=== PATIENT | female | born 1990 | race Caucasian/White ===

== ENCOUNTER 2020-07-21 08:12 | Outpatient (REF) | payer MEDICAID, SELFPAY ==
[2020-07-22 12:54] LABS: CT PCR NOT DETECTED (Not Detect.); NG PCR NOT DETECTED (Not Detect.)
[2020-07-22 13:02] LABS: BV Int Neg Control Negative (Negative); BV Int Pos Control Positive (Positive)
[2020-07-26 19:21] LABS: HPV mRNA E6/E7 rflx Not Detected (Not Detected)
== END 2020-07-21 08:13 | disposition home or self-care (01) ==
LOC: HO.LAB 08:12
PROVIDERS: Visit Provider Advanced Practice Midwife
DX: R10.2 Pelvic and perineal pain (principal); N89.8 Other specified noninflammatory disorders of vagina; N93.9 Abnormal uterine and vaginal bleeding, unspecified
CPT/HCPCS: 87480; 87491; 87510; 87591; 87624; 87625; 87660; 88141; 88142; 99212

== ENCOUNTER 2020-07-25 10:15 | Outpatient (REF) | payer MEDICAID, SELFPAY ==
--- NOTE | 2020-07-25 10:27 | US_ITS ---
EXAMINATION: PELVIC ULTRASOUND CLINICAL INFORMATION: Pelvic and perineal pain COMPARISON: Previous pelvic ultrasounds most recent March 2020 TECHNIQUE: Transabdominal and transvaginal pelvic ultrasound was performed. Transvaginal exam was performed for better visualization of the uterus and ovaries. FINDINGS: The uterus is anteverted and measures 7.2 x 3 x 4.7 cm in dimension. No focal uterine lesion is seen. Endometrial thickness is normal estimated at 0.7 cm. There are small nabothian cysts in the cervix. The ovaries are normal-appearing. The right ovary measures 3.6 x 1.9 x 2.5 cm and the left ovary measures 2.8 x 2 x 2.2 cm. There is no fluid in the pelvis. US/US transvaginal IMPRESSION: Unremarkable exam.
--- NOTE | 2020-07-25 10:27 | US_ITS ---
EXAMINATION: PELVIC ULTRASOUND CLINICAL INFORMATION: Pelvic and perineal pain COMPARISON: Previous pelvic ultrasounds most recent March 2020 TECHNIQUE: Transabdominal and transvaginal pelvic ultrasound was performed. Transvaginal exam was performed for better visualization of the uterus and ovaries. FINDINGS: The uterus is anteverted and measures 7.2 x 3 x 4.7 cm in dimension. No focal uterine lesion is seen. Endometrial thickness is normal estimated at 0.7 cm. There are small nabothian cysts in the cervix. The ovaries are normal-appearing. The right ovary measures 3.6 x 1.9 x 2.5 cm and the left ovary measures 2.8 x 2 x 2.2 cm. There is no fluid in the pelvis. US/US pelvic complete IMPRESSION: Unremarkable exam.
== END 2020-07-25 10:16 | disposition home or self-care (01) ==
LOC: HO.HMGCX 10:15
PROVIDERS: PCP Internal Medicine; Visit Provider Advanced Practice Midwife
DX: R10.2 Pelvic and perineal pain (principal)
CPT/HCPCS: 76830; 76856

== ENCOUNTER → 2020-08-08 10:13 | Outpatient (BNVA) | payer MEDICAID, SELFPAY | PROVIDERS: Visit Provider Advanced Practice Midwife | DX: Z76.89 Persons encountering health services in other specified circumstances (principal) ==

== ENCOUNTER 2020-09-07 10:28 | Outpatient (REF) | payer MEDICAID, SELFPAY | END 2020-09-07 10:29 | disposition home or self-care (01) | LOC: HO.LNP 10:28 | PROVIDERS: PCP Pediatrics; Visit Provider Obstetrics & Gynecology | DX: R87.612 Low grade squamous intraepithelial lesion on cytologic smear of cervix (LGSIL) (principal) | CPT/HCPCS: 57454; 81025; 88305; 99212 ==

== ENCOUNTER → 2020-09-14 15:21 | Outpatient (BNVA) | payer MEDICAID, SELFPAY | PROVIDERS: PCP Pediatrics; Visit Provider Obstetrics & Gynecology | DX: Z76.89 Persons encountering health services in other specified circumstances (principal) ==

== ENCOUNTER → 2020-09-16 14:19 | Outpatient (BNVA) | payer MEDICAID, SELFPAY | PROVIDERS: Visit Provider Obstetrics & Gynecology | DX: Z76.89 Persons encountering health services in other specified circumstances (principal) ==

== ENCOUNTER → 2020-11-10 10:47 | Outpatient (BNVA) | payer MEDICAID, SELFPAY | PROVIDERS: Visit Provider Advanced Practice Midwife ==

== ENCOUNTER → 2021-02-20 09:31 | Outpatient (BNVA) | payer MEDICAID, SELFPAY | PROVIDERS: PCP Internal Medicine; Visit Provider Advanced Practice Midwife | DX: Z30.41 Encounter for surveillance of contraceptive pills (principal) | CPT/HCPCS: 99212 ==

== ENCOUNTER 2021-03-31 13:11 | Outpatient (REF) | payer MEDICAID, SELFPAY ==
[2021-03-31 14:18] LABS: Cholesterol 162 mg/dL; HDL Cholesterol 67 mg/dL; LDL Cholesterol Calculated 78 mg/dl; Triglycerides 88 mg/dL
[2021-03-31 14:27] LABS: Estimated Average Glucose 108 mg/dL; Hemoglobin A1c % 5.4 %
== END 2021-03-31 13:12 | disposition home or self-care (01) ==
LOC: HO.LAB 13:11
PROVIDERS: PCP Internal Medicine; Visit Provider Psychiatry & Neurology Psychiatry
DX: Z79.899 Other long term (current) drug therapy (principal)
CPT/HCPCS: 36415; 80061; 83036

== ENCOUNTER 2022-03-01 10:30 | Outpatient (REF) | payer MEDICAID, SELFPAY ==
[2022-03-01 12:09] LABS: HCG Quantitative 9629 mIU/mL
== END 2022-03-01 10:31 | disposition home or self-care (01) ==
LOC: HO.LAB 10:30
PROVIDERS: PCP Internal Medicine; Visit Provider Advanced Practice Midwife
DX: Z34.90 Encounter for supervision of normal pregnancy, unspecified, unspecified trimester (principal)
CPT/HCPCS: 36415; 84702

== ENCOUNTER 2022-03-02 08:31 | Outpatient (REF) | payer MEDICAID, SELFPAY ==
--- NOTE | ~2022-03-02 | US_ITS ---
EXAMINATION: US OBSTETRICAL ULTRASOUND CLINICAL INFORMATION: Threatened COMPARISON: None. LMP: 01/18/2022. Gestational age by maternal dates is 6 weeks 1 day. Estimated date of delivery by maternal dates is 10/25/2022. TECHNIQUE: Transabdominal and transvaginal first trimester OB ultrasound FINDINGS: The uterus is normal in size and shape. There is an intrauterine gestational sac. Mean sac diameter measures 1.3 cm which would suggest gestational age of 6 weeks 0 days which agrees with date from LMP. No pole is seen. This may be due to early intrauterine . The ovaries are normal. There is no fluid in the pelvis. US/US OB pelvic and transvaginal IMPRESSION: Intrauterine gestational sac and yolk sac. No pole seen. This may be due to early gestational age. Imaging follow-up recommended.
== END 2022-03-02 08:32 | disposition home or self-care (01) ==
LOC: HO.US 08:31
PROVIDERS: Visit Provider Advanced Practice Midwife
DX: O20.0 Threatened abortion (principal)
CPT/HCPCS: 76801; 76817; 99212

== ENCOUNTER 2022-03-08 10:33 | Outpatient (REF) | payer MEDICAID, SELFPAY ==
[2022-03-08 11:47] LABS: HCG Quantitative 45886 mIU/mL
[2022-03-08 21:15] LABS: CT PCR NOT DETECTED (Not Detect.); NG PCR NOT DETECTED (Not Detect.)
== END 2022-03-08 10:34 | disposition home or self-care (01) ==
LOC: HO.LAB 10:33
PROVIDERS: PCP Internal Medicine; Visit Provider Obstetrics & Gynecology
DX: O26.851 Spotting complicating pregnancy, first trimester (principal); Z20.2 Contact with and (suspected) exposure to infections with a predominantly sexual mode of transmission
CPT/HCPCS: 36415; 84702; 86850; 86900; 87491; 87591; 99212

== ENCOUNTER 2022-03-16 10:03 | Outpatient (REF) | payer MEDICAID, SELFPAY ==
--- NOTE | ~2022-03-16 | US_ITS ---
EXAMINATION: OBSTETRICAL ULTRASOUND, FIRST TRIMESTER HISTORY: 31-year-old at the 8.1 weeks of gestation Vaginal spotting LMP: 01/18/2022 COMPARISON: 03/02/2022 TECHNIQUE: Real time transabdominal imaging with color and M-mode Doppler. FINDINGS: A single, live IUP CRL of 1.3 mm c/w 7.4wks is noted. Heart Rate: 150 beats per minute. Both maternal ovaries are seen and appear normal. GESTATIONAL AGE: 1. GA from LMP: 8.1 wks 2. GA from AUA: 7.4 wks ESTIMATED DATE OF DELIVERY: 1. GURJIT from LMP: 10/25/2022 2. GURJIT from AUA: 10/29/2022 US/US OB <= 14 weeks fetus IMPRESSION: 1. A single live IUP 2. Size equals dates 3. Normal ovaries Thank you very much for this referral. This note was generated with a voice recognition program. Please excuse any errors which may have been overlooked during my review of this note. Sometimes these errors may affect the content or meaning of a given sentence.
== END 2022-03-16 10:04 | disposition home or self-care (01) ==
LOC: HO.US 10:03
PROVIDERS: Visit Provider Advanced Practice Midwife
DX: Z34.91 Encounter for supervision of normal pregnancy, unspecified, first trimester (principal); Z3A.08 8 weeks gestation of pregnancy
CPT/HCPCS: 76801; 99212

== ENCOUNTER → 2022-04-02 09:42 | Outpatient (BNVA) | payer MEDICAID, SELFPAY | PROVIDERS: PCP Internal Medicine; Visit Provider Obstetrics & Gynecology | DX: Z32.01 Encounter for pregnancy test, result positive (principal) ==

== ENCOUNTER 2022-04-24 10:38 | Outpatient (REF) | payer MEDICAID, SELFPAY ==
[2022-04-24 13:54] LABS: Hemoglobin 11.1 g/dl (12.0-16.0); Mean Corpuscular HGB Conc 31.7 g/dl (31.0-35.0); Mean Corpuscular Hemoglobin 25.1 pg (27.0-33.0); Mean Platelet Volume 8.9 fL (9.4-12.3); Platelet Count 415 X10*3/uL (160-400); Red Blood Count 4.43 X10*6/uL (4.20-5.50); Red Cell Distribution Width 16.1 % (11.0-16.0); White Blood Count 10.2 X10*3/uL (4.8-10.8)
[2022-04-24 14:20] LABS: Glucose 1 Hour PP 50gm Dose 108 mg/dL (60-140)
[2022-04-24 16:30] LABS: Amphetamine Screen Urine POSITIVE (Not Detect); Barbiturates, Urine Not Detected (Not Detect); Benzodiazepines Screen Urine Not Detected (Not Detect); Cannabinoid Screen Urine Not Detected (Not Detect); Cocaine Screen Urine Not Detected (Not Detect); Fentanyl, urine Not Detected (Not Detect); Opiate Screen Urine Not Detected (Not Detect); Phencyclidine Screen Urine Not Detected (Not Detect)
[2022-04-25 04:52] LABS: HBsAGNum1 0.18 S/CO (0.00-0.99); HIV AB/AG Nonreactive (Nonreactive); HIV Num 1 0.07 S/CO (0.00-0.99); Hepatitis B Surface Antigen Negative (Negative); ~HepC Num1 0.05 S/CO (0.00-0.79); ~Hepatitis C Antibody Nonreactive (Nonreactive)
[2022-04-25 06:00] LABS: Syphilis Screen Nonreactive (Nonreactive)
[2022-04-25 13:08] LABS: BV Int Neg Control Negative (Negative); BV Int Pos Control Positive (Positive)
[2022-04-26 00:37] LABS: Rubella IgG Antibody 1.46 Index
[2022-04-26 01:07] LABS: Varicella IgG Antibody <135.00 index
[2022-05-04 07:27] LABS: HPV mRNA E6/E7 rflx Not Detected (Not Detected)
== END 2022-04-24 10:39 | disposition home or self-care (01) ==
LOC: HO.LAB 10:38
PROVIDERS: Obstetrics & Gynecology; PCP Internal Medicine; Visit Provider Advanced Practice Midwife
DX: Z36.3 Encounter for antenatal screening for malformations (principal); O99.341 Other mental disorders complicating pregnancy, first trimester; F41.8 Other specified anxiety disorders; F44.9 Dissociative and conversion disorder, unspecified; F60.3 Borderline personality disorder; O99.891 Other specified diseases and conditions complicating pregnancy; N87.0 Mild cervical dysplasia; Z3A.13 13 weeks gestation of pregnancy; Z79.899 Other long term (current) drug therapy
CPT/HCPCS: 80307; 85027; 86762; 86780; 86787; 86803; 86850; 86900; 87086; 87340; 87389; 87480; 87510; 87624; 87660; 88142; 99212

== ENCOUNTER → 2022-04-26 11:40 | Outpatient (BNVA) | payer MEDICAID, SELFPAY | PROVIDERS: Visit Provider Obstetrics & Gynecology | DX: Z34.01 Encounter for supervision of normal first pregnancy, first trimester (principal); Z3A.14 14 weeks gestation of pregnancy | CPT/HCPCS: 99212; Q3014 ==

== ENCOUNTER 2022-04-30 16:49 | Outpatient (REF) | payer MEDICAID, SELFPAY | END 2022-04-30 16:50 | disposition home or self-care (01) | LOC: HO.LAB 16:49 | PROVIDERS: Visit Provider Advanced Practice Midwife | DX: Z13.89 Encounter for screening for other disorder (principal) ==

== ENCOUNTER → 2022-12-07 10:08 | Outpatient (REF) | payer MEDICAID, SELFPAY ==
--- NOTE | 2022-12-07 10:12 | CA_ITS ---
Transthoracic Echocardiogram Patient (Last, First, Middle): Megan Mancini, Gender: Female Date of : 1990 Age: 32 Procedure Date: 12/07/2022 Procedure Type: Transthoracic Echocardiogram Location: OP Height: 165.1 cm Weight: 110.99 kg BSA: 2.16 m2 Heart Rate: 87 bpm BP: 112 / 64 mmHg English Language Learner Tutor: SB Referring MD: Joe Maya MD Symptoms: R60.0 LOWER EXT EDEMA Study Quality: Fair ECG Rhythm: Sinus Conclusions: - The left ventricular systolic function is mildly decreased. The calculated ejection fraction is 51% by biplane method. - No obvious valvular pathology seen on this study. Findings Left Ventricle Normal left ventricular cavity size. There is normal left ventricular wall thickness. The left ventricular systolic function is mildly decreased. The calculated ejection fraction is 51% by biplane method. There is no evidence of regional wall motion abnormalities. Diastolic function is normal for age. Right Ventricle Normal right ventricular cavity size and systolic function. Atria Both atria are normal in size. Aortic Valve The aortic valve was not well visualized. The aortic valve structure and function is likely normal. There is no aortic valve stenosis. There is no aortic valve regurgitation. Mitral Valve The mitral valve appears normal. There is no mitral valve regurgitation. There is no mitral valve stenosis. Pulmonic Valve The pulmonic valve is likely normal. Tricuspid Valve There is no tricuspid valve regurgitation. There is no evidence of pulmonary hypertension. Great Vessels The asc aorta and aortic arch are normal in size. Venous The inferior vena cava is normal in size and collapses greater than 50% with inspiration. Pericardium/Pleural There is no evidence of pericardial effusion. Prior Study Comparison No prior study available for comparison. Recommendations, Care & Conclusions No obvious valvular pathology seen on this study. Measurements 2D Linear Measurements IVSd: 0.77 0.6-0.9/0.6-1.0 cm LVIDd: 4.64 3.9-5.3/4.2-5.9 cm LVIDd Index: 2.15 2.4-3.2/2.2-3.1 cm/m2 LVIDs: 3.43 2.0-3.6 cm LVPWd: 0.70 0.7-1.1 cm LA Diam: 3.30 2.7-3.8/3.0-4.0 cm LAIDs Index: 1.53 1.5-2.3 cm/m2 LV Mass: 132.28 67-162/88-224 g LV Mass Index: 61.24 43-95/49-115 g/m2 LVOT Diam: 2.00 3.0+(-)1.3 cm 2D Systolic Function EF 4C: 53.50 >55% EF 2C: 51.20 >55% EF BiP: 50.50 >55% Mitral Valve MV Pk E: 0.56 MV PK A: 0.48 MV Decel Time: 147.00 E/A: 1.20 E'Lateral: 11.60 E'Medial: 9.57 E/E' Med: 5.90 E/E' Lat: 4.80 PHT: 43.00 MVA PHT: 5.12 Decel [place]: 3.82 Aortic Valve AoV Pk Milad: 1.07 AoV Pk Grad: 5.00 KIMBERLEY: 3.08 LVOT LVOT Pk Milad: 0.97 LVOT Mn Milad: 0.71 LVOT VTI: 0.18 LVOT Pk Grad: 4.00 LVOT Mn Grad: 2.00 LVOT Diam: 2.00 LVOT Area: 3.14 Diastolic Function MV Pk E: 0.56 MV Pk A: 0.48 E/A: 1.20 E'Medial: 9.57 E/E' Med: 5.90 E' Laterial: 11.60 E/E' Lat: 4.80 Right Ventricle TAPSE (mm): 19.80 TVS' Milad: 11.80 Tricuspid Valve RA Press: 3.00 Great Vessels Aorta Sinus of Valsalva: 2.80 2.0-3.5 cm Ao Asc: 3.10 2.1-3.4 cm Ao Arch: 2.40 Pulmonary Valve PV Pk Milad: 0.95 Peak PV Grad: 4.00 Updated in Other Vendor System with Status of Final Guerrero Burton MD electronically signed on 12/07/2022 2:41:03 PM with status of Final
== END ==
LOC: HO.CARD 10:08
PROVIDERS: PCP Internal Medicine; Visit Provider Internal Medicine
DX: R60.0 Localized edema (principal)
CPT/HCPCS: 93306

== ENCOUNTER 2022-12-14 10:41 | Outpatient (REF) | payer MEDICAID, SELFPAY ==
--- NOTE | ~2022-12-14 | US_ITS ---
EXAMINATION: US ABDOMEN COMPLETE CLINICAL INFORMATION: Elevated alkaline phosphatase levels. COMPARISON: Ultrasound abdomen complete 06/26/2018. TECHNIQUE: Real-time imaging of the abdominal viscera. FINDINGS: PANCREAS: Normal. ABDOMINAL AORTA: The proximal, mid, and distal segments are normal in caliber. INFERIOR VENA CAVA: Visualized portions are normal. LIVER: Normal. The liver is normal in size. The liver contour is normal. Parenchymal echogenicity is normal. No focal hepatic lesion. There is no intrahepatic biliary duct dilatation seen. GALLBLADDER: Gallbladder wall thickness is 0.20 cm. The gallbladder is physiologically distended. Multiple mobile gallstones are present. No evidence of gallbladder wall thickening or pericholecystic fluid. COMMON BILE DUCT: Normal in caliber measuring 0.4 cm in diameter. RIGHT KIDNEY: There is hypertrophied column of Samuel. No hydronephrosis. No renal calculi or focal parenchymal lesions. The kidney measures 12.2 cm in maximum dimension. LEFT KIDNEY: There are echogenic stones. The lower pole stones measure 0.3 x 0.3 x 0.2 cm and 0.2 x 0.2 x 0.2 cm. Upper pole echogenic stone measures 0.3 x 0.2 x 0.3 cm. No hydronephrosis or focal parenchymal lesions. The kidney measures 10.7 cm in maximum dimension. SPLEEN: Normal. The spleen measures 11.0 cm in maximum dimension. FREE FLUID: None. US/US abdomen complete IMPRESSION: 1. Cholelithiasis without wall thickening. 2. Nonobstructive echogenic calculi left kidney. 3. Hypertrophied column of Samuel.
== END 2022-12-14 10:42 | disposition home or self-care (01) ==
LOC: HO.HMGCX 10:41
PROVIDERS: PCP Internal Medicine; Visit Provider Internal Medicine
DX: R74.8 Abnormal levels of other serum enzymes (principal)
CPT/HCPCS: 76700

== ENCOUNTER → 2022-12-26 10:53 | Outpatient (BNVA) | payer MEDICAID, SELFPAY | PROVIDERS: PCP Internal Medicine; Visit Provider Internal Medicine Cardiovascular Disease | DX: R60.0 Localized edema (principal); R07.89 Other chest pain | CPT/HCPCS: 93005; 99202 ==

== ENCOUNTER 2022-12-27 12:27 | Outpatient (REF) | payer MEDICAID, SELFPAY ==
[2022-12-27 13:27] LABS: B Type Natriuretic Peptide < 10 pg/mL (<100)
== END 2022-12-27 12:28 | disposition home or self-care (01) ==
LOC: HO.LAB 12:27
PROVIDERS: PCP Internal Medicine; Visit Provider Internal Medicine Cardiovascular Disease
DX: R60.0 Localized edema (principal)
CPT/HCPCS: 36415; 83880

== ENCOUNTER → 2023-01-02 09:03 | Outpatient (BNVA) | payer MEDICAID, SELFPAY | PROVIDERS: PCP Internal Medicine; Referring Provider Internal Medicine; Visit Provider Surgery | DX: K80.50 Calculus of bile duct without cholangitis or cholecystitis without obstruction (principal) | CPT/HCPCS: 99202 ==

== ENCOUNTER 2023-01-09 09:46 | Day surgery (SDC) | payer MEDICAID, SELFPAY ==
--- NOTE | 2023-01-08 08:13 | MHC.SHP ---
Pre-Procedural Eval Section A Date of Service: 01/08/23 The patient is an INPATIENT: No Changes since office visit: No Cold of Flu in the past 2 weeks, No New Medical Problems, No Changes in Medication and No Patient answered all questions The History & Physical has been completed within 30 days and I have reviewed it.: Yes Section B Chief Complaint: Calculus of bile duct without cholangitis or tj Allergies: Allergies Allergy/AdvReac Type Severity Reaction Status Date / Time amoxicillin [AMOXICILLIN] Allergy Intermediate HIVES Verified 01/02/23 09:12 Penicillins [PENICILLINS] Allergy Intermediate HIVES Verified 01/02/23 09:12 caffeine [Pamprin Max] Allergy Unknown Unknown Verified 01/02/23 09:12 fluoxetine [Prozac] Allergy Unknown Unknown Verified 01/02/23 09:12 lamotrigine [Lamictal] Allergy Unknown Unknown Verified 01/02/23 09:12 penicillin V Allergy Unknown Unknown Verified 01/02/23 09:12 sertraline [Zoloft] Allergy Unknown Unknown Verified 01/02/23 09:12 Plan I have reviewed the history and physical and performed a pertinent physical examination on my patient. No changes have occurred unless specified. Time Spent With Patient Time: Total time managing care of this patient today ____ minutes.
--- NOTE | 2023-01-08 13:02 | HO.ANESPROP2 ---
HPI - Anesthesia Eval Consult details Narrative: 32yo F for Cholecystectomy Laparoscopic,poss open Cardiac eval 12/2022 for bilat LE edema 2 months post-. Cardiac etiology ruled out and only prn f/u. PMFSH Active Problems Active Problems: All Active Problems (Updated 05/07/22 @ 14:45 by Jesusita Jeff CNM) Recurrent biliary colic (Acute) (Acute) Encounter for screening for malformation using ultrasound (Acute) Dissociative disorder (Acute) Borderline personality disorder (Acute) Anxiety with depression (Acute) Supervision of normal in second trimester (Acute) Spotting in first trimester (Acute) Early stage of (Acute) Encounter for annual routine gynecological examination (Acute) Dysplasia of cervix, low grade (WILBER 1) (Acute) Abnormal uterine bleeding (AUB) (Acute) Pain of ovary (Acute) Pelvic pain in female (Acute) Past Medical History Medical History (Updated 01/15/23 @ 08:42 by Laurent Kasper MD) Anemia Anxiety with depression Borderline personality disorder Dissociative disorder Dysplasia of cervix, low grade (WILBER 1) Edema History of heart disorder Hx of gastroesophageal reflux (GERD) Kidney stones Morbid obesity Nodule of left lung Normal endoscopic ultrasound of upper gastrointestinal tract Family History Family History Family/Other Breast cancer Mother No problems noted. Father Diabetes Maternal Grandmother HTN (hypertension) Surgical History Surgical History (Updated 01/11/23 @ 09:37 by Eugenio Beltran RN) History of dental surgery Hx laparoscopic cholecystectomy Social History Social History Alcohol intake: current Alcohol intake frequency: 0-2 drinks per day Alcohol type: beer and hard liquor Patient Tobacco Use Status: Former Tobacco user Tobacco use type: Cigarette Smoked in Last 30 Days: No Patient Interested in Nicotine Replacement: No Patient Given Instructions on How to Stop Smoking: No Second Hand Smoke Exposure: No Use of substances other than those prescribed or required for medical reasons: No Currently Displaying Signs/Symptoms of Drug Intoxication Withdrawal: No Any prior treatment program specific to substance use: No Special kd needs: No Agree to transfusion: Yes Advance Directives: No Advance Directives Information Provided: No Nutrition Risks: No Nutritional Risk Patient : No service: No Current occupational status: unemployed Sexual orientation: Straight/Heterosexual Gender identity: Female Meds Allergies Allergy/AdvReac Type Severity Reaction Status Date / Time fluoxetine [Prozac] Allergy Severe Unknown Verified 01/12/23 13:36 lamotrigine [Lamictal] Allergy Severe Unknown Verified 01/12/23 13:36 penicillin V Allergy Severe Shortness Verified 01/12/23 13:36 of Breath sertraline [Zoloft] Allergy Severe Agitated Verified 01/12/23 13:36 amoxicillin [AMOXICILLIN] Allergy Intermediate Shortness Verified 01/12/23 13:36 of Breath Penicillins [PENICILLINS] Allergy Intermediate Shortness Verified 01/12/23 13:36 of Breath Home Medications Medication Instructions Recorded Confirmed Last Taken Type bupropion HCl 150 mg 24 hr tablet, 150 mg PO DAILY 12/26/22 01/13/23 01/12/23 History extended release dextroamphetamine-amphetamine ER 40 mg PO DAILY 01/02/23 01/13/23 01/11/23 History 20 mg 24hr capsule,extend release (Adderall XR) acetaminophen 325 mg tablet 325 mg PO Q4H PRN Pain 01/13/23 01/13/23 01/12/23 History (Tylenol) dextroamphetamine-amphetamine 20 1 tab PO DAILY@1600 01/13/23 01/13/23 01/10/23 History mg tablet docusate sodium 100 mg capsule 100 mg PO BID PRN constipation 01/13/23 01/13/23 01/12/23 History miconazole nitrate 2 % topical 1 appl topical DAILY PRN 01/13/23 01/13/23 Unknown History cream oxycodone 5 mg capsule 5 mg PO Q4H PRN pain 01/13/23 01/13/23 01/12/23 History polyethylene glycol 3350 17 17 g PO DAILY 01/13/23 01/13/23 Unknown History gram/dose oral powder vitamin with calcium 1 tab PO DAILY 01/13/23 01/13/23 Unknown History no.72-iron 27 mg-folic acid 1 mg tablet (WesTab Plus) Exam Exam Date and Time: January 08, 2023 1302 Pertinent Lab Results Pertinent Lab Results: 12/23/22 CBC and BMP WNL (from outside facility) Laboratory Tests 12/27/22 12:44 B-Natriuretic Peptide < 10 Narrative Narrative: EKG 12/2022 normal sinus rhythm with normal EKG ECHO 11/2022 Conclusions: - The left ventricular systolic function is mildly decreased.? ? The calculated ejection fraction is 51% by biplane method. ? ? ? - No obvious valvular pathology seen on this study.? Assessment and Plan Assessment Anesthesia Assessment: Chart Reviewed
[2023-01-09] VITALS (25 sets, daily range): BP systolic 117–133; BP diastolic 71–98; PULSE 60–101; RESP 14–22; TEMP 36.3–36.6; O2SAT 94–99; BMI 40.3
[2023-01-09 10:30] LABS: UPreg QC Valid YES; Urine Pregnancy NEGATIVE (NEGATIVE)
--- NOTE | 2023-01-09 10:47 | P.CONAN_ITS ---
[facility] Active Problems Active Problems: All Active Problems (Updated 01/09/23 @ 10:35 by Jannette Romano RN) Pelvic pain in female (Acute) Pain of ovary (Acute) Abnormal uterine bleeding (AUB) (Acute) Encounter for annual routine gynecological examination (Acute) Early stage of (Acute) Spotting in first trimester (Acute) Supervision of normal in second trimester (Acute) Encounter for screening for malformation using ultrasound (Acute) (Acute) Recurrent biliary colic (Acute) Dissociative disorder (Acute) Borderline personality disorder (Acute) Anxiety with depression (Acute) Dysplasia of cervix, low grade (WILBER 1) (Acute) Past Medical History Medical History Anemia Anxiety with depression Borderline personality disorder Dissociative disorder Dysplasia of cervix, low grade (WILBER 1) Edema History of heart disorder Hx of gastroesophageal reflux (GERD) Kidney stones Morbid obesity Nodule of left lung Normal endoscopic ultrasound of upper gastrointestinal tract Family History Family History Family/Other Breast cancer Mother No problems noted. Father Diabetes Maternal Grandmother HTN (hypertension) Surgical History Surgical History History of dental surgery History of Problems with Anesthesia: No Social History Social History Alcohol intake: former Patient Tobacco Use Status: Former Tobacco user Use of substances other than those prescribed or required for medical reasons: No Special kd needs: No Agree to transfusion: Yes Are you DNR?: No Advance Directives: No Advance Directives Information Provided: Yes Recently lost weight without trying: No Nutrition Risks: No Nutritional Risk Sexual orientation: Straight/Heterosexual Gender identity: Female Meds Allergies Allergy/AdvReac Type Severity Reaction Status Date / Time fluoxetine [Prozac] Allergy Severe Unknown Verified 01/09/23 10:24 lamotrigine [Lamictal] Allergy Severe Unknown Verified 01/09/23 10:24 penicillin V Allergy Severe Shortness Verified 01/09/23 10:24 of Breath sertraline [Zoloft] Allergy Severe Agitated Verified 01/09/23 10:24 amoxicillin [AMOXICILLIN] Allergy Intermediate Shortness Verified 01/09/23 10:24 of Breath Penicillins [PENICILLINS] Allergy Intermediate Shortness Verified 01/09/23 10:24 of Breath Active Medications: Current Medications Lactated Ringer's (Lr) 1,000 mls @ 100 mls/hr IVCONT .Q10H LADY Home Medications Medication Instructions Recorded Confirmed Last Taken Type dextroamphetamine-amphetamine 20 40 mg PO DAILY 04/24/22 12/26/22 Unknown History mg tablet (Adderall) bupropion HCl 150 mg 24 hr tablet, 150 mg PO QAM 12/26/22 12/26/22 Unknown History extended release dextroamphetamine-amphetamine ER 20 mg PO QAM 01/02/23 Unknown History 20 mg 24hr capsule,extend release (Adderall XR) nitrofurantoin 1 cap PO BID 01/09/23 01/09/23 01/08/23 History monohydrate/macrocrystals 100 mg capsule Exam Exam Date and Time: January 09, 2023 1047 Height,Weight and Vital Signs: Height 5 ft 5 in Weight 109.769 kg Pertinent Lab Results Pertinent Lab Results: Laboratory Tests 01/09/23 10:17 Urine Test NEGATIVE Airway Mallampati Class: II (edentulous) TM Dist: >3cm Neck ROM: Full Loose/Missing/Broken Teeth: Yes, Upper and Lower Heart: RRR Lungs: CTA Assessment and Plan Assessment Anesthesia Assessment: Anesthesia Plan Discussed and Chart Reviewed Final Anesthetic Review History of Problems with Anesthesia: No NPO: Yes ASA Class: III Final Preanesthetic Review: Meds/Allgs Chart Reviewed, Consent Obtained/Reviewed and Anes Risks/Benef Reviewed Patient Risk: Intermediate Procedure Risk: Intermediate Anesthetic Plan Anesthetic Plan: GA Disposition: Standard PACU
[2023-01-09] MEDS: Lactated Ringers 1,000 ML 100 ML IVCONT (11:05)
--- NOTE | 2023-01-09 12:13 | P.OP_ITS ---
Operative Note Operative Note Date of Service: 01/09/23 Narrative: Preoperative diagnosis: [] Recurrent biliary colic, incarcerated umbilical hernia Postop diagnosis: [] Same Procedure [] laparoscopic cholecystectomy, primary repair of incarcerated umbilical hernia Surgeon: [] Ranjith Pipe Fitter Soft Copper: [] sheila Holloway Type of Anesthesia: [] General Indication for surgery: [] Symptomatic gallstones Findings: [] Moderately corpulent abdomen. Omental adhesions to the gallbladder. Markedly intrahepatic gallbladder. Patient had a known umbilical hernia , incarcerated with omental contents which was used as the umbilical camera port site. This closed primarily at completion of the procedure. Patient brought to the operating room, placed on the operating table supine position, and after an adequate level of general anesthesia was induced, the patient's abdomen which was corpulent was prepped and draped in usual sterile fashion. Using an infraumbilical curvilinear incision, this carried down through skin, subcu tissue, where hernia sac was identified and dissected from the posterior aspect of the umbilicus. Sac was opened were incarcerated omental contents were amputated along with hernia sac using Bovie. Caicedo technique was used with 0 Vicryl stay sutures to enter the abdominal cavity with the camera port, and insufflated the abdominal l cavity to 15 mm of CO2. Upper midline and right subcostal ports were placed under direct laparoscopic view, the patient placed in reverse Trendelenburg position, tilted to the left. Gallbladder was grasped using laparoscopic graspers, and retracted superiorly and laterally. Omental adhesions were swept off the gallbladder was hilum was approach. Common bile duct was identified and preserved throughout the procedure. Cystic duct the cystic artery to defy, circumferentially skeletonized, each traced directly to the gallbladder, and critical view obtained. Each was clipped proximally x2, distally x1, and transected. Gallbladder which was very intrahepatic was then cauterized from the gallbladder fossa using Bovie. Specimen was placed in an Endo-Catch bag, a retrieved through the umbilical port. Abdominal cavity was copiously irrigated and secured hemostasis. All ports were removed under direct laparoscopic view. Wounds were closed in the following manner; umbilical wound which is also the site of the incarcerated umbilical hernia was closed primarily using interrupted 0 Vicryl sutures. Skin wounds were closed using subcuticular 4-0 Vicryl sutures followed by Steri-Strips and sterile dressings. Wounds were infiltrated with 0.5% Marcaine at completion. Sponge, needle, and instrument counts were reported to be correct. Patient tolerated the procedure well and emerged from anesthesia stable condition. EBL minimum
[2023-01-09] MEDS: oxyCODONE HCl Immed Release 5 MG TABLET PO ×2 (12:29→14:08)
[2023-01-09] MEDS: fentaNYL citrate/PF 100 MCG/2 ML VIAL 25 MCG IVPUSH ×4 (12:29→15:22)
[2023-01-09] MEDS: fentaNYL citrate/PF 100 MCG/2 ML VIAL 50 MCG IVPUSH ×3 (13:20→14:16)
== END 2023-01-09 16:58 | disposition home or self-care (01) ==
PROVIDERS: Nurse Practitioner; PCP Internal Medicine; Visit Provider Surgery
PROC: 0FT44ZZ Resection of Gallbladder, Percutaneous Endoscopic Approach (ICD-10-PCS; CPT 47562; principal; 2023-01-09 11:20)
DX: K80.50 Calculus of bile duct without cholangitis or cholecystitis without obstruction (principal); K42.0 Umbilical hernia with obstruction, without gangrene
CPT/HCPCS: 47562; 81025; 88304; J0131; J2250; J3010

== ENCOUNTER 2023-01-12 13:27 | Observation (INO) | payer MEDICAID, SELFPAY ==
[2023-01-12] VITALS (8 sets, daily range): BP systolic 108–125; BP diastolic 64–80; PULSE 94–141; RESP 15–20; TEMP 36.6–37.2; O2SAT 95–98; BMI 40.3
--- NOTE | ~2023-01-12 | CT_ITS ---
EXAMINATION: CT ABDOMEN AND PELVIS WITH CONTRAST CLINICAL INFORMATION: Obstipation. History of laparoscopic cholecystectomy COMPARISON: Ultrasound of abdomen 12/14/2022 TECHNIQUE: Multidetector volumetric images were obtained from the superior aspect of the liver through the pubic symphysis following administration 85 mL of Omnipaque 350 intravenous contrast. Sagittal and coronal reformatted images were obtained on the technologist's workstation. Oral contrast: No This CT examination was performed using dose optimization techniques as appropriate, variously including the following: *Automated exposure control *Adjustment of mA and/or kV according to patient size (this includes techniques or standardized protocols for targeted exams where dose is matched to indication/reason for exam; i.e. extremities or head) *Use of iterative reconstruction technique DLP: 859 mGy-cm FINDINGS: LUNG BASES: Consolidation with air bronchograms at both lung bases. LIVER, GALLBLADDER, AND BILIARY TREE: No focal liver lesion. No intrahepatic bile duct dilatation. Liver is enlarged. Right lobe of liver measures 21 cm superior inferior. Status post hysterectomy. Fluid at the gallbladder bed consistent with history of recent cholecystectomy. No rim-enhancing collection to suggest presence of abscess. A bile leak cannot be excluded on the basis of this exam. If this a clinical concern then a nuclear medicine exam could be considered. PANCREAS: Unremarkable. SPLEEN: Unremarkable. ADRENAL GLANDS: Unremarkable. KIDNEYS AND URETERS: 2 mm nonobstructive stone lower pole of left kidney. No calculus in the right kidney. There is no hydronephrosis. No ureteral stone. BLADDER: Unremarkable. GASTROINTESTINAL TRACT: The small and large bowel are unremarkable. The appendix is nonvisualized. ABDOMINAL WALL: Edema at the umbilicus from the laparoscopic surgery. No abscess or hernia or drainable fluid collection. LYMPH NODES: Normal. VASCULAR: Unremarkable. PELVIC VISCERA: Unremarkable. OSSEOUS STRUCTURES: Unremarkable. CT/CT abdomen pelvis w IV con IMPRESSION: Status post cholecystectomy. Fluid at the gallbladder bed consistent with history of recent cholecystectomy. No rim-enhancing collection to suggest presence of abscess. A bile leak cannot be excluded on the basis of this exam. If this a clinical concern then a nuclear medicine exam could be considered. Fleischner guidelines were followed.
--- NOTE | ~2023-01-12 | XR_ITS ---
EXAMINATION: XR ABDOMEN KUB CLINICAL INDICATION: Abdominal pain, status post abdominal surgery COMPARISON: None available. TECHNIQUE: AP view of the abdomen. FINDINGS: The bowel gas pattern is nonspecific with prominent loops of small bowel and colon in the upper abdomen. Surgical clips are seen in the right upper quadrant of the abdomen. Findings most consistent with postoperative ileus. No unusual soft tissue calcifications are noted. The bones are unremarkable. XR/XR KUB IMPRESSION: Prominent bowel loops in the upper abdomen with postsurgical changes most consistent with postoperative ileus
--- NOTE | ~2023-01-12 | NM_ITS ---
EXAMINATION: BILIARY TRACT IMAGING STUDY-PLANAR AND SPECT IMAGING CLINICAL INDICATION: A 32-year-old female, status post laparoscopic cholecystectomy done on 01/09/2023. Presented with abdominal pain. CT scan of the abdomen and pelvis done on 01/12/2023 showed focal fluid collection within the gallbladder bed. A follow-up HIDA scan is requested to exclude possibility of bile leak. COMPARISON: CT scan of the abdomen and pelvis done on 01/12/2023 and abdominal ultrasound done on 12/14/2022. TECHNIQUE: Scintillation camera images were obtained over the abdomen for an observation of 60 minutes following the intravenous administration of 5.0 millicuries technetium 99m mebrofenin. In addition planar images in anterior, right, left anterior oblique and right lateral positions were also obtained at 60 minutes. Subsequently, SPECT/CT images of the upper abdomen was also performed approximately 4 hours post injection. FINDINGS: There is good concentration of activity in the liver by 5 minutes post injection. Biliary activity is well visualized by 10 minutes, and there is good visualization of small bowel activity by 15 minutes. The gallbladder is surgically absent. Specifically on the delayed planar images obtained at 60 minutes post injection there is a small focal radiotracer accumulation identified in the region of the gallbladder bed when correlating with prior CT scan of the abdomen and pelvis dated 01/12/2023, consistent with small contained biliary leak. No evidence of any free flow of radiotracer around the liver or within the upper abdomen to suspect free leak. The SPECT images do not add any additional information. NM/NM hepatobiliary wo pharm IMPRESSION: 1. Abnormal study. The delayed planar images obtained at 60 minutes post injection shows a small focal collection of radiotracer in the region of the gallbladder bed, when correlating with prior CT scan of the abdomen and pelvis dated 01/12/2023, consistent with small contained biliary leak within the gallbladder fossa. 2. No evidence of any free biliary leak. 3. No evidence of any biliary obstruction. The CBD is widely patent. 4. The liver function appears to be within normal limits. This critical result was discussed with Dr. Kasper at 5:14 PM on 01/14/2023 and it was ascertained that the content and urgency of the report was understood at the time of direct communication.
--- NOTE | 2023-01-12 13:30 | ED.GENADULT ---
HPI - General Adult General Chief complaint: Abdominal Pain <CABRERA Menendez - Last Filed: 01/12/23 13:38> Stated complaint: body pain, constipated, umbilical hernia sx 5/3 <CABRERA Menendez - Last Filed: 01/12/23 13:38> Time Seen by Provider: 01/12/23 13:47 <CABRERA Menendez - Last Filed: 01/12/23 13:38> Source: patient <CABRERA Garcia Last Filed: 01/12/23 16:36> Mode of arrival: ambulatory <CABRERA Garcia Last Filed: 01/12/23 16:36> Limitations: no limitations <CABRERA Garcia Last Filed: 01/12/23 16:36> History of Present Illness HPI narrative: 32-year-old female who POD #3 from laparoscopic cholecystectomy, primary repair of incarcerated umbilical hernia by Dr. Kasper who presents to the ER for evaluation of obstipation and severe abdominal pain that acutely worsened last night. She states after the surgery she was having moderate pain, but able to sleep after taking oxycodone. She was talking milk of mag daily and colace. She states she has not passed any flatus or had a BM since the surgery. She states prior to the surgery she had a very small hard stool the size of a crayon. She reports nausea and regurgitating of food when she tries to eat. She was able to drink 2 bottles of water today. She also reports she had a fever last night 101. She reports increased urinary frequency and very clear urine. She states it feels similar to when she had a kidney infection. She called Dr. Kasper's office who advised her to come to the ER for further evaluation. <CABRERA Garcia - Last Filed: 01/12/23 16:36> MD complaint: constipation, no passing flatus, severe abd pain <CABRERA Garcia Last Filed: 01/12/23 16:36> Onset (ago): day(s) <CABRERA Garcia Last Filed: 01/12/23 16:36> Location: abdomen <CABRERA Garcia Last Filed: 01/12/23 16:36> Radiation: non-radiation <CABRERA Garcia - Last Filed: 01/12/23 16:36> Severity: severe <CABRERA Garcia Last Filed: 01/12/23 16:36> Severity scale (1-10): 10 <CABRERA Garcia Last Filed: 01/12/23 16:36> Quality: stabbing and aching <CABRERA Garcia Last Filed: 01/12/23 16:36> Pain Consistency: constant <CABRERA Garcia Last Filed: 01/12/23 16:36> Relieving factors: immobilization and medication <CABRERA Garcia Last Filed: 01/12/23 16:36> Exacerbating factors: movement <CABRERA Garcia Last Filed: 01/12/23 16:36> Associated symptoms: fever/chills, loss of appetite, malaise, nausea/vomiting and weakness <CABRERA Garcia Last Filed: 01/12/23 16:36> Treatments prior to arrival: other (oxycodone) <CABRERA Garcia Last Filed: 01/12/23 16:36> Related Data Home medications: Home Medications Medication Instructions Recorded Confirmed dextroamphetamine-amphetamine 20 40 mg PO DAILY 04/24/22 12/26/22 mg tablet (Adderall) bupropion HCl 150 mg 24 hr tablet, 150 mg PO QAM 12/26/22 12/26/22 extended release dextroamphetamine-amphetamine ER 20 mg PO QAM 01/02/23 20 mg 24hr capsule,extend release (Adderall XR) nitrofurantoin 1 cap PO BID 01/09/23 01/09/23 monohydrate/macrocrystals 100 mg capsule Previous Rx's Medication Instructions Recorded vitamin with calcium 1 tab PO DAILY 90 days #90 tabs 03/01/22 no.72-iron 27 mg-folic acid 1 mg tablet ( Vitamins Plus Low Iron) oxycodone 5 mg capsule 5 mg PO Q4H PRN pain #30 caps 01/09/23 <CABRERA Menendez Last Filed: 01/12/23 13:38> Allergies/adverse reactions: Allergies Allergy/AdvReac Type Severity Reaction Status Date / Time fluoxetine [Prozac] Allergy Severe Unknown Verified 01/12/23 13:36 lamotrigine [Lamictal] Allergy Severe Unknown Verified 01/12/23 13:36 penicillin V Allergy Severe Shortness Verified 01/12/23 13:36 of Breath sertraline [Zoloft] Allergy Severe Agitated Verified 01/12/23 13:36 amoxicillin [AMOXICILLIN] Allergy Intermediate Shortness Verified 01/12/23 13:36 of Breath Penicillins [PENICILLINS] Allergy Intermediate Shortness Verified 01/12/23 13:36 of Breath <CABRERA Menendez - Last Filed: 01/12/23 13:38> Review of Systems Review of Systems: Yes Unobtainable due to mental status <CABRERA Garcia - Last Filed: 01/12/23 16:36> [facility] Past Medical History Medical History: Medical History (Updated 01/12/23 @ 15:39 by CABRERA Garcia) Anemia Anxiety with depression Borderline personality disorder Dissociative disorder Dysplasia of cervix, low grade (WILBER 1) Edema History of heart disorder Hx of gastroesophageal reflux (GERD) Kidney stones Morbid obesity Nodule of left lung Normal endoscopic ultrasound of upper gastrointestinal tract <CABRERA Menendez - Last Filed: 01/12/23 13:38> Surgical History: Surgical History (Updated 01/11/23 @ 09:37 by Eugenio Beltran RN) History of dental surgery Hx laparoscopic cholecystectomy <CABRERA Menendez - Last Filed: 01/12/23 13:38> Family History Family History: Family History Family/Other Breast cancer Mother No problems noted. Father Diabetes Maternal Grandmother HTN (hypertension) <CABRERA Menendez - Last Filed: 01/12/23 13:38> Social History Social History: Social History Alcohol intake: current Alcohol intake frequency: 0-2 drinks per day Alcohol type: beer and hard liquor Patient Tobacco Use Status: Former Tobacco user Smoked in Last 30 Days: No Use of substances other than those prescribed or required for medical reasons: No Any prior treatment program specific to substance use: No Special kd needs: No Agree to transfusion: Yes Advance Directives: No Advance Directives Information Provided: No Patient : No Sexual orientation: Straight/Heterosexual Gender identity: Female <CABRERA Menendez - Last Filed: 01/12/23 13:38> Physical Exam ED Vital Signs: Vital Signs - 24 hr 01/12/23 13:31 01/12/23 13:46 01/12/23 14:14 Temperature 97.8 F 98.2 F 98.9 F Pulse Rate 141 H 133 H Respiratory Rate 18 20 18 Blood Pressure 117/79 108/74 Pulse Oximetry 97 97 95 Oxygen Delivery Method Room Air Room Air Room Air 01/12/23 14:00 01/12/23 15:04 01/12/23 15:58 Temperature 98.9 F 98.6 F Pulse Rate 95 103 H 94 Respiratory Rate 20 18 16 Blood Pressure 125/80 115/64 118/68 Pulse Oximetry 97 98 97 Oxygen Delivery Method Room Air Room Air Room Air BMI result Body Mass Index 40.3 <CABRERA Menendez - Last Filed: 01/12/23 13:38> Vital Signs - 24 hr 01/12/23 13:31 01/12/23 13:46 01/12/23 14:14 Temperature 97.8 F 98.2 F 98.9 F Pulse Rate 141 H 133 H Respiratory Rate 18 20 18 Blood Pressure 117/79 108/74 Pulse Oximetry 97 97 95 Oxygen Delivery Method Room Air Room Air Room Air 01/12/23 14:00 01/12/23 15:04 01/12/23 15:58 Temperature 98.9 F 98.6 F Pulse Rate 95 103 H 94 Respiratory Rate 20 18 16 Blood Pressure 125/80 115/64 118/68 Pulse Oximetry 97 98 97 Oxygen Delivery Method Room Air Room Air Room Air BMI result Body Mass Index 40.3 <CABRERA Garcia - Last Filed: 01/12/23 16:36> Appearance: Alert. Oriented X3. Appears uncomfortable, pacing around the room Head: normocephalic, atraumatic. Eyes: Pupils equal, round and reactive to light. ENT: Pharynx normal. No tonsillar swelling or exudate. Neck: Normal inspection. Neck supple. CVS: Tachycardic, low 100s. Regular rhythm. Pulses normal. Respiratory: No respiratory distress. Breath sounds normal. Abdomen: laprascopic scars in RUQ and periumbilical area, no surrounding erythema or drainage. Softly distended with diffuse tenderness to palpation with guarding. Hypoactive bowel sounds with bowel sounds only heard in the left lower quadrant, otherwise absent. Skin: Skin warm and dry. Normal skin color. Normal skin turgor. No rashes. Extremities: No lower extremity edema. No joint swelling. Neuro/psych: Oriented X 3. No motor deficit. No sensory deficit. CN II-XII intact. Normal speech and cognition. <CABRERA Garcia Last Filed: 01/12/23 16:36> Course Course Course Narrative: RME: 32yo F w/PMHx laproscopic cholecystectomy & incarcerated umbilical hernia repair on 01/[address] Kasper c/o abdominal pain, N/V, consipation and not passing flatus since surgery. Denies fever Patient tachycardic, Surgical wounds noted to abdomen with overlying Steri-Strips. Abdomen soft diffusely tender, patient appears uncomfortable. EKG, Labs, lactic/blood cultures, CT AP with IV and p.o. contrast, IVF ordered Full HPI, ROS and PE to be performed by primary ED provider. <CABRERA Menendez Last Filed: 01/12/23 13:38> Reevaluation(s) Reevaluation #1: Patient reporting 7/10 abdominal pain after the 1 mg of IV Dilaudid. She is starting to drink the oral contrast and is nauseous. Ordered for another mg of IV Dilaudid and IV Zofran. Will continue monitor. Will update general surgery with results of CT scan. <CABRERA Garcia Last Filed: 01/12/23 16:36> Time: 16:00 <CABRERA Garcia Last Filed: 01/12/23 16:36> Reevaluation #2: Sign-out to Juanis HIGH who will follow-up results of CT scan, follow-up with surgery and determine disposition. <CABRERA Garcia Last Filed: 01/12/23 16:36> Time: 16:36 <CABRERA Garcia Last Filed: 01/12/23 16:36> Consultations Consultation #1: Dr. Juarez. She reviewed KUB, recommending CT scan with p.o. contrast if able to tolerate. <CABRERA Garcia - Last Filed: 01/12/23 16:36> Medications Administered Discontinued Medications Generic Name Dose Route Start Last Admin Trade Name Freq PRN Reason Stop Dose Admin Hydromorphone HCl 1 mg 01/12/23 14:03 01/12/23 14:34 Hydromorphone Hcl 1 Mg/Ml Syringe IVPUSH 01/12/23 14:04 1 mg ONCE ONE Administration Protocol Hydromorphone HCl 1 mg 01/12/23 16:00 01/12/23 16:12 Hydromorphone Hcl 1 Mg/Ml Syringe IVPUSH 01/12/23 16:01 1 mg ONCE ONE Administration Protocol Sodium Chloride 1,000 mls @ 999 mls/hr 01/12/23 13:45 01/12/23 15:57 Ns IV 01/12/23 14:45 Infused .Q1H1M LADY Infusion Lactated Ringer's 1,000 mls @ 999 mls/hr 01/12/23 14:15 01/12/23 15:55 Lr IV 01/12/23 15:15 999 mls/hr .Q1H1M LADY Administration Ondansetron HCl 4 mg 01/12/23 16:00 01/12/23 16:12 Ondansetron Hcl 4 Mg/2 Ml Vial IVPUSH 01/12/23 16:01 4 mg ONCE ONE Administration <CABRERA Menendez - Last Filed: 01/12/23 13:38> Medications Administered Discontinued Medications Generic Name Dose Route Start Last Admin Trade Name Nydia PRN Reason Stop Dose Admin Hydromorphone HCl 1 mg 01/12/23 14:03 01/12/23 14:34 Hydromorphone Hcl 1 Mg/Ml Syringe IVPUSH 01/12/23 14:04 1 mg ONCE ONE Administration Protocol Hydromorphone HCl 1 mg 01/12/23 16:00 01/12/23 16:12 Hydromorphone Hcl 1 Mg/Ml Syringe IVPUSH 01/12/23 16:01 1 mg ONCE ONE Administration Protocol Sodium Chloride 1,000 mls @ 999 mls/hr 01/12/23 13:45 01/12/23 15:57 Ns IV 01/12/23 14:45 Infused .Q1H1M LADY Infusion Lactated Ringer's 1,000 mls @ 999 mls/hr 01/12/23 14:15 01/12/23 15:55 Lr IV 01/12/23 15:15 999 mls/hr .Q1H1M LADY Administration Ondansetron HCl 4 mg 01/12/23 16:00 01/12/23 16:12 Ondansetron Hcl 4 Mg/2 Ml Vial IVPUSH 01/12/23 16:01 4 mg ONCE ONE Administration <CABRERA Garcia - Last Filed: 01/12/23 16:36> Medical Decision Making Medical Decision Making MDM Narrative: 32-year-old female who is postop day 3 from a laparoscopic cholecystectomy and umbilical hernia repair presents to the ER for evaluation of severe abdominal pain, constipation and obstipation. She is not passing flatus and has worsening abdominal pain since last night. She has significantly decreased bowel sounds on examination in her abdomen is diffusely tender. KUB is showing question postop ileus. CT scan with IV and p.o. contrast has been ordered, case discussed with Dr. Juarez. <CABRERA Garcia - Last Filed: 01/12/23 16:36> Differential Diagnosis Differential Diagnoses: The differential diagnosis associated with the presentation includes <CABRERA Garcia Last Filed: 01/12/23 16:36> Ileus, SBO, large bowel pseudo-obstruction, fecal impaction, opiate related constipation, perforated viscus <CABRERA Garcia Last Filed: 01/12/23 16:36> Admission/Observation Consideration of admission/observation: Escalation of care including admission/observation considered <CABRERA Garcia Last Filed: 01/12/23 16:36> multiple doses of IV dilaudid for pain control <CABRERA Garcia Last Filed: 01/12/23 16:36> Consult Healthcare Provider Management of the patient was discussed with: Cmm Technician <CABRERA Garcia Last Filed: 01/12/23 16:36> Dr. Juarez <CABRERA Garcia Last Filed: 01/12/23 16:36> Lab Data [facility] Lab Attestation statement: I reviewed the patient's lab results. <CABRERA Garcia Last Filed: 01/12/23 16:36> Leukocytosis, normal lactic acid <CABRERA Garcia - Last Filed: 01/12/23 16:36> Result Diagrams: 01/12/23 14:29 01/12/23 14:29 <CABRERA Menendez - Last Filed: 01/12/23 13:38> Labs: Lab Results 01/12/23 01/12/23 01/12/23 Range/Units 14:29 14:29 14:29 WBC 19.2 H (4.8-10.8) X10*3/uL RBC 4.31 (4.20-5.50) X10*6/uL Hgb 12.1 (12.0-16.0) g/dl Hct 37.2 (37.0-47.0) % MCV 86.3 (80.0-98.0) fL MCH 28.1 (27.0-33.0) pg MCHC 32.5 (31.0-35.0) g/dl RDW 14.0 (11.0-16.0) % Plt Count 388 (160-400) X10*3/uL MPV 8.7 L (9.4-12.3) fL Immature Gran % (Auto) 0.6 H (0.0-0.4) % Neut % (Auto) 84.1 H (45-73) % Lymph % (Auto) 9.9 L (20-40) % Craig % (Auto) 4.6 (2-11) % Eos % (Auto) 0.5 (0-4) % Baso % (Auto) 0.3 (0-2) % Lymph # (Auto) 1.9 (1.2-4.9) X10*3/uL Craig # (Auto) 0.9 (0.1-1.2) X10*3/uL Eos # (Auto) 0.1 (0.0-0.4) X10*3/uL Baso # (Auto) 0.1 (0.0-0.2) X10*3/uL Abs Immat Gran (auto) 0.11 H (0.00-0.03) X10*3/uL Absolute Neuts (auto) 16.2 H (2.0-8.3) x10*3/uL Absolute Nucleated RBC 0.000 (0.0-0.012) X10*3/uL Nucleated RBC % (auto) 0.0 (0.0-0.2) /100WBC Sodium 139 (135-145) mmol/L Potassium 4.2 (3.3-5.1) mmol/L Chloride 102 (96-108) mmol/L Carbon Dioxide 24 (22-29) mmol/L Anion Gap 17 (12-20) BUN 7 L (9-16) mg/dL Creatinine 0.77 (0.5-1.4) mg/dL Estim Creat Clear Calc 130.5 Estimated GFR > 60 Random Glucose 87 (60-115) mg/dL Lactic Acid 0.7 (0.5-2.0) mmol/L Calcium 9.8 (8.4-10.2) mg/dL Magnesium 2.3 (1.6-2.6) mg/dL Total Bilirubin 0.7 (0.0-1.0) mg/dL Direct Bilirubin 0.3 (0.0-0.5) mg/dL AST 33 H (5-31) U/L ALT 58 H (0-31) U/L Alkaline Phosphatase 142 H (39-117) U/L Total Protein 7.3 (6.5-8.0) g/dL Albumin 4.2 (3.5-5.0) g/dL Lipase 28 (8-78) U/L Beta HCG, Quant < 2 mIU/mL Urine Color Urine Appearance Urine pH (5.0-9.0) Ur Specific [place] (1.005-1.025) Urine Protein (Neg-Trace) mg/dL Urine Glucose (UA) (Negative) mg/dL Urine Ketones (Negative) mg/dL Urine Blood (Negative) Urine Nitrite (Negative) Ur Leukocyte Esterase (Negative) 01/12/23 Range/Units 14:29 WBC (4.8-10.8) X10*3/uL RBC (4.20-5.50) X10*6/uL Hgb (12.0-16.0) g/dl Hct (37.0-47.0) % MCV (80.0-98.0) fL MCH (27.0-33.0) pg MCHC (31.0-35.0) g/dl RDW (11.0-16.0) % Plt Count (160-400) X10*3/uL MPV (9.4-12.3) fL Immature Gran % (Auto) (0.0-0.4) % Neut % (Auto) (45-73) % Lymph % (Auto) (20-40) % Craig % (Auto) (2-11) % Eos % (Auto) (0-4) % Baso % (Auto) (0-2) % Lymph # (Auto) (1.2-4.9) X10*3/uL Craig # (Auto) (0.1-1.2) X10*3/uL Eos # (Auto) (0.0-0.4) X10*3/uL Baso # (Auto) (0.0-0.2) X10*3/uL Abs Immat Gran (auto) (0.00-0.03) X10*3/uL Absolute Neuts (auto) (2.0-8.3) x10*3/uL Absolute Nucleated RBC (0.0-0.012) X10*3/uL Nucleated RBC % (auto) (0.0-0.2) /100WBC Sodium (135-145) mmol/L Potassium (3.3-5.1) mmol/L Chloride (96-108) mmol/L Carbon Dioxide (22-29) mmol/L Anion Gap (12-20) BUN (9-16) mg/dL Creatinine (0.5-1.4) mg/dL Estim Creat Clear Calc Estimated GFR Random Glucose (60-115) mg/dL Lactic Acid (0.5-2.0) mmol/L Calcium (8.4-10.2) mg/dL Magnesium (1.6-2.6) mg/dL Total Bilirubin (0.0-1.0) mg/dL Direct Bilirubin (0.0-0.5) mg/dL AST (5-31) U/L ALT (0-31) U/L Alkaline Phosphatase (39-117) U/L Total Protein (6.5-8.0) g/dL Albumin (3.5-5.0) g/dL Lipase (8-78) U/L Beta HCG, Quant mIU/mL Urine Color Yellow Urine Appearance Clear Urine pH 7.5 (5.0-9.0) Ur Specific [place] <= 1.005 (1.005-1.025) Urine Protein Negative (Neg-Trace) mg/dL Urine Glucose (UA) Negative (Negative) mg/dL Urine Ketones Negative (Negative) mg/dL Urine Blood Negative (Negative) Urine Nitrite Negative (Negative) Ur Leukocyte Esterase Negative (Negative) <CABRERA Menendez - Last Filed: 01/12/23 13:38> Lab Results 01/12/23 01/12/23 01/12/23 Range/Units 14:29 14:29 14:29 WBC 19.2 H (4.8-10.8) X10*3/uL RBC 4.31 (4.20-5.50) X10*6/uL Hgb 12.1 (12.0-16.0) g/dl Hct 37.2 (37.0-47.0) % MCV 86.3 (80.0-98.0) fL MCH 28.1 (27.0-33.0) pg MCHC 32.5 (31.0-35.0) g/dl RDW 14.0 (11.0-16.0) % Plt Count 388 (160-400) X10*3/uL MPV 8.7 L (9.4-12.3) fL Immature Gran % (Auto) 0.6 H (0.0-0.4) % Neut % (Auto) 84.1 H (45-73) % Lymph % (Auto) 9.9 L (20-40) % Craig % (Auto) 4.6 (2-11) % Eos % (Auto) 0.5 (0-4) % Baso % (Auto) 0.3 (0-2) % Lymph # (Auto) 1.9 (1.2-4.9) X10*3/uL Craig # (Auto) 0.9 (0.1-1.2) X10*3/uL Eos # (Auto) 0.1 (0.0-0.4) X10*3/uL Baso # (Auto) 0.1 (0.0-0.2) X10*3/uL Abs Immat Gran (auto) 0.11 H (0.00-0.03) X10*3/uL Absolute Neuts (auto) 16.2 H (2.0-8.3) x10*3/uL Absolute Nucleated RBC 0.000 (0.0-0.012) X10*3/uL Nucleated RBC % (auto) 0.0 (0.0-0.2) /100WBC Sodium 139 (135-145) mmol/L Potassium 4.2 (3.3-5.1) mmol/L Chloride 102 (96-108) mmol/L Carbon Dioxide 24 (22-29) mmol/L Anion Gap 17 (12-20) BUN 7 L (9-16) mg/dL Creatinine 0.77 (0.5-1.4) mg/dL Estim Creat Clear Calc 130.5 Estimated GFR > 60 Random Glucose 87 (60-115) mg/dL Lactic Acid 0.7 (0.5-2.0) mmol/L Calcium 9.8 (8.4-10.2) mg/dL Magnesium 2.3 (1.6-2.6) mg/dL Total Bilirubin 0.7 (0.0-1.0) mg/dL Direct Bilirubin 0.3 (0.0-0.5) mg/dL AST 33 H (5-31) U/L ALT 58 H (0-31) U/L Alkaline Phosphatase 142 H (39-117) U/L Total Protein 7.3 (6.5-8.0) g/dL Albumin 4.2 (3.5-5.0) g/dL Lipase 28 (8-78) U/L Beta HCG, Quant < 2 mIU/mL Urine Color Urine Appearance Urine pH (5.0-9.0) Ur Specific [place] (1.005-1.025) Urine Protein (Neg-Trace) mg/dL Urine Glucose (UA) (Negative) mg/dL Urine Ketones (Negative) mg/dL Urine Blood (Negative) Urine Nitrite (Negative) Ur Leukocyte Esterase (Negative) 01/12/23 Range/Units 14:29 WBC (4.8-10.8) X10*3/uL RBC (4.20-5.50) X10*6/uL Hgb (12.0-16.0) g/dl Hct (37.0-47.0) % MCV (80.0-98.0) fL MCH (27.0-33.0) pg MCHC (31.0-35.0) g/dl RDW (11.0-16.0) % Plt Count (160-400) X10*3/uL MPV (9.4-12.3) fL Immature Gran % (Auto) (0.0-0.4) % Neut % (Auto) (45-73) % Lymph % (Auto) (20-40) % Craig % (Auto) (2-11) % Eos % (Auto) (0-4) % Baso % (Auto) (0-2) % Lymph # (Auto) (1.2-4.9) X10*3/uL Craig # (Auto) (0.1-1.2) X10*3/uL Eos # (Auto) (0.0-0.4) X10*3/uL Baso # (Auto) (0.0-0.2) X10*3/uL Abs Immat Gran (auto) (0.00-0.03) X10*3/uL Absolute Neuts (auto) (2.0-8.3) x10*3/uL Absolute Nucleated RBC (0.0-0.012) X10*3/uL Nucleated RBC % (auto) (0.0-0.2) /100WBC Sodium (135-145) mmol/L Potassium (3.3-5.1) mmol/L Chloride (96-108) mmol/L Carbon Dioxide (22-29) mmol/L Anion Gap (12-20) BUN (9-16) mg/dL Creatinine (0.5-1.4) mg/dL Estim Creat Clear Calc Estimated GFR Random Glucose (60-115) mg/dL Lactic Acid (0.5-2.0) mmol/L Calcium (8.4-10.2) mg/dL Magnesium (1.6-2.6) mg/dL Total Bilirubin (0.0-1.0) mg/dL Direct Bilirubin (0.0-0.5) mg/dL AST (5-31) U/L ALT (0-31) U/L Alkaline Phosphatase (39-117) U/L Total Protein (6.5-8.0) g/dL Albumin (3.5-5.0) g/dL Lipase (8-78) U/L Beta HCG, Quant mIU/mL Urine Color Yellow Urine Appearance Clear Urine pH 7.5 (5.0-9.0) Ur Specific [place] <= 1.005 (1.005-1.025) Urine Protein Negative (Neg-Trace) mg/dL Urine Glucose (UA) Negative (Negative) mg/dL Urine Ketones Negative (Negative) mg/dL Urine Blood Negative (Negative) Urine Nitrite Negative (Negative) Ur Leukocyte Esterase Negative (Negative) <CABRERA Garcia Last Filed: 01/12/23 16:36> Independent Interpretation I performed an independent interpretation of an: EKG, Plain X-Ray and CT Scan <CABRERA Garcia Last Filed: 01/12/23 16:36> Interpretation: KUB with dilated loops of bowel, agree with radiologist's read. EKG - sinus tachycardia, heart rate 113 beats per minute, normal MD interval, normal QTC, no ST segment elevations or depressions. <CABRERA Garcia Last Filed: 01/12/23 16:36> Radiology Impression Discussion of test interpretation with radiology: I have reviewed the radiologist's reading. <CABRERA Garcia Last Filed: 01/12/23 16:36> Radiologist Impression: XR/XR KUB IMPRESSION: Prominent bowel loops in the upper abdomen with postsurgical changes most consistent with postoperative ileus <CABRERA Garcia Last Filed: 01/12/23 16:36> Independent Historian Clinical information obtained from an independent historian. History obtained from or confirmed by: Parent <CABRERA Garcia Last Filed: 01/12/23 16:36> External Record Review External record reviewed: Inpatient record, Office record, Outpatient record, Prior outpatient labs and Prior outpatient radiology <CABRERA Garcia Last Filed: 01/12/23 16:36> Prescription Management I considered prescription management with: Pain Medication and Antibiotic <CABRERA Garcia Last Filed: 01/12/23 16:36> Critical Care Time Critical Care Time Critical Care Time: Yes <CABRERA Garcia Last Filed: 01/12/23 16:36> Total Critical Care Time: 38 <CABRERA Garcia - Last Filed: 01/12/23 16:36> Attestation: I have personally provided critical care time exclusive of time spent on separately billable procedures. Time includes review of lab data, radiology results, discussion with consultants, and monitoring for potential decompensation. Intervention performed as documented. <CABRERA Garcia - Last Filed: 01/12/23 16:36> Discharge Plan Discharge Clinical Impression: Abdominal pain, Constipation <CABRERA Menendez - Last Filed: 01/12/23 13:38> Patient Disposition: Still a Patient <CABRERA Menendez - Last Filed: 01/12/23 13:38> Prescriptions: No Action Vitamin Plus Low Iron 27 mg iron- 1 mg tablet 1 tab PO DAILY 90 Days Qty: 90 1RF nitrofurantoin monohyd/m-cryst 100 mg capsule 1 cap PO BID oxycodone 5 mg capsule 5 mg PO Q4H PRN (Reason: pain) Qty: 30 0RF Rx Instructions: Partial Fill upon patient request. dextroamphetamine-amphetamine [Adderall] 20 mg tablet 40 mg PO DAILY bupropion HCl 150 mg tablet extended release 24 hr 150 mg PO QAM dextroamphetamine-amphetamine [Adderall XR] 20 mg capsule,extended release 24hr 20 mg PO QAM <CABRERA Menendez - Last Filed: 01/12/23 13:38>
--- NOTE | 2023-01-12 13:38 | ECG_ITS ---
Test Reason : tachycradia Blood Pressure : / mmHG Vent. Rate : 113 BPM Atrial Rate : 113 BPM P-R Int : 142 ms QRS Dur : 084 ms QT Int : 326 ms P-R-T Axes : 035 039 014 degrees QTc Int : 447 ms Sinus tachycardia Cannot rule out Anterior infarct , age undetermined Abnormal ECG No previous ECGs available Referred By: Ana Hopkins Electronically Signed By:VARSHA ARGUETA MD
[2023-01-12] MEDS: 0.9 % Sodium Chloride 1,000 ML 999 ML IV (14:34)
[2023-01-12] MEDS: HYDROmorphone HCl 1 MG/ML SYRINGE IVPUSH ×4 (14:34→21:57)
[2023-01-12 14:37] LABS: MANUAL DIFF FLAG NO
[2023-01-12 14:39] LABS: Basophils Absolute Auto 0.1 X10*3/uL (0.0-0.2); Basophils Percent Auto 0.3 % (0-2); Eosinophils Absolute Auto 0.1 X10*3/uL (0.0-0.4); Eosinophils Percent Auto 0.5 % (0-4); Hematocrit 37.2 % (37.0-47.0); Hemoglobin 12.1 g/dl (12.0-16.0); Imm Gran Abs Auto 0.11 X10*3/uL (0.00-0.03); Imm Gran Pct Auto 0.6 % (0.0-0.4); Lymphocytes Absolute Auto 1.9 X10*3/uL (1.2-4.9); Lymphocytes Percent Auto 9.9 % (20-40); Mean Corpuscular HGB Conc 32.5 g/dl (31.0-35.0); Mean Corpuscular Hemoglobin 28.1 pg (27.0-33.0); Mean Corpuscular Volume 86.3 fL (80.0-98.0); Mean Platelet Volume 8.7 fL (9.4-12.3); Monocytes Absolute Auto 0.9 X10*3/uL (0.1-1.2); Monocytes Percent Auto 4.6 % (2-11); Neutrophils Absolute Auto 16.2 x10*3/uL (2.0-8.3); Neutrophils Percent Auto 84.1 % (45-73); Platelet Count 388 X10*3/uL (160-400); Red Blood Count 4.31 X10*6/uL (4.20-5.50); White Blood Count 19.2 X10*3/uL (4.8-10.8)
[2023-01-12 14:40] LABS: Appearance Urine Clear; Color Urine Yellow; Glucose Urine UA Negative (Negative); Leukocyte Esterase Urine Negative (Negative); Nitrite Urine Negative (Negative); PH 7.5 (5.0-9.0); Specific Gravity - Urine <= 1.005 (1.005-1.025); Urine Blood Negative (Negative); Urine Ketones Negative (Negative); Urine Protein Negative (Neg-Trace)
[2023-01-12 14:52] LABS: Lactic Acid 0.7 mmol/L (0.5-2.0)
[2023-01-12 15:04] LABS: Alanine Aminotransferase 58 U/L (0-31); Albumin Level 4.2 g/dL (3.5-5.0); Alkaline Phosphatase 142 U/L (39-117); Anion Gap 17 (12-20); Aspartate Amino Transferase 33 U/L (5-31); Bilirubin Direct 0.3 mg/dL (0.0-0.5); Bilirubin Total 0.7 mg/dL (0.0-1.0); Blood Urea Nitrogen 7 mg/dL (9-16); Calcium 9.8 mg/dL (8.4-10.2); Carbon Dioxide 24 mmol/L (22-29); Chloride 102 mmol/L (96-108); Creatinine Clr Calc Pharmacy 130.5; Estimated Glomerular Filt Rate > 60; Glucose Random 87 mg/dL (60-115); Lipase 28 U/L (8-78); Magnesium 2.3 mg/dL (1.6-2.6); Potassium 4.2 mmol/L (3.3-5.1); Sodium 139 mmol/L (135-145); Total Protein 7.3 g/dL (6.5-8.0)
[2023-01-12 15:13] LABS: HCG Quantitative < 2 mIU/mL
[2023-01-12] MEDS: Lactated Ringers 1,000 ML 999 ML IV (15:55)
[2023-01-12] MEDS: ondansetron HCL 4 MG/2 ML VIAL IVPUSH (16:12)
[2023-01-12] MEDS: iohexoL 350 MG/ML 100 ML INFUS..BTL IV (17:47)
[2023-01-12] MEDS: Diatrizoate Meglumine, Sodium 30 ML SOLUTION PO (17:47)
[2023-01-12] MEDS: 0.9 % Sodium Chloride 1,000 ML 100 ML IVCONT (19:13)
[2023-01-12] MEDS: cefTRIAXone sodium 1 GM in 0.9 % Sodium Chloride 50 ML IV (19:13)
--- NOTE | 2023-01-12 19:54 | PC.NURSE ---
pt reports 06/18 pain continuing with no change, CABRERA Arroyo aware. Awaiting Dr. Juarez at this time
--- NOTE | 2023-01-12 19:58 | PC.NURSE ---
pt refusing fleet enema at this time, would like to speak to doctor first
--- NOTE | 2023-01-12 21:01 | P.HPGS_ITS ---
History of Present Illness History of Present Illness Date of Service: 01/13/23 Chief complaint: Abdo pain Narrative: Megan Mancini is a 32 year old female who had a lap tj with Dr Kasper 4 days ago for abdo pain during diagnosed with gb stones prob biliary colic. she has been having issues also with constipation and not passing gas and stool before requiring go lytely drink. now postop days she has been having increased pain no flatus no bm no vomiting. pain meds not helping. crying by phone so told to come to ER. wbc showed elevated wbc to 19 and mild lft elevation. ct scan done not showing anything remarkable - po and iv contratst.some fluid in gb fossa but not c onvincing for leak. Review of Systems Constitutional: Constitutional: Reports as per HPI Cardiovascular: Cardiovascular: Reports no additional cardiovascular complaints Respiratory: Respiratory: Reports no additional respiratory complaints Gastrointestinal: Gastrointestinal: Reports abdominal pain, Reports constipation, Reports GI cramping, Reports early satiety and Reports nausea Genitourinary: Genitourinary: Reports difficulty voiding Musculoskeletal: Musculoskeletal: Reports no additional musculoskeletal complaints [facility] Past Medical History Medical History (Updated 01/12/23 @ 15:39 by CBARERA Garcia) Anemia Anxiety with depression Borderline personality disorder Dissociative disorder Dysplasia of cervix, low grade (WILBER 1) Edema History of heart disorder Hx of gastroesophageal reflux (GERD) Kidney stones Morbid obesity Nodule of left lung Normal endoscopic ultrasound of upper gastrointestinal tract Family History Family History Family/Other Breast cancer Mother No problems noted. Father Diabetes Maternal Grandmother HTN (hypertension) Surgical History Surgical History (Updated 01/11/23 @ 09:37 by Eugenio Beltran RN) History of dental surgery Hx laparoscopic cholecystectomy Social History Social History Alcohol intake: current Alcohol intake frequency: 0-2 drinks per day Alcohol type: beer and hard liquor Patient Tobacco Use Status: Former Tobacco user Tobacco use type: Cigarette Smoked in Last 30 Days: No Patient Interested in Nicotine Replacement: No Patient Given Instructions on How to Stop Smoking: No Second Hand Smoke Exposure: No Use of substances other than those prescribed or required for medical reasons: No Any prior treatment program specific to substance use: No Special kd needs: No Agree to transfusion: Yes Advance Directives: No Advance Directives Information Provided: No Nutrition Risks: No Nutritional Risk Patient : No service: No Current occupational status: unemployed Sexual orientation: Straight/Heterosexual Gender identity: Female Meds Allergies Allergy/AdvReac Type Severity Reaction Status Date / Time fluoxetine [Prozac] Allergy Severe Unknown Verified 01/12/23 13:36 lamotrigine [Lamictal] Allergy Severe Unknown Verified 01/12/23 13:36 penicillin V Allergy Severe Shortness Verified 01/12/23 13:36 of Breath sertraline [Zoloft] Allergy Severe Agitated Verified 01/12/23 13:36 amoxicillin [AMOXICILLIN] Allergy Intermediate Shortness Verified 01/12/23 13:36 of Breath Penicillins [PENICILLINS] Allergy Intermediate Shortness Verified 01/12/23 13:36 of Breath Active Medications: Current Medications Amphetamine/Dextroamphetamine (Dextroamphetamine/Amphetamine Xr 10 Mg Cap.Er.24h) 40 mg PO DAILY [facility] Bupropion HCl (Bupropion Hcl Xl 150 Mg Tab.Er.24h) 150 mg PO DAILY [facility] Docusate Sodium (Docusate Sodium 100 Mg Capsule) 100 mg PO BID [facility] Hydromorphone HCl (Hydromorphone Hcl 1 Mg/Ml Syringe) 0.5 mg IVPUSH Q4H PRN; Protocol PRN Reason: Pain, Severe (Pain Scale 7-10) Hydromorphone HCl (Hydromorphone Hcl 1 Mg/Ml Syringe) 1 mg IVPUSH Q4H PRN; Protocol PRN Reason: Pain, Severe (Pain Scale 7-10) Sodium Chloride (Ns) 1,000 mls @ 100 mls/hr IVCONT .Q10H [facility] Last Admin: 01/12/23 19:13 Dose: 100 mls/hr Ceftriaxone Sodium 1 gm/ (Sodium Chloride) 50 mls @ 100 mls/hr IV Q12H [facility] Ketorolac Tromethamine (Ketorolac Tromethamine 15 Mg/Ml Vial) 15 mg IVPUSH Q6H PRN PRN Reason: Pain, Moderate(Pain Scale 4-6) Pharmacy Consult (Consult Rx Perform Med Rec) 1 each MISCELLANE ONCE PRN PRN Reason: Consult order Sodium Chloride (0.9 % Sodium Chloride Flush 3 Ml Syringe) 3 ml IVFLUSH QSHIFT [facility] Home Medications Medication Instructions Recorded Confirmed Last Taken Type bupropion HCl 150 mg 24 hr tablet, 150 mg PO DAILY 12/26/22 01/13/23 01/12/23 History extended release dextroamphetamine-amphetamine ER 40 mg PO DAILY 01/02/23 01/13/23 01/11/23 History 20 mg 24hr capsule,extend release (Adderall XR) acetaminophen 325 mg tablet 325 mg PO Q4H PRN Pain 01/13/23 01/13/23 01/12/23 History (Tylenol) dextroamphetamine-amphetamine 20 1 tab PO DAILY@1600 01/13/23 01/13/23 01/10/23 History mg tablet docusate sodium 100 mg capsule 100 mg PO BID PRN constipation 01/13/23 01/13/23 01/12/23 History miconazole nitrate 2 % topical 1 appl topical DAILY PRN 01/13/23 01/13/23 Unknown History cream oxycodone 5 mg capsule 5 mg PO Q4H PRN pain 01/13/23 01/13/23 01/12/23 History polyethylene glycol 3350 17 17 g PO DAILY 01/13/23 01/13/23 Unknown History gram/dose oral powder vitamin with calcium 1 tab PO DAILY 01/13/23 01/13/23 Unknown History no.72-iron 27 mg-folic acid 1 mg tablet (WesTab Plus) Physical Exam Vital Signs: Vital Signs: Last Vital Signs Temp 98.2 F 01/12/23 19:03 Pulse 106 H 01/12/23 19:03 Resp 15 01/12/23 19:03 BP 115/68 01/12/23 19:03 Pulse Ox 95 01/12/23 19:03 O2 Del Method Room Air 01/12/23 19:03 BMI result Body Mass Index 40.3 Const: General: cooperative, acute distress moderate and anxious Nu tritional Appearance: obese HEENT: Other: nonicteric Resp: Effort & Inspection: normal respiratory effort Auscultation: clear to auscultation bilaterally Cardio: Rate: regular rate Rhythm: regular rhythm GI: Other: incisions fine abdo soft hypo bowel sounds tender diffusely no peritoneal signs no hernia noted Inspection: Yes normal to inspection Skin: Other: no jaundice Psych: Appearance: disheveled Mental Status: mental status grossly normal Speech and movement: Normal speech and movement present Affect: Anxious affect present Attitude: cooperative Results Results Labs: Short CBC 01/12/23 Range/Units 14:29 WBC 19.2 H (4.8-10.8) X10*3/uL Hgb 12.1 (12.0-16.0) g/dl Hct 37.2 (37.0-47.0) % Plt Count 388 (160-400) X10*3/uL BMP 01/12/23 14:29 Sodium 139 Potassium 4.2 Chloride 102 Carbon Dioxide 24 BUN 7 L Creatinine 0.77 Calcium 9.8 Liver Function 01/12/23 Range/Units 14:29 Total Bilirubin 0.7 (0.0-1.0) mg/dL Direct Bilirubin 0.3 (0.0-0.5) mg/dL AST 33 H (5-31) U/L ALT 58 H (0-31) U/L Alkaline Phosphatase 142 H (39-117) U/L Albumin 4.2 (3.5-5.0) g/dL Urine 01/12/23 Range/Units 14:29 Urine Color Yellow Urine Appearance Clear Urine pH 7.5 (5.0-9.0) Ur Specific [place] <= 1.005 (1.005-1.025) Urine Protein Negative (Neg-Trace) mg/dL Urine Glucose (UA) Negative (Negative) mg/dL Abdomen CT scan report/results: report reviewed and image reviewed CT scan - pelvis: report reviewed and image reviewed Assessment and Plan (1) Abdominal pain: Status: Acute (2) Constipation: Status: Acute Plan pt 3 days /sp lap tj and umbilical hernia repair with abdo pain, nausea no gas or stool uncomfortable and miserable- wbc elevated but no clear cut source. lfts normal elevated for postop and ct scan not convincing for leak. plan -admit,npo, ivf and repeat labs treat with ceftriaxone and fu blood cx, urine ok do enema - pt with ct po contrast should help move right sided stool material. left colon looks good not too constipated pt understands and agrees with plan Time Spent With Patient Time: Total time managing care of this patient today ____ minutes. Quality Stroke Does the patient have a stroke diagnosis?: No VTE Prior VTE?: No VTE Risk Level:: Surgical - low VTE Device Contraindication: N/A - Device Ordered VTE Drug Contraindication: Treatment Not Indicated Procedures Date of Service Date of Service: 01/12/23
[2023-01-12] MEDS: Ketorolac Tromethamine 15 MG/ML VIAL IVPUSH (21:38)
[2023-01-12] MEDS: Docusate Sodium 100 MG CAPSULE PO (21:57)
--- NOTE | 2023-01-12 22:08 | PC.NURSE ---
pt reporting that pain has been unrelieved by multiple doses of dilaudid. This RN administered Toradol and Dilaudid to see if it would help the pain. Pt is currently resting on stretcher, respirations even and unlabored, skin pwd, alert and oriented x4
--- NOTE | 2023-01-12 22:42 | PC.NURSE ---
called report to overflow, pt going over there with transport at this time
[2023-01-13] MEDS: HYDROmorphone HCl 1 MG/ML SYRINGE IVPUSH ×2 (01:47→13:38)
[2023-01-13] MEDS: oxyCODONE HCl Immed Release 5 MG TABLET 10 MG PO ×3 (03:29→16:40)
[2023-01-13 05:31] LABS: MANUAL DIFF FLAG NO
[2023-01-13 05:35] LABS: Basophils Absolute Auto 0.1 X10*3/uL (0.0-0.2); Basophils Percent Auto 0.4 % (0-2); Eosinophils Absolute Auto 0.2 X10*3/uL (0.0-0.4); Eosinophils Percent Auto 1.7 % (0-4); Hematocrit 32.2 % (37.0-47.0); Hemoglobin 10.1 g/dl (12.0-16.0); Imm Gran Abs Auto 0.05 X10*3/uL (0.00-0.03); Imm Gran Pct Auto 0.4 % (0.0-0.4); Lymphocytes Percent Auto 15.9 % (20-40); Mean Corpuscular HGB Conc 31.4 g/dl (31.0-35.0); Mean Corpuscular Hemoglobin 27.9 pg (27.0-33.0); Mean Platelet Volume 8.9 fL (9.4-12.3); Monocytes Absolute Auto 0.8 X10*3/uL (0.1-1.2); Monocytes Percent Auto 6.8 % (2-11); Neutrophils Absolute Auto 9.3 x10*3/uL (2.0-8.3); Neutrophils Percent Auto 74.8 % (45-73); Platelet Count 306 X10*3/uL (160-400); Red Blood Count 3.62 X10*6/uL (4.20-5.50); White Blood Count 12.4 X10*3/uL (4.8-10.8)
[2023-01-13 05:55] LABS: Alanine Aminotransferase 41 U/L (0-31); Albumin Level 3.4 g/dL (3.5-5.0); Alkaline Phosphatase 121 U/L (39-117); Anion Gap 14 (12-20); Aspartate Amino Transferase 24 U/L (5-31); Bilirubin Total 0.5 mg/dL (0.0-1.0); Blood Urea Nitrogen 8 mg/dL (9-16); Calcium 8.9 mg/dL (8.4-10.2); Carbon Dioxide 25 mmol/L (22-29); Chloride 104 mmol/L (96-108); Creatinine Clr Calc Pharmacy 149.9; Estimated Glomerular Filt Rate > 60; Glucose Random 71 mg/dL (60-115); Sodium 139 mmol/L (135-145); Total Protein 5.9 g/dL (6.5-8.0)
[2023-01-13] MEDS: 0.9 % Sodium Chloride 1,000 ML 100 ML IVCONT ×2 (06:10→13:16)
[2023-01-13] MEDS: cefTRIAXone sodium 1 GM in 0.9 % Sodium Chloride 50 ML IV ×2 (06:21→19:25)
--- NOTE | 2023-01-13 08:58 | PHA.MEDREC ---
Pharmacy Consult ? Medication Reconciliation Pharmacy has completed the medication reconciliation. Spoke to patient to confirm meds. Patient attests to taking Adderall XR 40mg daily and Adderall IR 20mg in the afternoon.
[2023-01-13 09:07] VITALS: BP 120/70; PULSE 96; RESP 16; TEMP 36.8; O2SAT 97
[2023-01-13] MEDS: Docusate Sodium 100 MG CAPSULE PO ×2 (09:07→21:21)
[2023-01-13] MEDS: buPROPion HCl XL 150 MG TAB.ER.24H PO (09:07)
[2023-01-13] MEDS: 0.9 % Sodium Chloride Flush 3 ML SYRINGE IVFLUSH ×2 (09:08)
[2023-01-13] MEDS: Dextroamphetamine/Amphetamine XR 10 MG CAP.ER.24H 40 MG PO (10:09)
[2023-01-13] MEDS: HYDROmorphone HCl 1 MG/ML SYRINGE 0.5 MG IVPUSH (10:16)
[2023-01-13 12:00] VITALS: BP 133/72; PULSE 116; RESP 18; TEMP 37.1; O2SAT 92
--- NOTE | 2023-01-13 12:07 | MHC.CM.PN ---
EMR REVIEWED, PT ADMITTED W/ABD PAIN, CM MET W/PT WHO IS A&OX4, PT REPORTS SHE LIVES BETWEEN HER MOM AND BF'S HOUSE AND IS 4MOS POST , BABY IS WITH THE FATHER WHILE PT IS IN HOSPITAL, PT REPORTS SHE IS INDEP W/ALL CARE, DENIES USE OF DME AND REPORTS SHE WEARS EMBOLISM STOCKING AND HAS HAD SWELLING SINCE SHE WAS FOR SWELLING, PT DENIES HOME SERVICES. PT VERIFIES PCP ON FILE IS CORRECT, PFIZER X2 AND WOULD LIKE TO COMPLETE A HCP PRIOR TO D/C. ANTIC D/C HOME NO SERVICES, PT WILL ARRANGE TRANSPORT
--- NOTE | 2023-01-13 13:47 | MHC.CM.PN ---
PT COMPLETED HCP, PT PROVIDED W/EDUCATIONAL HANDOUT AND HAS NAMED HER MOTHER AMBERLY LEAHY [phone] HER HCA, NO ALTERNATE CHOSEN AT THIS TIME. HCP UPLOADED TO [facility] AND PLACED IN CHART W/PT PERMISSION.
[2023-01-13 16:00] VITALS: BP 135/72; PULSE 112; RESP 18; TEMP 37; O2SAT 99
--- NOTE | 2023-01-13 16:12 | PM.PNGS ---
Subjective Subjective Date of Service: 01/13/23 Interval history: feeling better but still with no bm - didnt do enema last night because tired. hasnt done yet today l Physical Exam Vital Signs: Vital Signs: Last Vital Signs Temp 98.7 F 01/13/23 12:00 Pulse 116 H 01/13/23 12:00 Resp 18 01/13/23 12:00 BP 133/72 01/13/23 12:00 Pulse Ox 92 01/13/23 12:00 O2 Del Method Room Air 01/13/23 12:00 BMI result Body Mass Index 40.3 Const: Other: more comfortable walking around and looks better GI: Other: abdo with better bowel sounds less tender incisions good Objective Data Active Medications Amphetamine/Dextroamphetamine (Dextroamphetamine/Amphetamine Xr 10 Mg Cap.Er.24h) 40 mg PO DAILY [facility] Last Admin: 01/13/23 10:09 Dose: 40 mg Documented By: HEIDI-CECILPE Bupropion HCl (Bupropion Hcl Xl 150 Mg Tab.Er.24h) 150 mg PO DAILY [facility] Last Admin: 01/13/23 09:07 Dose: 150 mg Documented By: KEY Docusate Sodium (Docusate Sodium 100 Mg Capsule) 100 mg PO BID [facility] Last Admin: 01/13/23 09:07 Dose: 100 mg Documented By: KEY Hydromorphone HCl (Hydromorphone Hcl 1 Mg/Ml Syringe) 0.5 mg IVPUSH Q4H PRN; Protocol PRN Reason: Pain, Severe (Pain Scale 7-10) Last Admin: 01/13/23 10:16 Dose: 0.5 mg Documented By: HEIDI-CALIXTO Hydromorphone HCl (Hydromorphone Hcl 1 Mg/Ml Syringe) 1 mg IVPUSH Q4H PRN; Protocol PRN Reason: Pain, Severe (Pain Scale 7-10) Last Admin: 01/13/23 13:38 Dose: 1 mg Documented By: RUIZ Sodium Chloride (Ns) 1,000 mls @ 100 mls/hr IVCONT .Q10H [facility] Last Admin: 01/13/23 13:16 Dose: 100 mls/hr Documented By: RUIZ Ceftriaxone Sodium 1 gm/ (Sodium Chloride) 50 mls @ 100 mls/hr IV Q12H [facility] Last Infusion: 01/13/23 09:08 Dose: 0 mls/hr Documented By: KEY Ketorolac Tromethamine (Ketorolac Tromethamine 15 Mg/Ml Vial) 15 mg IVPUSH Q6H PRN PRN Reason: Pain, Moderate(Pain Scale 4-6) Last Admin: 01/12/23 21:38 Dose: 15 mg Documented By: MARIETTA Oxycodone HCl (Oxycodone Hcl Immed Release 5 Mg Tablet) 10 mg PO Q6H PRN PRN Reason: Pain, Moderate(Pain Scale 4-6) Last Admin: 01/13/23 10:16 Dose: 10 mg Documented By: KEY Pharmacy Consult (Consult Rx Perform Med Rec) 1 each MISCELLANE ONCE PRN PRN Reason: Consult order Sodium Chloride (0.9 % Sodium Chloride Flush 3 Ml Syringe) 3 ml IVFLUSH QSHIFT [facility] Last Admin: 01/13/23 09:08 Dose: 3 ml Documented By: KEY Labs 01/13/23 05:11 01/13/23 05:11 Labs: Laboratory Results - last 24 hr 01/13/23 01/13/23 05:11 05:11 MCV 89.0 MCH 27.9 MCHC 31.4 RDW 14.0 Plt Count 306 MPV 8.9 L Immature Gran % (Auto) 0.4 Neut % (Auto) 74.8 H Lymph % (Auto) 15.9 L [place] % (Auto) 6.8 Eos % (Auto) 1.7 Baso % (Auto) 0.4 Lymph # (Auto) 2.0 [place] # (Auto) 0.8 Eos # (Auto) 0.2 Baso # (Auto) 0.1 Abs Immat Gran (auto) 0.05 H Absolute Neuts (auto) 9.3 H Absolute Nucleated RBC 0.000 Nucleated RBC % (auto) 0.0 Anion Gap 14 Estim Creat Clear Calc 149.9 Estimated GFR > 60 Random Glucose 71 Calcium 8.9 D Total Bilirubin 0.5 AST 24 ALT 41 H Alkaline Phosphatase 121 H Total Protein 5.9 L Albumin 3.4 L Procedures Date of Service Date of Service: 01/13/23 Progress Note: A&P Assessment and plan (1) Abdominal pain: Status: Acute Plan uncertain abdo pain post op but doing better with finally having some flatus and stool and labs better do clear liquids and ivf cont with ceftriaxone until final blood cx, check labs ambulate po pain meds Time Spent With Patient Time: Total time managing care of this patient today ____ minutes. Quality Stroke Does the patient have a stroke diagnosis?: No VTE Prior VTE?: No VTE Risk Level:: Surgical - low VTE Device Contraindication: N/A - Device Ordered VTE Drug Contraindication: Treatment Not Indicated
--- NOTE | 2023-01-13 16:21 | PC.NURSE ---
meds from home addressed with Dr. Seo
[2023-01-13] MEDS: Acetaminophen 1,000 MG/100 ML PIGGYBACK 400 MG IV ×2 (17:09→22:41)
[2023-01-13] MEDS: Multivitamin TABLET 1 TAB PO (17:17)
--- NOTE | 2023-01-13 17:51 | PC.NURSE ---
Patient refused Colette Seo notified
[2023-01-13] MEDS: Amphetamine Mixed Salts 20 MG TABLET PO (18:15)
[2023-01-13] MEDS: Sodium Phosphate,Mono-Dibasic 133 ML ENEMA PR (18:30)
--- NOTE | 2023-01-13 19:31 | PC.NURSE ---
Fleet enema administered,patient reported passing flatus and medium amt of diarrhea,patient would like to eat,Dr. Seo notified
[2023-01-13 19:34] VITALS: BP 125/76; PULSE 111; RESP 20; TEMP 36.3; O2SAT 96
--- NOTE | 2023-01-13 21:42 | PC.NURSE ---
Patient is asking for Ativan to help her relax and sleep,Dr. Seo notified
[2023-01-13] MEDS: LORazepam 2 MG/ML VIAL 1 MG IVPUSH (22:44)
[2023-01-14] VITALS: BP 121/72; PULSE 97; RESP 18; TEMP 36.1; O2SAT 98
[2023-01-14] MEDS: oxyCODONE HCl Immed Release 5 MG TABLET 10 MG PO ×4 (00:12→22:26)
[2023-01-14] MEDS: 0.9 % Sodium Chloride 1,000 ML 100 ML IVCONT (00:14)
[2023-01-14 03:49] VITALS: BP 113/70; PULSE 85; RESP 18; TEMP 36.1; O2SAT 98
[2023-01-14] MEDS: HYDROmorphone HCl 1 MG/ML SYRINGE 0.5 MG IVPUSH (04:14)
[2023-01-14] MEDS: Acetaminophen 1,000 MG/100 ML PIGGYBACK 400 MG IV (05:24)
[2023-01-14] MEDS: cefTRIAXone sodium 1 GM in 0.9 % Sodium Chloride 50 ML IV ×2 (06:41→20:03)
[2023-01-14 06:48] LABS: MANUAL DIFF FLAG NO
[2023-01-14 06:56] LABS: Basophils Absolute Auto 0.1 X10*3/uL (0.0-0.2); Basophils Percent Auto 0.6 % (0-2); Eosinophils Absolute Auto 0.4 X10*3/uL (0.0-0.4); Eosinophils Percent Auto 3.8 % (0-4); Hematocrit 31.8 % (37.0-47.0); Hemoglobin 10.2 g/dl (12.0-16.0); Imm Gran Abs Auto 0.04 X10*3/uL (0.00-0.03); Imm Gran Pct Auto 0.4 % (0.0-0.4); Lymphocytes Absolute Auto 1.6 X10*3/uL (1.2-4.9); Lymphocytes Percent Auto 16.8 % (20-40); Mean Corpuscular HGB Conc 32.1 g/dl (31.0-35.0); Mean Corpuscular Hemoglobin 27.9 pg (27.0-33.0); Mean Corpuscular Volume 86.9 fL (80.0-98.0); Mean Platelet Volume 8.9 fL (9.4-12.3); Monocytes Absolute Auto 0.7 X10*3/uL (0.1-1.2); Monocytes Percent Auto 7.4 % (2-11); Neutrophils Absolute Auto 6.7 x10*3/uL (2.0-8.3); Platelet Count 343 X10*3/uL (160-400); Red Blood Count 3.66 X10*6/uL (4.20-5.50); Red Cell Distribution Width 13.8 % (11.0-16.0); White Blood Count 9.5 X10*3/uL (4.8-10.8)
[2023-01-14 07:12] VITALS: BP 116/62; PULSE 95; RESP 20; TEMP 36.4; O2SAT 95
[2023-01-14 07:28] LABS: Alanine Aminotransferase 33 U/L (0-31); Albumin Level 3.4 g/dL (3.5-5.0); Alkaline Phosphatase 124 U/L (39-117); Anion Gap 15 (12-20); Aspartate Amino Transferase 20 U/L (5-31); Bilirubin Total 0.4 mg/dL (0.0-1.0); Blood Urea Nitrogen 6 mg/dL (9-16); Calcium 8.8 mg/dL (8.4-10.2); Carbon Dioxide 22 mmol/L (22-29); Chloride 106 mmol/L (96-108); Creatinine Clr Calc Pharmacy 152.2; Estimated Glomerular Filt Rate > 60; Glucose Random 99 mg/dL (60-115); Potassium 3.8 mmol/L (3.3-5.1); Sodium 139 mmol/L (135-145); Total Protein 5.9 g/dL (6.5-8.0)
--- NOTE | 2023-01-14 08:43 | PM.PNGS ---
Subjective Subjective Date of Service: 01/14/23 Interval history: Has multiple concerns this morning. Does not feel improved at all. Continues to have pain but mostly in RUQ- reports it is stabbing and sharp and radiates to back. Was given enema over weekend and had a small stool and passed a large amount of flatus. Reports none since. Refused prep as she has not had much PO intake and thinks she is dehydrated and should not take this because she is also and does not want to get more dehydrated. Has not been ambulating. Reports pain is not improved with just tylenol and is frustrated that she was told not to take narcotics. Physical Exam Vital Signs: Vital Signs: Last Vital Signs Temp 97.6 F 01/14/23 07:12 Pulse 95 01/14/23 07:12 Resp 20 01/14/23 07:12 BP 116/62 01/14/23 07:12 Pulse Ox 95 01/14/23 07:12 O2 Del Method Room Air 01/14/23 07:12 BMI result Body Mass Index 40.3 Const: General: comfortable, no acute distress, alert and anxious Orientation/consciousness: patient oriented x3 Resp: Effort & Inspection: normal respiratory effort GI: Inspection: No distended and Yes incision (clean) Palpation (GI): Soft to palpation, Tenderness to palpation present (GI) (mild incisional, moderate RUQ tenderness), no guarding and not rigid Percussion: Yes normal to percussion Skin: General skin exam: no rashes or lesions noted Neuro: General: patient oriented x3 and moves all extremities Objective Data Active Medications Amphetamine/Dextroamphetamine (Dextroamphetamine/Amphetamine Xr 10 Mg Cap.Er.24h) 40 mg PO DAILY [facility] Last Admin: 01/13/23 10:09 Dose: 40 mg Documented By: KEY Amphetamine/Dextroamphetamine (Amphetamine Mixed Salts 20 Mg Tablet) 20 mg PO DAILY@1600 [facility] Last Admin: 01/13/23 18:15 Dose: 20 mg Documented By: ANDRESSA Bupropion HCl (Bupropion Hcl Xl 150 Mg Tab.Er.24h) 150 mg PO DAILY [facility] Last Admin: 01/13/23 09:07 Dose: 150 mg Documented By: KEY Docusate Sodium (Docusate Sodium 100 Mg Capsule) 100 mg PO BID [facility] Last Admin: 01/13/23 21:21 Dose: 100 mg Documented By: ANDRESSA Hydromorphone HCl (Hydromorphone Hcl 1 Mg/Ml Syringe) 0.5 mg IVPUSH Q4H PRN; Protocol PRN Reason: Pain, Severe (Pain Scale 7-10) Last Admin: 01/14/23 04:14 Dose: 0.5 mg Documented By: ROSIO Hydromorphone HCl (Hydromorphone Hcl 1 Mg/Ml Syringe) 1 mg IVPUSH Q4H PRN; Protocol PRN Reason: Pain, Severe (Pain Scale 7-10) Last Admin: 01/13/23 13:38 Dose: 1 mg Documented By: RUIZ Ceftriaxone Sodium 1 gm/ (Sodium Chloride) 50 mls @ 100 mls/hr IV Q12H [facility] Last Infusion: 01/14/23 07:15 Dose: 0 mls/hr Documented By: ROSIO Acetaminophen (Ofirmev) 1,000 mg in 100 mls @ 400 mls/hr IV Q6H [facility] Stop: 01/14/23 11:14 Last Infusion: 01/14/23 05:43 Dose: 0 mls/hr Documented By: ROSIO Lactated Ringer's (Lr) 1,000 mls @ 100 mls/hr IVCONT .Q10H [facility] Multivitamins/Vitamin C (Multivitamin Tablet) 1 tab PO DAILY [facility] Last Admin: 01/13/23 17:17 Dose: 1 tab Documented By: ANDRESSA Oxycodone HCl (Oxycodone Hcl Immed Release 5 Mg Tablet) 10 mg PO Q6H PRN PRN Reason: Pain, Moderate(Pain Scale 4-6) Last Admin: 01/14/23 00:12 Dose: 10 mg Documented By: ROSIO Pharmacy Consult (Consult Rx Perform Med Rec) 1 each MISCELLANE ONCE PRN PRN Reason: Consult order Polyethylene Glycol (Polyethylene Glycol 3350 17 Gm Powd.Pack) 17 gm PO DAILY [facility] Sodium Biphosphate/Sodium Phosphate (Sodium Phosphate,[place]-Dibasic 133 Ml Enema) 133 ml [place] ONCE [facility] Last Admin: 01/13/23 18:30 Dose: 133 ml Documented By: ANDRESSA Sodium Chloride (0.9 % Sodium Chloride Flush 3 Ml Syringe) 3 ml IVFLUSH QSHIFT [facility] Last Admin: 01/14/23 07:43 Dose: Not Given Documented By: TAJ Non-Admin Reason: IV Running Labs 01/14/23 06:02 01/14/23 06:02 Labs: Laboratory Results - last 24 hr 01/14/23 01/14/23 06:02 06:02 MCV 86.9 MCH 27.9 MCHC 32.1 RDW 13.8 Plt Count 343 MPV 8.9 L Immature Gran % (Auto) 0.4 Neut % (Auto) 71.0 Lymph % (Auto) 16.8 L [place] % (Auto) 7.4 Eos % (Auto) 3.8 Baso % (Auto) 0.6 Lymph # (Auto) 1.6 [place] # (Auto) 0.7 Eos # (Auto) 0.4 Baso # (Auto) 0.1 Abs Immat Gran (auto) 0.04 H Absolute Neuts (auto) 6.7 Absolute Nucleated RBC 0.000 Nucleated RBC % (auto) 0.0 Anion Gap 15 Estim Creat Clear Calc 152.2 Estimated GFR > 60 Random Glucose 99 Calcium 8.8 Total Bilirubin 0.4 AST 20 ALT 33 H Alkaline Phosphatase 124 H Total Protein 5.9 L Albumin 3.4 L Microbiology Microbiology Results: Microbiology 01/12/23 14:40 Blood Culture - Preliminary Blood - Venous No growth after 24 hours. 01/12/23 14:29 Blood Culture - Preliminary Blood - Venous No growth after 24 hours. Procedures Date of Service Date of Service: 01/14/23 Progress Note: A&P Assessment and plan (1) Constipation: Status: Acute (2) Abdominal pain: Status: Acute Plan 32 year old female who is a few days s/p lap CCY admitted for abdominal pain, constipation. She reports no improvement in symptoms and c/o severe RUQ pain. Given RUQ pain and tenderness, with leukocytosis and slightly elevated LFTs and reports of fevers upon admission, will obtain HIDA to r/o leak. If this is negative, will advance diet. Pain control as needed. Extensive discussion regarding narcotics and how they can contribute to constipation. She seemed to express understanding but reports her pain is so severe she needs them. Cont IVF, started empirically on IV abx and will continue. Strongly encouraged ambulation of halls to promote GI function. Cont colace, miralax. Time Spent With Patient Time: Total time managing care of this patient today ____ minutes. Quality Stroke Does the patient have a stroke diagnosis?: No VTE Prior VTE?: No VTE Risk Level:: Surgical - low VTE Device Contraindication: N/A - Device Ordered VTE Drug Contraindication: Treatment Not Indicated
[2023-01-14] MEDS: Lactated Ringers 1,000 ML 100 ML IVCONT (09:00)
[2023-01-14] MEDS: Dextroamphetamine/Amphetamine XR 10 MG CAP.ER.24H 40 MG PO (09:10)
[2023-01-14] MEDS: buPROPion HCl XL 150 MG TAB.ER.24H PO (09:13)
[2023-01-14] MEDS: Docusate Sodium 100 MG CAPSULE PO ×2 (09:14→20:06)
[2023-01-14] MEDS: Multivitamin TABLET 1 TAB PO (09:14)
--- NOTE | 2023-01-14 13:29 | MHC.CM.PN ---
PATIENT HAD HIDA SCAN. CM FOLLOWING FOR DC NEEDS PLAN IS CURRENTLY HOME - SELF CARE
[2023-01-14] MEDS: polyethylene glycoL 3350 17 GM POWD.PACK PO (14:08)
[2023-01-14 16:00] VITALS: BP 129/94; PULSE 109; RESP 20; TEMP 36; O2SAT 96
[2023-01-14] MEDS: Amphetamine Mixed Salts 20 MG TABLET PO (17:49)
[2023-01-14] MEDS: Acetaminophen 325 MG TABLET 975 MG PO (17:49)
[2023-01-14] MEDS: Ibuprofen 600 MG TABLET PO (17:49)
[2023-01-14] MEDS: 0.9 % Sodium Chloride Flush 3 ML SYRINGE IVFLUSH ×2 (17:50→20:06)
[2023-01-14 19:26] VITALS: BP 132/72; PULSE 107; RESP 18; TEMP 36.2; O2SAT 94
[2023-01-14] MEDS: HYDROmorphone HCl 1 MG/ML SYRINGE IVPUSH (23:45)
[2023-01-14 23:59] VITALS: BP 118/70; PULSE 104; RESP 18; TEMP 36.1; O2SAT 97
[2023-01-15] VITALS (7 sets, daily range): BP systolic 106–123; BP diastolic 56–75; PULSE 90–103; RESP 16–20; TEMP 36–36.6; O2SAT 93–100
[2023-01-15] MEDS: ondansetron HCL 4 MG/2 ML VIAL IVPUSH ×2 (01:17→12:10)
[2023-01-15] MEDS: LORazepam 2 MG/ML VIAL 1 MG IVPUSH (01:18)
--- NOTE | 2023-01-15 01:57 | PC.NURSE ---
Patient reported feeling nauseous and vomited X 1 after eating ice cream, she also reported increased anxiety. Dr. Kasper was notified and gave a Telephone read back order for 4 mg of Ondansetron and one time dose of 1 mg of Lorazepam. Medications administered as ordered. All questions were answered, pt has no concerns at this time. Will continue to monitor
[2023-01-15] MEDS: oxyCODONE HCl Immed Release 5 MG TABLET 10 MG PO ×4 (04:14→20:21)
[2023-01-15] MEDS: Lactated Ringers 1,000 ML 100 ML IVCONT (04:34)
[2023-01-15] MEDS: cefTRIAXone sodium 1 GM in 0.9 % Sodium Chloride 50 ML IV ×2 (06:15→18:23)
--- NOTE | 2023-01-15 08:39 | P.PNGS_ITS ---
Subjective Subjective Date of Service: 01/15/23 Interval history: Some minimal improvement of right costal/right upper quadrant abdominal pain. Had some BM with magnesium citrate. Still has to manually help with bowel movement because of rectocele Physical Exam Vital Signs: Vital Signs: Last Vital Signs Temp 97.9 F 01/15/23 07:34 Pulse 90 01/15/23 07:34 Resp 20 01/15/23 07:34 BP 123/62 01/15/23 07:34 Pulse Ox 96 01/15/23 07:34 O2 Del Method Room Air 01/15/23 07:34 BMI result Body Mass Index 40.3 GI: Other: Abdomen soft. Minimal right upper quadrant tenderness. Remaining abdomen soft and benign. Wounds clean dry and intact. Objective Data Active Medications Acetaminophen (Acetaminophen 325 Mg Tablet) 975 mg PO Q6H [facility] Last Admin: 01/15/23 04:18 Dose: Not Given Documented By: ALYSA Non-Admin Reason: Patient Refused Amphetamine/Dextroamphetamine (Dextroamphetamine/Amphetamine Xr 10 Mg Cap.Er.24h) 40 mg PO DAILY [facility] Last Admin: 01/14/23 09:10 Dose: 40 mg Documented By: TAJ Amphetamine/Dextroamphetamine (Amphetamine Mixed Salts 20 Mg Tablet) 20 mg PO DAILY@1600 [facility] Last Admin: 01/14/23 17:49 Dose: 20 mg Documented By: TAJ Bupropion HCl (Bupropion Hcl Xl 150 Mg Tab.Er.24h) 150 mg PO DAILY [facility] Last Admin: 01/14/23 09:13 Dose: 150 mg Documented By: TAJ Docusate Sodium (Docusate Sodium 100 Mg Capsule) 100 mg PO BID [facility] Last Admin: 01/14/23 20:06 Dose: 100 mg Documented By: ALYSA Hydromorphone HCl (Hydromorphone Hcl 1 Mg/Ml Syringe) 0.5 mg IVPUSH Q4H PRN; Protocol PRN Reason: Pain, Severe (Pain Scale 7-10) Last Admin: 01/14/23 04:14 Dose: 0.5 mg Documented By: ROSIO Hydromorphone HCl (Hydromorphone Hcl 1 Mg/Ml Syringe) 1 mg IVPUSH Q4H PRN; Protocol PRN Reason: Pain, Severe (Pain Scale 7-10) Last Admin: 01/14/23 23:45 Dose: 1 mg Documented By: ALYSA Ceftriaxone Sodium 1 gm/ (Sodium Chloride) 50 mls @ 100 mls/hr IV Q12H [facility] Last Infusion: 01/15/23 08:07 Dose: 0 mls/hr Documented By: TAJ Lactated Ringer's (Lr) 1,000 mls @ 100 mls/hr IVCONT .Q10H [facility] Last Admin: 01/15/23 04:34 Dose: 100 mls/hr Documented By: ALYSA Ibuprofen (Ibuprofen 600 Mg Tablet) 600 mg PO Q8H [facility] Last Admin: 01/14/23 23:32 Dose: Not Given Documented By: ALYSA Non-Admin Reason: Patient Refused Multivitamins/Vitamin C (Multivitamin Tablet) 1 tab PO DAILY [facility] Last Admin: 01/14/23 09:14 Dose: 1 tab Documented By: TAJ Ondansetron HCl (Ondansetron Hcl 4 Mg/2 Ml Vial) 4 mg IVPUSH Q8H PRN PRN Reason: Nausea and Vomiting Last Admin: 01/15/23 01:17 Dose: 4 mg Documented By: ALYSA Oxycodone HCl (Oxycodone Hcl Immed Release 5 Mg Tablet) 10 mg PO Q4H PRN PRN Reason: Pain, Severe (Pain Scale 7-10) Last Admin: 01/15/23 04:14 Dose: 10 mg Documented By: ALYSA Pharmacy Consult (Consult Rx Perform Med Rec) 1 each MISCELLANE ONCE PRN PRN Reason: Consult order Polyethylene Glycol (Polyethylene Glycol 3350 17 Gm Powd.Pack) 17 gm PO DAILY [facility] Last Admin: 01/14/23 14:08 Dose: 17 gm Documented By: TAJ Sodium Biphosphate/Sodium Phosphate (Sodium Phosphate,[place]-Dibasic 133 Ml Enema) 133 ml [place] ONCE [facility] Last Admin: 01/13/23 18:30 Dose: 133 ml Documented By: ANDRESSA Sodium Chloride (0.9 % Sodium Chloride Flush 3 Ml Syringe) 3 ml IVFLUSH QSHIFT [facility] Last Admin: 01/15/23 07:12 Dose: Not Given Documented By: TAJ Non-Admin Reason: IV Running Labs 01/14/23 06:02 01/14/23 06:02 Microbiology Microbiology Results: Microbiology 01/12/23 14:40 Blood Culture - Preliminary Blood - Venous No growth after 48 hours. 01/12/23 14:29 Blood Culture - Preliminary Blood - Venous No growth after 48 hours. Procedures Date of Service Date of Service: 01/15/23 Progress Note: A&P Assessment and plan (1) Abdominal pain: Status: Acute (2) Constipation: Status: Acute (3) Rectocele: Status: Acute Plan Abdominal pain and chronic constipation and rectocele issues. Encourage incentive spirometry, out of bed/ambulate, purgatives, pain control Time Spent With Patient Time: Total time managing care of this patient today ____ minutes. Quality Stroke Does the patient have a stroke diagnosis?: No VTE Prior VTE?: No VTE Risk Level:: Surgical - low VTE Device Contraindication: N/A - Device Ordered VTE Drug Contraindication: Treatment Not Indicated
[2023-01-15] MEDS: Dextroamphetamine/Amphetamine XR 10 MG CAP.ER.24H 40 MG PO (09:28)
[2023-01-15] MEDS: polyethylene glycoL 3350 17 GM POWD.PACK PO (09:29)
[2023-01-15] MEDS: Acetaminophen 325 MG TABLET 975 MG PO ×2 (09:31→14:30)
[2023-01-15] MEDS: Ibuprofen 600 MG TABLET PO ×2 (09:31→22:41)
[2023-01-15] MEDS: buPROPion HCl XL 150 MG TAB.ER.24H PO (09:32)
[2023-01-15] MEDS: Docusate Sodium 100 MG CAPSULE PO ×2 (09:32→20:20)
[2023-01-15] MEDS: Multivitamin TABLET 1 TAB PO (09:32)
--- NOTE | 2023-01-15 12:43 | MHC.CM.PN ---
NO PLAN FOR DC TODAY. PATIENT VOMITED HER DESERT
[2023-01-15] MEDS: Amphetamine Mixed Salts 20 MG TABLET PO (16:00)
[2023-01-15] MEDS: diphenhydrAMINE HCL 25 MG CAPSULE PO (18:15)
[2023-01-15] MEDS: 0.9 % Sodium Chloride Flush 3 ML SYRINGE IVFLUSH (20:21)
[2023-01-16] MEDS: oxyCODONE HCl Immed Release 5 MG TABLET 10 MG PO ×3 (01:02→11:12)
[2023-01-16 02:54] VITALS: RESP 18
[2023-01-16 02:57] VITALS: BP 110/58; PULSE 102; RESP 16; TEMP 36.4; O2SAT 96
[2023-01-16] MEDS: cefTRIAXone sodium 1 GM in 0.9 % Sodium Chloride 50 ML IV (06:01)
[2023-01-16] MEDS: Dextroamphetamine/Amphetamine XR 10 MG CAP.ER.24H 40 MG PO (07:40)
[2023-01-16] MEDS: Multivitamin TABLET 1 TAB PO (07:40)
[2023-01-16] MEDS: buPROPion HCl XL 150 MG TAB.ER.24H PO (07:41)
[2023-01-16] MEDS: Docusate Sodium 100 MG CAPSULE PO (07:41)
[2023-01-16] MEDS: Acetaminophen 325 MG TABLET 975 MG PO (07:41)
[2023-01-16] MEDS: 0.9 % Sodium Chloride Flush 3 ML SYRINGE IVFLUSH (07:41)
[2023-01-16 07:58] VITALS: BP 129/75; PULSE 98; RESP 18; TEMP 36.6; O2SAT 97
--- NOTE | 2023-01-16 08:16 | P.PNGS_ITS ---
Subjective Subjective Date of Service: 01/16/23 Interval history: Patient has modest improvement over right flank/ right costal symptoms. She tolerated her diet. She had small bowel movement and still needs to manually reduce the rectocele according to the patient to have a bowel movement. Physical Exam Vital Signs: Vital Signs: Last Vital Signs Temp 98 F 01/16/23 07:58 Pulse 98 01/16/23 07:58 Resp 18 01/16/23 07:58 BP 129/75 01/16/23 07:58 Pulse Ox 97 01/16/23 07:58 O2 Del Method Room Air 01/16/23 07:58 BMI result Body Mass Index 40.3 GI: Other: Anicteric. Abdomen soft, wounds clean dry and intact, nontender benign abdomen. Objective Data Active Medications Acetaminophen (Acetaminophen 325 Mg Tablet) 975 mg PO Q6H [facility] Last Admin: 01/16/23 07:41 Dose: 975 mg Documented By: NAS Amphetamine/Dextroamphetamine (Dextroamphetamine/Amphetamine Xr 10 Mg Cap.Er.24h) 40 mg PO DAILY [facility] Last Admin: 01/16/23 07:40 Dose: 40 mg Documented By: NAS Amphetamine/Dextroamphetamine (Amphetamine Mixed Salts 20 Mg Tablet) 20 mg PO DAILY@1600 [facility] Last Admin: 01/15/23 16:00 Dose: 20 mg Documented By: TAJ Bupropion HCl (Bupropion Hcl Xl 150 Mg Tab.Er.24h) 150 mg PO DAILY [facility] Last Admin: 01/16/23 07:41 Dose: 150 mg Documented By: NAS Diphenhydramine HCl (Diphenhydramine Hcl 25 Mg Capsule) 25 mg PO Q6H PRN PRN Reason: Itching Last Admin: 01/15/23 18:15 Dose: 25 mg Documented By: TAJ Docusate Sodium (Docusate Sodium 100 Mg Capsule) 100 mg PO BID [facility] Last Admin: 01/16/23 07:41 Dose: 100 mg Documented By: NAS Hydromorphone HCl (Hydromorphone Hcl 1 Mg/Ml Syringe) 0.5 mg IVPUSH Q4H PRN; Protocol PRN Reason: Pain, Severe (Pain Scale 7-10) Last Admin: 01/14/23 04:14 Dose: 0.5 mg Documented By: ROSIO Hydromorphone HCl (Hydromorphone Hcl 1 Mg/Ml Syringe) 1 mg IVPUSH Q4H PRN; Protocol PRN Reason: Pain, Severe (Pain Scale 7-10) Last Admin: 01/14/23 23:45 Dose: 1 mg Documented By: ALYSA Ceftriaxone Sodium 1 gm/ (Sodium Chloride) 50 mls @ 100 mls/hr IV Q12H [facility] Last Infusion: 01/16/23 06:39 Dose: 0 mls/hr Documented By: ALYSA Ibuprofen (Ibuprofen 600 Mg Tablet) 600 mg PO Q8H [facility] Last Admin: 01/16/23 07:36 Dose: Not Given Documented By: NAS Non-Admin Reason: Patient Refused Multivitamins/Vitamin C (Multivitamin Tablet) 1 tab PO DAILY [facility] Last Admin: 01/16/23 07:40 Dose: 1 tab Documented By: NAS Ondansetron HCl (Ondansetron Hcl 4 Mg/2 Ml Vial) 4 mg IVPUSH Q8H PRN PRN Reason: Nausea and Vomiting Last Admin: 01/15/23 12:10 Dose: 4 mg Documented By: TAJ Oxycodone HCl (Oxycodone Hcl Immed Release 5 Mg Tablet) 10 mg PO Q4H PRN PRN Reason: Pain, Severe (Pain Scale 7-10) Last Admin: 01/16/23 06:02 Dose: 10 mg Documented By: ALYSA Pharmacy Consult (Consult Rx Perform Med Rec) 1 each MISCELLANE ONCE PRN PRN Reason: Consult order Polyethylene Glycol (Polyethylene Glycol 3350 17 Gm Powd.Pack) 17 gm PO DAILY [facility] Last Admin: 01/16/23 07:41 Dose: Not Given Documented By: NAS Non-Admin Reason: Patient Refused Sodium Biphosphate/Sodium Phosphate (Sodium Phosphate,[place]-Dibasic 133 Ml Enema) 133 ml [place] ONCE [facility] Last Admin: 01/13/23 18:30 Dose: 133 ml Documented By: ANDRESSA Sodium Chloride (0.9 % Sodium Chloride Flush 3 Ml Syringe) 3 ml IVFLUSH QSHIFT [facility] Last Admin: 01/16/23 07:41 Dose: 3 ml Documented By: NAS Labs 01/14/23 06:02 01/14/23 06:02 Procedures Date of Service Date of Service: 01/16/23 Progress Note: A&P Assessment and plan (1) Rectocele: Status: Acute (2) Abdominal pain: Status: Acute (3) Constipation: Status: Acute Plan I discussed the patient that she really should consider being discharged home be cause the care she was receiving now can be accomplished as an outpatient. She became very anxious and upset and is not sure she is ready for discharge. I tried to reassure her but patient is quite emotionally labile and challenging. In reviewing the patient's chart, she does have a significant psychiatric history which would explain her behavior. Plan is to encourage diet, ambulate with assistance, incentive spirometry, and tentative plan for discharge later today if feasible. Time Spent With Patient Time: Total time managing care of this patient today ____ minutes. Quality Stroke Does the patient have a stroke diagnosis?: No VTE Prior VTE?: No VTE Risk Level:: Surgical - low VTE Device Contraindication: N/A - Device Ordered VTE Drug Contraindication: Treatment Not Indicated
--- NOTE | 2023-01-16 10:23 | PM.DS ---
DS: Providers Provider Date of Service: 01/16/23 Date of admission: 01/12/23 18:49 Date of discharge: 01/16/23 Primary care physician: Joe Maya MD Admitting clinician: Laurent Kasper Attending physician on admission: Laurent Kasper Attending physician on discharge: Laurent Kasper Discharging clinician: Laurent Kasper DS: Diagnosis Discharge Diagnosis (1) Rectocele: Status: Acute (2) Abdominal pain: Status: Acute (3) Constipation: Status: Acute DS: Summary Status at Discharge Cognitive/behavioral status at discharge: Patient is status post laparoscopic cholecystectomy and incarcerated umbilical hernia repair. She present here because of chronic constipation issues, nonspecific right-sided flank pain, and poor p.o. intake and pain control. Patient was initially evaluated in emergency department underwent extensive workup during hospitalization including CT scan the abdomen pelvis, and HIDA scan. These were essentially within normal limits. Patient has a very significant emotional/psychiatric history. She was quite difficult with the staff as well as with her treating physicians. In the meantime, her vital signs have remained stable. She is advanced to a solid diet. She is passing some flatus and stool which are still somewhat hampered secondary to her rectocele. Exam in particular abdominal exam is benign with a soft abdomen, and wounds clean dry and intact. Patient is ambulating with minimal assistance. Patient is recently and her mother is currently caring for the . Functional status at discharge: independent ambulation Time Spent with Patient Time attestation: Total time managing care of this patient today ____ minutes. Discharge coordination time: Greater than 30 minutes Quality: Safe Use of Opioids Does Pt have an Active Cancer Diagnosis on the Problem List?: No Quality: Stroke Does the patient have a stroke diagnosis?: No Physical Exam Vital Signs: Vital Signs: Last Vital Signs Temp 98 F 01/16/23 07:58 Pulse 98 01/16/23 07:58 Resp 18 01/16/23 07:58 BP 129/75 01/16/23 07:58 Pulse Ox 97 01/16/23 07:58 O2 Del Method Room Air 01/16/23 07:58 BMI result Body Mass Index 40.3 DS: Data Data Completed and Pending Completed studies during hospitalization [Text1]: CT scan, HIDA scan Labs on day of discharge: Preliminary micro results at discharge 01/12/23 14:40 Blood Culture - Preliminary Blood - Venous No growth after 48 hours. 01/12/23 14:29 Blood Culture - Preliminary Blood - Venous No growth after 48 hours. Discharge Plan Discharge Patient Disposition: Home, Self-Care Discharge Diagnosis: Abdominal pain, constipation, rectocele Referrals: Joe Maya MD [Primary Care Provider] - 1 Week Discharge Medications: Continued acetaminophen [Tylenol] 325 mg Tablet 325 mg PO Q4H PRN (Reason: Pain) miconazole nitrate 2 % cream 1 appl topical DAILY PRN (Reason: ) Rx Instructions: apply to nipples dextroamphetamine-amphetamine 20 mg tablet 1 tab PO DAILY@1600 oxycodone 5 mg capsule 5 mg PO Q4H PRN (Reason: pain) docusate sodium 100 mg capsule 100 mg PO BID PRN (Reason: constipation) polyethylene glycol 3350 17 gram/dose powder 17 g PO DAILY WesTab Plus 27 mg iron- 1 mg tablet 1 tab PO DAILY bupropion HCl 150 mg tablet extended release 24 hr 150 mg PO DAILY dextroamphetamine-amphetamine [Adderall XR] 20 mg capsule,extended release 24hr 40 mg PO DAILY Discharge Orders: Discharge Order (Routine); Ordered 01/16/23 Ordered By: Laurent Kasper Diet: Advance to usual diet Activity on Discharge: No heavy lifting Stand Alone Forms: Patient Portal Discharge page Care Plan Goals: Follow-up in surgical clinic in 1-2 weeks. 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
[2023-01-16] MEDS: polyethylene glycoL 3350 17 GM POWD.PACK PO (11:12)
--- NOTE | 2023-01-16 11:14 | MHC.CM.PN ---
PATIENT IS DC HOME - SELF CARE FAMILY AWARE
[2023-01-16 11:33] VITALS: BP 134/74; PULSE 98; RESP 18; TEMP 36.7; O2SAT 96
[2023-01-16 11:40] VITALS: BP 134/74; PULSE 98; RESP 18; TEMP 36.7; O2SAT 96
== END 2023-01-16 14:49 | disposition home or self-care (01) ==
LOC: HO.ED 15:39 → HO.EDOVER 19:14 → HO.S3 01-13 11:20
PROVIDERS: Physician Assistant; Admitting Provider Surgery; Emergency Provider Emergency Medicine; PCP Internal Medicine; Visit Provider Surgery
DX: N81.6 Rectocele (principal); K59.00 Constipation, unspecified; R10.9 Unspecified abdominal pain; R00.0 Tachycardia, unspecified; E66.9 Obesity, unspecified; Z68.41 Body mass index [BMI] 40.0-44.9, adult; Z90.49 Acquired absence of other specified parts of digestive tract; Z79.899 Other long term (current) drug therapy
CPT/HCPCS: 36415; 74018; 74177; 78205; 78226; 78803; 80048; 80053; 80076; 81003; 83605; 83690; 83735; 84702; 85025; 87040; 93005; 96361; 96365; 96366; 96374; 96375; 96376; 99221; 99285; A9537; J0131; J0696; J1170; J1885; J2060; J2405; Q9967

== ENCOUNTER → 2023-01-29 13:26 | Outpatient (BNVA) | payer MEDICAID, SELFPAY | PROVIDERS: PCP Internal Medicine; Visit Provider Surgery | DX: K80.50 Calculus of bile duct without cholangitis or cholecystitis without obstruction (principal) | CPT/HCPCS: 99212 ==

== ENCOUNTER 2023-03-19 17:27 | Inpatient (IN) | payer OTHER, SELFPAY ==
--- OUTSIDE RECORDS SUMMARY | 2023-03-19 17:31 | XMS_ITS | Continuity of Care Document ---
Author Name Unknown Organization [facility] Address [address] [place] [id number] Care Team Providers Care Safety Person Name Role Phone Zulma LEIVA, Joe Primary Care Physician [place] [facility] [place] 06/06/22 - 07/06/[facility] [address] [place] [id number] Allergies, Adverse Reactions, Alerts Substance Reaction Severity Status amoxicillin Active penicillin Active Pamprin ES Multi-Symptom Relief Formula Active PROzac RASH Unknown Active Penelope Active LaMICtal Active Immunizations Given and Recorded Vaccine Date Status Refusal Reason tetanus/diphtheria/pertussis, acel(Tdap) 01/28/17 Given Medications Adderall 20 mg oral tablet 1 tablet = 20 mg, By Mouth, Daily, 0 Refills, Maintenance, 09/18/19 14:10:00 EST, Tablet Start Date: 09/18/19 Status: Ordered Adderall XR 20 mg oral capsule, extended release 2 capsule = 40 mg, By Mouth, Daily in AM, 0 Refills, Maintenance, 09/18/19 14:10:00 EST, ER Capsule Start Date: 09/18/19 Status: Ordered aspirin 81 mg oral tablet, chewable 2 tablet = 162 mg, Chew, Daily at bedtime, # 60 tablet, 6 Refills, Maintenance, 05/07/22 9:41:00 EDT, Chew Tablet, [id number], Partial fill upon patient request if the prescription is for a schedule II opioid drug., 165, cm, 05/07/22... Start Date: 05/07/22 Status: Ordered Prenatabs Rx oral tablet 1 tablet, By Mouth, Daily, # 30 tablet, 11 Refills, Maintenance, 06/05/22 8:47:00 EDT, Tablet, [email or web address] #[id number], Partial fill upon patient request if the prescription is for a schedule II opioid drug., 1 tablet By Mouth Daily, 165, cm, 05/11... Start Date: 06/05/22 Status: Ordered Multivitamins By Mouth, Daily, 0 Refills, Maintenance, 04/23/22 15:47:00 EDT, Partial fill upon patient request if the prescription is for a schedule II opioid drug. Start Date: 04/23/22 Status: Ordered Problem List Condition Confirmation Course Effective Dates Status Health St atus Informant ETOH abuse 1 Confirmed Active ADD (attention deficit disorder) 2 Confirmed Active Bipolar disorder Confirmed Active Borderline personality disorder in adult Confirmed Active Stress at home Confirmed Active History of COVID-19 Confirmed Active Mood disorder Confirmed Active Obesity during Confirmed Active Confirmed Active Severe obesity Confirmed Active 1sts past hx, has been to rehab, no issues at this time, knows not to drink in , advised toreach out to providers or call if feels she needs addtional supportive services in this 2Sees Dr. Granda. Social History Social History Type Response Smoking Status Former smoker, quit more than 30 days ago entered on: 04/23/22 Sex Patient Care team information Personnel Name: Joe Maya MD Address: Address: [address] [place] [id number]
--- OUTSIDE RECORDS SUMMARY | 2023-03-19 17:31 | XMS_ITS | Continuity of Care Document ---
Author Name Unknown Organization [facility] ter Address [address] [place] [address]- Care Team Providers Care Receiving And Processing Supervisor Name Role Phone Zulma LEIVA, Joe Primary Care Physician Encounter [facility] [place] Date(s): 10/07/22 - 10/07/[address] [address] Discharge Disposition: A-D/C Home Attending Physician: Mango LEIVA, Izaiah Pleitez Admitting Physician: Mango LEIVA, Izaiah Pleitez Referring Physician: Mango LEIVA, Izaiah Pleitez Allergies, Adverse Reactions, Alerts Substance Reaction Severity Status amoxicillin Active penicillin Active Pamprin ES Multi-Symptom Relief Formula Active Penelope Active LaMICtal Active PROzac RASH Unknown Active Immunizations Given and Recorded Vaccine Date Status Refusal Reason tetanus/diphtheria/pertussis, acel(Tdap) 07/20/22 Given tetanus/diphtheria/pertussis, acel(Tdap) 01/28/17 Given Medications Adderall 20 mg oral tablet 1 tablet = 20 mg, By Mouth, Daily, 0 Refills, Maintenance, 09/18/19 14:10:00 EST, Tablet Start Date: 09/18/19 Status: Ordered aspirin 81 mg oral tablet, chewable 2 tablet = 162 mg, Chew, Daily at bedtime, # 60 tablet, 6 Refills, Maintenance, 05/07/22 9:41:00 EDT, Chew Tablet, [id number], Partial fill upon patient request if the prescription is for a schedule II opioid drug., 165, cm, 05/07/22... Start Date: 05/07/22 Status: Ordered Prenatabs Rx oral tablet 1 tablet, By Mouth, Daily, # 30 tablet, 11 Refills, Maintenance, 06/05/22 8:47:00 EDT, Tablet, [facility] #[id number], Partial fill upon patient request if the prescription is for a schedule II opioid drug., 1 tablet By Mouth Daily, 165, cm, 05/11... Start Date: 06/05/22 Status: Ordered Problem List Condition Confirmation Course Effective Dates Status Health St atus Informant Anxiety Confirmed Active ADD (attention deficit disorder) 1 Confirmed Active Bipolar disorder Confirmed Active Borderline personality disorder in adult Confirmed Active Depression Confirmed Active Stress at home Confirmed Active History of alcohol abuse Confirmed Active Obesity during Confirmed Active Confirmed Active Severe obesity Confirmed Active 1Sees Dr. Granda. Vital Signs Most recent to oldest [Reference Range]: 1 Weight 118.7 kg (10/07/22 12:18 PM) Oxygen Saturation [94-100 %] 97 % (10/07/22 12:31 PM) Blood Pressure [90-138/55-84 mm Hg] 106/ 73mm Hg (10/07/22 12:31 PM) Respiratory Rate [16-30 br/min] 18 br/mi n (10/07/22 12:31 PM) Temperature [96.8-100.4 DegF] 98.2 DegF (10/07/22 12:18 PM) Blood pressure sites Arm, right (10/07/22 12:31 PM) Dry Weight 118.7 kg (10/07/22 12:18 PM) Social History Social History Type Response Smoking Status Former smoker, quit more than 30 days ago entered on: 04/23/22 Sex Note * Marcelle Horn RN: PERFORM Event Display: Discharge/Transfer Note Hospital Authored Date: [id number] Nursing Discharge Note Entered On: 10/07/2022 13:29 EST Performed On: 10/07/2022 13:28 EST by Marcelle Horn RN Nursing Discharge Note 2 Discharge Time : 10/07/2022 13:28 EST Discharge Level of Care at Discharge : Home/Jail/Foster Care Patient Left Unit Via : Ambulatory Patient Accompanied Off Unit with : Parent DC Instructions Provided & Signed by Pt : Yes Patient Understands D/C Instructions : Yes Patient Instructions Discharge Signed : Yes Did Pt have Specialty Bed or Wound Vac : No Marcelle oHrn RN - 10/07/2022 13:28 EST * Marcelle Horn RN: PERFORM Event Display: Patient Education/Instruction Authored Date: [id number] Inpatient Adult Discharge Instructions [address] [address] Name: DHEERAJ LEAHY : 1990 Visit: 10/07/2022 12:11:00 Current Date: 10/07/2022 13:13 Account: [id number] Inpatient Adult Discharge Instructions We would like to thank you for allowing us to assist you with your healthcare needs. The following includes patient education materials and information regarding your injury/illness. Our entire staffstrives to provide an excellent experience for our patients and their families. PLEASE ENSURE YOU FOLLOW-UP PER THE INSTRUCTIONS BELOW! ?? YOUR OPINION IS IMPORTANT TO US! Please complete the survey you may receive by mail or email. Your feedback will be used to make improvements to the healthcare experiences of our patients and their families. Surveys are administered by [email or web address] ?? If further treatment with your primary care physician or another doctor is recommended, it is important for you to keep the appointment. Call your primary care physician or return to the Emergency Department immediately if your condition worsens, fails to improve, or new symptoms develop. If you need to find a doctor, you can call [facility] [employer] for a referral at [phone] or toll free at [phone]) or log in to [email or web address].. ?? You can view and manage your care through the patient portal or by using a health care ramesh of your choosing. [employer] is a website that allows you to securely view your medical information including your hospital discharge summary, office visit summaries, medications and follow-up visits. You can also request appointments, renew medications, and request access to your medical information using a health care ramesh of your choosing, or just ask a question. You can enroll at [email or web address] or register during your next office visit. You have been discharged from [facility], Patient Care Unit: [id number]. If you have any questions regarding these instructions after you leave, please call us and we will be happy to assist you. [facility] Your Care Team Attending Physician Mango LEIVA, Izaiah Pleitez Tests Performed Below is a partial list of the tests performed during your hospitalization. You may have had other tests and procedures not included in this list. Please discuss all test results with your provider. Primary Care Provider Zulma LEIVA , Joe Advance Directive Health Care Proxy on File No No qualifying data available. Discharge Vitals Temperature: 98.2 DegF Weight: 118.7 kg Respiratory Rate: 18 br/min ?? Systolic Blood Pressure: 106 mm Hg ?? Diastolic Blood Pressure: 73 mm Hg ?? Oxygen Saturation: 97 % ?? Studies Pending All tests and labs ordered during this hospital stay have been completed unless listed below. Please discuss all pending results with your provider listed above in these instructions. ?? No incomplete studies found What to do next Instructions From Your Doctor Discharge Orders Scheduled Follow-Up Appointments Saturday 8:40 AM EST ?? With: Therese Sepulveda DO Where: [facility] [address] [place] [address]- Saturday 8:40 AM EST ?? With: Therese Sepulveda DO Where: [facility] [address] [place] [phone]- Saturday 8:40 AM EST ?? With: Therese Sepulveda DO Where: [facility] [address] [place] [address]- You Need to Schedule the Following Appointments Follow Up with??[facility] [phone] When?? Why: Call office or return to wetu for vaginal bleeding, loss of fluid, contractions, decreased movement Where: Discharge Medications DHEERAJ LEAHY :1990 Visit Date:10/07/2022 Medications: Please continue your medications until treatment is completed or stopped by your provider. Medications not listed below should be discontinued. Discuss any questions related to medications with your provider. What How Much When Why Instructions Next Dose Unchanged Amphetamine- Dextroamphetamine (Adderall 20 mg oral tablet) 1 tab(s) Oral Daily Unchanged Aspirin (aspirin 81 mg oral tablet, chewable) 2 tab(s) Chew Daily at Bedtime Unchanged Multivitamin, (Prenatabs Rx oral tablet) 1 tab(s) Oral Daily Test Results Below is a partial list of the most recent Laboratory test results done prior to this discharge. You may have had other tests and procedures not included in this list. Please discuss all test resultswith your provider. Allergies (NKA means No Known Allergies) PROzac??(RASH) LaMICtal Pamprin ES Multi-Symptom Relief Formula Penelope amoxicillin penicillin Problems Active Problems??(11) ADD (attention deficit disorder)?? Anxiety?? Bipolar disorder?? Borderline personality disorder in adult?? Depression?? History of alcohol abuse?? Obesity during ? Severe obesity?? Stress at home?? Education Materials Below is the list of Educational Leaflet Providered with your Discharge Instructions. Recognizing Labor?? Kick Counts?? Adapting to : Third Trimester?? Valuables and Belongings I fully understand and agree that [facility] accepts no responsibility for all my personal property including clothing, toilet articles, radios, jewelry, dentures, hearing aids, rings, money, or any other property that is in my possession or is brought to me after admission. I understand certain valuables may be placed in a hospital safe for a short period of time. I understand that the hospital is not liable for loss or damage due to accident, fire, or other natural occurrence while said property is in the safe. I accept full responsibility for any personal property that I keep with me, and will not hold the hospital responsible in case of loss or disappearance. I acknowledge that i have been encouraged to send valuables and belongings home. ? Other Discharge Information ? Pulmonary Rehab Status?? Pulmonary Rehab Discharge Status?? Respiratory Rate: 18 br/min ? Common Emergency Awareness Tips IS IT A STROKE? Act FAST and Check for these signs: FACE Does the face look uneven? ARM Does one arm drift down? SPEECH Does their speech sound strange? TIME Call at any sign of stroke ?? Heart Attack Signs Chest discomfort: Most heart attacks involve discomfort in the center of the chest and lasts more than a few minutes, or goes away and comes back. It can feel like uncomfortable pressure, squeezing, fullness or pain. Discomfort in upper body: Symptoms can include pain or discomfort in one or both arms, back, neck, jaw or stomach. Shortness of breath: With or without discomfort. Other signs: Breaking out in a cold sweat, nausea, or lightheaded. Remember, MINUTES DO MATTER. If you experience any of these heart attack warning signs, call to get immediate medical attention! ?? Smoking can increase your chances of developing chronic health problems and can cause harmful effects to other family members in your house. If you smoke, you are strongly encouraged to quit. Please call [facility] [employer] [facility] at [phone] or [phone] ([phone]) or log in to [email or web address] for referrals to smoking cessation programs. ?? The National Suicide Prevention Hotline is available 01/04 if you or someone you know needs to find a reason to keep living. By calling 8-823-572-Catalyze (1157) you'll be connected to a skilled, trained counselor at a crisis center in your area. INPATIENT DISCHARGE INSTRUCTIONS SIGNATURE PAGE DHEERAJ LEAHY Location:[facility] Registration Date and Time:10/07/2022 12:11 [facility] Primary Care Physician: Zulma LEIVA , [facility], I TOSIN DHEERAJ, have received the above patient education materials/instructions and have verbalized understanding. If ambulance or transport services are being used I further acknowledge being given a choice of service. ?? If you need to contact me, please call me at this number: . Patient/Banbury Machine Operator Name: Patient/Banbury Machine Operator Signature: Relationship to Patient: Witness Name/Signature: Date: * Marcelle Horn RN: PERFORM, SIGN, VERIFY Event Display: Patient Education Handout Authored Date: * Marcelle Horn RN: PERFORM Event Display: Patient Education Leaflets Authored Date: Recognizing Labor ?? [address] Recognizing Labor The beginning of labor is the beginning of . You???ll start to feel strong contractions. That???s when the muscles of your uterus tighten up to help push your baby out during . Yes, labor has likely started?? Signs of labor include: ??? Your contractions are getting stronger and more painful instead of weaker. You???ll likely feel them throughout your whole uterus. ??? Your contractions are regular. This means that you feel them about every 5 to 10 minutes. And they are getting closer together. ??? You have pink- colored or blood-streaked fluid from your vagina. ??? You feel that the baby has dropped lower in your pelvis? Your water breaks. It may be a gush or a slow trickle of clear fluid from your vagina. ?? No, it???s likely not real labor?? Signs of false labor include: ??? Your contractions aren???t regular or strong. ??? You feel the contractions only in your lower uterus. ??? Your contractions go away when you walk or change position. ??? Your contractions go away after drinking fluids. ?? When to call your healthcare provider Call your healthcare provider or clinic right away if you notice any of these signs: ??? Fluid fromyour vagina, with or without contractions. ??? Bleeding heavy enough that you need a sanitary pad. ??? You don???t feel your baby moving as much as before. ?? Note Contractions are timed by both of these measures: ??? The length of each contraction from its startto its finish. ??? How far apart the contractions are ???the time between the start of one contraction and the start of the next contraction. ?? Last Reviewed Date: 2022 ?? 0063-7803 [employer]. All rights reserved. This information is not intended as a substitute for professional medical care. Always follow your healthcare professional's instructions. ?? * Marcelle Horn RN: PERFORM Event Display: Patient Education Leaflets Authored Date: [id number] Kick Counts ?? 25401 Kick Counts It???s normal to worry about your baby???s health. Generally, you will feel your baby start to movein your 2nd trimester at around 16 to 24 weeks. Getting to know the pattern of your baby's movements is one way to know what's normal for you and baby. This is called a kick count. Talk with your healthcare provider about kick counts and your specific situation. Always follow your provider's instructions. How to count kicks Here is just one way to do kick counts. Always follow your healthcare provider's instructions. Starting at 28 weeks, count your baby's movements daily. Time how long it takes you to feel 10 kicks, flutters, swishes, or rolls. Ideally, you want to feel at least 10 movements in 2 hours. You will likely feel 10 movements in less time than that. Here are tips for counting kicks: ??? Choose a time when the baby is active, such as after a meal.? Sit comfortably or lie on your side.? The first time the baby moves,??write down??the time.? Count each movement until the baby has moved?? 10??times. This can take from 20 minutes to 2??hours.? If you haven't felt 10 kicks by the end of the second hour, wait a few hours. Then try again. ??? Try to do it at the same time each day. ?? When to call your healthcare provider Follow your provider's instructions about when to call about your baby's movements. Don't hesitate to call if you have concerns. Call your healthcare provider?? right away??if: ??? You do a couple sets of kick counts during the day and your baby moves fewer than 10??times in??2??hours. ??? Your baby moves much less often than on the??days before. ??? You haven't felt your baby move all day. ?? Last Reviewed Date: 2022 ?? [employer]. All rights reserved. This information is not intended as a substitute for professional medical care. Always follow your healthcare professional's instructions. ?? * Marcelle Horn RN: PERFORM Event Display: Patient Education Leaflets Authored Date: [id number] Adapting to : Third Trimester ?? 230[address] Adapting to : Third Trimester Although common during , some discomforts may seem worse in the final weeks. Simple lifestyle changes can help. Take care of yourself. And ask your partner to help out with small tasks. Limiting leg problems Ways to combat leg issues: ??? Wear support hose all day. ??? Don't wear snug shoes or clothes thatbind, such as tight pants and socks with elastic tops. ??? Sit with your feet and legs raised often. ?? Caring for your breasts Tips to follow include: ??? Wash with plain water. Don't use harsh soaps or rubbing alcohol. They may cause dryness. ??? Wear a nursing bra for extra support. It can also hide any leaks from your nipples. ?? Controlling hemorrhoids Ways to prevent hemorrhoids include: ??? Eat foods that are high in fiber. Also exercise and drink enough fluids. This will reduce constipation and hemorrhoids. ??? Sleep and nap on your side. This limits pressure on the veins??of your rectum. ??? Try not to stand or sit for long periods. ?? Controlling back pain As your body changes during , your back must work in new ways. Back pain has many causes. Physical changes in your body can strain your back and its supporting muscles. Also hormones increase during . This can affect how??your muscles and joints work together. All of these changescan lead to pain. Pain may be felt in the upper or lower back. Pain is also common in the pelvis. Some womenhave sciatica. This is pain caused by pressure on the sciatic nerve running down the back of the leg. Ice or heat may help. Your provider may advise massage therapy or a chiropractor. Sleep on your left side with a pillow between your knees. Use a brace or support device. Ask your provider for speci fic tips and exercises to help control your back pain. ?? Tips to help you rest Good rest and sleep will help you feel better. Here are some ideas: ??? Ask your partner to massageyour shoulders, neck, or back. ??? Limit the errands you do each day. ??? Lie down in the afternoonor after work for a few minutes. ??? Take a warm bath before you go to sleep. ??? Drink warm milk or teas without caffeine. ??? Don't drink coffee, black tea, and cola. ?? Stopping heartburn ??? Don't eat spicy, greasy, fried,??or acidic foods. ??? Eat small amounts more often. Eat slowly. ??? Wait 2 hours after eating before lying down. ??? Sleep with your upper body raised 6 inches. ?? Managing mood swings Ways to manage mood swings include: ??? Know that mood changes are normal. ??? Exercise often, but get plenty of rest. ??? Address any concerns and limit stress. Talking to your partner, other women,or your healthcare provider may help. ?? Dealing with urinary frequency Tips to deal with having to urinate often include: ??? Drink plenty of water all day. But if you drink a lot in the evening, you may have to get up more in the night. ??? Limit coffee, black tea, andcola. ?? How daily issues affect your health Many things in your daily life impact your health. This can include transportation, money problems,housing, access to food, and home child care provider. If you can???t get to medical appointments, you may not receive the care you need. When money is tight, it may be difficult to pay for medicines. And living far from a grocery store can make it hard to buy healthy food. If you have concerns in any of these or other areas, talk with your healthcare team. They may know of local resources to assist you. Or they may have a staff person who can help. ?? Last Reviewed Date: 2021 ?? 9741-5313 [employer]. All rights reserved. This information is not intended as a substitute for professional medical care. Always follow your healthcare professional's instructions. ?? Patient Care team information Care Team Personnel Name: Joe Maya MD Position: [facility] Outreach Member Role: PCP Address: Address: [address] [place] [address] Name: Marcelle Horn RN Position: [facility] OB RN Member Role: Patient Care Provider Care Team Related Persons Name: KEYANA HOLLAND Address: home [address] [place] [address] Name: ELTON LEAHY Address: home [address] [address]
--- OUTSIDE RECORDS SUMMARY | 2023-03-19 17:31 | XMS_ITS | Continuity of Care Document ---
Author Name Unknown Organization [facility] Address [address] [place] [address]- Care Team Providers Care Rn Case Mgr Name Role Phone Zulma LEIVA, Joe Primary Care Physician Encounter [facility] Date(s): 04/05/22 - 05/05/[address] [address] Allergies, Adverse Reactions, Alerts Substance Reaction [...] ER Capsule Start Date: 09/18/19 Status: Ordered Multivitamins By Mouth, Daily, 0 Refills, Maintenance, 04/23/22 15:47:00 EDT, Partial fill upon patient request if the prescription is for a schedule II opioid drug. Start Date: 04/23/22 Status: Ordered Problem List Condition Effective Dates Status Health Status Inform ant ETOH abuse(Confirmed) 1 Active ADD (attention deficit disorder)(Confirmed) 2 Active Bipolar disorder(Confirmed) Active Borderline personality disor verenice in adult(Confirmed) Active Mood disorder(Confirmed) Active Severe obesity(Confirmed) Active 1sts past hx, has been to rehab, no issues at this time, knows not to drink in , advised toreach out to providers or call if feels she needs addtional supportive services in this 2Sees Dr. Granda. Social History Social History Type Response Smoking Status Former smoker, quit more than 30 days ago entered on: 04/23/22 Sex Care Team Personnel Name: Zulma LEIVA , Joe Address: [address] [place] [address]
--- OUTSIDE RECORDS SUMMARY | 2023-03-19 17:31 | XMS_ITS | Continuity of Care Document ---
Author Name Unknown Organization [facility] ter Address [address] [place] [address]- Care Team Providers Care Coater Name Role Phone Zulma LEIVA, Joe Primary Care Physician [phone] Encounter [facility] Date(s): 11/18/22 - 11/18/[address] [address] Discharge Disposition: A-D/C Home Attending Physician: Shannan Cheney DO Admitting Physician: Shannan Cheney DO Referring Physician: Shannan Cheney DO Allergies, Adverse Reactions, Alerts Substance Reaction Severity Status amoxicillin Active penicillin Active Pamprin ES Multi-Symptom Relief Formula Active Penelope Active LaMICtal Active PROzac RASH Unknown Active Immunizations Given and Recorded Vaccine Date Status Refusal Reason tetanus/diphtheria/pertussis, acel(Tdap) 07/20/22 Given tetanus/diphtheria/pertussis, acel(Tdap) 01/28/17 Given SARS-CoV-2 (COVID-19) mRNA BNT-162b2 vac 04/08/21 Recorded SARS-CoV-2 (COVID-19) mRNA BNT-162b2 vac 03/13/21 Recorded Meningococcal Conjugate Vaccine 03/31/08 Recorded tetanus-diphtheria toxoids (Td) 08/10/04 Recorded hepatitis B pediatric vaccine 11/18/01 Recorded hepatitis B pediatric vaccine 10/19/98 Recorded hepatitis B pediatric vaccine 09/15/98 Recorded Measles/Mumps/Rubella Virus Vaccine 06/05/98 Recor ded Measles/Mumps/Rubella Virus Vaccine 02/13/93 Recor ded diphtheria/tetanus/pertussis, acel(DTaP) 11/16/96 Recorded Varicella Virus Vaccine 02/13/96 Recorded Not Given Vaccine Date Status Refusal Reason influenza virus vaccine, inactivated 10/25/22 Not Given Patient Refuses Medications Adderall 20 mg oral tablet 1 tablet = 20 mg, By Mouth, Daily, 0 Refills, Maintenance, 09/18/19 14:10:00 EST, Tablet Start Date: 09/18/19 Status: Ordered aspirin 81 mg oral tablet, chewable 2 tablet = 162 mg, Chew, Daily at bedtime, # 60 tablet, 6 Refills, Maintenance, 05/07/22 9:41:00 EDT, Chew Tablet, [facility] #[id number], Partial fill upon patient request if the prescription is for a schedule II opioid drug., albino Butler, 05/07/22... Start Date: 05/07/22 Status: Ordered metroNIDAZOLE 500 mg oral tablet 1 tablet = 500 mg, By Mouth, Every 12 hours, # 14 tablet, 0 Refills, Maintenance, 11/05/22 13:08:00EST, Tablet, [facility] #[id number], Partial fill upon patient request if the prescription is for a schedule II opioid drug., albino Butler, 10/29/22 10... Start Date: 11/05/22 Status: Ordered metroNIDAZOLE 500 mg oral tablet 1 tablet = 500 mg, By Mouth, Every 12 hours, # 14 tablet, 0 Refills, Maintenance, 10/22/22 20:34:00EST, Tablet, [facility] #[id number], Partial fill upon patient request if the prescription is for a schedule II opioid drug., albino Butler, 10/19/22 8:... Start Date: 10/22/22 Stop Date: 10/29/22 Status: Ordered Prenatabs Rx oral tablet 1 tablet, By Mouth, Daily, # 30 tablet, 11 Refills, Maintenance, 06/05/22 8:47:00 EDT, Tablet, [facility] #[id number], Partial fill upon patient request if the prescription is for a schedule II opioid drug., 1 tablet By Mouth Daily, albino Bulter, 05/11... Start Date: 06/05/22 Status: Ordered Slynd 4 mg oral tablet 1 tablet = 4 mg, By Mouth, Daily, # 84 tablet, 3 Refills, Maintenance, 10/26/22 6:46:00 EST, Tablet, [facility] #[id number], Partial fill upon patient request if the prescription is for a schedule II opioid drug., albino Butler, 10/25/22 13:06:00 EST,... Start Date: 10/26/22 Status: Ordered Wellbutrin By Mouth, 0 Refills, Maintenance, 11/18/22 15:07:00 EDT, Partial fill upon patient request if the prescription is for a schedule II opioid drug. Start Date: 11/18/22 Status: Ordered Problem List Condition Confirmation Course [...] Most recent to oldest [Reference Range]: 1 Height 165 cm (11/18/22 3:03 PM) Weight 112.1 kg (11/18/22 2:14 PM) Oxygen Saturation [94-100 %] 100 % (11/18/22 2:14 PM) Pulse Rate [55-90 bpm] 81 bpm (11/18/22 2:14 PM) Blood Pressure [90-138/55-84 mm Hg] 120/ 70mm Hg (11/18/22 2:14 PM) Respiratory Rate [16-30 br/min] 18 br/mi n (11/18/22 2:14 PM) Temperature [96.8-100.4 DegF] 98.6 DegF (11/18/22 2:14 PM) Mode of Delivery (Oxygen) Room air (11/18/22 2:14 PM) Blood pressure sites Arm, right 1 (11/18/22 2:14 PM) Temperature Route Oral (11/18/22 2:14 PM) Dry Weight 112.1 kg (11/18/22 2:14 PM) Weight Obtained Via Standing scale (11/18/22 2:14 PM) Dry Weight Obtained Via Standing scale (11/18/22 2:14 PM) 1Result Comment: right upper arm measured 41cm Social History Social History Type Response Smoking Status Former smoker, quit more than 30 days ago entered on: 04/23/22 Sex Note * Jewel Smith RN: PERFORM Event Display: Patient Education/Instruction Authored Date: [id number] Inpatient Adult Discharge Instructions [address] [address] Name: DHEERAJ LEAHY : 1990 Visit: 11/18/2022 14:03:00 Current Date: 11/18/2022 16:19 Account: [id number] Inpatient Adult Discharge Instructions We would like [...] and their families. Surveys are administered by [employer]. ?? If further treatment with your primary care physician or another doctor is recommended, it is important for you to keep the appointment. Call your primary care physician or return to the Emergency Department immediately if your condition worsens, fails to improve, or new symptoms develop. If you need to find a doctor, you can call [facility] [employer] for a referral at [phone] or toll free at [phone] ([phone]) or log in to [email or web address].. ?? You can view and manage your care through the patient portal or by using a health care ramesh of your choosing. [employer] is a website that allows you to securely view your medical information including your hospital discharge summary, office visit summaries, medications and follow-up visits. You can also request appointments, renew medications, and request access to your medical information using a health care ramesh of your choosing, or just ask a question. You can enroll at [email or web address] or register during your next office visit. You have been discharged from [facility], Patient Care Unit: [id number]. If you have any questions regarding these instructions after you leave, please call us and we will be happy to assist you. [facility] Your Care Team Attending Physician Shannan Cheney DO Reason for Admission PP MASTITIS Tests Performed Below is a partial list of the tests performed during your hospitalization. You may have had other tests and procedures not included in this list. Please discuss all test results with your provider. Primary Care Provider Zulma LEIVA , Joe Advance Directive Health Care Proxy on File No Discharge Vitals Temperature: 98.6 DegF Height: 165 cm Pulse Rate: 81 bpm Weight: 112.1 kg Respiratory Rate: 18 br/min ?? Systolic Blood Pressure: 120 mm Hg ?? Diastolic Blood Pressure: 70 mm Hg ?? Oxygen Saturation: 100 % ?? Studies Pending All tests and labs ordered during this hospital stay have been completed unless listed below. Please discuss all pending results with your provider listed above in these instructions. ?? No incomplete studies found What to do next Instructions From Your Doctor Discharge Orders Scheduled Follow-Up Appointments Saturday 1:20 PM EDT ?? With: Harriet Henderson CNM Where: [facility] Control Technician [address] [place] [address]- Discharge Medications DHEERAJ LEAHY :1990 Visit Date:11/18/2022 Medications: Please continue your medications until treatment [...] 2 tab(s) Chew Daily at Bedtime Unchanged BuPROpion (Wellbutrin) Oral Unchanged Drospirenone (Slynd 4 mg oral tablet) 1 tab(s) Oral Daily Unchanged Metronidazole (metroNIDAZOLE 500 mg oral tablet) 1 tab(s) Oral Every 12 hours Unchanged Metronidazole (metroNIDAZOLE 500 mg oral tablet) 1 tab(s) Oral Every 12 hours Duration: 7 Days Unchanged Multivitamin, (Prenatabs Rx oral tablet) 1 [...] Relief Formula Penelope amoxicillin penicillin Problems Active Problems??(10) ADD (attention deficit disorder)?? Anxiety?? Bipolar disorder?? Borderline personality disorder in adult?? Depression?? History of alcohol abuse?? Obesity during ? Severe obesity?? Stress at home?? Education Materials Below is the list of Educational Leaflet Providered with your Discharge Instructions. Mastitis?? OB PP- Ineffective Latch?? Vify-rq-Btvh: : Latch On?? The Benefits of Breastmilk?? Breast Care After ?? Expressing Your Milk?? Problems?? FAQs?? OB PP- Engorgement?? Valuables and Belongings I fully understand and agree that [facility] accepts no responsibility for all my personal [...] are strongly encouraged to quit. Please call [facility] [employer] at [phone] or [phone] ([phone]) or log in to [email or web address] for referrals to smoking cessation programs. ?? The National Suicide Prevention Hotline is available 01/04 if you or someone you know needs to find a reason to keep living. By calling 1-935-340CSID (2762) you'll be connected to a skilled, trained counselor at a crisis center in your area. INPATIENT DISCHARGE INSTRUCTIONS SIGNATURE DHEERAJ YORK Location:[facility] Registration Date and Time:11/18/2022 14:03 EDT Primary Care Physician: Zulma LEIVA , [facility], I TOSIN DHEERAJ, have received the above patient education materials/instructions and have verbalized understanding. If ambulance or transport services are being used I further acknowledge being given a choice of service. ?? If you need to contact me, please call me at this number: . Patient/Weight Inspector Name: Patient/Weight Inspector Signature: Relationship to Patient: Witness Name/Signature: Date: * Jewel Smith RN: PERFORM Event Display: Patient Education Leaflets Authored Date: [id number] Mastitis ?? [id number] Mastitis Mastitis may cause flu-like symptoms such as fever, aches, and fatigue. The affected breast may feel painful, warm, tender, firm, or swollen. The skin over the breast may be red (often in a wedge-shaped pattern). You may feel a burning a sensation when . In most cases, mastitis can be treated with antibiotics. This should clearMastitis occurs when breast tissue becomes swollen and inflamed. This is almost always due to infection. Mastitis most often affects women during the first 6 weeks after childbirth. For this reason, it???s also known as mastitis. Infection may happen after a duct becomes clogged, causing milk to backup in the breast. Mastitis may also occur if bacteria enter the breast through small cracks in the nipple. (Less often, mastitis occurs in women who aren???t . If you have mastitis that is not due to , your healthcare provider will give you more information as needed. Treatment may include some of the same home care measures listed below.) ??the infection. If treatment is delayed, a pocket of pus (abscess) can form in the breast tissue. A procedure may then be needed to drain the pus. In severe cases of infection, other treatments may be needed. Home care ??? It???s very important to keep the milk flowing from the infected breast. Continue breastfeedingfrom both breasts as usual. This will not hurt the baby. If this is too painful, use a breast pump to remove milk from the infected side. This can be fed to your baby or discarded. Note: If you don'tcontinue to breastfeed or pump your breast, bacteria can grow in the milk that is left in your breast. This can make your infection worse. ??? Tell your healthcare provider if you have problems with . He or she may suggest changes to your technique, if needed. You may also be referred to a nurse or wound care center consultant for support with . General care ??? Take any medicines you???re prescribed as directed. If you???re taking antibiotics, be sure to complete all of the medicine even if you start to feel better. Glrq-qrl-cfvsdtm pain medicines may also be recommended. Don???t use breast creams or other products or medicines without talking to your healthcare provider first. Note: If you???re concerned about taking medicines while , talk to your healthcare provider. ??? Rest as often as needed. Also be sure to drink plenty of fluids. ??? To help relieve pain and swelling, heat or ice may be used. Apply as often as directed by your provider. o Heat: Place a warm compress on the breast. Use a towel soaked in hot water, a heating pad, or a hot water bottle. o Cold: Place a cold compress on the breast. Use an ice pack or bag of ice wrapped in a thin towel. Never place a cold source directly on the skin. ?? Follow-up care Follow up with your healthcare provider as advised. ?? When to seek medical advice Call your healthcare provider right away if any of these occur: ??? Fever of 100.4??F (38??C) or higher, or as directed by your provider ??? Shaking chills ??? Worsening symptoms or symptoms that don't improve within 48 to 72 hours of starting treatment ??? New symptoms develop ?? Last Reviewed Date: 2018 ?? 5809-0838 The [employer]. All rights reserved. This information is not intended as a substitute for professional medical care. Always follow your healthcare professional's instructions. ?? * King SIMON Channahon: PERFORM Event Display: Patient Education Leaflets Authored Date: [id number] OB PP- Ineffective Latch ?? 219 DISCHARGE INSTRUCTIONS ??? feedings/safety and care information has been reviewed with you. ??? You have received ???Becoming a Family-You and Your Baby Home?? Booklet. ??? Breastfeed your baby 8 to 12 times in 24 hours. Make sure you have a deep and comfortable latch and can identify swallowing. ??? Follow worksheet, recording feedings, wet diapers and bowel movements until your milk comes in and your baby is nursing well. ??? By day 5 your baby should have at least 6-8 wet diapers and at least 3-4 yellow bowel movements in 24 hours. Call your transportation services representative if baby is having inadequatepees or poops. ??? When your milk comes in you may experience feelings of discomfort, breasts can feel heavy and full. Nursing frequently can help to relieve this discomfort, along with hand expressing in the shower if necessary. ??? For severe discomfort or difficulty feeding your baby call the [facility] at [phone] to speak with or to make an appointment to see a application consultant. ??? Cometo the support group on Wednesdays from 11am ??? 12pm at the [facility] for continuing support and questions, free for all families and no appointment necessary. ??? Some other resources for support are:? Web sites like Joanna Jones (www.Tifen.com) or Sommer Conway for FAQs or peer support (www.llli.org) ??? [employer] Hotline 7-921-4-SOMMER MEYERS ??? If you are a [facility] participant: peer counselor program or warmline at for [facility]; for [facility] ?? Call your Baby???s care provider with any questions. ? Steps to take if your baby is not latching on the breast: Until your baby is nursing well 8-12 times per day: Keep baby skin to skin with you as much as possible.?? Gently offer the breast frequently especially when s/he spontaneously searches for the breast.?? Express milk into her/his mouth to help lead the way.? If no latch is achieved after 10-15 minutes of trying or anytime you or s/he gets frustrated, move on to pumping.?? If s/he starts nursing, encourage her/him nurse as long as possible. ?? If there is no latch or a poor latch, pump with a hospital grade double electric pump. Use heat, massage, hand expression and hands-on technique. Do this every 2 hours during the day and every 3 hours during sleep hours. Once your milk is in you can reduce pumping to 8 times per day with more flexibility but never more than 4 hours between milk removals. Then cup feed your baby pumped breast milk every 2-3 hours until s/he is nursing well at the breast regularly.?? If breast milk is not available, or if there is not enough, use formula as well.?? Feed her/him until s/he is satisfied. ? [facility] at ?? If you need to change the appointment or if you have questions call:?? [phone] If you are unable to feed your baby call your transportation services representative. ? * King SIMON, Jewel: PERFORM Event Display: Patient Education Leaflets Authored Date: [id number] Hghc-im-Hvhf: : Latch On ?? Lwbr-uf-Wjwj: : Latch On - Video This video shows the steps for helping your baby to latch on for . To view the video go to this web address: [email or web address] Or, scan this QR code with your smart phone Last Reviewed Date: 2021 ?? 0260-4489 [employer]. All rights reserved. This information is not intended as a substitute for professional medical care. Always follow your healthcare professional's instructions. ?? Patient Care team information Care Team Personnel Name: Joe Maya MD Position: [facility] Outreach Member Role: PCP Address: Address: [address] [place] [address]- Care Team Related Persons Name: MIMI DOE Address: home [address] [place] [address] Name: SANDHYA DOE Address: [employer] Address: home [address] [place] [address] Name: KEYANA HOLLAND Address: home [address] [place] [address] Name: ELTON LEAHY Address: home [address] [facility] [address] [place] [id number]
--- OUTSIDE RECORDS SUMMARY | 2023-03-19 17:31 | XMS_ITS | Continuity of Care Document ---
Author Name Unknown Organization [facility] Address [address] [place] [address]- Care Team Providers Care Balance Assembler Name Role Phone Joe Maya MD Primary Care Physician Encounter [facility] Date(s): 10/31/22 - 11/30/[address] [address] Allergies, Adverse Reactions, Alerts Substance Reaction Severity [...] Refills, Maintenance, 05/07/22 9:41:00 EDT, Chew Tablet, [facility] #[id number], Partial fill upon patient request if the prescription is for a schedule II opioid drug., 165, cm, 05/07/22... Start Date: 05/07/22 Status: Ordered betamethasone topical valerate 0.1% ointment See Instructions, apply sparingly to nipple after each feed, do not remove before next feed, # 45 Gm, 1 Refills, Maintenance, 11/27/22 16:05:00 EDT, [facility] #[id number], Partial fill upon patient request if the prescription is for a schedule I... Start Date: 11/27/22 Status: Ordered Colace sodium 100 mg oral capsule 100 mg, 1, capsule, By Mouth, 2 times a day, PRN, # 20 capsule, Refills 0, Tot. Refills 0, Maintenance, for constipation, 11/30/22 23:59:00 EDT, Route to Pharmacy Electronically, [facility][id number], Partial fill upon patient request if the pr... Start Date: 11/30/22 Status: Ordered Compression Stockings See Instructions, # 2 each, Maintenance, surgical, calf length 20-30 mm Hg, 11/30/22 23:41:00 EDT, Supply Start Date: 11/30/22 Status: Ordered ibuprofen 600 mg oral tablet See Instructions, PRN, 1 tablet taken By Mouth Every 6 hours not to exceed 3200 mg/day, # 60 tablet, Refills 0, Tot. Refills 0, Maintenance, as needed for pain, 11/30/22 23:40:00 EDT, Instructions Replace Required Details, Route to Pharmacy Electroni... Start Date: 11/30/22 Status: Ordered metroNIDAZOLE 500 mg oral tablet 1 tablet = 500 mg, By Mouth, Every 12 hours, # 14 tablet, 0 Refills, Maintenance, 11/05/22 13:08:00EST, Tablet, [facility] #[id number], Partial fill upon patient request if the prescription is for a schedule II opioid drug., 165, cm, 10/29/22 10... Start Date: 11/05/22 Status: Ordered metroNIDAZOLE 500 mg oral tablet 1 tablet = 500 mg, By Mouth, Every 12 hours, # 14 tablet, 0 Refills, Maintenance, 10/22/22 20:34:00EST, Tablet, [facility] #[id number], Partial fill upon patient request if the prescription is for a schedule II opioid drug., 165, cm, 10/19/22 8:... Start Date: 10/22/22 Stop Date: 10/29/22 Status: Ordered miconazole 2% topical ointment See Instructions, apply sparingly to nipple after each feed, do not remove before next feed, # 45 Gm, 1 Refills, Maintenance, 11/27/22 16:05:00 EDT, [facility] #[id number], Partial fill upon patient request if the prescription is for a schedule I... Start Date: 11/27/22 Status: Ordered MiraLax oral powder for reconstitution = 17 Gm, By Mouth, Daily, dissolve in water before taking, # 255 Gm, 0 Refills, Maintenance, 11/30/22 23:59:00 EDT, REC Powder, [facility] #[id number], Partial fill upon patient request if the prescription is for a schedule II opioid drug., 17 Gm... Start Date: 11/30/22 Status: Ordered mupirocin 2% topical ointment See Instructions, apply sparingly to nipple after each feed, do not remove before next feed, # 22 Gm, 1 Refills, Maintenance, 11/27/22 16:05:00 EDT, [facility] #[id number], Partial fill upon patient request if the prescription is for a schedule I... Start Date: 11/27/22 Status: Ordered Plan B One-Step 1.5 mg oral tablet 1.5 mg, 1, tablet, By Mouth, Once, # 1 tablet, Refills 0, Tot. Refills 0, Soft Stop, 11/30/22 17:45:00 EDT, Route to Pharmacy Electronically, [facility] #[id number], Partial fill upon patient request if the prescription is for a schedule II opioi... Start Date: 11/30/22 Status: Ordered Prenatabs Rx oral tablet 1 tablet, By Mouth, Daily, # 30 tablet, 11 Refills, Maintenance, 06/05/22 8:47:00 EDT, Tablet, [facility] #[id number], Partial fill upon patient request if the prescription is for a schedule II opioid drug., 1 tablet By Mouth Daily, 165, cm, 2... Start Date: 06/05/22 Status: Ordered Slynd 4 mg oral tablet 1 tablet = 4 mg, By Mouth, Daily, # 84 tablet, 3 Refills, Maintenance, 10/26/22 6:46:00 EST, Tablet, [facility] #[id number], Partial fill upon patient request if the prescription is for a schedule II opioid drug., 165, cm, 10/25/22 13:06:00 EST,... Start Date: 10/26/22 Status: [...] Severe obesity Confirmed Active 1Sees Dr. Granda. Social History Social History Type Response Smoking Status Former smoker, quit more than 30 days ago entered on: 04/23/22 Sex Patient Care team information Care Team Personnel Name: Joe Maya MD Position: [facility] Outreach Member Role: PCP Address: Address: [address] [place] [address]- Care Team Related Persons Name: MIMI DOE Address: home [address] [facility] [address] [place] [address] Name: SANDHYA DOE Address: [employer] Address: home [address] [place] [address] Name: KEYANA HOLLAND Address: home [address], [place] Name: ELTON LEAHY Address: home [address] [facility] [address] [place] [address]
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
--- OUTSIDE RECORDS SUMMARY | 2023-03-19 17:31 | XMS_ITS | Continuity of Care Document ---
Author Name Unknown Organization [facility] Address [address] [place] [address]- Care Team Providers Care Government Teacher Name Role Phone Zulam LEIVA, Joe Primary Care Physician Encounter [facility] [place] Date(s): 12/24/22 - 01/26/[address] [address] Attending Physician: Not on Staff, Attending MD Allergies, Adverse Reactions, Alerts Substance Reaction [...] capsule, 0 Refills, Maintenance, 01/14/23 9:11:00 EDT, [facility] #[id number], 165, cm, 01/03/23 14:19:00 EDT, Height, 110.7, kg, 12/22/22 17:16:00 EDT, Dry Weight Start Date: 01/14/23 Status: Ordered M-Rafi Plus oral tablet 1 tablet, By Mouth, Daily, # 90 tablet, 0 Refills, Maintenance, 01/18/23 12:12:00 EDT, [facility] #[id number], Partial fill upon patient request if the prescription is for a schedule II opioid drug., 1 tablet By Mouth Daily, 165, cm, 01/03/23 14:... Start Date: 01/18/23 Status: Ordered miconazole 2% topical ointment See Instructions, apply sparingly to nipple after each feed, do not remove before next feed, # 45 Gm, 1 Refills, Maintenance, 11/27/22 16:05:00 EDT, [facility] #[id number], Partial fill upon patient request if the prescription is for a schedule I... Start Date: 11/27/22 Status: Ordered MiraLax oral powder for reconstitution = 17 Gm, By Mouth, Daily, dissolve in water before taking, # 255 Gm, 0 Refills, Maintenance, 11/30/22 23:59:00 EDT, REC Powder, [facility] #[id number], Partial fill upon patient request if the prescription is for a schedule II opioid drug., 17 Gm... Start Date: 11/30/22 Status: Ordered mupirocin 2% topical ointment See Instructions, apply sparingly to nipple after each feed, do not remove before next feed, # 22 Gm, 1 Refills, Maintenance, 11/27/22 16:05:00 EDT, [facility] #[id number], Partial fill upon patient request if the prescription is for a schedule I... Start Date: 11/27/22 Status: Ordered Prenatabs Rx oral tablet 1 tablet, By Mouth, Daily, # 30 tablet, 11 Refills, Maintenance, 06/05/22 8:47:00 EDT, Tablet, [facility] #[id number], Partial fill upon patient request if the [...] Team Personnel Name: Joe Maya MD Position: [facility] Outreach Member Role: PCP Address: Address: [address] [place] [address]- Care Team Related Persons Name: MIMI DOE Address: home [address] Name: SANDHYA DOE Address: [employer] Address: home [address] [place] [address] [place] Name: KEYANA HOLLAND Address: home [address] [place], [place] Name: ELTON LEAHY Address: home [address] [address]
--- OUTSIDE RECORDS SUMMARY | 2023-03-19 17:31 | XMS_ITS | Continuity of Care Document ---
Author Name Unknown Organization [facility] ter Address [address] [place] [id number]- Care Team Providers Care Coordinator Of Health Services Name Role Phone Zulma LEIVA, Joe Primary Care Physician [phone] Encounter [facility] Date(s): 08/11/22 - 08/11/[address] [address] Discharge Disposition: A-D/C Home Attending Physician: Cristin Garner MD Admitting Physician: Cristin Garner MD Referring Physician: Cristin Garner MD Allergies, Adverse Reactions, Alerts Substance Reaction [...] Refills, Maintenance, 05/07/22 9:41:00 EDT, Chew Tablet, [facility] #[id number], Partial fill upon patient request if the prescription is for a schedule II opioid drug., 165, cm, 05/07/22... Start Date: 05/07/22 Status: Ordered ondansetron 4 mg oral tablet, disintegrating 1 tablet = 4 mg, By Mouth, Every 8 hours, PRN Nausea & Vomiting, # 10 tablet, 0 Refills, Maintenance, 08/11/22 13:02:00 EST, Tablet, [facility] #[id number], Partial fill upon patient requestif the prescription is for a schedule II opioid drug.,... Start Date: 08/11/22 Status: Ordered Prenatabs Rx oral tablet 1 tablet, By Mouth, Daily, # 30 tablet, 11 Refills, Maintenance, 06/05/22 8:47:00 EDT, Tablet, [facility] #[id number], Partial fill upon patient request if the prescription is for a schedule II opioid drug., 1 tablet By Mouth Daily, 165, cm, 05/11... Start Date: 06/05/22 Status: Ordered Tamiflu 75 mg oral capsule 1 capsule = 75 mg, By Mouth, 2 times a day, for 5 days, # 10 capsule, 0 Refills, Acute 08/16/22 12:36:00 EST, 08/11/22 12:36:00 EST, Capsule, [facility] #[id number], Partial fill upon patient request if the prescription is for a schedule II opioi... Start Date: 08/11/22 Stop Date: 08/16/22 Status: Ordered Problem List Condition Confirmation Course [...] recent to oldest [Reference Range]: 1 Weight 111.8 kg (08/11/22 10:13 AM) Oxygen Saturation [94-100 %] 99 % (08/11/22 10:29 AM) Blood Pressure [90-138/55-84 mm Hg] 117/ 71mm Hg (08/11/22 10:29 AM) Respiratory Rate [16-30 br/min] 18 br/mi n (08/11/22 10:29 AM) Temperature [96.8-100.4 DegF] 98.8 DegF (08/11/22 10:06 AM) Mode of Delivery (Oxygen) Room air (08/11/22 10:29 AM) Blood pressure sites Arm, right (08/11/22 10:29 AM) Temperature Route Oral (08/11/22 10:06 AM) Weight Obtained Via Standing scale (08/11/22 10:13 AM) Social History Social History Type Response Smoking Status Former smoker, quit more than 30 days ago entered on: 04/23/22 Sex Note * Alicia Antony RN: PERFORM Event Display: Discharge/Transfer Note Hospital Authored Date: [id number] Nursing Discharge Note Entered On: 08/11/2022 13:37 EST Performed On: 08/11/2022 13:37 EST by Alicia Antony RN Nursing Discharge Note 2 Discharge Time : 08/11/2022 13:20 EST Discharge Level of Care at Discharge : Home/Chcf/Foster Care Patient Left Unit Via : Ambulatory Patient Accompanied Off Unit with : Other: Self DC Instructions Provided & Signed by Pt : Yes Patient Understands D/C Instructions : Yes Patient Instructions Discharge Signed : Yes Did Pt have Specialty Bed or Wound Vac : No Alicia Antony RN - 08/11/2022 13:37 EST * Alicia Antony RN: PERFORM Event Display: Patient Education/Instruction Authored Date: [id number] Inpatient Adult Discharge Instructions [address] [address] Name: DHEERAJ LEAHY : 1990 Visit: 08/11/2022 09:41:00 Current Date: 08/11/2022 13:02 Account: [id number] Inpatient Adult Discharge Instructions We would like [...] and their families. Surveys are administered by [employer] ?? If further treatment with your primary care physician or another doctor is recommended, it is important for you to keep the appointment. Call your primary care physician or return to the Emergency Department immediately if your condition worsens, fails to improve, or new symptoms develop. If you need to find a doctor, you can call [facility] [employer]! for a referral at [phone] or toll free at [phone]) or log in to [email or web address].. ?? You can view and manage your care through the patient portal or by using a health care ramesh of your choosing. [employer] is a website that allows you to securely view your medical information including your hospital discharge summary, office visit summaries, medications and follow-up visits. You can also request appointments, renew medications, and request access to your medical information using a health care ramesh of your choosing, or just ask a question. You can enroll at [email or web address] or register during your next office visit. You have been discharged from [facility], Patient Care Unit: [id number]. If you have any questions regarding these instructions after you leave, please call us and we will be happy to assist you. [facility] Your Care Team Attending Physician Cristin Garner MD Tests Performed Below is a partial list of the tests performed during your hospitalization. You may have had other tests and procedures not included in this list. Please discuss all test results with your provider. COVID-19, RSV, and Flu A/B, Rapid PCR Primary Care Provider Joe Maya MD Advance Directive Health Care Proxy on File No No qualifying data available. Discharge Vitals Temperature: 98.8 DegF Weight: 111.8 kg Respiratory Rate: 18 br/min ?? Systolic Blood Pressure: 117 mm Hg ?? Diastolic Blood Pressure: 71 mm Hg ?? Oxygen Saturation: 99 % ?? Studies Pending All tests and labs ordered during this hospital stay have been completed unless listed below. Please discuss all pending results with your provider listed above in these instructions. ?? No incomplete studies found What to do next Instructions From Your Doctor Discharge Orders Scheduled Follow-Up Appointments Saturday 2:00 PM EST ?? With: Jeancarlos Diaz DO Where: [facility] [address] [place] [address]- Saturday 1:00 PM EST ?? With: Therese Sepulveda DO Where: [facility] [address] [place] [address] - 2022 2:00 PM EST ?? With: Kendra Diaz MD Where: [address] - 2022 11:00 AM EST ?? With: Marti Moore DO Where: [address] - Saturday 8:40 AM EST ?? With: Therese Sepulveda DO Where: [address] - Saturday 8:40 AM EST ?? With: Therese Sepulveda DO Where: [address] - Saturday 8:40 AM EST ?? With: Therese Sepulveda DO Where: [address] - Discharge Medications DHEERAJ LEAHY :1990 Visit Date:08/11/2022 Medications: Please continue your medications until treatment is completed or stopped by your provider. Medications not listed below should be discontinued. Discuss any questions related to medications with your provider. What How Much When Why Instructions Next Dose New Ondansetron (ondansetron 4 mg oral tablet, disintegrating) 1 tab(s) Oral Every 8 hours as needed for Nausea & Vomiting Pickup at [id number] New Oseltamivir (Tamiflu 75 mg oral capsule) 1 capsule Oral Twice a day Duration: 5 Days Pickup at [facility][id number] Unchanged Amphetamine-Dextroamphetamine (Adderall 20 mg oral tablet) 1 tab(s) Oral Daily Unchanged Aspirin (aspirin 81 mg oral tablet, chewable) 2 tab(s) Chew Daily at Bedtime Unchanged Multivitamin, (Prenatabs Rx oral tablet) 1 tab(s) Oral Daily Pharmacy Information [id number]: [address] [place] [address] [phone] Test Results Below is a partial list of the most recent Laboratory test results done prior to this discharge. You may have had other tests and procedures not included in this list. Please discuss all test resultswith your provider. COVID-19, RSV, and Flu A/B, Rapid PCR (08/11/2022) ???Influenza A PCR - POSITIVE???Influenza B PCR - NEGATIVE???RSV PCR - NEGATIVE???COVID-19 PCR Specimen Source - NASAL???COVID-19 PCR Result - NEGATIVE Allergies (NKA means No Known Allergies) PROzac??(RASH) LaMICtal Pamprin ES Multi-Symptom Relief Formula Penelope amoxicillin penicillin Problems Active Problems??(11) ADD (attention deficit disorder)?? Anxiety?? Bipolar disorder?? Borderline personality disorder in adult?? Depression?? History of alcohol abuse?? Obesity during ? Severe obesity?? Stress at home?? Education Materials Below is the list of Educational Leaflet Providered with your Discharge Instructions. Influenza (Adult)?? Adapting to : Third Trimester?? Kick Counts?? Valuables and Belongings I fully understand and agree that [facility] accepts no responsibility for all my [...] are strongly encouraged to quit. Please call [facility] [employer] [facility] at [phone] or [phone] ([phone]) or log in to [email or web address] for referrals to smoking cessation programs. ?? The National Suicide Prevention Hotline is available 01/04 if you or someone you know needs to find a reason to keep living. By calling 3-901-083-Page Mage (3584) you'll be connected to a skilled, trained counselor at a crisis center in your area. INPATIENT DISCHARGE INSTRUCTIONS SIGNATURE DHEERAJ YORK Location:[facility] Registration Date and Time:08/11/2022 09:41 EST Primary Care Physician: Zulma LEIVA , [facility], I DHEERAJ LEAHY, have received the above patient education materials/instructions and have verbalized understanding. If ambulance or transport services are being used I further acknowledge being given a choice of service. ?? If you need to contact me, please call me at this number: . Patient/Preassembler [employer]ed [employer] Name: Patient/Preas[employer] Signature: Relationship to Patient: Witness Name/Signature: Date: * Cassia MONTES, Alicia Phillips: PERFORM Event Display: Patient Education Leaflets Authored Date: Influenza (Adult) ?? [id number] Influenza (Adult) Updated for the flu season Influenza is also called the flu. It's a viral illness that affects the air passages of your nose, sinuses, throat, and lungs. It's different from the common cold. The flu can easily be passed from one to person to another. It may be spread through the air by coughing and sneezing. It can also be spread by touching the sick person and then touching your own eyes, nose, or mouth. The flu starts 1 to 3 days after you are exposed to the flu virus. It may last??for 1 to 2 weeks but sometimes people feel tired or fatigued for many weeks afterward. You usually don???t need to takeantibiotics unless you are at high risk for or have a complication from a bacterial infection. Thismight be an ear or sinus infection or pneumonia. Flu symptoms may be mild or severe. They can include extreme tiredness (wanting to stay in bed all day), chills, fevers, muscle aches, soreness with eye movement, headache, and a dry, hacking cough. Antiviral medicine for the flu is available by prescription. If you start taking it within 48 hours, it may help reduce how long your symptoms last and how severe they are. Your provider may do a test to find out if you have influenza and which strain you have. Home care Follow these guidelines when caring for yourself at home: ??? Stay away from cigarette smoke, whether it's yours or other people???s. ??? Acetaminophen or ibuprofen will help ease your fever, muscle aches, and headache. Don???t give aspirin to anyone younger than 18 who has the flu. This can cause a serious condition called Isa syndrome. ??? Nausea, loose stools, and loss of appetite are common with the flu. Eat light meals. Drink 6 to 8 glasses of liquids every day. Good choices are water, sport drinks, soft drinks without caffeine, juices, tea, and soup. Extra fluids will also help loosen secretions in your nose and lungs. ??? Hpsa-wwk-zobiben cold medicines will not make the flu go awayfaster. But the medicines may help with coughing, sore throat, and congestion in your nose and sinuses. Don???t use a decongestant if you have high blood pressure. ??? Stay home until your fever has been gone for at least 24 hours without using medicine to reduce fever. ?? Follow-up care Follow up with your healthcare provider, or as advised, if you're not getting better over the next week. If you're age 65 or older, talk with your provider about getting a pneumococcal vaccine. You shouldalso get vaccinated against pneumococcal pneumoniae at other ages if you have a weak immune system,chronic asthma, COPD (chronic obstructive pulmonary disorder), or certain other conditions. With very few exceptions, all adults should get a flu vaccine every fall. May and June are generally good times to get vaccinated. Ask your provider about this. ?? When to get medical advice Call your healthcare provider right away if you have the flu and any of these occur: ??? Cough with lots of colored mucus (sputum) or blood in your mucus ??? Chest pain, shortness of breath, wheezing, or trouble breathing ??? Severe headache, or face, neck, or ear pain ??? New rash??with fever ??? Fever of 100.4??F (38??C)??or higher, or as??advised by your provider ??? Confusion, behavior change, or seizure ??? Severe weakness or dizziness ??? You get a new??fever or cough aftergetting better for a few days Also call your provider if you have flu symptoms and have a weakened immune system or are taking medicines that can weaken your immune system. These include steroids and certain anti-inflammatory medicines. ?? Last Reviewed Date: 2022 ?? [id number] [employer]. All rights reserved. This information is not intended as a substitute for professional medical care. Always follow your healthcare professional's instructions. ?? * Cassia MONTES, Alicia Phillips: PERFORM Event Display: Patient Education Leaflets Authored Date: [id number] Adapting to : Third Trimester ?? [address] Adapting to : Third Trimester Although common [...] transportation, money problems,housing, access to food, and early childhood education instructor. If you can???t get to medical appointments, [...] help. ?? Last Reviewed Date: 2021 ?? [employer]. All rights reserved. This information is not intended as a substitute for professional medical care. Always follow your healthcare professional's instructions. ?? * Cassia MONTES, Alicia Phillips: PERFORM Event Display: Patient Education Leaflets Authored Date: [id number] Kick Counts ?? [address] Kick Counts It???s normal to worry about your baby???s health. One way you can know??your baby???s doing well is to record the baby???s movements once a day. This is called a kick count. ??Remember to take your kick count records to all your appointments with your healthcare provider. How to count kicks Time how long it takes you to feel 10 kicks, flutters, swishes, or rolls. Ideally, you want to feelat least 10 movements in 2 hours. You will likely feel 10 movements in less time than that. Starting at 28 weeks, count your baby's movements daily. Follow your healthcare provider's instructions for kick counting. Here are tips for counting kicks: ??? Choose a time when the baby is active,such as after a meal.? Sit comfortably or [...] call your healthcare provider Call your healthcare provider?? right away??if: ??? You do a couple sets of kick counts during the day and your baby moves fewer than 10??times in??2??hours. ??? Your baby moves much less often than on the??days before. ??? You haven't felt your baby move all day. ?? Last Reviewed Date: 2020 ?? [employer]. All rights reserved. This information is not intended as a substitute for professional medical care. Always follow your healthcare professional's instructions. ?? Patient Care team information Care Team Personnel Name: Joe Maya MD Position: [facility] Outreach Member Role: PCP Address: Address: [address] [place] [address]- Care Team Related Persons Name: KEYANA HOLLAND Address: home [address] [place] [address] Name: ELTON LEAHY Address: home [address] [place] [address]
--- OUTSIDE RECORDS SUMMARY | 2023-03-19 17:31 | XMS_ITS | Continuity of Care Document ---
Author Name Unknown Organization [facility] Address [address] [place] [address]- Care Team Providers Care Salesperson [employer] Name Role Phone Joe Maya MD Primary Care Physician Encounter [facility] Date(s): 09/07/20 - 09/07/[address] [address]- Encounter Diagnosis Back pain(Final) - 09/07/20 Levoscoliosis(Final) - 09/07/20 Discharge Disposition: A-D/C Home Attending Physician: Moisés Diaz MD Admitting Physician: Moisés Diaz MD Referring Physician: Not on Staff, Referring MD Allergies, Adverse Reactions, Alerts Substance Reaction Severity Status amoxicillin Active penicillin Active Pamprin ES Multi-Symptom Relief Formula Active Penelope Active LaMICtal Active PROzac RASH Unknown Active Immunizations Given and Recorded Vaccine Date Status Refusal Reason tetanus/diphtheria/pertussis, acel(Tdap) 01/28/17 Given Medications Abilify 5 mg oral tablet 1.5 tabletS, By Mouth, Daily, # 30 tablet, Refills 0, Maintenance, 07/11/19 14:59:02 EDT Start Date: 07/11/19 Status: Ordered Acetaminophen = 1,000 mg, By Mouth, Every 6 hours, PRN as needed for pain, 0 Refills, Maintenance, 01/21/17 16:00:49 Start Date: 01/21/17 Status: Ordered acetaminophen 325 mg oral tablet 650 mg, 2, tablet, By Mouth, Every 4 hours, PRN, # 30 tablet, Refills 0, Tot. Refills 0, Maintenance, for pain, 09/07/20 15:59:00 EST, Route to Pharmacy Electronically, [facility]acy #[id number], Partial fill upon patient request if the prescription is for a... Start Date: 09/07/20 Status: Ordered acetaminophen 325 mg oral tablet 650 mg, 2, tablet, By Mouth, 4 times a day, PRN, # 16 tablet, Refills 0, Tot. Refills 0, Maintenance, as needed for pain, 09/07/20 19:15:00 EST, Route to Pharmacy Electronically, [facility][id number], 165, cm, 09/07/20 16:22:00 EST, Height, 108... Start Date: 09/07/20 Status: Ordered Adderall 20 mg oral tablet 1 tablet = 20 mg, By Mouth, Daily, 0 Refills, Maintenance, 09/18/19 14:10:00 EST, Tablet Start Date: 09/18/19 Status: Ordered Adderall XR 20 mg oral capsule, extended release 2 capsule = 40 mg, By Mouth, Daily in AM, 0 Refills, Maintenance, 09/18/19 14:10:00 EST, ER Capsule Start Date: 09/18/19 Status: Ordered gabapentin 100 mg oral capsule 100 mg, 1, capsule, By Mouth, 3 times a day, # 90 capsule, Refills 0, Tot. Refills 0, Maintenance, 09/07/20 19:15:00 EST, Route to Pharmacy Electronically, [facility] #[id number], Partial fill upon patient request if the prescription is for a sandra... Start Date: 09/07/20 Status: Ordered ibuprofen 200 mg oral capsule 2 capsule = 400 mg, By Mouth, Every 4 hours, PRN for pain, # 24 capsule, 0 Refills, Maintenance, 09/07/20 19:15:00 EST, Capsule, [facility] #[id number], Partial fill upon patient request if the prescription is for a schedule II opioid drug., 165,... Start Date: 09/07/20 Status: Ordered Lidoderm 5% film 1 patch, Topically, Daily, remove patches after 12 hours and leave off for 12 hours before replacing. You may apply 1-2 patches to the area., # 30 patch, 0 Refills, Maintenance, 09/07/20 19:15:00 EST, [facility] #[id number], 1 patch Topically Da... Start Date: 09/07/20 Status: Ordered OxyCODONE IR Tablet 5 mg, Tablet, By Mouth, Once, STAT, 09/07/20 18:32:00 EST, Stop date 09/07/20 18:32:00 EST Start Date: 09/07/20 Stop Date: 09/07/20 Status: Completed Problem List Condition Effective Dates Status Health Status Inform ant ADD (attention deficit disorder)(Confirmed) 1 Active Mood disorder(Confirmed) Active Raynaud's phenomenon(Confirmed) Active 1Sees Dr. Granda. Vital Signs Most recent to oldest [Reference Range]: 1 2 3 Height 165 cm (09/07/20 7:21 PM) 165 cm (09/07/20 4:22 PM) 165 cm (09/07/20 12:35 PM) Weight 108 kg (09/07/20 7:21 PM) 108 kg (09/07/20 4:22 PM) 108 kg (09/07/20 12:35 PM) Oxygen Saturation [94-100 %] 99 % (09/07/20 7:21 PM) 100 % (09/07/20 4:22 PM) 100 % (09/07/20 12:35 PM) Pulse Rate [55-90 bpm] 105 bpm *H* (09/07/20 7:21 PM) 102 bpm *H* (09/07/20 4:22 PM) 102 bpm *H* (09/07/20 12:35 PM) Body Mass Index [18.5-24.99] 39.67 *>HHI* (09/07/20 7:21 PM) 39.67 *>HHI* (09/07/20 4:22 PM) Blood Pressure [90-138/55-84 mm Hg] 124/81mm Hg (09/07/20 7:21 PM) 116/82mm Hg (09/07/20 4:22 PM) 134/79mm Hg (09/07/20 12:35 PM) Respiratory Rate [16-30 br/min] 20 br/min (09/07/20 7:35 PM) 20 br/min (09/07/20 7:21 PM) 18 br/min (09/07/20 6:35 PM) Temperature [96.8-100.4 DegF] 98.4 DegF (09/07/20 7:21 PM) 97.3 DegF (09/07/20 4:22 PM) 98.0 DegF (09/07/20 12:35 PM) Mode of Delivery (Oxygen) Room air (09/07/20 7:21 PM) Room air (09/07/20 4:22 PM) Room air (09/07/20 12:35 PM) Blood pressure sites Arm, left (09/07/20 7:21 PM) Arm, left (09/07/20 4:22 PM) Arm, left (09/07/20 12:35 PM) Temperature Route Oral (09/07/20 7:21 PM) Oral (09/07/20 4:22 PM) Temporal (09/07/20 12:35 PM) Dry Weight 108 kg (09/07/20 7:21 PM) 108 kg (09/07/20 4:22 PM) 108 kg (09/07/20 12:35 PM) Weight Obtained Via Patient/family stated (09/07/20 12:35 PM) Dry Weight Obtained Via Patient/family stated (09/07/20 12:35 PM) Social History Social History Type Response Smoking Status Current every day candido ponce; Type: Cigarettes; Tobacco use times per day: 4 cig a day for the last 6 years; entered on: 07/28/15 Sex
--- OUTSIDE RECORDS SUMMARY | 2023-03-19 17:31 | XMS_ITS | Continuity of Care Document ---
Author Name Unknown Organization [employer] ter Address [address] [place] [address]- Care Team Providers Care Appraisal Coordinator Name Role Phone Zulma LEIVA, Joe Primary Care Physician Encounter [facility] [place] Date(s): 12/05/22 - 01/10/[address] [address]- Attending Physician: Kaylan Petit MD Admitting Physician: Kaylan Petit MD Referring Physician: Harriet Henderson CNM Allergies, Adverse Reactions, Alerts Substance Reaction Severity Status amoxicillin Active penicillin Active Zoloft Active PROzac RASH Unknown Active Lexapro Active Penelope Active LaMICtal Active Immunizations Given [...] EST, Tablet Start Date: 09/18/19 Status: Ordered Colace sodium 100 mg oral capsule 100 mg, 1, capsule, By Mouth, 2 times a day, PRN, # 20 capsule, Refills 0, Tot. Refills 0, Maintenance, for constipation, 01/03/23 14:32:00 EDT, Route to Pharmacy Electronically, [facility][id number], Partial fill upon patient request if the pr... Start Date: 01/03/23 Status: Ordered Compression Stockings See Instructions, # 2 each, Maintenance, surgical, calf length 20-30 mm Hg, 11/30/22 23:41:00 EDT, Supply Start Date: 11/30/22 Status: Ordered miconazole 2% topical ointment See Instructions, apply sparingly to nipple after each feed, do not remove before next feed, # 45 Gm, 1 Refills, Maintenance, 11/27/22 16:05:00 EDT, [facility] #[id number], Partial fill upon patient request if the prescription is for a schedule I... Start Date: 11/27/22 Status: Ordered MiraLax oral powder for reconstitution = 17 Gm, By Mouth, Daily, dissolve in water before taking, # 255 Gm, 0 Refills, Maintenance, 11/30/22 23:59:00 EDT, REC Powder, [facility] #[id number], Partial fill upon patient request if the prescription is for a schedule II opioid drug., 17 Gm... Start Date: 11/30/22 Status: Ordered mupirocin 2% topical ointment See Instructions, apply sparingly to nipple after each feed, do not remove before next feed, # 22 Gm, 1 Refills, Maintenance, 11/27/22 16:05:00 EDT, [facility] #[id number], Partial fill upon patient request if the prescription is for a schedule I... Start Date: 11/27/22 Status: Ordered Prenatabs Rx oral tablet 1 tablet, By Mouth, Daily, # 30 tablet, 11 Refills, Maintenance, 06/05/22 8:47:00 EDT, Tablet, [facility] #[id number], Partial fill upon patient request if the [...] Team Personnel Name: Joe Maya MD Position: [facility] Outreach Member Role: PCP Address: Address: [address] [place] [address]- Care Team Related Persons Name: MIMI DOE Address: home [address] [address] Name: ASNDHYA DOE Address: [employer] Address: home [address] [place] [address] Name: KEYANA HOLLAND Address: home [address] [place] [address] Name: ELTON LEAHY Address: home [address] [address]
--- OUTSIDE RECORDS SUMMARY | 2023-03-19 17:31 | XMS_ITS | Continuity of Care Document ---
Author Name Unknown Organization [facility] Address [address] [place] [address]- Care Team Providers Care Rubber Washer Name Role Phone Joe Maya MD Primary Care Physician [place] [facility] [place]12[place]22 - 07/12/22 [facility] and [address] [address] Allergies, Adverse Reactions, Alerts Substance [...] Refills, Maintenance, 05/07/22 9:41:00 EDT, Chew Tablet, [facility] #[id number], Partial fill upon patient request if the prescription is for a schedule II opioid drug., 165, cm, 05/07/22... Start Date: 05/07/22 Status: Ordered metroNIDAZOLE 250 mg oral tablet 1 tablet = 250 mg, By Mouth, Every 8 hours, for 7 days, # 21 tablet, 0 Refills, Acute 07/17/22 20:16:00 EST, 07/10/22 20:16:00 EDT, Tablet, [facility] #[id number], Partial fill upon patient request if the prescription is for a schedule II opioid... Start Date: 07/10/22 Stop Date: 07/17/22 Status: Ordered Prenatabs Rx oral tablet 1 tablet, By Mouth, Daily, # 30 tablet, 11 Refills, Maintenance, 06/05/22 8:47:00 EDT, Tablet, [facility] #[id number], Partial fill upon patient request if the [...] COVID-19 Confirmed Active Mood disorder Confirmed Active Obese class II Confirmed Active Obesity during Confirmed Active Confirmed Active 1sts past hx, has been [...] Personnel Name: Joe Maya MD Address: Address: [address] [place] [address]
--- OUTSIDE RECORDS SUMMARY | 2023-03-19 17:31 | XMS_ITS | Continuity of Care Document ---
Author Name Unknown Organization [facility] ter Address [address] [place] [address]- Care Team Providers Care Voucher Examiner Name Role Phone Zulma LEIVA, Joe Primary Care Physician [place] [facility] [place] Date(s): 07/20/22 - 07/20/[address] [address]- Discharge Disposition: A-D/C Home Attending Physician: Keke Sparks MD Admitting Physician: Keke Sparks MD Referring Physician: Keke Sparks MD Allergies, Adverse Reactions, Alerts Substance Reaction [...] Refills, Maintenance, 05/07/22 9:41:00 EDT, Chew Tablet, [facility] #[id number], Partial fill upon patient request if the prescription is for a schedule II opioid drug., 165, cm, 05/07/22... Start Date: 05/07/22 Status: Ordered Prenatabs Rx oral tablet 1 tablet, By Mouth, Daily, # 30 tablet, 11 Refills, Maintenance, 06/05/22 8:47:00 EDT, Tablet, [facility] #[id number], Partial fill upon patient request if the [...] ago entered on: 04/23/22 Sex Note * KwokDawit parekh RN: PERFORM Event Display: Patient Education/Instruction Authored Date: Inpatient Adult Discharge Instructions [address] [address] Name: DHEERAJ LEAHY : 1990 Visit: 07/20/2022 08:50:00 Current Date: 07/20/2022 10:22 Account: [id number] Inpatient Adult Discharge Instructions We would like [...] and their families. Surveys are administered by [employer] ?? If further treatment with your primary care physician or another doctor is recommended, it is important for you to keep the appointment. Call your primary care physician or return to the Emergency Department immediately if your condition worsens, fails to improve, or new symptoms develop. If you need to find a doctor, you can call [facility] for a referral at [phone] or toll free at [phone] [employer] [facility] ([phone]) or log in to [email or web address] ?? You can view and manage your care through the patient portal or by using a health care ramesh of your choosing. [employer] is a website that allows you to securely view your medical information including your hospital discharge summary, office visit summaries, medications and follow-up visits. You can also request appointments, renew medications, and request access to your medical information using a health care ramesh of your choosing, or just ask a question. You can enroll at [email or web address] or register during your next office visit. You have been discharged from [facility], Patient Care Unit: [id number]. If you have any questions regarding these instructions after you leave, please call us and we will be happy to assist you. [facility] Your Care Team Attending Physician Clare LEIVA, Keke Casey Reason for Admission PREG GURJIT 10 29 22 ADD ONWST Tests Performed Below is a partial list of the tests performed during your hospitalization. You may have had other tests and procedures not included in this list. Please discuss all test results with your provider. Primary Care Provider Zulma LEIVA , Joe Advance Directive Health Care Proxy on File No No qualifying data available. Studies Pending All tests and labs ordered during this hospital stay have been completed unless listed below. Please discuss all pending results with your provider listed above in these instructions. ?? No incomplete studies found What to do next Instructions From Your Doctor Discharge Orders Scheduled Follow-Up Appointments Saturday 9:20 AM EST ?? With: [place] YOUNG, Marti Silvestre Where: [facility] Health Information Coder [address] [place] [address] - Saturday 2:00 PM EST ?? With: Jeancarlos Diaz DO Where: [address] - Saturday 1:00 PM EST ?? With: Therese Sepulveda DO Where: [address] - 2022 2:00 PM EST ?? With: Kendra Diaz MD Where: [address] - 2022 11:00 AM EST ?? With: Marti Moore DO Where: [address] - 2022 9:00 AM EST ?? With: Harriet Henderson CNM Where: [address] - Discharge Medications DHEERAJ LEAHY :1990 Visit Date:07/20/2022 Medications: Please continue your medications until treatment is completed or stopped by your provider. Medications not listed below should be discontinued. Discuss any questions related to medications with your provider. What How Much When Why Instructions Next Dose Unchanged Amphetamine- Dextroamphetamine (Adderall 20 mg oral tablet) 1 tab(s) Oral Daily Unchanged Amphetamine-Dextroamphetamine (Adderall XR 20 mg oral capsule, extended release) 2 capsule Oral Daily in the morning Unchanged Aspirin (aspirin 81 mg oral tablet, chewable) 2 tab(s) Chew Daily at Bedtime Unchanged Multivitamin, (Prenatabs Rx oral tablet) 1 tab(s) Oral Daily Unchanged Multivitamin, ( Multivitamins) Oral Daily Test Results Below is a [...] Problems Active Problems??(11) ADD (attention deficit disorder)?? Bipolar disorder?? Borderline personality disorder in adult?? ETOH abuse?? History of COVID-19?? Mood disorder?? Obese class II?? Obesity during ? Stress at home?? Education Materials Below is the list of Educational Leaflet Providered with your Discharge Instructions. Kick Counts?? Kick Counts?? Valuables and Belongings I fully understand and agree that [facility] accepts no responsibility for all my [...] to send valuables and belongings home. ? Common Emergency Awareness Tips IS IT [...] are strongly encouraged to quit. Please call [facility] at [phone] or [phone] [employer] [facility] ([phone]) or log in to [email or web address] for referrals to smoking cessation programs. ?? The National Suicide Prevention Hotline is available 01/04 if you or someone you know needs to find a reason to keep living. By calling 4-488-379-kvnr (4776) you'll be connected to a skilled, trained counselor at a crisis center in your area. INPATIENT DISCHARGE INSTRUCTIONS SIGNATURE DHEERAJ YORK Location:[facility] Registration Date and Time:07/20/2022 08:50 EST Primary Care Physician: Zulma LEIVA , [facility], I TOSIN DHEERAJ, have received the above patient education materials/instructions and have verbalized understanding. If ambulance or transport services are being used I further acknowledge being given a choice of service. ?? If you need to contact me, please call me at this number: . Patient/Well Logger Name: Patient/Well Logger Signature: Relationship to Patient: Witness Name/Signature: Date: * Dawit Kwok RN: PERFORM Event Display: Patient Education Leaflets Authored Date: [id number] Kick Counts ?? [address] Kick Counts It???s normal to worry about [...] day. ?? Last Reviewed Date: 2020 ?? 1353-6744 [employer]. All rights reserved. This information is not intended as a substitute for professional medical care. Always follow your healthcare professional's instructions. ?? * Dawit Kwok RN: PERFORM Event Display: Patient Education Leaflets Authored Date: [id number] Kick Counts ?? 18097 Kick Counts It???s normal to worry about [...] day. ?? Last Reviewed Date: 2020 ?? 2147-6343 [employer]. All rights reserved. This information is not intended as a substitute for professional medical care. Always follow your healthcare professional's instructions. ?? Patient Care team information Care Team Personnel Name: Joe Maya MD Position: S Outreach Member Role: PCP Address: Address: [address] [place] [address]- [place] Care Team Related Persons Name: KEYANA HOLLAND Address: home [address] [place] [address] Name: ELTON LEAHY Address: home [address] [place] [address]
--- OUTSIDE RECORDS SUMMARY | 2023-03-19 17:31 | XMS_ITS | Continuity of Care Document ---
Author Name Unknown Organization [facility] Address [address] [place] [address]- Care Team Providers Care Apparel Stock Checker Name Role Phone Zulma LEIVA, Joe Primary Care Physician [place] [facility] [place]23/[place] - 12/23/[address] [address]- Discharge Disposition: A-D/C Walkout Attending Physician: Not on Staff, Attending MD Admitting Physician: Not on Staff, Admitting MD Referring Physician: Not on Staff, Referring [...] 11/30/22 23:59:00 EDT, Route to Pharmacy Electronically, [facility][id number], Partial fill upon patient request if the [...] Pharmacy Electroni... Start Date: 11/30/22 Status: Ordered miconazole 2% topical ointment See Instructions, apply sparingly to nipple after each feed, do not remove before next feed, # 45 Gm, 1 Refills, Maintenance, 11/27/22 16:05:00 EDT, [facility] #[id number], Partial fill upon patient request if the prescription is for a schedule I... Start Date: 11/27/22 Status: Ordered MiraLax oral powder for reconstitution = 17 Gm, By Mouth, Daily, dissolve in water before taking, # 255 Gm, 0 Refills, Maintenance, 11/30/22 23:59:00 EDT, REC Powder, [facility] #[id number], Partial fill upon patient request if the prescription is for a schedule II opioid drug., 17 Gm... Start Date: 11/30/22 Status: Ordered mupirocin 2% topical ointment See Instructions, apply sparingly to nipple after each feed, do not remove before next feed, # 22 Gm, 1 Refills, Maintenance, 11/27/22 16:05:00 EDT, [facility] #[id number], Partial fill upon patient request if the prescription is for a schedule I... Start Date: 11/27/22 Status: Ordered Prenatabs Rx oral tablet 1 tablet, By Mouth, Daily, # 30 tablet, 11 Refills, Maintenance, 06/05/22 8:47:00 EDT, Tablet, [facility] #[id number], Partial fill upon patient request if the prescription is for a schedule II opioid drug., 1 tablet By Mouth Daily, 165, cm, 05/11... Start Date: 06/05/22 Status: Ordered Slynd 4 mg oral tablet 1 tablet = 4 mg, By Mouth, Daily, # 84 tablet, 3 Refills, Maintenance, 10/26/22 6:46:00 EST, Tablet, [facility] #[id number], Partial fill upon patient request if the [...] to oldest [Reference Range]: 1 2 3 Oxygen Saturation [94-100 %] 99 % (12/23/22 3:44 PM) 100 % (12/23/22 1:31 PM) 96 % (12/23/22 10:54 AM) Pulse Rate [55-90 bpm] 102 bpm *H* (12/23/22 3:44 PM) 96 bpm *H* (12/23/22 1:31 PM) 121 bpm *H* (12/23/22 10:54 AM) Blood Pressure [90-138/55-84 mm Hg] 105/63mm Hg (12/23/22 3:44 PM) 110/70mm Hg (12/23/22 1:31 PM) 115/87mm Hg (12/23/22 10:54 AM) Respiratory Rate [16-30 br/min] 16 br/min (12/23/22 1:31 PM) 20 br/min (12/23/22 10:54 AM) Temperature [96.8-100.4 DegF] 98.8 DegF (12/23/22 3:44 PM) 98.4 DegF (12/23/22 1:31 PM) 98.4 DegF (12/23/22 10:54 AM) Mode of Delivery (Oxygen) Room air (12/23/22 1:31 PM) Room air (12/23/22 10:54 AM) Room air (12/23/22 10:50 AM) Blood pressure sites Arm, left (12/23/22 3:44 PM) Arm, right (12/23/22 1:31 PM) Arm, left (12/23/22 10:54 AM) Temperature Route Oral (12/23/22 3:44 PM) Oral (12/23/22 1:31 PM) Oral (12/23/22 10:54 AM) Social History Social History Type Response Smoking Status Former smoker, quit more than 30 days ago; Other: quit 2019; entered on: 12/06/22 Sex EKG study * Event Display: ECG 12-Lead Authored Date: Please click on pdf link to open report * Event Display: ECG 12-Lead Authored Date: Ventricular Rate: 108 BPM Atrial Rate: 108 BPM P-R Interval: 156 ms QRS Duration: 82 ms Q-T Interval: 336 ms QTC Calculation(Bazett): 450 ms P [place]: 67 degrees R [place]: 41 degrees T [place]: 27 degrees Sinus tachycardia Otherwise normal ECG When compared with ECG of 22-DEC-2022 17:30, No significant change was found Confirmed by AMARJIT OSEI MD ([id number]) on 12/23/2022 2:03:45 PM Cl[place]son: AMARJIT OSEI MD Patient Care team information Care Team Personnel Name: Joe Maya MD Position: S Outreach Member Role: PCP Address: Address: [address] [place] [address]- [place] Care Team Related Persons Name: MIMI DOE Address: home [address] [place] [address] Name: SANDHYA DOE Address: [employer] Address: home [address] [place] [address] [place] Name: KEYANA HOLLAND Address: home [address] [place] [address] Name: ELTON LEAHY Address: home [address] [place] [address]
--- OUTSIDE RECORDS SUMMARY | 2023-03-19 17:31 | XMS_ITS | Continuity of Care Document ---
Author Name Unknown Organization [facility] Address [address] [place] [address]- Care Team Providers Care Enrolled Nurse Name Role Phone Zulma LEIVA, Joe Primary Care Physician Encounter [facility] [place] R [id number] Date(s): 06/11/22 - 07/11/22 [facility] [address] [place] [address] Attending Physician: Arnulfo Odonnell Admitting Physician: Admtr, Arnulfo Referring Physician: Admtr, Ar8 Allergies, Adverse Reactions, Alerts Substance Reaction Severity [...] Refills, Maintenance, 05/07/22 9:41:00 EDT, Chew Tablet, [facility] #[id number], Partial fill upon patient request if the prescription is for a schedule II opioid drug., 165, cm, 05/07/22... Start Date: 05/07/22 Status: Ordered metroNIDAZOLE 250 mg oral tablet 1 tablet = 250 mg, By Mouth, Every 8 hours, for 7 days, # 21 tablet, 0 Refills, Acute 07/17/22 20:16:00 EST, 07/10/22 20:16:00 EDT, Tablet, [facility] #[id number], Partial fill upon patient request if the prescription is for a schedule II opioid... Start Date: 07/10/22 Stop Date: 07/17/22 Status: Ordered Prenatabs Rx oral tablet 1 tablet, By Mouth, Daily, # 30 tablet, 11 Refills, Maintenance, 06/05/22 8:47:00 EDT, Tablet, [facility] #[id number], Partial fill upon patient request if the [...] Personnel Name: Joe Maya MD Address: Address: [address] [place] [address]
--- OUTSIDE RECORDS SUMMARY | 2023-03-19 17:31 | XMS_ITS | Continuity of Care Document ---
Author Name Unknown Organization [facility] Address [address] [place] [address]- Care Team Providers Care Rag Willow Operator Name Role Phone Zulma LEIVA, Joe Primary Care Physician Encounter [facility] [place] Date(s): 10/04/22 - 11/03/22 [facility] [address] [place] [id number] Allergies, Adverse Reactions, Alerts Substance [...] Refills, Maintenance, 05/07/22 9:41:00 EDT, Chew Tablet, [facility][id number], Partial fill upon patient request if the prescription is for a schedule II opioid drug., albino Butler, 05/07/22... Start Date: 05/07/22 Status: Ordered ibuprofen 600 mg oral tablet See Instructions, PRN, 1 tablet taken By Mouth Every 6 hours not to exceed 3200 mg/day, # 60 tablet, Refills 0, Tot. Refills 0, Acute 11/05/22 6:47:00 EST, as needed for pain, 10/26/22 6:46:00 EST, Instructions Replace Required Details, Route to Phar... Start Date: 10/26/22 Stop Date: 11/05/22 Status: Ordered metroNIDAZOLE 500 mg oral tablet 1 tablet = 500 mg, By Mouth, Every 12 hours, # 14 tablet, 0 Refills, Maintenance, 10/22/22 20:34:00EST, Tablet, [facility] #[id number], Partial fill upon patient request if the prescription is for a schedule II opioid drug., albino Butler, 10/19/22 8:... Start Date: 10/22/22 Stop Date: 10/29/22 Status: Ordered Prenatabs Rx oral tablet 1 tablet, By Mouth, Daily, # 30 tablet, 11 Refills, Maintenance, 06/05/22 8:47:00 EDT, Tablet, [facility] #[id number], Partial fill upon patient request if the prescription is for a schedule II opioid drug., 1 tablet By Mouth Daily, [facility], 05/11... Start Date: 06/05/22 Status: Ordered Slynd 4 mg oral tablet 1 tablet = 4 mg, By Mouth, Daily, # 84 tablet, 3 Refills, Maintenance, 10/26/22 6:46:00 EST, Tablet, [facility] #[id number], Partial fill upon patient request if the prescription is for a schedule II opioid drug., albino Butler, 10/25/22 13:06:00 EST,... Start Date: 10/26/22 Status: Ordered Tylenol 325 mg oral capsule See Instructions, PRN as needed for pain, 2 capsule (650 mg) taken By Mouth Every 4 hours not to exceed 4000 mg/day, # 60 capsule, 0 Refills, Acute 11/05/22 6:47:00 EST, 10/26/22 6:46:00 EST, Capsule, [email or web address] #[id number], Partial fill upon pa... Start Date: 10/26/22 Stop Date: 11/05/22 Status: Ordered Problem List Condition Confirmation Course [...] Team Personnel Name: Joe Maya MD Position: [facility] Outreach Member Role: PCP Address: Address: [address] [place] [address]- Care Team Related Persons Name: MIMI DOE Address: home [address] [address] Name: KEYANA HOLLAND Address: home [address] [place] [address] Name: DHEERAJ LEAHY GIRL Address: [employer] Address: home [address] [facility] [address] [place] [address] Name: ELTON LEAHY Address: home [address] [address]
--- OUTSIDE RECORDS SUMMARY | 2023-03-19 17:31 | XMS_ITS | Continuity of Care Document ---
Author Name Unknown Organization [facility] Address [address] [place] [address]- Care Team Providers Care Manager Of Tires Sales Name Role Phone Zulma LEIVA, Joe Primary Care Physician [phone] Encounter [facility] Date(s): 11/30/22 - 12/30/[address] [address] Allergies, Adverse Reactions, Alerts [...] 11/30/22 23:59:00 EDT, Route to Pharmacy Electronically, [facility][id number], Partial fill upon patient request if the [...] Gm, 1 Refills, Maintenance, 11/27/22 16:05:00 EDT, [facility] #[id number], Partial fill upon patient request if the prescription is for a schedule I... Start Date: 11/27/22 Status: Ordered MiraLax oral powder for reconstitution = 17 Gm, By Mouth, Daily, dissolve in water before taking, # 255 Gm, 0 Refills, Maintenance, 11/30/22 23:59:00 EDT, REC Powder, [facility] #[id number], Partial fill upon patient request if the prescription is for a schedule II opioid drug., 17 Gm... Start Date: 11/30/22 Status: Ordered mupirocin 2% topical ointment See Instructions, apply sparingly to nipple after each feed, do not remove before next feed, # 22 Gm, 1 Refills, Maintenance, 11/27/22 16:05:00 EDT, [facility] #[id number], Partial fill upon patient request if the prescription is for a schedule I... Start Date: 11/27/22 Status: Ordered Prenatabs Rx oral tablet 1 tablet, By Mouth, Daily, # 30 tablet, 11 Refills, Maintenance, 06/05/22 8:47:00 EDT, Tablet, [facility] #[id number], Partial fill upon patient request if the prescription is for a schedule II opioid drug., 1 tablet By Mouth Daily, 165, cm, 05/11... Start Date: 06/05/22 Status: Ordered Slynd 4 mg oral tablet 1 tablet = 4 mg, By Mouth, Daily, # 84 tablet, 3 Refills, Maintenance, 10/26/22 6:46:00 EST, Tablet, [facility] #[id number], Partial fill upon patient request if the [...] Team Personnel Name: Joe Maya MD Position: [facility] Outreach Member Role: PCP Address: Address: [address] [place] [address]- Care Team Related Persons Name: MIMI DOE Address: home [address] Name: SANDHYA DOE Address: [employer] Address: home [address] [place], [place] Name: KEYANA HOLLAND Address: home [address] [place], [place] Name: ELTON LEAHY Address: home [address] [place] [address] PAUL DERAS [id number]
--- OUTSIDE RECORDS SUMMARY | 2023-03-19 17:31 | XMS_ITS | Continuity of Care Document ---
Author Name Unknown Organization [facility] Address [address] [place] [id number]- Care Team Providers Care Candy Wrapping Machine Operator Name Role Phone Joe Maya MD Primary Care Physician [phone] Encounter [facility] Date(s): 10/26/22 - 12/02/[address] [id number] Attending Physician: Not on Staff, Attending MD [...] Refills, Maintenance, 05/07/22 9:41:00 EDT, Chew Tablet, [facility] #[id number], Partial fill upon patient request if the prescription is for a schedule II opioid drug., 165, cm, 05/07/22... Start Date: 05/07/22 Status: Ordered betamethasone topical valerate 0.1% ointment See Instructions, apply sparingly to nipple after each feed, do not remove before next feed, # 45 Gm, 1 Refills, Maintenance, 11/27/22 16:05:00 EDT, [facility] #[id number], Partial fill upon patient request if the prescription is for a schedule I... Start Date: 11/27/22 Status: Ordered Colace sodium 100 mg oral capsule 100 mg, 1, capsule, By Mouth, 2 times a day, PRN, # 20 capsule, Refills 0, Tot. Refills 0, Maintenance, for constipation, 11/30/22 23:59:00 EDT, Route to Pharmacy Electronically, [facility][id number], Partial fill upon patient request if the [...] tablet, 0 Refills, Maintenance, 11/05/22 13:08:00EST, Tablet, [facility] #[id number], Partial fill upon patient request if the prescription is for a schedule II opioid drug., 165, cm, 10/29/22 10... Start Date: 11/05/22 Status: Ordered metroNIDAZOLE 500 mg oral tablet 1 tablet = 500 mg, By Mouth, Every 12 hours, # 14 tablet, 0 Refills, Maintenance, 10/22/22 20:34:00EST, Tablet, [facility] #[id number], Partial fill upon patient request if the prescription is for a schedule II opioid drug., 165, cm, 10/19/22 8:... Start Date: 10/22/22 Stop Date: 10/29/22 Status: Ordered miconazole 2% topical ointment See Instructions, apply sparingly to nipple after each feed, do not remove before next feed, # 45 Gm, 1 Refills, Maintenance, 11/27/22 16:05:00 EDT, [facility] #[id number], Partial fill upon patient request if the prescription is for a schedule I... Start Date: 11/27/22 Status: Ordered MiraLax oral powder for reconstitution = 17 Gm, By Mouth, Daily, dissolve in water before taking, # 255 Gm, 0 Refills, Maintenance, 11/30/22 23:59:00 EDT, REC Powder, [facility] #[id number], Partial fill upon patient request if the prescription is for a schedule II opioid drug., 17 Gm... Start Date: 11/30/22 Status: Ordered mupirocin 2% topical ointment See Instructions, apply sparingly to nipple after each feed, do not remove before next feed, # 22 Gm, 1 Refills, Maintenance, 11/27/22 16:05:00 EDT, [facility] #[id number], Partial fill upon patient request if the prescription is for a schedule I... Start Date: 11/27/22 Status: Ordered Plan B One-Step 1.5 mg oral tablet 1.5 mg, 1, tablet, By Mouth, Once, # 1 tablet, Refills 0, Tot. Refills 0, Soft Stop, 11/30/22 17:45:00 EDT, Route to Pharmacy Electronically, [facility] #[id number], Partial fill upon patient request if the prescription is for a schedule II opioi... Start Date: 11/30/22 Status: Ordered Prenatabs Rx oral tablet 1 tablet, By Mouth, Daily, # 30 tablet, 11 Refills, Maintenance, 06/05/22 8:47:00 EDT, Tablet, [facility] #[id number], Partial fill upon patient request if the prescription is for a schedule II opioid drug., 1 tablet By Mouth Daily, 165, cm, 05/11... Start Date: 06/05/22 Status: Ordered Slynd 4 mg oral tablet 1 tablet = 4 mg, By Mouth, Daily, # 84 tablet, 3 Refills, Maintenance, 10/26/22 6:46:00 EST, Tablet, [facility] #[id number], Partial fill upon patient request if the [...] Team Personnel Name: Joe Maya MD Position: [facility] Outreach Member Role: PCP Address: Address: [address] [place] [id number]- Care Team Related Persons Name: MIMI DOE Address: home [address] [facility] [address] [place] [address] Name: SANDHYA DOE Address: [employer] Address: home [address] [place] [address] Name: KEYANA HOLLAND Address: home [address], [place] Name: ELTON LEAHY Address: home [address] [address]
--- OUTSIDE RECORDS SUMMARY | 2023-03-19 17:31 | XMS_ITS | Continuity of Care Document ---
Author Name Unknown Organization [facility] Address [address] [place] [id number]- Care Team Providers Care Floor Person Name Role Phone Joe Maya MD Primary Care Physician [phone] [place] [facility] [place] - 01/30/[address] [id number] Allergies, Adverse Reactions, Alerts Substance Reaction [...] capsule, 0 Refills, Maintenance, 01/14/23 9:11:00 EDT, [facility] #[id number], 165, cm, 01/03/23 14:19:00 EDT, Height, 110.7, kg, 12/22/22 17:16:00 EDT, Dry Weight Start Date: 01/14/23 Status: Ordered M- Plus oral tablet 1 tablet, By Mouth, Daily, # 90 tablet, 0 Refills, Maintenance, 01/18/23 12:12:00 EDT, [facility] #[id number], Partial fill upon patient request if the prescription is for a schedule II opioid drug., 1 tablet By Mouth Daily, 165, cm, 01/03/23 14:... Start Date: 01/18/23 Status: Ordered miconazole 2% topical ointment See Instructions, apply sparingly to nipple after each feed, do not remove before next feed, # 45 Gm, 1 Refills, Maintenance, 11/27/22 16:05:00 EDT, [facility] #[id number], Partial fill upon patient request if the prescription is for a schedule I... Start Date: 11/27/22 Status: Ordered MiraLax oral powder for reconstitution = 17 Gm, By Mouth, Daily, dissolve in water before taking, # 255 Gm, 0 Refills, Maintenance, 11/30/22 23:59:00 EDT, REC Powder, [facility] #[id number], Partial fill upon patient request if the prescription is for a schedule II opioid drug., 17 Gm... Start Date: 11/30/22 Status: Ordered mupirocin 2% topical ointment See Instructions, apply sparingly to nipple after each feed, do not remove before next feed, # 22 Gm, 1 Refills, Maintenance, 11/27/22 16:05:00 EDT, [facility] #[id number], Partial fill upon patient request if the prescription is for a schedule I... Start Date: 11/27/22 Status: Ordered Prenatabs Rx oral tablet 1 tablet, By Mouth, Daily, # 30 tablet, 11 Refills, Maintenance, 06/05/22 8:47:00 EDT, Tablet, [facility] #[id number], Partial fill upon patient request if the [...] Team Personnel Name: Joe Maya MD Position: [facility] Outreach Member Role: PCP Address: Address: [address] [place] [id number]- Care Team Related Persons Name: MIMI DOE Address: home [address] [address] Name: SANDHYA DOE Address: [employer] Address: home [address] [place] [address] [place] Name: KEYANA HOLLAND Address: home [address] [place] [address] Name: ELTON LEAHY Address: home [address] [address]
--- OUTSIDE RECORDS SUMMARY | 2023-03-19 17:31 | XMS_ITS | Continuity of Care Document ---
Author Name Unknown Organization [facility] ter Address [address] [place] [id number] Care Team Providers Care Social Worker Health Services Name Role Phone Joe Maya MD Primary Care Physician Encounter [facility] Date(s): 10/24/22 - 10/27/[address] [id number] Discharge Disposition: A-D/C Home Attending Physician: Smith Olivo MD Admitting Physician: Smith Olivo MD Referring Physician: Smith Olivo MD Allergies, Adverse Reactions, Alerts Substance Reaction [...] inactivated 10/25/22 Not Given Patient Refuses Medications Acetaminophen Tablet 650 mg, Tablet, By Mouth, Every 4 hours, PRN for Pain , Mild, (1-3), may give 325mg per patient preference and re-dose with 325mg within 4 hours, if needed. Patient should only receive a total of 650mg of Acetaminophen every 4 hours., Routine, 10/24... Start Date: 10/24/22 Stop Date: 10/27/22 Status: Discontinued Adderall 20 mg oral tablet 1 tablet = 20 mg, By Mouth, Daily, 0 Refills, Maintenance, 09/18/19 14:10:00 EST, Tablet Start Date: 09/18/19 Status: Ordered aspirin 81 mg oral tablet, chewable 2 tablet = 162 mg, Chew, Daily at bedtime, # 60 tablet, 6 Refills, Maintenance, 05/07/22 9:41:00 EDT, Chew Tablet, [facility] #[id number], Partial fill upon patient request if the prescription is for a schedule II opioid drug., 165, cm, 05/07/22... Start Date: 05/07/22 Status: Ordered ibuprofen 600 mg oral tablet See Instructions, PRN, 1 tablet taken By Mouth Every 6 hours not to exceed 3200 mg/day, # 60 tablet, Refills 0, Tot. Refills 0, Acute 11/05/22 6:47:00 EST, as needed for pain, 10/26/22 6:46:00 EST, Instructions Replace Required Details, Route to Phar... Start Date: 10/26/22 Stop Date: 11/05/22 Status: Ordered Ibuprofen Tablet 800 mg, Tablet, By Mouth, Every 8 hours, PRN for Pain , Moderate, (4-6), may give 400mg per patientpreference and re-dose with 400mg within 8 hours if needed. Patient should only receive a total of 800mg of Ibuprofen every 8 hours., Routine, ... Start Date: 10/24/22 Stop Date: 10/27/22 Status: Discontinued metroNIDAZOLE 500 mg oral tablet 1 tablet = 500 mg, By Mouth, Every 12 hours, # 14 tablet, 0 Refills, Maintenance, 10/22/22 20:34:00EST, Tablet, [facility] #[id number], Partial fill upon patient request if the prescription is for a schedule II opioid drug., 165, cm, 10/19/22 8:... Start Date: 10/22/22 Stop Date: 10/29/22 Status: Ordered Prenatabs Rx oral tablet 1 tablet, By Mouth, Daily, # 30 tablet, 11 Refills, Maintenance, 06/05/22 8:47:00 EDT, Tablet, [facility] #[id number], Partial fill upon patient request if the prescription is for a schedule II opioid drug., 1 tablet By Mouth Daily, 165, cm, 05/11... Start Date: 06/05/22 Status: Ordered Slynd 4 mg oral tablet 1 tablet = 4 mg, By Mouth, Daily, # 84 tablet, 3 Refills, Maintenance, 10/26/22 6:46:00 EST, Tablet, [facility] #[id number], Partial fill upon patient request if the [...] 11/05/22 6:47:00 EST, 10/26/22 6:46:00 EST, Capsule, [facility] #[id number], Partial fill upon pa... Start Date: 10/26/22 [...] Exam Date Time Procedure Performing Provider Status 10/26/22 7:18 PM US Doppler Ext Lower Venous Bilat Fent on , Tara; Auth (Verified) Notes: (US Doppler Ext Lower Venous Bilat) Reason For Exam: Swelling Extremities RESULT: US Doppler Ext Lower Venous Bilat US Doppler Ext Lower Venous Bilat Reason: Swelling Extremities; Clinical Question(s): Thrombosis COMPARISON: None IMAGING TECHNIQUE: Streamlined portable ultrasound of the lower extremity deep venous system was performed using grayscale, color, and spectral Doppler ultrasound from the common femoral through the popliteal vein assessing for complete compressibility and good response to compression and augmentation. The calf veins are not assessed. FINDINGS: RIGHT LOWER EXTREMITY: Common femoral vein: Patent. No thrombosis. Femoral vein: Patent. Mid and distal portions are patent by color imaging as patient was unable to tolerate compression. Popliteal vein: Patent. No thrombosis. LEFT LOWER EXTREMITY: Common femoral vein: Patent. No thrombosis. Femoral vein: Patent. Mid and distal portions are patent by color imaging as patient was unable to tolerate compression. Popliteal vein: Patent. No thrombosis. OTHER FINDINGS: None. IMPRESSION: No evidence of deep venous thrombosis from the groin through the popliteal vein. Calf veins not assessed with portable technique. WSN: [id number] Ordering Physician: Kate Jama Dictated By: Riaz Ortiz MD Dictated Date/Time: 10/26/22 7:24 pm Reviewed By: Riaz Ortiz MD Signed By: Riaz Ortiz MD Signed Date/Time: 10/26/22 7:24 pm Transcribed By: JORDY Transcribed Date/Time: 10/26/22 7:23 pm Vital Signs Most recent to oldest [Reference Range]: 1 2 3 4 Height 165 cm (10/27/22 9:00 AM) 165 cm (10/26/22 8:04 AM) 165 cm (10/25/22 10:40 AM) Weight 121.7 kg (10/24/22 2:07 AM) 121.7 kg (10/24/22 12:37 AM) Oxygen Saturation [94-100 %] 99 % (10/27/22 8:30 AM) 99 % (10/27/22 12:33 AM) 97 % (10/26/22 4:15 PM) Pulse Rate [55-90 bpm] 73 bpm (10/26/22 4:15 PM) 75 bpm (10/26/22 10:00 AM) 93 bpm *H* (10/26/22 8:04 AM) Body Mass Index [18.5-24.99 kg/m2] 44.7 kg/m2 *>HHI* (10/24/22 2:07 AM) Blood Pressure [90-138/55-84 mm Hg] 108/50mm Hg (10/27/22 8:30 AM) 116/62mm Hg (10/27/22 5:42 AM) 112/65mm Hg (10/27/22 12:33 AM) Respiratory Rate [16-30 br/min] 20 br/min (10/27/22 8:30 AM) 22 br/min (10/27/22 12:33 AM) 20 br/min (10/26/22 10:35 PM) 20 br/min (10/26/22 10:35 PM) Temperature [96.8-100.4 DegF] 98.0 DegF (10/27/22 8:30 AM) 97.4 DegF (10/27/22 12:33 AM) 97.9 DegF (10/26/22 4:15 PM) Mode of Delivery (Oxygen) Room air (10/27/22 8:30 AM) Room air (10/27/22 12:33 AM) Room air (10/26/22 4:15 PM) Blood pressure sites Arm, right (10/27/22 8:30 AM) Arm, right (10/27/22 12:33 AM) Arm, right (10/26/22 4:15 PM) Temperature Route Oral (10/27/22 8:30 AM) Oral (10/27/22 12:33 AM) Oral (10/26/22 4:15 PM) Dry Weight 121.7 kg (10/24/22 2:07 AM) 121.7 kg (10/24/22 12:37 AM) Weight Obtained Via Standing scale (10/24/22 12:37 AM) Dry Weight Obtained Via Standing scale (10/24/22 12:37 AM) Social History Social History Type Response Smoking Status Former smoker, quit more than 30 days ago entered on: 04/23/22 Sex History and physical note * Suly Sanchez DO: PERFORM Event Display: History and Physical Hospital Authored Date: Patient: ??DHEERAJ MANCINI ? Age:??31 Years?Sex:??Female?:??1990?? OB Reason for Admission OB Reason for Admission Reason for admission: Labor LMP/EGA/GURJIT Gestational Age (EGA) and GURJIT? * Note: EGA calculated as of 10/24/2022 ?? GURJIT:??10/29/2022?EGA*:??39 weeks 2 days ? History?(0,0,1,0)?Method:??Ultrasound??(04/18/2022) History of Present Illness Pt is a 31yo @ 39w2d presenting??for SROM and contractions. She admits to ctx getting stronger with rectal pressure. She denies to??VB. + movement. Denies fever/chills, MENDES, dizziness, changes in vision, CP, SOB, RUQ pain,??pain with urination, UE/LE swelling, calf tenderness. Pt undecided on pain control.??Expecting baby girl. Review of Systems All systems reviewed and negative except as noted above in HPI. Physical Exam Vitals & Measurements T:??97.4?F ?? HR:??105(Monitored)?? MA:??70?? RR:??22?? BP:??122/86?? SpO2:??100%?? WT:??121.7??kg?? Constitutional: Pleasant, alert, cooperative, no acute distress. Respiratory:??Equal chest rise bilaterally, no labored breathing. Cardiovascular: Regular rate and rhythm.?? Abdomen/GI: Gravid, firm, non-tender Gynecologic:?External Genitalia: normal exam, without lesions Extremities: No edema present bilaterally, no calf erythema Skin: No rash or jaundice. Neurological/Psychiatric: Appearance appropriate, mood and affect stable. ?? OB Exam Dilation: /-2 Cephalic presentation confirmed by:??Ultrasound EFW: 3600g Membrane Status:??SROM?? Ferr[place]:??Positive Nitrazine:??Positive Pooling:??Positive?? OB Assessment Baby A Baseline:125 Baseline Description:Normal, 110-160 bpm Baseline Variability:Moderate variability Accelerations:Present Deceleration:None Membranes ROM Date, Time:10/23/2022 23:45 EST Cervical Estimated Weight:3600 gm Membrane Status:SROM Uterine Monitor Mode, UterineExternal Cervical Cervical Dilatation6 cm Cervical Xywrotgrwi77% Station-1 Assessment/Plan Assessment:??Pt is a 31yo @ 39w2d presenting for SROM AT 1145 with mec? and contractions. GBS negative. complicated by cleft lip . Expectant management. Cat I tracing ?? Labor without complication (O80):? - Admit to L&D - CBC, Hold, IV access - CEFM - PPH risk: Moderate (BMI) - Pain management: PRN - Reassess patient in 2 hours or sooner as needed ?? complicated by cleft lip (O35.8XX0):? Left sided cleft lip noted. The palate appeared intact. Per MFM: s/p 28wk growth - WNL 26%ile echo normal s/p plastic surgery consult Per plastic surgery consult: 1. [place] may or may not be transitioned to NICU for monitoring/feed support.??Will need OT consultation at that time for specialized nipple feeding.??I will evaluate at the time of while at [facility]. 2.??Patient will then need to be followed in the [facility] clinic at [facility] Added to plan s/p??antepartum consult through [facility]IC ?? ADD (attention deficit disorder) (F90.9):? Self titrated Adderall to 20mg?? feels like she will stop it at end of as she wants to breastfeed pt states utox in [place] was positive for amphetamines, states due to Adderall ( ) offer utox with confirmatory testing to have on file next visit to show false positive. Declines on 07/20 pt has a psychiatritst, has zoom meetings weekly states stopped her meds with the cold turkey ; wellbutrin and abilify worked for her pt also worried about DCF states does not want meds, allergic to half of them, and states refuses while pt aware of ED and crisis ?? Bacterial vaginosis (N76.0):? First dose of Metronidazole PO given in [facility] today 10/24 Rx refilled ?? Bipolar disorder (F31.9):? +??has borderline personality disorder states has been in hard core therapy since she was 19 y/o stopped wellbutrin and abilify with states has anger issues, reviewed risk vs benefit EPDS 19 on 04/23, with a 2 on question 10 EPDS 13 on 08/06 with 1 on question 10 denies current SI pt has therapist pt has psych for meds ( ) SW consult on L&D ( ) scheduled 2wk PPV with N tele ?? History of alcohol abuse (F10.11):? No current use, stopped when found out about has been to rehab, knows not to drink in , advised to reach out to providers or call if feels she needs addtional supportive services in this ( ) SW consult on L&D ?? Marginal insertion of umbilical cord affecting management of mother (O43.199):? Noted on prior ultrasound ?? Obesity during (O99.210):? BMI >40 ?? Stress at home (F43.9):? per RN note: pt sts she is concerned about income, housing and transportation. currently works at [employer] but sts won't be continuing d/t lifting requirements of the job and , concernabout keeping apartment pt states needs to be out of partner's mom's house until July; states they don't have money PT1 requested ( ) N consult - community resources ?? COVID-19 virus RNA test result positive at limit of detection (U07.1):? - COVID positive on this admission ?? Plan discussed with Dr. Olivo, attending physician. OB History History?(0,0,1,0)? # 1 ?Baby 1 ?Outcome Date:??2017 ?Outcome or Result:??Spontaneous ?Gest Age:??-- ? Outcome:? Sex:??-- ?Comment:??Pt sts at [facility] ED, not confirmed, was just told the kind of bleeding she was presenting ?for might indicate an SAB Labs Labs Labs & Tests ABO: B (06/05/22) Chlamydia Trachomatis Amplified Probe: NEGATIVE (07/10/22) Creatinine-Blood: 0.5 mg/dL (07/10/22) Down Syndrome Age Risk FTS: Age Risk: (04/18/22) Down Syndrome Scrn Risk FTS: Screening Risk: (04/18/22) Glucose 50 Gm, +60 Minutes: 106 mg/dL (08/06/22) Hct:??34.4 %??Low (07/10/22) Hgb:??11.3 Gm/dL??Low (07/10/22) RH Test Only: Positive (06/05/22) Trisomy 18 Scrn Risk FTS: Screening Risk: (04/18/22) Urine Culture: Urine Culture (08/23/22) Transcribed Labs Amphetamine Urine Screen-Transcribed: Positive (04/25/22) Antibody Screen-Transcribed Result: Negative (04/25/22) Barbiturate Urine Screen-Transcribed: Negative (04/25/22) Benzodiazepine Urine Screen-Transcribed: Negative (04/25/22) Blood Type-Transcribed Result: B (04/25/22) Cannabinoid Urine Screen-Transcribed: Negative (04/25/22) Chlamydia-Transcribed Result: Negative (04/25/22) Cocaine Urine Screen-Transcribed ??Result: Negative (04/25/22) Fentanyl Urine-Transcribed Result: Negative (04/25/22) Glucose Tolerance 1Hr-Transcribed: 108 (04/25/22) Gonorrhea-Transcribed Result: Negative (04/25/22) Hematocrit-Transcribed Result: 35 (04/25/22) Hemoglobin-Transcribed Result: 11.1 (04/25/22) Hep B Surface Antigen-Transcribed Result: Negative (04/25/22) HIV-Transcribed Result: Negative (04/25/22) Opiate Screen Urine-Transcribed Result: Negative (04/25/22) PCP Urine-Transcribed Result: Negative (04/25/22) Platelet-Transcribed Result: 415 (04/25/22) Rh-Transcribed Result: Positive (04/25/22) Rubella IgG -Transcribed Result: Positive (04/25/22) Syphilis screen-Transcribed Result: Negative (04/25/22) Urine Culture-Transcribed Result: No growth (04/25/22) Varicella-Transcribed Result: Negative (04/25/22) White Blood Count-Transcribed Result: 10.2 (04/25/22) Problem List Active Active Problem List ADD (attention deficit disorder): (Medical) Sees Dr. Granda. Anxiety: (Medical) Bipolar disorder: (Medical) Borderline personality disorder in adult: (Medical) Depression: (Medical) History of alcohol abuse: (Medical) Obesity during : (Medical) : (Obstetric) (01/22/22) : (Medical) Severe obesity: (Medical) Stress at home: (Medical) Procedure/Surgical History Endoscopy of upper gastrointestinal tract: 2017 Dental surgery service Home Medications Amphetamine-Dextroamphetamine: 20 mg = 1 tablet, By Mouth, Daily Aspirin: 162 mg = 2 tablet, Chew, Daily at bedtime Metronidazole: 500 mg = 1 tablet, By Mouth, Every 12 hours Multivitamin, : 1 tablet, By Mouth, Daily Allergies PROzac??(RASH) LaMICtal Pamprin ES Multi-Symptom Relief Formula Penelope amoxicillin penicillin Social History Alcohol Use: Past. Frequency: 1-2 times per month., 04/23/2022 Electronic Cigarette/Vaping Electronic Cigarette Use: Never., 04/23/2022 Employment/School Status: Employed. Other: [employer]., 04/23/2022 Exercise Self assessment: Fair condition. Regular exercise: No., 04/23/2022 Home/Environment Living situation: Home/Independent. Lives with: Significant other, Partner's mom and his daughter. Feels unsafe at home: No., 04/23/2022 Nutrition/Health Diet: Regular., 04/23/2022 Sexual Sexually involved in last 6 months: Yes. Sexual orientation: Homosexual. Other sexual concerns: Monogamous for the last 2.5 years.., 07/28/2015 Substance Abuse Use: Past. Type: Marijuana. IV drug use: No., 07/28/2015 Tobacco Use: Former smoker, quit more than 30 days ago., 04/23/2022 Family History Father: Diabetes mellitus type II Other: Schizophrenia ? 24-MAY-2014 21:07:46<$> Pat. Grandmother: Cancer of breast Mat. Grandfather: Cancer of lung Mat. Grandmother: Cancer of breast Brother: Undescended testicle Plan No Data Found * Smith Olivo MD: PERFORM Event Display: History and Physical Hospital Authored Date: I have discussed the care of Ms. Mancini with Dr. Sanchze and I agree with the noted care plan. Hospital Progress note * Zohreh Granda RN: PERFORM, SIGN, VERIFY Event Display: Progress Note Hospital Authored Date: Patient: DHEERAJ MANCINI Age: 31 years Sex: Female : 1990 Associated Diagnoses: None Author: Zohreh Granda RN Patient has bilateral ultrasounds done after evening shift change which were negative for thrombosis per the report. due to the late hour pt requested to stay the night in house and discharge home tomorrow. the patient grew increasingly concerned regarding lower extremity swelling noted in feet and ankles. fluid offloading techniques discussed and pt was provided with an SCD pump to utilize whilein bed. discharge instructions were reviewed and questions were answered and concerns addressed. plan is early am discharge. * Kate Jama MD: PERFORM Event Display: Progress Note Hospital Authored Date: [id number] Patient: ??DHEERAJ MANCINI ? Age:??31 Years?Sex:??Female?:??1990?? Subjective called to bedside by nursing due to patient report of numbness in feet, shortness of breath ?? patient reports bilateral leg swelling, denies pain or redness, reports that she had an episode of leg swelling a few years ago (per her report after taking benzos) for which she was admitted to the hospital and given lasix. denies other history of heart failure or volume overload. She does report that she feels she has diminished sensation in her legs bilaterally - denies difficulties with ambulation but reports that she has less feeling with her legs. ?? she also reports chest pressure and trouble breathing which she states is related to throat swelling. She states this does feel similar to??a mild allergic reaction. She does report feeling anxious that the baby will cough or choke and reports that she has not been sleeping much since delivery due to this anxiety. ?? She denies abdominal pain, nausea, vomiting, gynecologic concerns at this time. Does report ongoing pubic symphysis pain. Denies feeling lightheaded or dizzy at this time or when ambulating but does report feeling somewhat woozy earlier which she attributes to extremely limited sleep since delivery. Review of Systems All systems??reviewed and negative except as noted in the HPI Physical Exam Vitals & Measurements T:??97.5?F ?? HR:??98(Monitored)?? MA:??75?? RR:??17?? BP:??123/73?? SpO2:??96%?? HT:??165??cm?? WT:??2.967??kg?? BMI:??44.7?? Constitutional:??No acute distress, resting comfortably. infant on exam. HEENT:??Oral cavity and upper pharynx without notable erythema or swelling, without masses. Respiratory:??Normal work of breathing. Lungs clear to auscultation bilaterally. Cardiovascular:??Regular rate and rhythm, S1 and S2 heard,??no murmurs. Abdomen/GI:??Soft, non-distended, no guarding, no rebound tenderness. Extremities:??Trace bilateral pitting edema without erythema or tenderness. Diminished sensation across dorsal aspect of bilateral feet, lateral bilateral legs, and medial bilateral thighs. Skin:??No rash or jaundice. Neurological/Psychiatric:??Mood and affect congruent and stable. Assessment/Plan This is a 31yo??G2 now P1 on PPD2 from?? complicated by positive COVID test on admission. She has a history significant for bipolar disorder and borderline personality disorder.??She is now experiencing the feeling of throat swelling with normal exam and related difficulty breathing. Likely normal swelling secondary to fluid shifts and possible mild allergic reaction vs. developing COVID symptoms. Will evaluate for chest pressure/SOB with EKG and trial benadryl, monitor for improvement. ?? Plan: -??EKG ordered and pending - Benadryl 25mg PO ?? Patient and plan of care discussed with Christin Conner CNM OB Summary : 2 Parity: 0 . Baby A - Weight: 2.967 kg Baby A - Date, Time of : 10/24/22 05:02:00 Baby A - Gender: Female Baby A - Complications: Other: cleft lip EGA at Documented Date, Time: 39W 2D Weight at Delivery Baby A - Delivery Type: Vaginal OB History History?(0,0,1,0)? # 1 ?Baby 1 ?Outcome Date:??2017 ?Outcome or Result:??Spontaneous ?Gest Age:??-- ? Outcome:? Sex:??-- ?Comment:??Pt sts at [facility] ED, not confirmed, was just told the kind of bleeding she was presenting ?for might indicate an SAB Active Problem List Active Problem List ADD (attention deficit disorder): (Medical) Sees Dr. Granda. Anxiety: (Medical) Bipolar disorder: (Medical) Borderline personality disorder in adult: (Medical) Depression: (Medical) History of alcohol abuse: (Medical) Obesity during : (Medical) : (Obstetric) (01/22/22) : (Medical) Severe obesity: (Medical) Stress at home: (Medical) Home Medications Acetaminophen: See Instructions, PRN (as needed for pain), 2 capsule (650 mg) taken By Mouth Every 4 hoursnot to exceed 4000 mg/day Amphetamine-Dextroamphetamine: 20 mg = 1 tablet, By Mouth, Daily Aspirin: 162 mg = 2 tablet, Chew, Daily at bedtime Drospirenone: 4 mg = 1 tablet, By Mouth, Daily Ibuprofen: See Instructions, PRN (as needed for pain), 1 tablet taken By Mouth Every 6 hoursnot to exceed 3200 mg/day Metronidazole: 500 mg = 1 tablet, By Mouth, Every 12 hours Multivitamin, : 1 tablet, By Mouth, Daily Medications Medications (7) Active SCHEDULED: (3) Amphetamine-Dextroamphetamine 5 mg Tablet (Adderall Oral Tablet) ??20 mg, By Mouth, Daily Metronidazole 500mg Tablet (metroNIDAZOLE 500 mg oral tablet) ??500 mg, By Mouth, Every 12 hours Multivitamin Tablet ??1 tablet, By Mouth, Daily CONTINUOUS: (0) PRN: (4) Acetaminophen 325 mg Tablet (Acetaminophen Tablet) ??650 mg, By Mouth, Every 4 hours diphenhydrAMINE 25 mg Tablet (Benadryl Tablet) ??25 mg, By Mouth, Once Docusate Sodium 100 mg Capsule (Docusate Sodium Capsule) ??100 mg 1 capsule, By Mouth, 2 times a day Ibuprofen 800 mg Tablet (Ibuprofen Tablet) ??800 mg, By Mouth, Every 8 hours * Kate Jama MD: PERFORM Event Display: Progress Note Hospital Authored Date: EKG unchanged from prior patient reports improvement in symptoms - states that ongoing chest pressure feels similar to anxiety and exhaustion she has experienced in the past, no concern for acute pathology ?? after discussion with Dr. Ford PGY3, b/l LE dopplers ordered to rule out DVT which are still pending but per radiology will be completed bedside at 1800 encouraged f/u with PCP if swelling persists ?? patient cleared for discharge per earlier summary pending doppler results * Deloris Palma RN: PERFORM, SIGN, VERIFY Event Display: Progress Note Hospital Authored Date: [id number] Patient: DHEERAJ MANCINI Age: 31 years Sex: Female : 1990 Associated Diagnoses: None Author: Deloris Palma RN Findings Pt out of bed ad gladys ambulating in room frequently. Taking in food and fluids well without nausea as well as passing flatus and voiding without difficulty. Pt states pain is well controlled on current medication regime. Mild rubera flow with no clots noted. Pt using tucks and ice pack to luciano area.Will continue to monitor. Call calderón in reach. Note * Edita Barker RN: PERFORM Event Display: Discharge/Transfer Note Hospital Authored Date: Nursing Discharge Note Entered On: 10/27/2022 13:10 EST Performed On: 10/27/2022 13:10 EST by Edita Barker RN Nursing Discharge Note 2 Discharge Time : 10/27/2022 12:50 EST Discharge Level of Care at Discharge : Home/Detention/Foster Care Patient Left Unit Via : Wheelchair Patient Accompanied Off Unit with : Significant other DC Instructions Provided & Signed by Pt : Yes Patient Understands D/C Instructions : Yes Patient Instructions Discharge Signed : Yes Did Pt have Specialty Bed or Wound Vac : No Edita Barker RN - 10/27/2022 13:10 EST * Kate Jama MD: PERFORM Event Display: Discharge/Transfer Note Hospital Authored Date: Patient: ??DHEERAJ MANCINI ? Age:??31 Years?Sex:??Female?:??1990?? Admit Date Admission Date: 10/24/2022 Discharge Date 10/27/2022 OB Reason for Admission OB Reason for Admission Reason for admission: Labor OBGYN Hospital Course Patient is a 31yo @ 39w2d presenting for SROM / labor, found to be COVID positive on admission. GBS negative. Proceeded to have a on 10/24 of female . Left labial repaired.??PP course complicated by chest pressure / shortness of breath / leg swelling on PPD2. EKG nl, LE dopplers negative. Reassuring improvement however patient decided to stay an extra night due to late??hour of ultrasound study. ?? On day of discharge, patient meeting appropriate milestones and appropriate for discharge to home. She reports some MSK pain of her ribs that is positional. She reports leg swelling stable from yesterday. She is anxious about leaving but has good support system in place at home with family and therapist. States her pain is well controlled with PO pain medications. Her lochia is??ligh ter than a normal period. She is ambulating, voiding spontaneously, and tolerating regular diet. She has had a bowel movement. Objective/Physical Exam on Day of Discharge Vitals & Measurements T:??98.0?F ?? HR:??74(Monitored)?? MA:??73?? RR:??20?? BP:??108/50?? SpO2:??99%?? HT:??165??cm?? WT:??2.967??kg?? BMI:??44.7?? Constitutional:??No acute distress, resting comfortably. Respiratory:??Normal work of breathing. Breathing comfortably on room air. Cardiovascular:??No signs of fluid overload. Abdomen/GI:??Soft, non-distended, no guarding, no rebound tenderness.??Fundus firm at umbilicus-2 with mild tenderness. Gynecologic:??Minimal lochia. No swelling or hematoma. Extremities:??No calf tenderness or edema. Skin:??No rash or jaundice. Neurological/Psychiatric:??Mood and affect congruent and stable. Assessment/Plan/Discharge Diagnosis state (Z39.2):? - Expected discharge to home today - Continue routine care - Diet: Regular - Pain control: Ibuprofen & Tylenol - Encourage ambulation - Feeding plan: - sex: female - PPBC: OCPs - Follow-up:??1 wk BHN visit (timing per pt request)??plus 4-6 wk visit ?? ADD (attention deficit disorder) (F90.9):??Self titrated Adderall to 20mg - plans to stop medication??for ?? Bipolar disorder (F31.9):??and borderline personality disorder - in therapy, weekly zoom with psychiatrist and reports will continue to attend - stopped wellbutrin and abilify with (x) SW consult on L&D (x) accepts PPV with N tele, requests in 1 week ?? COVID-19 virus RNA test result positive at limit of detection (U07.1):? - positive test on admission - enhanced respiratory precautions ?? complicated by cleft lip (O35.8XX0):??s/p antepartum consult through [facility] - seen during admission ?? Stress at home (F43.9):??PT1 during for??transportation concerns, also has housing??concerns SW seen, [facility] set up ?? Care: depression increased risk Future Appointments Saturday 8:40 AM EST ?? With: Where: [facility] - [employer] [address] [place] [id number]- Saturday 1:20 PM EDT ?? With: Santiago ORTIZ, Harriet Casey Where: [facility] - [employer] [address] [place] [phone]- Delivery Summary Delivery Summary Maternal Information ??Labor Information ?Baby A ?Labor Onset Methods: ??Spontaneous ??Delivery Information ?Gestational Age at Delivery: ??39W 2D ?Anesthesia OB: ??Epidural ??10/24/22 06:57:51, Epidural ??10/24/22 02:28:25 ?Obstetrical Laceration: ??Perineum intact, Vaginal laceration, Labial laceration ?Vaginal Laceration: ??Midline ?Vaginal Laceration Repair: ??Not repaired ?Labial Laceration: ??Bilateral ?Anesthesia for Repair: ??Epidural ?Blood Loss(ml): ??100 mL ? Baby A ??Delivery Information ?Delivery Type: ??Vaginal ?Date, Time of : ??10/24/22 05:02:00 ? Position: ??Supine ?Foot of bed removed: ??Yes ?Delayed Cord Clamping: ??Yes ?Placenta Delivery Date/Time: ??10/24/22 05:09:00 ?Placenta Delivery Method: ??Assisted ?Placenta Appearance: ??Circumvallate ?Placenta to Pathology: ??No ??Care Team ?Attending Provider: ??Julio LEIVA, Toshia Gibbons ?Delivery Physician: ??Daniel YOUNG, Suly ?Document Imaging Specialist Provider #1: ??Rohit YOUNG, Sherry ?geological sample tester #1: ??Te MONTES, Suly ?geological sample tester #2: ??Frankie MONTES, Stanley ?Pool Nurse: ??Brad YOUNG, Kalyani Kearney ?Anesthesiology Attending: ??Colton YOUNG, Joel Dennis ?Ensemble Member: ??Bessy Barrientos MD ?Time NICU Team Called: ??10/24/22 04:50:00 ??Labor Information ?ROM Date, Time: ??10/23/22 23:45:00 ?ROM to Delivery Total Time: ??317 min ?2nd Stage, Length of Labor: ??51 min ?3rd Stage, Length of Labor: ??7 min ? monitoring: ??External monitor ?? Information ? Outcome: ??Live ? Position: ??Occiput anterior ? Weight: ??2.967 kg ? Score 1 minute: ??8 ? Score 5 minute: ??9 ? Score 10 minute: ??9 ?Transferred To: ?? Care area with Family ?Umbilical Cord Description: ??3 vessel cord, Nuchal cord ?Nuchal cord times: ??2 ?Nuchal cord tension: ??Tight ?Nuchal cord Intervention: ??Somersault maneuver ? Complications: ??None ?Gender: ??Female ? Procedures Performed Epidural Vaginal delivery ?? Discharge Medications ???Acetaminophen (Tylenol 325 mg oral capsule)???Amphetamine-Dextroamphetamine (Adderall 20 mg oraltablet)???Aspirin (aspirin 81 mg oral tablet, chewable)???Drospirenone (Slynd 4 mg oral tablet)???Ibuprofen (ibuprofen 600 mg oral tablet)???Metronidazole (metroNIDAZOLE 500 mg oral tablet)???Multivitamin, (Prenatabs Rx oral tablet) Immunizations during Hospitalization Vaccine Date Status Commentsinfluenza virus vaccine, inactivated - Not Given Patient Refuses tetanus/diphtheria/pertussis, acel(Tdap) 07/20/2022 Given SARS-CoV-2 (COVID-19) mRNA BNT-162b2 vac 04/08/2021 Recorded SARS-CoV-2 (COVID-19) mRNA BNT-162b2 vac 03/13/2021 Recorded tetanus/diphtheria/pertussis, acel(Tdap) 01/28/2017 Given Meningococcal Conjugate Vaccine 03/31/2008 Recorded tetanus-diphtheria toxoids (Td) 08/10/2004 Recorded hepatitis B pediatric vaccine 11/18/2001 Recorded hepatitis B pediatric vaccine 10/19/1998 Recorded hepatitis B pediatric vaccine 09/15/1998 Recorded Measles/Mumps/Rubella Virus Vaccine 06/05/1998 Recorded diphtheria/tetanus/pertussis, acel(DTaP) 11/16/1996 Recorded Varicella Virus Vaccine 02/13/1996 Recorded Measles/Mumps/Rubella Virus Vaccine 02/13/1993 Recorded Contraception Progesterone only contraceptive pills ? Infant Feeding Method No Results Follow-Up Appointments Added Follow Up ?Time Frame ?Comments Follow up, 2 weeks?Our office will reach out to schedule a telehealth check-in with our team specializing in depression and anxiety approximately??1 week after you go home Patient Instructions Discharge:??Home ?? Please call the office with any concerns including:?? Heavy vaginal bleeding?? Fever of 100.4 or greater Foul-smelling vaginal discharge Difficulty or burning with urination Nausea and vomiting with inability to tolerate food Pain not controlled by the medications listed below Shortness of breath or chest pain. Swelling of the extremities. ?? General Instructions: - Avoid lifting anything 15 lbs or greater until cleared by doctor. - Stairs are OK but avoid multiple trips/ skipping steps and go slowly. - Walk as often as you are able. - Do not put anything in the vagina. No intercourse, tampons, or douching - For pain, you can use itqe-sgp-dyvykqd medicines:??Tylenol (acetaminophen, up to 1000mg every 6 hours) and ibuprofen (up to 600mg every 6 hours) - Continue using stool softeners as needed??(examples: colace/docusate, senna, miralax) - Shower as usual. Avoid tubs / soaking / pools. ?? Thank you for allowing us to be part of your care team. * Osiel LEIVA, Riaz: PERFORM Event Display: Discharge/Transfer Note Hospital Authored Date: [id number] Attending Attestation: I have seen and evaluated this patient. I have discussed the case and its management with the resident and agree with the findings and plan as documented in the resident???s note. * Mj MONTES, Edita Gibbons: PERFORM Event Display: Patient Education/Instruction Authored Date: [id number] Inpatient Adult Discharge Instructions [address] [address] Name: DHEERAJ MANCINI : 1990 Visit: 10/24/2022 00:44:00 Current Date: 10/27/2022 10:23 Account: [id number] Inpatient Adult Discharge Instructions We would like [...] and their families. Surveys are administered by [employer] ?? If further treatment with your primary care physician or another doctor is recommended, it is important for you to keep the appointment. Call your primary care physician or return to the Emergency Department immediately if your condition worsens, fails to improve, or new symptoms develop. If you need to find a doctor, you can call [facility] [employer] [facility] for a referral at [phone] or toll free at [phone]OXAALP ([phone]) or log in to [email or web address].. ?? You can view and manage your care through the patient portal or by using a health care ramesh of your choosing. [employer] is a website that allows you to securely view your medical information including your hospital discharge summary, office visit summaries, medications and follow-up visits. You can also request appointments, renew medications, and request access to your medical information using a health care ramesh of your choosing, or just ask a question. You can enroll at [email or web address] or register during your next office visit. You have been discharged from [facility], Patient Care Unit: [facility]. If you have any questions regarding these instructions after you leave, please call us and we will be happy to assist you. [facility] Your Care Team Attending Physician Smith Olivo MD Discharging Providers Malathi Zheng MD Reason for Admission Labor Your Diagnosis Labor without complication ADD (attention deficit disorder) Bipolar disorder History of alcohol abuse Marginal insertion of umbilical cord affecting management of mother Obesity during Stress at home complicated by cleft lip COVID-19 virus RNA test result positive at limit of detection state state Tests Performed Below is a partial list of the tests performed during your hospitalization. You may have had other tests and procedures not included in this list. Please discuss all test results with your provider. CBC Type and Screen Doppler Ext Lower Venous Bilat (US) Primary Care Provider Joe Maya MD Advance Directive Health Care Proxy on File No Patient refuses to discuss Discharge Vitals Temperature: 98 DegF Height: 165 cm Pulse Rate: 73 bpm Weight: 121.7 kg Respiratory Rate: 20 br/min Body Mass Index:??44.7 kg/m2??Critical Systolic Blood Pressure: 108 mm Hg Body surface area: 2.36 Diastolic Blood Pressure:??50 mm Hg??Low ?? Oxygen Saturation: 99 % ?? Studies Pending All tests and labs ordered during this hospital stay have been completed unless listed below. Please discuss all pending results with your provider listed above in these instructions. ?? COVID-19 (2019 Novel Coronavirus) PCR Hold Lavender Tube (BB) What to do next Instructions From Your Doctor Discharge:??Home ?? Please call the office with any concerns including:?? Heavy vaginal bleeding?? Fever of 100.4 or greater Foul-smelling vaginal discharge Difficulty or burning with urination Nausea and vomiting with inability to tolerate food Pain not controlled by the medications listed below Shortness of breath or chest pain. Swelling of the extremities. ?? General Instructions: - Avoid lifting anything 15 lbs or greater until cleared by doctor. - Stairs are OK but avoid multiple trips/ skipping steps and go slowly. - Walk as often as you are able. - Do not put anything in the vagina. No intercourse, tampons, or douching - For pain, you can use ejyc-bsc-omiofgc medicines:??Tylenol (acetaminophen, up to 1000mg every 6 hours) and ibuprofen (up to 600mg every 6 hours) - Continue using stool softeners as needed??(examples: colace/docusate, senna, miralax) - Shower as usual. Avoid tubs / soaking / pools. ?? Thank you for allowing us to be part of your care team. Discharge Orders Instructions from your Care Team Discharge Care Instructions for the New Mom?? Please take a few moments to read through these helpful instructions before you leave the hospital.??Your nurse will be glad to answer any questions you may have. ??You can also find this and more information throughout the purple??Becoming a Family??booklet,??[facility]???s New Beginnings Guide??and the?? Consultation Services Guide??given to you after the of your baby. ??You may also phone our nurses stations if you have further questions. ??[facility]: ??First Floor ([phone]), Second Floor ([phone]). ?? Please call your provider if you have any questions or concerns ??before your next appointment. For ongoing support??please?Like?us on our Facebook page?[facility]???s New Beginnings?and sign up for our email newsletter at??[email or web address]. ??News and information will be sent to you??until your baby???s third birthday. Instructions for the New Mother Activity:?? For the next 2 weeks at home?no heavy lifting, avoid unnecessary stair climbing, and no driving (especially if you are taking medicine that may make you sleepy or feel that you are sleep deprived). ?? For the next 4-6 weeks - no tampons, no douches, no sexual intercourse. Use your luciano bottle to rinse your perineum until your vaginal flow stops. ??If you have stitches in your bottom, they generally dissolve within 7-10 days. ??Apply Tucks/witch dameon pads until your soreness subsides. ??Use your bathroom at home every 3 to 4 hours, rinse, and change your pads. Warm showers feel great on achy muscles, sore backs and sore bottoms. Exercise: Walking is the best form of exercise. ??Wait until your follow up appointment with your provider in4-6 weeks before engaging in more strenuous activity. Diet: Drink plenty of fluids to avoid constipation and to help support your recovery. Eat plenty of iron rich foods such as red meat, iron fortified cereals like Total and Cream of Wheat, raisins, prunes, greens and spinach. ??These will help to build your blood count back up as all women lose some blood after delivery. ??Also add foods rich in Vitamin C such as strawberries, oranges, papayas, kale and calderón peppers. Continue to take your vitamins if you are . ??If you are not follow the instructions of your provider. ??If you were prescribed iron supplements such as ferrous sulfate, it is important to continue these until your doctor or collar turner operator tells you to stop. Breast Care for Nursing Mothers: Wear a comfortable fitting, supportive nursing bra. ??An underwire bra is not recommended. Express drops of breast milk and rub over your nipples and areola (brown area) before and after each feeding to protect and heal sensitive skin and then air dry your nipples. ??If you are experiencing any soreness, you may purchase nipple cream such as TenderCare or Lansinoh. ??Use it in the following manner: ??finish your feeding or pumping session, self-express colostrum onto your nipple and air dry, apply the nipple cream to the nipple and areola. ??Use only small amounts for best results. If you are having difficulty getting the baby to latch onto the breast due to swelling of the areola, try applying pressure with your fingers for a couple of minutes above and below your nipple and walk your fingers outward softening the area and pushing the swelling away. ??This technique is knownas reverse pressure softening. ??For demonstrations of this and other techniques such as the Learned Hand Expression technique, please refer to the resources section of the Consultation Services Guide that you received from services.?? When your milk first comes in, usually within 3 to 5 days after delivery, you may experience engorgement. ??Your breasts may become swollen and very tender. ??Cold compresses work great to help with discomfort and reduce swelling. It will get better in a couple of days. ??Continue to nurse your baby frequently. ?? Call [facility]???s Consultation Service at [phone], press 1 to schedule an outpatient appointment or press 3??and a identity management consultant will return your call that day or the next if you call after 3pm. Breast Care for Bottle Feeding Mothers: Engorgement may occur within the first week after delivery. ??Your breasts may become hard and verytender. ??A cool compress of cleaned raw green cabbage leaves applied to the breast and changed as leaves wilt has been proven helpful for many women. ??Ice packs or frozen bags of peas also work nicely to ease the discomfort. ??The soreness will only last a couple of days. Keep your back turned to the water while showering to decrease breast stimulation. Wear a snug fitting bra such as a sports bra. ?? Control: Your doctor or collar turner operator will discuss control methods with you when you are discharged from thespital or at your checkup. ??Be sure to let your provider know if you are . ?? Pain Management: Cramping after is common and increases in strength with each baby you have. ??If you experience painful cramps, and have no allergies to acetaminophen (Tylenol) or ibuprofen (Motrin), you may continue to take these medications as you did in the hospital. ??Ibuprofen is also helpful with back aches following epidurals, perineal pain following a vaginal delivery, and moderate incisional pain after a section or a tubal ligation. ?? If you experience gas distention, especially after surgery, you may take an over the counter medication called simethicone. ??Take these chewable tablets 4 times a day as needed and directed on the package. ??Keep moving. ??Walking or rocking in a chair, will help to move the gas along. ??Casey tea made with heated casey meliza (instead of water) and a tea bag, stirred to dissolve carbonation (bubbles) is a helpful drink to soothe a gassy stomach. Warning Signs of a Problem to Notify Your Doctor or Supervisor Tank Storage of: Heavy vaginal bleeding?which is??soaking a pad every hour??with bright red blood. Passing blood clots the size of an egg or larger. An incision that is not healing. A temperature greater than or equal to 100.4 especially if accompanied by any of the following symptoms?painful, frequent urination; extreme back or flank pain; lower belly pain with a foul smell to your vaginal flow; a red hard hot area on your breast. ?? Severe headache that does not go away after taking acetaminophen or ibuprofen. ?? A headache that changes your vision, including seeing spots or blurring. Right sided upper abdominal pain along the rib cage area. Pain in your legs that is warm and tender to the touch. depression signs may include?loss of interest in your baby, weepiness, difficulty focusing, weight loss with no appetite, exhaustion, feeling overwhelmed or anxious, feelings??of despair, or thoughts of harming yourself or your baby. ??These symptoms are important and should be discussed with your doctor or collar turner operator. depression may develop over a period of time and needs prompt medical attention. ??Do not suffer in silence. ??In both the??Becoming a Family??booklet and the??[facility]??New Beginnings Guide??there is a screening tool used to identify women at risk, called the Barnett Scale which you have taken in the office prior to delivery and again during your ho spital stay. ??Three to four weeks after your delivery, and before your check with your provider, take this test and share your results with your provider. ??Be sure to mention any score of 10 or more. ?? Many women, and even some partners, may experience the?baby blues?? . ??This is a state of feeling overwhelmed and weepy. ??Discomfort from childbirth, hormonal changes, exhaustion, changes to your body and lifestyle are a few of the things that contribute to the highs and lows new parents go through. ??Don???t be afraid to ask your partner or family and friends for some help at home so you can get some rest and a few minutes to yourself. ??The blues will quickly pass. Personal Safety: Every person has the right to feel safe at home and live free from physical or emotional harm. ??Ifyou have suffered mental or physical abuse at home, you are not alone. ??There is help. ??Please call [employer] or the [employer] Program at [phone]. Scheduled Follow-Up Appointments Saturday 8:40 AM EST ?? With: Where: [facility] - [employer] Serv[employer] Repairer [address] [place] [phone]- Saturday 1:20 PM EDT ?? With: Harriet Henderson CNM Where: [facility] - [employer]airer [address] [place] [phone]- You Need to Schedule the Following Appointments Follow Up with??Follow up, 2 weeks When?? Why: Our office will reach out to schedule a telehealth check-in with our team specializing in depression and anxiety approximately??1 week after you go home Where: Discharge Medications DHEERAJ MANCINI :1990 Visit Date:10/24/2022 Medications: Please continue your medications until treatment is completed or stopped by your provider. Medications not listed below should be discontinued. Discuss any questions related to medications with your provider. What How Much When Why Instructions Next Dose New Acetaminophen (Tylenol 325 mg oral capsule) See instructions 2 capsule (650 mg) taken By Mouth Every 4 hours not to exceed 4000 mg/ day ?? [facility] needed New Drospirenone (Slynd 4 mg oral tablet) 1 tab(s) Oral Daily Refills: 3 [facility] New Ibuprofen (ibuprofen 600 mg oral tablet) See instructions 1 tablet taken By Mouth Every 6 hours not to exceed 3200 mg/ day ?? [id number] after 2pm today Unchanged Amphetamine-Dextroamphetamine (Adderall 20 mg oral tablet) 1 tab(s) Oral Daily Saturday 8am Unchanged Aspirin (aspirin 81 mg oral tablet, chewable) 2 tab(s) Chew Daily at Bedtime tonight 8pm Unchanged Metronidazole (metroNIDAZOLE 500 mg oral tablet) 1 tab(s) Oral Every 12 hours Duration: 7 Days tonight 8pm Unchanged Multivitamin, (Prenatabs Rx oral tablet) 1 tab(s) Oral Daily tonight 8pm Pharmacy Information [facility] #[id number]: [address], [place] [id number] [phone] Test Results Below is a partial list of the most recent Laboratory test results done prior to this discharge. You may have had other tests and procedures not included in this list. Please discuss all test resultswith your provider. CBC (10/24/2022) ???WBC - 13.8 k/mm3???RBC - 4.99 m/mm3???Hgb - 13.7 Gm/dL???Hct - 41.3 %???MCV - 82.8 femtoliters???MCH - 27.5 pg???MCHC - 33.2 g/dL???Platelet Count - 416 k/mm3???RDW-SD - 41.2 femtoliters???MPV - 9.0 femtoliters???Nucleated RBC (Automated) - 0.0 #/100 WBC'S???Abs. NRBC - 0.0 k/mm3 Type and Screen (10/24/2022) ???Blood Type - B Positive???Antibody Screen - Negative Immunizations This Visit Not Given Vaccine Commentsinfluenza virus vaccine, inactivated Patient Refuses Allergies (NKA means No Known Allergies) PROzac??(RASH) LaMICtal Pamprin ES Multi-Symptom Relief Formula Penelope amoxicillin penicillin Problems Active Problems??(11) ADD (attention deficit disorder)?? Anxiety?? Bipolar disorder?? Borderline personality disorder in adult?? Depression?? History of alcohol abuse?? Obesity during ? Severe obesity?? Stress at home?? Education Materials Below is the list of Educational Leaflet Providered with your Discharge Instructions. Valuables and Belongings I fully understand and agree that [facility] accepts no responsibility for all [...] encouraged to send valuables and belongings home. ?? No Valuables/Belongings: No valuables/belongings present Date for Pt to Sign Valuables/Belongings: 10/27/22 06:50:00 ?? Other Discharge Information ? Pulmonary Rehab Status?? Pulmonary Rehab Discharge Status?? Respiratory Rate: 20 br/min ? Common Emergency Awareness Tips IS [...] are strongly encouraged to quit. Please call [facility] [employer] [facility] Link at [phone] or [phone] ([phone]) or log in to [email or web address] for referrals to smoking cessation programs. ?? The National Suicide Prevention Hotline is available 01/04 if you or someone you know needs to find a reason to keep living. By calling 1-790-283-[employer] (9489) you'll be connected to a skilled, trained counselor at a crisis center in your area. INPATIENT DISCHARGE INSTRUCTIONS SIGNATURE TEO DHEREAJ MANCINI Location:[facility] Registration Date and Time:10/24/2022 00:44 EST Primary Care Physician: Zulma LEIVA , [facility], I DHEERAJ MANCINI, have received the above patient education materials/instructions and have verbalized understanding. If ambulance or transport services are being used I further acknowledge being given a choice of service. ?? If you need to contact me, please call me at this number: . Patient/Billet Driller Name: Patient/Billet Driller Signature: Relationship to Patient: Witness Name/Signature: Date: * Edita Barker RN L: PERFORM Event Display: Patient Education/Instruction Authored Date: [id number] Inpatient Adult Discharge Instructions [address] [address] Name: DHEERAJ MANCINI : 1990 Visit: 10/24/2022 00:44:00 Current Date: 10/27/2022 10:21 Account: [id number] Inpatient Adult Discharge Instructions We would like [...] and their families. Surveys are administered by [employer] ?? If further treatment with your primary care physician or another doctor is recommended, it is important for you to keep the appointment. Call your primary care physician or return to the Emergency Department immediately if your condition worsens, fails to improve, or new symptoms develop. If you need to find a doctor, you can call [facility] for a referral at [phone] or toll free at [phone]) or log in to [email or web address].. ?? You can view and manage your care through the patient portal or by using a health care ramesh of your choosing. [employer] is a website that allows you to securely view your medical information including your hospital discharge summary, office visit summaries, medications and follow-up visits. You can also request appointments, renew medications, and request access to your medical information using a health care ramesh of your choosing, or just ask a question. You can enroll at [email or web address] or register during your next office visit. You have been discharged from [facility], Patient Care Unit: [facility]. If you have any questions regarding these instructions after you leave, please call us and we will be happy to assist you. [facility] Your Care Team Attending Physician Geovani LEIVA, Smith Dennis Discharging Providers Malathi Zheng MD Reason for Admission Labor Your Diagnosis Labor without complication ADD (attention deficit disorder) Bipolar disorder History of alcohol abuse Marginal insertion of umbilical cord affecting management of mother Obesity during Stress at home complicated by cleft lip COVID-19 virus RNA test result positive at limit of detection state state Tests Performed Below is a partial list of the tests performed during your hospitalization. You may have had other tests and procedures not included in this list. Please discuss all test results with your provider. CBC Type and Screen Doppler Ext Lower Venous Bilat (US) Primary Care Provider Zulma LEIVA , [facility] Advance Directive Health Care Proxy on File No Patient refuses to discuss Discharge Vitals Temperature: 98 DegF Height: 165 cm Pulse Rate: 73 bpm Weight: 121.7 kg Respiratory Rate: 20 br/min Body Mass Index:??44.7 kg/m2??Critical Systolic Blood Pressure: 108 mm Hg Body surface area: 2.36 Diastolic Blood Pressure:??50 mm Hg??Low ?? Oxygen Saturation: 99 % ?? Studies Pending All tests and labs ordered during this hospital stay have been completed unless listed below. Please discuss all pending results with your provider listed above in these instructions. ?? COVID-19 (2019 Novel Coronavirus) PCR Hold Lavender Tube (BB) What to do next Instructions From Your Doctor Discharge:??Home ?? Please call the office with any concerns including:?? Heavy vaginal bleeding?? Fever of 100.4 or greater Foul-smelling vaginal discharge Difficulty or burning with urination Nausea and vomiting with inability to tolerate food Pain not controlled by the medications listed below Shortness of breath or chest pain. Swelling of the extremities. ?? General Instructions: - Avoid lifting anything 15 lbs or greater until cleared by doctor. - Stairs are OK but avoid multiple trips/ skipping steps and go slowly. - Walk as often as you are able. - Do not put anything in the vagina. No intercourse, tampons, or douching - For pain, you can use clsv-zhm-byhektv medicines:??Tylenol (acetaminophen, up to 1000mg every 6 hours) and ibuprofen (up to 600mg every 6 hours) - Continue using stool softeners as needed??(examples: colace/docusate, senna, miralax) - Shower as usual. Avoid tubs / soaking / pools. ?? Thank you for allowing us to be part of your care team. Discharge Orders Scheduled Follow-Up Appointments Saturday 8:40 AM EST ?? With: Where: [facility] - [employer] [facility] [employer] [facility] [address] [place] [address]- Saturday 1:20 PM EDT ?? With: Harriet Henderson CNM Where: [facility] [employer] [address] [place] [address]- You Need to Schedule the Following Appointments Follow Up with??Follow up, 2 weeks When?? Why: Our office will reach out to schedule a telehealth check-in with our team specializing in depression and anxiety approximately??1 week after you go home Where: Discharge Medications DHEERAJ MANCINI :1990 Visit Date:10/24/2022 Medications: Please continue your medications until treatment is completed or stopped by your provider. Medications not listed below should be discontinued. Discuss any questions related to medications with your provider. What How Much When Why Instructions Next Dose New Acetaminophen (Tylenol 325 mg oral capsule) See instructions 2 capsule (650 mg) taken By Mouth Every 4 hours not to exceed 4000 mg/ day ?? Pickup at [facility] #[id number] any time needed New Drospirenone (Slynd 4 mg oral tablet) 1 tab(s) Oral Daily Refills: 3 Pickup at [facility] #[id number] New Ibuprofen (ibuprofen 600 mg oral tablet) See instructions 1 tablet taken By Mouth Every 6 hours not to exceed 3200 mg/ day ?? Pickup at [facility] #[id number] today- after 2pm Unchanged Amphetamine-Dextroamphetamine (Adderall 20 mg oral tablet) 1 tab(s) Oral Daily Saturday- 8am Unchanged Aspirin (aspirin 81 mg oral tablet, chewable) 2 tab(s) Chew Daily at Bedtime tonight- 8pm Unchanged Metronidazole (metroNIDAZOLE 500 mg oral tablet) 1 tab(s) Oral Every 12 hours Duration: 7 Days tonight 8pm Unchanged Multivitamin, (Prenatabs Rx oral tablet) 1 tab(s) Oral Daily tonight 8pm Pharmacy Information [facility] #[id number]: [address] [place], [place] [id number] [phone] Test Results Below is a partial list of the most recent Laboratory test results done prior to this discharge. You may have had other tests and procedures not included in this list. Please discuss all test resultswith your provider. CBC (10/24/2022) ???WBC - 13.8 k/mm3???RBC - 4.99 m/mm3???Hgb - 13.7 Gm/dL???Hct - 41.3 %???MCV - 82.8 femtoliters???MCH - 27.5 pg???MCHC - 33.2 g/dL???Platelet Count - 416 k/mm3???RDW-SD - 41.2 femtoliters???MPV - 9.0 femtoliters???Nucleated RBC (Automated) - 0.0 #/100 WBC'S???Abs. NRBC - 0.0 k/mm3 Type and Screen (10/24/2022) ???Blood Type - B Positive???Antibody Screen - Negative Immunizations This Visit Not Given Vaccine Commentsinfluenza virus vaccine, inactivated Patient Refuses Allergies (NKA means No Known Allergies) PROzac??(RASH) LaMICtal Pamprin ES Multi-Symptom Relief Formula Penelope amoxicillin penicillin Problems Active Problems??(11) ADD (attention deficit disorder)?? Anxiety?? Bipolar disorder?? Borderline personality disorder in adult?? Depression?? History of alcohol abuse?? Obesity during ? Severe obesity?? Stress at home?? Education Materials Below is the list of Educational Leaflet Providered with your Discharge Instructions. Valuables and Belongings I fully understand and agree that [facility] accepts no responsibility for all [...] encouraged to send valuables and belongings home. ?? No Valuables/Belongings: No valuables/belongings present Date for Pt to Sign Valuables/Belongings: 10/27/22 06:50:00 ?? Other Discharge Information ? Pulmonary Rehab Status?? Pulmonary Rehab Discharge Status?? Respiratory Rate: 20 br/min ? Common Emergency Awareness Tips IS [...] are strongly encouraged to quit. Please call [facility] Link at [phone] or [phone] ([phone]) or log in to [email or web address] for referrals to smoking cessation programs. ?? The National Suicide Prevention Hotline is available 01/04 if you or someone you know needs to find a reason to keep living. By calling 6-411-130-tzbb (5693) you'll be connected to a skilled, trained counselor at a crisis center in your area. INPATIENT DISCHARGE INSTRUCTIONS SIGNATURE DHEERAJ YORK Location:[facility] Registration Date and Time:10/24/2022 00:44 EST Primary Care Physician: Zulma LEIVA , [facility], I HDEERAJ MANCINI, have received the above patient education materials/instructions and have verbalized understanding. If ambulance or transport services are being used I further acknowledge being given a choice of service. ?? If you need to contact me, please call me at this number: . Patient/Billet Driller Name: Patient/Billet Driller Signature: Relationship to Patient: Witness Name/Signature: Date: * Alicia Salinas RN: PERFORM Event Display: Care Team Progress Note Authored Date: [id number] Patient: ??DHEERAJ MANCINI ? Age:??31 Years?Sex:??Female?:??1990?? Subjective Follow up visit for breast and formula feeding mother. Wt loss is between 7-8%. Assessment/Plan Consult done at bedside with Denise Smith OT. Mother states was tired last night, gave formula. Also states baby is sleepy on breast, pumped once but had no milk . Reviewed feeding and latch positions. Mother feeling overwhelmed with , tired, unsure of plan, but wants to breastfeed.Reviewed options including formula, pumping, and combination of 2 or 3 of those. Provided reassurance and support. ?? Observed mother and partner place baby on breast. Reiterated need to place baby on breast with deeplatch and to provide breast compressions to keep baby intermittently tugging at breast. Baby very interested in , eager to latch. ?? Baby also was able to bottle feed effectively with slow flow nipple. ?? Reviewed plan for mother to offer breast as frequently as possible in football with assistance frompartner, to follow up with 10-15 ml of formula and to pump as desired for increased stimulation. Reviewed need to provide formula as needed to baby if unable to breastfeed. ?? Resources reviewed, mother has WIC. ?? All questions answered. To be discharged today. ?? SIMON Menezes, IBCLC OB Summary : 2 Parity: 0 . Baby A - Weight: 2.967 kg Baby A - Date, Time of : 10/24/22 05:02:00 Baby A - Gender: Female Baby A - Complications: Other: cleft lip EGA at Documented Date, Time: 39W 2D Weight at Delivery Baby A - Delivery Type: Vaginal OB History History?(0,0,1,0)? # 1 ?Baby 1 ?Outcome Date:??2017 ?Outcome or Result:??Spontaneous ?Gest Age:??-- ? Outcome:? Sex:??-- ?Comment:??Pt sts at [facility] ED, not confirmed, was just told the kind of bleeding she was presenting ?for might indicate an SAB Active Problem List Active Problem List ADD (attention deficit disorder): (Medical) Sees Dr. Granda. Anxiety: (Medical) Bipolar disorder: (Medical) Borderline personality disorder in adult: (Medical) Depression: (Medical) History of alcohol abuse: (Medical) Obesity during : (Medical) : (Obstetric) (01/22/22) : (Medical) Severe obesity: (Medical) Stress at home: (Medical) Home Medications Acetaminophen: See Instructions, PRN (as needed for pain), 2 capsule (650 mg) taken By Mouth Every 4 hoursnot to exceed 4000 mg/day Amphetamine-Dextroamphetamine: 20 mg = 1 tablet, By Mouth, Daily Aspirin: 162 mg = 2 tablet, Chew, Daily at bedtime Drospirenone: 4 mg = 1 tablet, By Mouth, Daily Ibuprofen: See Instructions, PRN (as needed for pain), 1 tablet taken By Mouth Every 6 hoursnot to exceed 3200 mg/day Metronidazole: 500 mg = 1 tablet, By Mouth, Every 12 hours Multivitamin, : 1 tablet, By Mouth, Daily Medications Medications (7) Active SCHEDULED: (3) Amphetamine-Dextroamphetamine 5 mg Tablet (Adderall Oral Tablet) ??20 mg, By Mouth, Daily Metronidazole 500mg Tablet (metroNIDAZOLE 500 mg oral tablet) ??500 mg, By Mouth, Every 12 hours Multivitamin Tablet ??1 tablet, By Mouth, Daily CONTINUOUS: (0) PRN: (4) Acetaminophen 325 mg Tablet (Acetaminophen Tablet) ??650 mg, By Mouth, Every 4 hours diphenhydrAMINE 25 mg Tablet (Benadryl Tablet) ??25 mg, By Mouth, Once Docusate Sodium 100 mg Capsule (Docusate Sodium Capsule) ??100 mg 1 capsule, By Mouth, 2 times a day Ibuprofen 800 mg Tablet (Ibuprofen Tablet) ??800 mg, By Mouth, Every 8 hours * Kate Jama MD: PERFORM Event Display: Discharge/Transfer Note Hospital Authored Date: [id number] Patient: ??DHEERAJ MANCINI ? Age:??31 Years?Sex:??Female?:??1990?? Admit Date Admission Date: 10/24/2022 Discharge Date 10/26/22 OB Reason for Admission OB Reason for Admission Reason for admission: Labor OBGYN Hospital Course Patient is a 31yo @ 39w2d presenting for SROM / labor, found to be COVID positive on admission. GBS negative. Proceeded to have a on 10/24 of female . Left labial repaired. Remaining hospital course was uncomplicated. On day of discharge, patient meeting appropriate milestones and appropriate for discharge to home. ?? Patient is feeling well with no acute concerns. States her pain is well controlled with PO pain medications. Her lochia is??like a normal period. She is ambulating, voiding spontaneously, and tolerating regular diet. Denies fever, chills, chest pain, shortness of breath,??persistent headache, vision changes, RUQ pain, calf tenderness, nausea, vomiting, or other??acute concerns.??Mood is??appropriate and she is bonding well with her baby. Patient??reports that she has a??good support system at home. Objective/Physical Exam on Day of Discharge Vitals & Measurements T:??97.7?F ?? HR:??98(Monitored)?? MA:??72?? RR:??17?? BP:??115/58?? SpO2:??98%?? HT:??165??cm?? WT:??2.967??kg?? BMI:??44.7?? Constitutional:??No acute distress, resting comfortably. Respiratory:??Normal work of breathing. Breathing comfortably on room air. Cardiovascular:??No signs of fluid overload. Abdomen/GI:??Soft, non-distended, no guarding, no rebound tenderness.??Fundus firm at umbilicus-1 with mild tenderness. Gynecologic:??Minimal lochia. No swelling or hematoma. Extremities:??No calf tenderness or edema. Skin:??No rash or jaundice. Neurological/Psychiatric:??Mood and affect congruent and stable. Assessment/Plan/Discharge Diagnosis state (Z39.2):? - Expected discharge to home PPD2 - Continue routine care - Diet: Regular - Pain control: Ibuprofen & Tylenol - Encourage ambulation - Feeding plan: - sex: female - PPBC: OCPs - Follow-up:??1 wk N visit (timing per pt request)??plus 4-6 wk visit ?? ADD (attention deficit disorder) (F90.9):??Self titrated Adderall to 20mg - plans to stop medication??for ?? Bipolar disorder (F31.9):??and borderline personality disorder - in therapy, weekly zoom with psychiatrist and reports will continue to attend - stopped wellbutrin and abilify with (x) SW consult on L&D (x) accepts PPV with [facility] tele, requests in 1 week ?? COVID-19 virus RNA test result positive at limit of detection (U07.1):? - positive test on admission - enhanced respiratory precautions ?? complicated by cleft lip (O35.8XX0):??s/p antepartum consult through [place] - ??seen during admission ?? Stress at home (F43.9):??PT1 during for??transportation concerns, also has housing??concerns SW seen, [facility] set up ?? Care: depression increased risk Future Appointments Saturday 1:20 PM EDT ?? With: Harriet Henderson CNM Where: [facility] [address] [place] [address]- Delivery Summary Delivery Summary Maternal Information ??Labor Information ?Baby A ?Labor Onset Methods: ??Spontaneous ??Delivery Information ?Gestational Age at Delivery: ??39W 2D ?Anesthesia OB: ??Epidural ??10/24/22 06:57:51, Epidural ??10/24/22 02:28:25 ?Obstetrical Laceration: ??Perineum intact, Vaginal laceration, Labial laceration ?Vaginal Laceration: ??Midline ?Vaginal Laceration Repair: ??Not repaired ?Labial Laceration: ??Bilateral ?Anesthesia for Repair: ??Epidural ?Blood Loss(ml): ??100 mL ? Baby A ??Delivery Information ?Delivery Type: ??Vaginal ?Date, Time of : ??10/24/22 05:02:00 ? Position: ??Supine ?Foot of bed removed: ??Yes ?Delayed Cord Clamping: ??Yes ?Placenta Delivery Date/Time: ??10/24/22 05:09:00 ?Placenta Delivery Method: ??Assisted ?Placenta Appearance: ??Circumvallate ?Placenta to Pathology: ??No ??Care Team ?Attending Provider: ??Toshia Kim MD ?Delivery Physician: ??Daniel DO, Suly ?Document Imaging Specialist Provider #1: ??Rohit YOUNG, Sherry ?geological sample tester #1: ??Te MONTES, Suly ?geological sample tester #2: ??Frankie MONTES, Stanley ?Pool Nurse: ??Brad YOUNG, Kalyani Kearney ?Anesthesiology Attending: ??Colton YOUNG, Joel Dennis ?Ensemble Member: ??Bessy Barrientos MD ?Time NICU Team Called: ??10/24/22 04:50:00 ??Labor Information ?ROM Date, Time: ??10/23/22 23:45:00 ?ROM to Delivery Total Time: ??317 min ?2nd Stage, Length of Labor: ??51 min ?3rd Stage, Length of Labor: ??7 min ? monitoring: ??External monitor ?? Information ? Outcome: ??Live ? Position: ??Occiput anterior ? Weight: ??2.967 kg ? Score 1 minute: ??8 ? Score 5 minute: ??9 ? Score 10 minute: ??9 ?Transferred To: ?? Care area with Family ?Umbilical Cord Description: ??3 vessel cord, Nuchal cord ?Nuchal cord times: ??2 ?Nuchal cord tension: ??Tight ?Nuchal cord Intervention: ??Somersault maneuver ? Complications: ??None ?Gender: ??Female ? Procedures Performed Epidural Vaginal delivery ?? Discharge Medications ???Acetaminophen (Tylenol 325 mg oral capsule)???Amphetamine-Dextroamphetamine (Adderall 20 mg oraltablet)???Aspirin (aspirin 81 mg oral tablet, chewable)???Drospirenone (Slynd 4 mg oral tablet)???Ibuprofen (ibuprofen 600 mg oral tablet)???Metronidazole (metroNIDAZOLE 500 mg oral tablet)???Multivitamin, (Prenatabs Rx oral tablet) Immunizations during Hospitalization Vaccine Date Status Commentsinfluenza virus vaccine, inactivated - Not Given Patient Refuses tetanus/diphtheria/pertussis, acel(Tdap) 07/20/2022 Given SARS-CoV-2 (COVID-19) mRNA BNT-162b2 vac 04/08/2021 Recorded SARS-CoV-2 (COVID-19) mRNA BNT-162b2 vac 03/13/2021 Recorded tetanus/diphtheria/pertussis, acel(Tdap) 01/28/2017 Given Meningococcal Conjugate Vaccine 03/31/2008 Recorded tetanus-diphtheria toxoids (Td) 08/10/2004 Recorded hepatitis B pediatric vaccine 11/18/2001 Recorded hepatitis B pediatric vaccine 10/19/1998 Recorded hepatitis B pediatric vaccine 09/15/1998 Recorded Measles/Mumps/Rubella Virus Vaccine 06/05/1998 Recorded diphtheria/tetanus/pertussis, acel(DTaP) 11/16/1996 Recorded Varicella Virus Vaccine 02/13/1996 Recorded Measles/Mumps/Rubella Virus Vaccine 02/13/1993 Recorded Contraception Progesterone only contraceptive pills ? Infant Feeding Method No Results Follow-Up Appointments Added Follow Up ?Time Frame ?Comments Follow up, 2 weeks?Our office will reach out to schedule a telehealth check-in with our team specializing in depression and anxiety approximately??1 week after you go home Patient Instructions Discharge:??Home ?? Please call the office with any concerns including:?? Heavy vaginal bleeding?? Fever of 100.4 or greater Foul-smelling vaginal discharge Difficulty or burning with urination Nausea and vomiting with inability to tolerate food Pain not controlled by the medications listed below Shortness of breath or chest pain. Swelling of the extremities. ?? General Instructions: - Avoid lifting anything 15 lbs or greater until cleared by doctor. - Stairs are OK but avoid multiple trips/ skipping steps and go slowly. - Walk as often as you are able. - Do not put anything in the vagina. No intercourse, tampons, or douching - For pain, you can use kxod-txm-qbbdzjj medicines:??Tylenol (acetaminophen, up to 1000mg every 6 hours) and ibuprofen (up to 600mg every 6 hours) - Continue using stool softeners as needed??(examples: colace/docusate, senna, miralax) - Shower as usual. Avoid tubs / soaking / pools. ?? Thank you for allowing us to be part of your care team. * Christin Conner CNM: PERFORM Event Display: Discharge/Transfer Note Hospital Authored Date: [id number] In to see patient prior to discharge. and given some bottle feeds. Has met with both and OT given baby cleft lip with intact palate. Follow up planned at [facility] follow up requested. Plans progesterone only OCPs for contraception All discharge instructions reviewed and questions answered. * Malathi Zheng MD: PERFORM Event Display: Discharge/Transfer Note Hospital Authored Date: [id number] Lower Extremity Doppler??Impression:??No evidence of deep venous thrombosis from the groin through the popliteal vein. Calf veins not assessed with portable technique. ?? Patient is ready for discharge this morning. * Rita MONTES, Alicia: PERFORM Event Display: Care Team Progress Note Authored Date: Patient: ??DEHERAJ MANCINI ? Age:??31 Years?Sex:??Female?:??1990?? Subjective consult for 31 y.o. , 39w2d at > 24 post VD. Patient desires , has home pump. Has connections with outpatient cleft lipt bath design sales consultant and met with OT yesterday in hospital. Assessment/Plan Consult done a bedside with OT, Denise Smith. well, easily expressing colostrum. Baby noted to have R lateral cleft lip. Feeding sheet filled out appropriately. < 1% wt loss. Baby noted to have strong suck eager to breastfeed, rooting. Spontaneously latched on R nipple in footballposition. Teaching provided to mother and father to adjust baby to improve deepen latch and improvepositioning. Baby maintained spontaneous intermittent tugs with deep latch for > 10 minutes. Assistance also give to latch baby on L side in football. Baby very eager to feed with wide gape noted. ?? Reviewed plan for mother to offer breast ad gladys and q 2-3 hours with addition of pumpinq q 3 hours and syringe feeding colostrum. ?? Symphony pump use demonstrated to mother/parents/partner/family.?Initiation/maintenance mode expl ained.?Educated on: Frequency and duration of pumping Hands on pumping Adding hand expression to increase milk yield Correct flange size Cleaning of pump parts Labeling of breastmilk Mother currently using 21mm flanges. ?? Basic education discussed with??mother and partnerincluding:? Positioning infant for optimal feeding Asymmetric latch technique Frequent breast stimulation for initiation and maintenance of milk supply Coming to full milk volume in first 14 days Engorgement prevention and management Hand expression When to use a breast pump Consultation reference guide given to mother with contact information for services and ongoing support as needed.? All questions answered. will follow up. ?? SIMON Menezes, IBCLC OB Summary : 2 Parity: 0 . Baby A - Weight: 2.967 kg Baby A - Date, Time of : 10/24/22 05:02:00 Baby A - Gender: Female Baby A - Complications: Other: cleft lip EGA at Documented Date, Time: 39W 2D Weight at Delivery Baby A - Delivery Type: Vaginal OB History History?(0,0,1,0)? # 1 ?Baby 1 ?Outcome Date:??2017 ?Outcome or Result:??Spontaneous ?Gest Age:??-- ? Outcome:? Sex:??-- ?Comment:??Pt sts at [facility] ED, not confirmed, was just told the kind of bleeding she was presenting ?for might indicate an SAB Active Problem List Active Problem List ADD (attention deficit disorder): (Medical) Sees Dr. Granda. Anxiety: (Medical) Bipolar disorder: (Medical) Borderline personality disorder in adult: (Medical) Depression: (Medical) History of alcohol abuse: (Medical) Obesity during : (Medical) : (Obstetric) (01/22/22) : (Medical) Severe obesity: (Medical) Stress at home: (Medical) Home Medications Amphetamine-Dextroamphetamine: 20 mg = 1 tablet, By Mouth, Daily Aspirin: 162 mg = 2 tablet, Chew, Daily at bedtime Metronidazole: 500 mg = 1 tablet, By Mouth, Every 12 hours Multivitamin, : 1 tablet, By Mouth, Daily Medications Medications (7) Active SCHEDULED: (4) Amphetamine-Dextroamphetamine 5 mg Tablet (Adderall Oral Tablet) ??20 mg, By Mouth, Daily Influenza Quad (6mo - 64 yr) Fluzone 0.5mL (Influenza, Quadrivalent Vaccine (Fluzone Quad)) ??0.5 mL, Intramuscular, Once Metronidazole 500mg Tablet (metroNIDAZOLE 500 mg oral tablet) ??500 mg, By Mouth, Every 12 hours Multivitamin Tablet ??1 tablet, By Mouth, Daily CONTINUOUS: (0) PRN: (3) Acetaminophen 325 mg Tablet (Acetaminophen Tablet) ??650 mg, By Mouth, Every 4 hours Docusate Sodium 100 mg Capsule (Docusate Sodium Capsule) ??100 mg 1 capsule, By Mouth, 2 times a day Ibuprofen 800 mg Tablet (Ibuprofen Tablet) ??800 mg, By Mouth, Every 8 hours US.doppler Lower extremity vein - bilateral * Axel , LASHAE S: Riaz De Los Santos MD: VERIFY Event Display: Result: Authored Date: [id number] US Doppler Ext Lower Venous Bilat Reason: Swelling Extremities; Clinical Question(s): Thrombosis COMPARISON: None IMAGING TECHNIQUE: Streamlined portable ultrasound of the lower extremity deep venous system was performed using grayscale, color, and spectral Doppler ultrasound from the common femoral through the popliteal vein assessing for complete compressibility and good response to compression and augmentation. The calf veins are not assessed. FINDINGS: RIGHT LOWER EXTREMITY: Common femoral vein: Patent. No thrombosis. Femoral vein: Patent. Mid and distal portions are patent by color imaging as patient was unable to tolerate compression. Popliteal vein: Patent. No thrombosis. LEFT LOWER EXTREMITY: Common femoral vein: Patent. No thrombosis. Femoral vein: Patent. Mid and distal portions are patent by color imaging as patient was unable to tolerate compression. Popliteal vein: Patent. No thrombosis. OTHER FINDINGS: None. IMPRESSION: No evidence of deep venous thrombosis from the groin through the popliteal vein. Calf veins not assessed with portable technique. WSN: [id number] Ordering Physician: Kate Jama Dictated By: Riaz Ortiz MD Dictated Date/Time: 10/26/22 7:24 pm Reviewed By: Riaz Ortiz MD Signed By: Riaz Ortiz MD Signed Date/Time: 10/26/22 7:24 pm Transcribed By: JORDY Transcribed Date/Time: 10/26/22 7:23 pm Patient Care team information Care Team Personnel Name: Joe Maya MD Position: [facility] Outreach Member Role: PCP Address: Address: [address] [place] [address]- Name: Zohreh Granda RN Position: [facility] RN Member Role: Patient Care Provider Care Team Related Persons Name: MIMI DOE Address: home [address] [place] [address] Name: KEYANA HOLLAND Address: home [address] [place] [address] Name: DHEERAJ MANCINI GIRL Address: AMERCN Address: home [address] [place] [address] Name: ELTON MANCINI Address: home [address] [facility] [address] [place] [address]
--- OUTSIDE RECORDS SUMMARY | 2023-03-19 17:31 | XMS_ITS | Continuity of Care Document ---
Author Name Unknown Organization [facility] ter Address [address] [place] [address]- Care Team Providers Care Casualty Underwriter Name Role Phone Zulma LEIVA, Joe Primary Care Physician [place] [facility] [place] - 10/[place]/[address] [address] Discharge Disposition: A-D/C Home Attending Physician: Cruz LEIVA [OB], Edita Dennis Admitting Physician: Cruz LEIVA [OB]Edita Referring Physician: Cruz LEIVA [OB], Edita Dennis Allergies, Adverse Reactions, Alerts Substance Reaction Severity [...] 11/16/96 Recorded Varicella Virus Vaccine 02/13/96 Recorded Medications Adderall 20 mg oral tablet 1 tablet = 20 mg, By Mouth, Daily, 0 Refills, Maintenance, 09/18/19 14:10:00 EST, Tablet Start Date: 09/18/19 Status: Ordered aspirin 81 mg oral tablet, chewable 2 tablet = 162 mg, Chew, Daily at bedtime, # 60 tablet, 6 Refills, Maintenance, 05/07/22 9:41:00 EDT, Chew Tablet, [facility][id number], Partial fill upon patient request if the prescription is for a schedule II opioid drug., 165, cm, 05/07/22... Start Date: 05/07/22 Status: Ordered metroNIDAZOLE 500 mg oral tablet 1 tablet = 500 mg, By Mouth, Every 12 hours, # 14 tablet, 0 Refills, Maintenance, 10/22/22 20:34:00EST, Tablet, [facility] #[id number], Partial fill upon patient request if the prescription is for a schedule II opioid drug., 165, cm, 10/19/22 8:... Start Date: 10/22/22 Stop Date: 10/29/22 Status: Ordered Prenatabs Rx oral tablet 1 tablet, By Mouth, Daily, # 30 tablet, 11 Refills, Maintenance, 06/05/22 8:47:00 EDT, Tablet, [facility] #[id number], Partial fill upon patient request if the [...] recent to oldest [Reference Range]: 1 2 Weight 120.6 kg (10/23/22 9:55 AM) Oxygen Saturation [94-100 %] 100 % (10/23/22 10:18 AM) 100 % (10/23/22 9:55 AM) Pulse Rate [55-90 bpm] 93 bpm *H* (10/23/22 9:55 AM) Blood Pressure [90-138/55-84 mm Hg] 109/ 75mm Hg (10/23/22 10:18 AM) 109/70mm Hg (10/23/22 9:55 AM) Respiratory Rate [16-30 br/min] 18 br/mi n (10/23/22 10:18 AM) 18 br/min (10/23/22 9:55 AM) Temperature [96.8-100.4 DegF] 97.3 DegF (10/23/22 9:55 AM) Blood pressure sites Arm, right (10/23/22 10:18 AM) Arm, left (10/23/22 9:55 AM) Temperature Route Oral (10/23/22 9:55 AM) Weight Obtained Via Standing scale (10/23/22 9:55 AM) Social History Social History Type Response Smoking Status Former smoker, quit more than 30 days ago entered on: 04/23/22 Sex Note * Cassia MONTES, Minna Kearney: PERFORM Event Display: Patient Education/Instruction Authored Date: [id number] Inpatient Adult Discharge Instructions [address] [address] Name: DHEERAJ LEAHY : 1990 Visit: 10/23/2022 09:44:00 Current Date: 10/23/2022 13:36 Account: [id number] Inpatient Adult Discharge Instructions We would like [...] and their families. Surveys are administered by [employer] ?? If further treatment with your primary care physician or another doctor is recommended, it is important for you to keep the appointment. Call your primary care physician or return to the Emergency Department immediately if your condition worsens, fails to improve, or new symptoms develop. If you need to find a doctor, you can call [facility] brand [employer] for a referral at [phone] or toll free at [phone] [email or web address] ([phone]) or log in to [email or web address].. ?? You can view and manage your care through the patient portal or by using a health care ramesh of your choosing. [employer] is a website that allows you to securely view your medical information including your hospital discharge summary, office visit summaries, medications and follow-up visits. You can also request appointments, renew medications, and request access to your medical information using a health care ramesh of your choosing, or just ask a question. You can enroll at [email or web address] or register during your next office visit. You have been discharged from [facility], Patient Care Unit: WETU1. If you have any questions regarding these instructions after you leave, please call us and we will be happy to assist you. [facility] Your Care Team Attending Physician Cruz LEIVA [OB], Edita Dennis Tests Performed Below is a partial list of the tests performed during your hospitalization. You may have had other tests and procedures not included in this list. Please discuss all test results with your provider. Primary Care Provider Nabila Maya [facility] Advance Directive Health Care Proxy on File No Discharge Vitals Temperature: 97.3 DegF Weight: 120.6 kg Pulse Rate:??93 bpm??High ?? Respiratory Rate: 18 br/min ?? Systolic Blood Pressure: 109 mm Hg ?? Diastolic Blood Pressure: 75 mm Hg ?? Oxygen Saturation: 100 % ?? Studies Pending All tests and labs ordered during this hospital stay have been completed unless listed below. Please discuss all pending results with your provider listed above in these instructions. ?? No incomplete studies found What to do next Instructions From Your Doctor Discharge Orders Discharge Medications DHEERAJ LEAHY :1990 Visit Date:10/23/2022 Medications: Please continue your medications until treatment [...] 2 tab(s) Chew Daily at Bedtime Unchanged Metronidazole (metroNIDAZOLE 500 mg oral tablet) [...] Educational Leaflet Providered with your Discharge Instructions. Bacterial Vaginosis?? Recognizing Labor?? Kick Counts?? Comfort Tips During ?? Valuables and Belongings I fully understand and agree that [facility] accepts no responsibility for all [...] are strongly encouraged to quit. Please call [facility] [employer] Link at [phone] or [phone] ([phone]) or log in to [email or web address] for referrals to smoking cessation programs. ?? The National Suicide Prevention Hotline is available 01/04 if you or someone you know needs to find a reason to keep living. By calling 3-408-920-[employer] (8033) you'll be connected to a skilled, trained counselor at a crisis center in your area. INPATIENT DISCHARGE INSTRUCTIONS SIGNATURE TEO DHEERAJ LEAHY Location:[facility] Registration Date and Time:10/23/2022 09:44 EST Primary Care Physician: Zulma LEIVA , [facility], I DHEERAJ LEAHY, have received the above patient education materials/instructions and have verbalized understanding. If ambulance or transport services are being used I further acknowledge being given a choice of service. ?? If you need to contact me, please call me at this number: . Patient/Animal Physiology Teacher Name: Patient/Animal Physiology Teacher Signature: Relationship to Patient: Witness Name/Signature: Date: * Minna Antony RN: PERFORM Event Display: Patient Education Leaflets Authored Date: [id number] Bacterial Vaginosis ?? [id number] Bacterial Vaginosis You have a vaginal infection called bacterial vaginosis (BV). Both good and bad bacteria are present in a healthy vagina. BV occurs when these bacteria get out of balance. The number of bad bacteria increase. And the number of good bacteria decrease. BV is linked with sexual activity, but it's not a sexually transmitted infection (STI). BV may or may not cause symptoms. If symptoms do occur, they can include: ??? Thin, gonsalez, milky-white, or sometimes green discharge ??? Unpleasant odor or ???fishy?? smell ??? Itching, burning, or pain in or around the vagina It's not known what causes BV, but certain factors can make the problem more likely. These can include: ??? Douching ??? Spermicides ??? Use of antibiotics ??? Change in hormone levels with , , or menopause ??? Having sex with a new partner ??? Having sex with more than one partner BV will sometimes go away on its own. But treatment is often advised. This is because untreated BV can raise the risk of more serious health problems, such as: ??? Pelvic inflammatory disease (PID) ??? delivery (giving to a baby early if you???re ) ??? HIV and some other sexually transmitted infections (STIs) ??? Infection after surgery on the reproductive organs Home care General care ??? BV is most often treated with medicines called antibiotics. These may be given as pills or as avaginal cream.??If antibiotics are prescribed, be sure to use them exactly as directed. And complete all of the medicine, even if your symptoms go away. ??? Don't douche or have sex during treatment.??? If you have sex with a female partner, ask your healthcare provider if she should also be treated. Prevention ??? Don't douche. ??? Don't have sex. If you do have sex, take steps to lower your risk:o Use condoms when having sex. o Limit the number of sex partners you have. ?? Follow-up care Follow up with your healthcare provider, or as advised. ?? When to get medical advice Call your healthcare provider right away if any of the following occur: ??? You have a fever of??100.4??F (38??C)??or higher, or as directed by your healthcare provider. ??? Your symptoms get worse, or they don???t go away within a few days of starting treatment. ??? You have new pain in the lower belly??or pelvic region. ??? You have side effects that bother you or a reaction to the pills or cream you???re prescribed. ??? You or any of your sex partners have new symptoms, such as a rash, jointpain, or sores. ?? Last Reviewed Date: 2022 ?? 8691-5297 [employer]. All rights reserved. This information is not intended as a substitute for professional medical care. Always follow your healthcare professional's instructions. ?? * Cassia MONTES, Minna Kearney: PERFORM Event Display: Patient Education Leaflets Authored Date: [id number] Recognizing Labor ?? 34818 Recognizing Labor The beginning of labor is [...] contraction. ?? Last Reviewed Date: 2022 ?? [employer]. All rights reserved. This information is not intended as a substitute for professional medical care. Always follow your healthcare professional's instructions. ?? * Cassia MONTES, Minna Kearney: PERFORM Event Display: Patient Education Leaflets Authored Date: [id number] Kick Counts ?? 31784 Kick Counts It???s normal to worry about [...] day. ?? Last Reviewed Date: 2022 ?? 6532-2947 [employer]. All rights reserved. This information is not intended as a substitute for professional medical care. Always follow your healthcare professional's instructions. ?? Patient Care team information Care Team Personnel Name: Joe Maya MD Position: [facility] Outreach Member Role: PCP Address: Address: [address] [place] [address] Name: Marcelle Horn RN Position: [facility] OB RN Member Role: Patient Care Provider Care Team Related Persons Name: MIMI DOE Address: home [address] [facility] [address] [place] [address] Name: KEYANA HOLLAND Address: home [address] [place] [address] Name: ELTON LEAHY Address: home [address] [facility] [address] [place] [address]
--- OUTSIDE RECORDS SUMMARY | 2023-03-19 17:31 | XMS_ITS | Continuity of Care Document ---
Author Name Unknown Organization [facility] Address [address] [place] [address]- Care Team Providers Care Oil Dispenser Name Role Phone Zulma LEIVA, Joe Primary Care Physician Encounter [facility] Date(s): 11/27/21 - 11/28/[address] [address]- Discharge Disposition: A-D/C Home Attending Physician: Kareen Lee MD Admitting Physician: Kareen Lee MD Referring Physician: Not on Staff, Referring [...] 09/07/20 15:59:00 EST, Route to Pharmacy Electronically, [facility]/pharmacy #[id number], Partial fill upon patient request if the prescription is for a... Start Date: 09/07/20 Status: Ordered acetaminophen 325 mg oral tablet 650 mg, 2, tablet, By Mouth, 4 times a day, PRN, # 16 tablet, Refills 0, Tot. Refills 0, Maintenance, as needed for pain, 09/07/20 19:15:00 EST, Route to Pharmacy Electronically, [facility][id number], 165, cm, 09/07/20 16:22:00 EST, Height, 108... [...] 09/07/20 19:15:00 EST, Route to Pharmacy Electronically, [facility] #[id number], Partial fill upon patient request if the prescription is for a sandra... Start Date: 09/07/20 Status: Ordered ibuprofen 200 mg oral capsule 2 capsule = 400 mg, By Mouth, Every 4 hours, PRN for pain, # 24 capsule, 0 Refills, Maintenance, 09/07/20 19:15:00 EST, Capsule, [facility] #[id number], Partial fill upon patient request if the prescription is for a schedule II opioid drug., 165,... Start Date: 09/07/20 Status: Ordered Lidoderm 5% film 1 patch, Topically, Daily, remove patches after 12 hours and leave off for 12 hours before replacing. You may apply 1-2 patches to the area., # 30 patch, 0 Refills, Maintenance, 09/07/20 19:15:00 EST, [facility] #[id number], 1 patch Topically Da... Start Date: 09/07/20 Status: Ordered Problem List Condition Effective Dates Status Health Status Inform ant ADD (attention deficit disorder)(Confirmed) 1 Active Mood disorder(Confirmed) Active Raynaud's phenomenon(Confirmed) Active 1Sees Dr. Granda. Results Radiology Reports * Exam Date Time Procedure Performing Provider Status 11/27/21 10:33 PM Chest 2 Views Frontal and Lat Barbara Bender; Auth (Verified) Notes: (Chest 2 Views Frontal and Lat) Reason For Exam: Chest Pain;Other: RESULT: Chest 2 Views Frontal and Lat Chest 2 Views Frontal and Lat Hx of Present Illness: Pt started with nasal congestion last night. Pt took sudafed today and then noticed chest tightness, jaw pain and bilaterl arm coldness and like noodles . Denies any other symptoms; Reason: Other:; Chest Pain; Clinical Question(s): Other: COMPARISON: None. FINDINGS: LINES AND TUBES: None. LUNGS AND PLEURA: Clear lungs. Normal pulmonary vascularity. No pleural effusion. No pneumothorax. HEART, MEDIASTINUM AND DAYA: Heart is normal in size. Normal upper mediastinal and hilar contour. BONES AND SOFT TISSUES: No acute abnormality. Mild upper thoracic levoscoliosis and lower thoracic dextroscoliosis, presentpreviously. Bilateral nipple studs. IMPRESSION: No acute abnormality. WSN: [id number] Ordering Physician: Ramirez Cardenas Dictated By: Raymundo Torres MD Dictated Date/Time: 11/27/21 11:59 p Reviewed By: Raymundo Torres MD Signed By: Raymundo Torres MD Signed Date/Time: 11/27/21 11:59 pm Transcribed By: JORDY Transcribed Date/Time: 11/27/21 11:58 pm Vital Signs Most recent to oldest [Reference Range]: 1 2 Height 165 cm (11/27/21 9:11 PM) 165 cm (11/27/21 9:07 PM) Weight 115.3 kg (11/27/21 9:11 PM) Oxygen Saturation [94-100 %] 100 % (11/27/21 9:07 PM) Pulse Rate [55-90 bpm] 107 bpm *H* (11/27/21 9:07 PM) Blood Pressure [90-138/55-84 mm Hg] 128/ 81mm Hg (11/27/21 9:07 PM) Respiratory Rate [16-30 br/min] 16 br/mi n (11/27/21 9:07 PM) Temperature [96.8-100.4 DegF] 98.1 DegF (11/27/21 9:07 PM) Mode of Delivery (Oxygen) Room air (11/27/21 9:07 PM) Blood pressure sites Arm, right (11/27/21 9:07 PM) Temperature Route Temporal (11/27/21 9:07 PM) Dry Weight 115.3 kg (11/27/21 9:11 PM) 115.3 kg (11/27/21 9:07 PM) Dry Weight Obtained Via Standing scale (11/27/21 9:07 PM) Social History Social History Type Response Smoking Status Current every day candido ponce; Type: Cigarettes; Tobacco use times per day: 4 cig a day for the last 6 years; entered on: 07/28/15 Sex
--- OUTSIDE RECORDS SUMMARY | 2023-03-19 17:31 | XMS_ITS | Continuity of Care Document ---
Author Name Unknown Organization [facility] Address [address] [place] [address]- Care Team Providers Care Patient Service Technician Pst Name Role Phone Joe Maya MD Primary Care Physician [phone] [place] [facility] [place] 01/02/23 - 02/01/[address] [address] Allergies, Adverse Reactions, Alerts Substance Reaction [...] capsule, 0 Refills, Maintenance, 01/14/23 9:11:00 EDT, [facility] #[id number], 165, cm, 01/03/23 14:19:00 EDT, Height, 110.7, kg, 12/22/22 17:16:00 EDT, Dry Weight Start Date: 01/14/23 Status: Ordered M- Plus oral tablet 1 tablet, By Mouth, Daily, # 90 tablet, 0 Refills, Maintenance, 01/18/23 12:12:00 EDT, [facility] #[id number], Partial fill upon patient request if the prescription is for a schedule II opioid drug., 1 tablet By Mouth Daily, 165, cm, 01/03/23 14:... Start Date: 01/18/23 Status: Ordered miconazole 2% topical ointment See Instructions, apply sparingly to nipple after each feed, do not remove before next feed, # 45 Gm, 1 Refills, Maintenance, 11/27/22 16:05:00 EDT, [facility] #[id number], Partial fill upon patient request if the prescription is for a schedule I... Start Date: 11/27/22 Status: Ordered MiraLax oral powder for reconstitution = 17 Gm, By Mouth, Daily, dissolve in water before taking, # 255 Gm, 0 Refills, Maintenance, 11/30/22 23:59:00 EDT, REC Powder, [facility] #[id number], Partial fill upon patient request if the prescription is for a schedule II opioid drug., 17 Gm... Start Date: 11/30/22 Status: Ordered mupirocin 2% topical ointment See Instructions, apply sparingly to nipple after each feed, do not remove before next feed, # 22 Gm, 1 Refills, Maintenance, 11/27/22 16:05:00 EDT, [facility] #[id number], Partial fill upon patient request if the prescription is for a schedule I... Start Date: 11/27/22 Status: Ordered Prenatabs Rx oral tablet 1 tablet, By Mouth, Daily, # 30 tablet, 11 Refills, Maintenance, 06/05/22 8:47:00 EDT, Tablet, [facility] #[id number], Partial fill upon patient request if the [...] Team Personnel Name: Joe Maya MD Position: [facility] Outreach Member Role: PCP Address: Address: [address] [place] [address]- Care Team Related Persons Name: MIMI DOE Address: home [address] [address] Name: SANDHYA DOE Address: [employer] Address: home [address] [place] [address] [place] Name: KEYANA HOLLAND Address: home [address] [place] [address] Name: ELTON LEAHY Address: home [address] [address]
--- OUTSIDE RECORDS SUMMARY | 2023-03-19 17:31 | XMS_ITS | Continuity of Care Document ---
Author Name Unknown Organization [facility] Address [address] [place] [address]- Care Team Providers Care Languages And Literature Instructor Name Role Phone Joe Maya MD Primary Care Physician Encounter [facility] [place] Date(s): 10/19/22 - 11/18/[address] [address] Allergies, Adverse Reactions, Alerts Substance Reaction Severity [...] Refills, Maintenance, 05/07/22 9:41:00 EDT, Chew Tablet, [facility] #[id number], Partial fill upon patient request if the prescription is for a schedule II opioid drug., albino Butler, 05/07/22... Start Date: 05/07/22 Status: Ordered metroNIDAZOLE 500 mg oral tablet 1 tablet = 500 mg, By Mouth, Every 12 hours, # 14 tablet, 0 Refills, Maintenance, 11/05/22 13:08:00EST, Tablet, [facility] #[id number], Partial fill upon patient request if the prescription is for a schedule II opioid drug., albino Butler, 10/29/22 10... Start Date: 11/05/22 Status: Ordered metroNIDAZOLE 500 mg oral tablet 1 tablet = 500 mg, By Mouth, Every 12 hours, # 14 tablet, 0 Refills, Maintenance, 10/22/22 20:34:00EST, Tablet, [facility] #[id number], Partial fill upon patient request if the prescription is for a schedule II opioid drug., albino Butler, 10/19/22 8:... Start Date: 10/22/22 Stop Date: 10/29/22 Status: Ordered Prenatabs Rx oral tablet 1 tablet, By Mouth, Daily, # 30 tablet, 11 Refills, Maintenance, 06/05/22 8:47:00 EDT, Tablet, [facility] #[id number], Partial fill upon patient request if the prescription is for a schedule II opioid drug., 1 tablet By Mouth Daily, albino Butler, 05/11... Start Date: 06/05/22 Status: Ordered Slynd 4 mg oral tablet 1 tablet = 4 mg, By Mouth, Daily, # 84 tablet, 3 Refills, Maintenance, 10/26/22 6:46:00 EST, Tablet, [facility] #[id number], Partial fill upon patient request if the prescription is for a schedule II opioid drug., albino uBtler, 10/25/22 13:06:00 EST,... Start Date: 10/26/22 Status: [...] Team Personnel Name: Joe Maya MD Position: [facility] Outreach Member Role: PCP Address: Address: [address] [place] [address]- Care Team Related Persons Name: MIMI DOE Address: home [address] [facility] [address] [place], [place] Name: SANDHYA DOE Address: [employer] Address: home [address] [place] [address] Name: KEYANA HOLLAND Address: home [address] [place], [place] Name: ELTON LEAHY Address: home [address] [facility] [address] [place] [address]
--- OUTSIDE RECORDS SUMMARY | 2023-03-19 17:31 | XMS_ITS | Continuity of Care Document ---
Author Name Unknown Organization [facility] Address [address] [place] [address]- Care Team Providers Care Director Clinical Research Name Role Phone Zulma LEIVA, Joe Primary Care Physician [phone] [place] [facility] [place] - 09/19/[address] [address]- Allergies, Adverse Reactions, Alerts Substance Reaction Severity [...] Refills, Maintenance, 05/07/22 9:41:00 EDT, Chew Tablet, [facility] #[id number], Partial fill upon patient request if the prescription is for a schedule II opioid drug., 165, cm, 05/07/22... Start Date: 05/07/22 Status: Ordered ondansetron 4 mg oral tablet, disintegrating 1 tablet = 4 mg, By Mouth, Every 8 hours, PRN Nausea & Vomiting, # 10 tablet, 0 Refills, Maintenance, 08/11/22 13:02:00 EST, Tablet, [facility] #[id number], Partial fill upon patient requestif the prescription is for a schedule II opioid drug.,... Start Date: 08/11/22 Status: Ordered Prenatabs Rx oral tablet 1 tablet, By Mouth, Daily, # 30 tablet, 11 Refills, Maintenance, 06/05/22 8:47:00 EDT, Tablet, [facility] #[id number], Partial fill upon patient request if the [...] HOSPITAL Outreach Member Role: PCP Address: Address: [address] [place] [address]- Care Team Related Persons Name: KEYANA HOLLAND Address: home [address] [place] [address] Name: ELTON LEAHY Address: home [address] [place] [address]
--- OUTSIDE RECORDS SUMMARY | 2023-03-19 17:32 | XMS_ITS | Continuity of Care Document ---
Author Name Unknown Organization [facility] Dewayne kayla Address [address] [place] [address] [address] [place] [address]- Care Team Providers Care Pain Management Nurse Practitioner Name Role Phone Zulma LEIVA, Joe Primary Care Physician [place] [facility] [place] - [place]/22 [facility] [address] [place] [address]- Allergies, Adverse Reactions, Alerts Substance Reaction Severity [...] Refills, Maintenance, 05/07/22 9:41:00 EDT, Chew Tablet, [facility] #[id number], Partial fill upon patient request if the prescription is for a schedule II opioid drug., 165, cm, 05/07/22... Start Date: 05/07/22 Status: Ordered metroNIDAZOLE 500 mg oral tablet 1 tablet = 500 mg, By Mouth, Every 12 hours, # 14 tablet, 0 Refills, Maintenance, 10/22/22 20:34:00EST, Tablet, [facility] #[id number], Partial fill upon patient request if the prescription is for a schedule II opioid drug., 165, cm, 10/19/22 8:... Start Date: 10/22/22 Stop Date: 10/29/22 Status: Ordered Prenatabs Rx oral tablet 1 tablet, By Mouth, Daily, # 30 tablet, 11 Refills, Maintenance, 06/05/22 8:47:00 EDT, Tablet, [facility] #[id number], Partial fill upon patient request if the [...] Team Personnel Name: Joe Maya MD Position: [facility] Outreach Member Role: PCP Address: Address: [address] [place] [address]- Care Team Related Persons Name: MIMI DOE Address: home [address] [address] Name: KEYANA HOLLAND Address: home [address] [place] [address] Name: TRACIE LEAHYANDA GIRL Address: [facility] Address: home [address] [place] [address] Name: TOSIN ELTON Address: home [address] [facility] [address] [place] [address]
--- OUTSIDE RECORDS SUMMARY | 2023-03-19 17:32 | XMS_ITS | Continuity of Care Document ---
Author Name Unknown Organization [facility] Address [address] [place] [address]- Care Team Providers Care President + Publisher Name Role Phone Joe Maya MD Primary Care Physician En[place] [facility] [place] 10/31/[place] - 11/30/[address] [address] Allergies, Adverse Reactions, Alerts Substance Reaction [...] Refills, Maintenance, 05/07/22 9:41:00 EDT, Chew Tablet, [facility] #[id number], Partial fill upon patient request if the prescription is for a schedule II opioid drug., 165, cm, 05/07/22... Start Date: 05/07/22 Status: Ordered betamethasone topical valerate 0.1% ointment See Instructions, apply sparingly to nipple after each feed, do not remove before next feed, # 45 Gm, 1 Refills, Maintenance, 11/27/22 16:05:00 EDT, [facility] #[id number], Partial fill upon patient request if the prescription is for a schedule I... Start Date: 11/27/22 Status: Ordered Colace sodium 100 mg oral capsule 100 mg, 1, capsule, By Mouth, 2 times a day, PRN, # 20 capsule, Refills 0, Tot. Refills 0, Maintenance, for constipation, 11/30/22 23:59:00 EDT, Route to Pharmacy Electronically, [facility][id number], Partial fill upon patient request if the [...] tablet, 0 Refills, Maintenance, 11/05/22 13:08:00EST, Tablet, [facility] #[id number], Partial fill upon patient request if the prescription is for a schedule II opioid drug., 165, cm, 10/29/22 10... Start Date: 11/05/22 Status: Ordered metroNIDAZOLE 500 mg oral tablet 1 tablet = 500 mg, By Mouth, Every 12 hours, # 14 tablet, 0 Refills, Maintenance, 10/22/22 20:34:00EST, Tablet, [facility] #[id number], Partial fill upon patient request if the prescription is for a schedule II opioid drug., 165, cm, 10/19/22 8:... Start Date: 10/22/22 Stop Date: 10/29/22 Status: Ordered miconazole 2% topical ointment See Instructions, apply sparingly to nipple after each feed, do not remove before next feed, # 45 Gm, 1 Refills, Maintenance, 11/27/22 16:05:00 EDT, [facility] #[id number], Partial fill upon patient request if the prescription is for a schedule I... Start Date: 11/27/22 Status: Ordered MiraLax oral powder for reconstitution = 17 Gm, By Mouth, Daily, dissolve in water before taking, # 255 Gm, 0 Refills, Maintenance, 11/30/22 23:59:00 EDT, REC Powder, [facility] #[id number], Partial fill upon patient request if the prescription is for a schedule II opioid drug., 17 Gm... Start Date: 11/30/22 Status: Ordered mupirocin 2% topical ointment See Instructions, apply sparingly to nipple after each feed, do not remove before next feed, # 22 Gm, 1 Refills, Maintenance, 11/27/22 16:05:00 EDT, [facility] #[id number], Partial fill upon patient request if the prescription is for a schedule I... Start Date: 11/27/22 Status: Ordered Plan B One-Step 1.5 mg oral tablet 1.5 mg, 1, tablet, By Mouth, Once, # 1 tablet, Refills 0, Tot. Refills 0, Soft Stop, 11/30/22 17:45:00 EDT, Route to Pharmacy Electronically, [facility] #[id number], Partial fill upon patient request if the prescription is for a schedule II opioi... Start Date: 11/30/22 Status: Ordered Prenatabs Rx oral tablet 1 tablet, By Mouth, Daily, # 30 tablet, 11 Refills, Maintenance, 06/05/22 8:47:00 EDT, Tablet, [facility] #[id number], Partial fill upon patient request if the prescription is for a schedule II opioid drug., 1 tablet By Mouth Daily, 165, cm, 2... Start Date: 06/05/22 Status: Ordered Slynd 4 mg oral tablet 1 tablet = 4 mg, By Mouth, Daily, # 84 tablet, 3 Refills, Maintenance, 10/26/22 6:46:00 EST, Tablet, [facility] #[id number], Partial fill upon patient request if the [...] Team Personnel Name: Joe Maya MD Position: [facility] Outreach Member Role: PCP Address: Address: [address] [place] [address]- Care Team Related Persons Name: MIMI DOE Address: home [address] [facility] [address] [place] [address] Name: SANDHYA DOE Address: [employer] Address: home [address] [place] [address] Name: KEYANA HOLLAND Address: home [address] [place], [place] Name: ELTON LEAHY Address: home [address] [facility] [address] [place] [address]
--- OUTSIDE RECORDS SUMMARY | 2023-03-19 17:32 | XMS_ITS | Continuity of Care Document ---
Author Name Unknown Organization [facility] Address [address] [place] [address]- Care Team Providers Care Field Marketing Director Name Role Phone Joe Maya MD Primary Care Physician [place] [facility] [place] - 09/23/[address] [address] Allergies, Adverse Reactions, Alerts Substance Reaction [...] Refills, Maintenance, 05/07/22 9:41:00 EDT, Chew Tablet, [facility] #[id number], Partial fill upon patient request if the prescription is for a schedule II opioid drug., 165, cm, 05/07/22... Start Date: 05/07/22 Status: Ordered ondansetron 4 mg oral tablet, disintegrating 1 tablet = 4 mg, By Mouth, Every 8 hours, PRN Nausea & Vomiting, # 10 tablet, 0 Refills, Maintenance, 08/11/22 13:02:00 EST, Tablet, [facility] #[id number], Partial fill upon patient requestif the prescription is for a schedule II opioid drug.,... Start Date: 08/11/22 Status: Ordered Prenatabs Rx oral tablet 1 tablet, By Mouth, Daily, # 30 tablet, 11 Refills, Maintenance, 06/05/22 8:47:00 EDT, Tablet, [facility] #[id number], Partial fill upon patient request if the [...] Team Personnel Name: Joe Maya MD Position: [facility] Outreach Member Role: PCP Address: Address: [address] [place] [address]- Care Team Related Persons Name: KEYANA HOLLAND Address: home [address] [place] [address] Name: ELTON LEAHY Address: home [address] [place] [address]
--- OUTSIDE RECORDS SUMMARY | 2023-03-19 17:32 | XMS_ITS | Continuity of Care Document ---
Author Name Unknown Organization 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 Start Date: 05/07/22 Status: Ordered ondansetron 4 mg oral tablet, disintegrating 1 tablet = 4 mg, By Mouth, Every 8 hours, PRN Nausea & Vomiting, # 10 tablet, 0 Refills, Maintenance, 08/11/22 13:02:00 EST, Tablet, [facility] #[id number], Partial fill upon patient requestif the prescription is for a schedule II opioid drug.,... Start Date: 08/11/22 Status: Ordered Prenatabs Rx oral tablet 1 tablet, By Mouth, Daily, # 30 tablet, 11 Refills, Maintenance, 06/05/22 8:47:00 EDT, Tablet, [facility] #[id number], Partial fill upon patient request if the [...] Team Personnel Name: Joe Maya MD Position: [facility] Outreach Member Role: PCP Address: Address: [address] [place] [address]- Care Team Related Persons Name: KEYANA HOLLAND Address: home [address] [place] [address] Name: ELTON LEAHY Address: home [address] [place] [address]
--- OUTSIDE RECORDS SUMMARY | 2023-03-19 17:32 | XMS_ITS | Continuity of Care Document ---
Author Name Unknown Organization [facility] Address [address] [place] [address]- Care Team Providers Care Psychiatric Registered Nurse Name Role Phone Joe Maya MD Primary Care Physician En[place] [facility] [place] Date(s): 10/20/22 - 11/25/[address] [address] Attending Physician: Kaylan Petit MD Admitting Physician: Kaylan Petit MD Allergies, Adverse Reactions, Alerts Substance Reaction [...] Refills, Maintenance, 05/07/22 9:41:00 EDT, Chew Tablet, [facility] #[id number], Partial fill upon patient request if the prescription is for a schedule II opioid drug., albino Butler, 05/07/22... Start Date: 05/07/22 Status: Ordered metroNIDAZOLE 500 mg oral tablet 1 tablet = 500 mg, By Mouth, Every 12 hours, # 14 tablet, 0 Refills, Maintenance, 11/05/22 13:08:00EST, Tablet, [facility] #[id number], Partial fill upon patient request if the prescription is for a schedule II opioid drug., albino Butler, 10/29/22 10... Start Date: 11/05/22 Status: Ordered metroNIDAZOLE 500 mg oral tablet 1 tablet = 500 mg, By Mouth, Every 12 hours, # 14 tablet, 0 Refills, Maintenance, 10/22/22 20:34:00EST, Tablet, [facility] #[id number], Partial fill upon patient request if the prescription is for a schedule II opioid drug., albino Butler, 10/19/22 8:... Start Date: 10/22/22 Stop Date: 10/29/22 Status: Ordered Prenatabs Rx oral tablet 1 tablet, By Mouth, Daily, # 30 tablet, 11 Refills, Maintenance, 06/05/22 8:47:00 EDT, Tablet, [facility] #[id number], Partial fill upon patient request if the prescription is for a schedule II opioid drug., 1 tablet By Mouth Daily, albino Butler, 05/11... Start Date: 06/05/22 Status: Ordered Slynd 4 mg oral tablet 1 tablet = 4 mg, By Mouth, Daily, # 84 tablet, 3 Refills, Maintenance, 10/26/22 6:46:00 EST, Tablet, [facility] #[id number], Partial fill upon patient request if the [...] Team Personnel Name: Joe Maya MD Position: [facility] Outreach Member Role: PCP Address: Address: [address] [place] [address]- Care Team Related Persons Name: MIMI DOE Address: home [address] [address] Name: SANDHYA DOE Address: [employer] Address: home [address] [place] [address] Name: KEYANA HOLLAND Address: home [address] [place], [place] Name: ELTON LEAHY Address: home [address] [address]
--- OUTSIDE RECORDS SUMMARY | 2023-03-19 17:32 | XMS_ITS | Continuity of Care Document ---
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 Name Role Phone Joe Maya MD Primary Care Physician [phone] Encounter [facility] [place] Date(s): 11/05/22 - 11/05/[address] [address]- Encounter Diagnosis bleeding(Discharge Diagnosis) - 11/05/22 Post depression(Discharge Diagnosis) - 11/05/22 Bacterial vaginosis(Discharge Diagnosis) - 11/05/22 Discharge Disposition: A-D/C Home Attending Physician: Danna Florentino MD Yomaira Admitting Physician: Danna Florentino MD Yomaira Referring Physician: Danna Florentino MD Yomaira Allergies, Adverse Reactions, Alerts Substance Reaction Severity [...] Refills, Maintenance, 05/07/22 9:41:00 EDT, Chew Tablet, [facility][id number], Partial fill upon patient request if the prescription is for a schedule II opioid drug., albino Butler, 05/07/22... Start Date: 05/07/22 Status: Ordered metroNIDAZOLE 500 mg oral tablet 1 tablet = 500 mg, By Mouth, Every 12 hours, # 14 tablet, 0 Refills, Maintenance, 11/05/22 13:08:00EST, Tablet, [facility][id number], Partial fill upon patient request if the prescription is for a schedule II opioid drug., 165albino, 10/29/22 10... Start Date: 11/05/22 Status: Ordered metroNIDAZOLE 500 mg oral tablet 1 tablet = 500 mg, By Mouth, Every 12 hours, for 7 days, # 14 tablet, 0 Refills, Acute 11/12/22 14:03:00 EST, 11/05/22 14:03:00 EST, Tablet, [facility] #[id number], Partial fill upon patient request if the prescription is for a schedule II opioid... Start Date: 11/05/22 Stop Date: 11/12/22 Status: Ordered metroNIDAZOLE 500 mg oral tablet 1 tablet = 500 mg, By Mouth, Every 12 hours, # 14 tablet, 0 Refills, Maintenance, 10/22/22 20:34:00EST, [id number], Partial fill upon patient request if the prescription is for a schedule II opioid drug., 165albino, 10/19/22 8:... Start Date: 10/22/22 Stop Date: 10/29/22 Status: Ordered Prenatabs Rx oral tablet 1 tablet, By Mouth, Daily, # 30 tablet, 11 Refills, Maintenance, 06/05/22 8:47:00 EDT, Tablet, [facility] #[id number], Partial fill upon patient request if the prescription is for a schedule II opioid drug., 1 tablet By Mouth Daily, 165, cm, 05/11... Start Date: 06/05/22 Status: Ordered Slynd 4 mg oral tablet 1 tablet = 4 mg, By Mouth, Daily, # 84 tablet, 3 Refills, Maintenance, 10/26/22 6:46:00 EST, Tablet, [facility] #[id number], Partial fill upon patient request if the prescription is for a schedule II opioid drug., 165, cm, 10/25/22 13:06:00 EST,... Start Date: 10/26/22 Status: Ordered Problem List Condition Confirmation Course Effective Dates Status Health St atus Informant Anxiety Confirmed Active ADD (attention deficit disorder) 1 Confirmed Active Bipolar disorder Confirmed Active Borderline personality disorder in adult Confirmed Active Depression Confirmed Active Stress at home Confirmed Active History of alcohol abuse Confirmed Active Obesity during Confirmed Active Confirmed Active Severe obesity Confirmed Active 1Sees Dr. Granda. Diagnosis Diagnosis Type Effective Dates Health Status Clinical Service Informant Post depression Discharge Diagnosis 11/05/22 bleeding Discharge Diagnosis 11/05/22 Bacterial vaginosis Discharge Diagnosis 11/05/22 Vital Signs Most recent to oldest [Reference Range]: 1 Weight 112.8 kg (11/05/22 10:03 AM) Oxygen Saturation [94-100 %] 98 % (11/05/22 10:03 AM) Pulse Rate [55-90 bpm] 108 bpm *H* (11/05/22 10:03 AM) Blood Pressure [90-138/55-84 mm Hg] 119/ 70mm Hg (11/05/22 10:03 AM) Respiratory Rate [16-30 br/min] 18 br/mi n (11/05/22 10:03 AM) Temperature [96.8-100.4 DegF] 98.7 DegF (11/05/22 10:03 AM) Mode of Delivery (Oxygen) Room air (11/05/22 10:03 AM) Blood pressure sites Arm, right (11/05/22 10:03 AM) Temperature Route Oral (11/05/22 10:03 AM) Dry Weight 112.8 kg (11/05/22 10:03 AM) Weight Obtained Via Standing scale (11/05/22 10:03 AM) Dry Weight Obtained Via Standing scale (11/05/22 10:03 AM) Social History Social History Type Response Smoking Status Former smoker, quit more than 30 days ago entered on: 04/23/22 Sex Hospital Progress note * Parris Pham V: PERFORM, SIGN, VERIFY Event Display: Progress Note Hospital Authored Date: [id number] Patient: DHEERAJ LEAHY Age: 32 years Sex: Female : 1990 Associated Diagnoses: None Author: Parris Pham V [facility] heavy vag bleeding, During intake, pt admits to feeling anxious and feels she is suffering from PPD. Pt denies suicidal thoughts or thoughts of harming herself or others.Pt reports that she is feeling overwhelmed and short tempered with her partner, Pt reports she has a follow up N appointment set up with er therapist and feels she is safe waiting for that appointment. Pt has hx Bipolar and Borderline personality disorder. Discussed with provider. Appointment os3/2 with [facility]. Note * Parris Pham V: PERFORM Event Display: Discharge/Transfer Note Hospital Authored Date: [id number] Nursing Discharge Note Entered On: 11/05/2022 14:07 EST Performed On: 11/05/2022 14:07 EST by Parris Pham V Nursing Discharge Note 2 Discharge Time : 11/05/2022 14:07 EST Discharge Level of Care at Discharge : Home/Care Home/Foster Care Patient Left Unit Via : Ambulatory Patient Accompanied Off Unit with : Significant other DC Instructions Provided & Signed by Pt : Yes Patient Understands D/C Instructions : Yes Patient Instructions Discharge Signed : Yes Did Pt have Specialty Bed or Wound Vac : No Parris Pham V - 11/05/2022 14:07 EST * Parris Pham V: PERFORM Event Display: Patient Education/Instruction Authored Date: [id number] Inpatient Adult Discharge Instructions [address] [id number] Name: DHEERAJ LEAHY : 1990 Visit: 11/05/2022 09:58:00 Current Date: 11/05/2022 12:55 Account: [id number] Inpatient Adult Discharge Instructions We would like [...] and their families. Surveys are administered by [employer]. ?? If further treatment with your primary care physician or another doctor is recommended, it is important for you to keep the appointment. Call your primary care physician or return to the Emergency Department immediately if your condition worsens, fails to improve, or new symptoms develop. If you need to find a doctor, you can call [facility] for a referral at [phone] or toll free at [phone] ([phone]) or log in to [email or web address] Real-Time.. ?? You can view and manage your care through the patient portal or by using a health care ramesh of your choosing. [employer] is a website that allows you to securely view your medical information including your hospital discharge summary, office visit summaries, medications and follow-up visits. You can also request appointments, renew medications, and request access to your medical information using a health care ramesh of your choosing, or just ask a question. You can enroll at [email or web address] or register during your next office visit. You have been discharged from [facility], Patient Care Unit: [id number]. If you have any questions regarding these instructions after you leave, please call us and we will be happy to assist you. [facility] Your Care Team Attending Physician Danna Florentino MD Yomaira Tests Performed Below is a partial list of the tests performed during your hospitalization. You may have had other tests and procedures not included in this list. Please discuss all test results with your provider. CBC Primary Care Provider Zulma LEIVA , Joe Advance Directive Health Care Proxy on File No Discharge Vitals Temperature: 98.7 DegF Weight: 112.8 kg Pulse Rate:??108 bpm??High ?? Respiratory Rate: 18 br/min ?? Systolic Blood Pressure: 119 mm Hg ?? Diastolic Blood Pressure: 70 mm Hg ?? Oxygen Saturation: 98 % ?? Studies Pending All tests and labs ordered during this hospital stay have been completed unless listed below. Please discuss all pending results with your provider listed above in these instructions. ?? Hold Lavender Tube (BB) What to do next Instructions From Your Doctor Discharge Orders Scheduled Follow-Up Appointments Saturday 10:40 AM EST ?? With: Where: [facility] [address] [place] [address]- 2022 1:00 PM EST ?? With: Where: [facility] [address] [place] [address]- Saturday 1:20 PM EDT ?? With: Harriet Henderson CNM Where: [facility] [address] [place] [address]- Discharge Medications DHEERAJ LEAHY :1990 Visit Date:11/05/2022 Medications: Please continue your medications until treatment [...] 2 tab(s) Chew Daily at Bedtime Unchanged Drospirenone (Slynd 4 mg oral tablet) [...] discuss all test resultswith your provider. CBC (11/05/2022) ???WBC - 9.3 k/mm3???RBC - 4.33 m/mm3???Hgb - 12.2 Gm/dL???Hct - 37.9 %???MCV - 87.5 femtoliters???MCH - 28.2 pg???MCHC - 32.2 g/dL???Platelet Count - 532 k/mm3???RDW-SD - 47.2 femtoliters???MPV - 8.5 femtoliters???Nucleated RBC (Automated) - 0.0 #/100 WBC'S???Abs. NRBC - 0.0 k/mm3 Allergies (NKA means No Known Allergies) PROzac??(RASH) LaMICtal Pamprin ES Multi-Symptom Relief Formula Penelope amoxicillin penicillin Problems Active Problems??(10) ADD (attention deficit disorder)?? Anxiety?? Bipolar disorder?? Borderline personality disorder in adult?? Depression?? History of alcohol abuse?? Obesity during ? Severe obesity?? Stress at home?? Education Materials Below is the list of Educational Leaflet Providered with your Discharge Instructions. Bacterial Vaginosis?? Depression: Treatment?? Depression: The Perfect Storm?? Understanding Depression?? OB PP Post Warning Signs?? Valuables and Belongings I fully understand and agree that [facility] accepts no responsibility for all my personal [...] Does their speech sound strange? TIME Call 9-1-1 at any sign of stroke ?? Heart [...] are strongly encouraged to quit. Please call [facility] at [phone] or [phone] ([phone]) or log in to [email or web address] for referrals to smoking cessation programs. ?? The National Suicide Prevention Hotline is available 01/04 if you or someone you know needs to find a reason to keep living. By calling 1-374-525-[employer] (8890) you'll be connected to a skilled, trained counselor at a crisis center in your area. INPATIENT DISCHARGE INSTRUCTIONS SIGNATURE TEO DHEERAJ LEAHY Location:[facility] Registration Date and Time:11/05/2022 09:58 EST Primary Care Physician: Zulma LEIVA , [facility], I TOSIN DHEERAJ, have received the above patient education materials/instructions and have verbalized understanding. If ambulance or transport services are being used I further acknowledge being given a choice of service. ?? If you need to contact me, please call me at this number: . Patient/Occupational Nurse Name: Patient/Occupational Nurse Signature: Relationship to Patient: Witness Name/Signature: Date: * Parris Pham V: PERFORM Event Display: Patient Education Leaflets Authored Date: [id number] Bacterial Vaginosis ?? [id number] Bacterial Vaginosis You have a vaginal infection [...] sores. ?? Last Reviewed Date: 2022 ?? [employer]. All rights reserved. This information is not intended as a substitute for professional medical care. Always follow your healthcare professional's instructions. ?? * Parris Pham V: PERFORM Event Display: Patient Education Leaflets Authored Date: [id number] Depression: Treatment ?? 12080 Depression: Treatment depression (PPD) is a serious mood disorder. It affects many people after having a baby. You may feel very sad, angry, anxious, or tired if you have this condition. You may cry a lot. You may have trouble focusing. These feelings can make it hard for you to take care of yourselfand your baby. But you can get help. Treatment includes medicine and talk therapy. How is PPD treated? Treatment for PPD often doesn't depend on whether you are your baby. The 2 main treatments are: ??? Medicine. Antidepressants are the main type of medicine used for this condition. They work by balancing chemicals in the brain that control your moods. There are many different antidepressants. They work on different chemicals in the brain. You may need more than one medicine. Tell your healthca re provider if you are . They can help you find the medicine that???s best for you andyour baby. ??? Talk therapy (counseling or psychotherapy). You will talk about your feelings with [facility] health provider. This could be with a therapist, counselor, psychologist, or oncology social work. They can give support for the emotions you are feeling. They can help you learn ways to manage stress and anxiety. This may be done in sessions with just you and the provider. Or it may be done in a group therapy session. Medicine or talk therapy may be used alone. Or they may be used together. Talk therapy may be used alone if medicine has not worked well for you in the past. Talk with your healthcare provider about this. Most parents find their condition gets better with these treatments. You can do other things at home that may help you feel better. These include: ??? Talk with friends and family members abouthow you are feeling. ??? Join a support group for parents with new babies. ??? Do some light exercise. Try taking your baby for a walk in the stroller. ??? Eat a healthy diet. ??? Get rest whenever you can. Try sleeping when your baby sleeps. ??? Ask for and accepting help with meals, shopping, andlaundry. ?? Medicines for parents Most people with PPD are treated with antidepressant medicines. These medicines must be prescribed by your healthcare provider. They are usually safe for both you and your baby. Tell your healthcare provider if you are . They can help you find a medicine that???s a good choice for bothyou and your baby. Your provider may want you to use the same medicine while that you used during if you had depression then.. Changing to another medicine can have risks for you and your baby. Talk with your healthcare provider. Several types of medicine may be used to treat PPD in both and nonbreastfeeding parents. They include: ??? SSRIs (selective serotonin reuptake inhibitors). These types of medicines are used most often. They are considered safe for both parent and baby. ??? SNRIs (serotonin-norepinephrine reuptake inhibitors). These medicines also seem to be safe to use when . But some SNRIs may expose ababy to more medicine in breastmilk than other medicines. ??? Atypical antidepressants. Some of these medicines are safe to take when . ??? Benzodiazepines. These medicines are often used for severe anxiety or agitation. But some are not advised for parents. Your healthcare provider will keep track of you while you are on a medicine. These medicines may take a few weeks to start working. Call your healthcare provider if you don???tfeel better in a few weeks. Together you may decide to change the medicine. Or add another medicine. ?? Possible medicine risks for breastfed babies It's possible for these medicines to be passed to babies in breastmilk. This amount is very low. It's considered safe. The overall benefits of for both parent and baby outweigh any possible minor risk. It???s also important for a parent with PPD to get the medicine they need. But possible risks from medicine in your breastmilk may be a concern in some cases. These include: ??? If your baby is sick ??? If your baby is low birthweight ??? If your baby was born early (premature) If this is the case for you, talk with your healthcare provider and your baby???s provider about treatment choices. They can tell you which are safe for you and your baby. babies who are healthy don???t often have side effects from medicine for PPD. But it is possible. Talk with your provider and your baby???s provider about what side effects to watch for. ?? Treatment for nonbreastfeeding parents Treatment choices for PPD are very similar for nonbreastfeeding parents. Your healthcare provider will work with you to find a medicine that is safe for you. They will also likely advise that you trymedicine and talk therapy together. Medicines that may be used if you are not include: ??? SSRIs (selective serotonin reuptake inhibitors) ??? SNRIs (serotonin-norepinephrine reuptake inhibitors) ??? Atypical antidepressants ??? Seratonin modulators ?? Medicine side effects for parents Some medicines for PPD may have side effects. These are often short-term (temporary). They will go away on their own. These may include: ??? Upset stomach (nausea) or vomiting ??? Trouble sleeping ??? Weight gain or weight loss ??? Dry mouth ??? Dizziness ??? Lack of interest in sex ??? Diarrhea ??? Headaches Call your healthcare provider if any of these symptoms don???t go away. Call if they get in the wayof your daily tasks. They may have you try a different medicine. ?? When to call your healthcare provider Call your healthcare provider right away if you are being treated for PPD and: ??? You have severe or abnormal side effects to medicine ??? Your side effects to medicine are getting in the way of your daily tasks ?? Call 988 Call or text 988 right away if you are being treated for PPD and: ??? Your depression gets worse ??? You start thinking about hurting yourself, your baby, or others When you call or text 988, you will be connected to trained crisis counselors. An online chat choice is also available. [employer] is free and available 01/04. ?? Last Reviewed Date: 2022 ?? [employer]. All rights reserved. This information is not intended as a substitute for professional medical care. Always follow your healthcare professional's instructions. ?? * Parris Pham V: PERFORM Event Display: Patient Education Leaflets Authored Date: [id number] Depression: The Perfect Storm ?? Depression: The Perfect Storm - Video When the nurse asked Graciela if she was ready to meet her son, she replied, No. Was she a horrible mother or dealing with the onset of depression? To view the video go to this web address: [email or web address] Or, scan this QR code with your smart phone ?? [employer]. All rights reserved. This information is not intended as a substitute for professional medical care. Always follow your healthcare professional's instructions. ?? Patient Care team information Care Team Personnel Name: Joe Maya MD Position: [facility] Outreach Member Role: PCP Address: Address: [address] [place] [address]- Name: Parris Pham V Position: [facility] OB RN Member Role: Patient Care Provider Care Team Related Persons Name: MIMI DOE Address: home [address] [address] Name: SANDHYA DOE Address: [employer] Address: home [address] [place] [address] [place] Name: KEYANA HOLLAND Address: home [address] [place] [address] Name: ELTON LEAHY Address: home [address] [address]
--- OUTSIDE RECORDS SUMMARY | 2023-03-19 17:32 | XMS_ITS | Continuity of Care Document ---
Author Name Unknown Organization [facility] Address [address] [place] [address]- Care Team Providers Care Manager Drug Safety Name Role Phone Joe Maya MD Primary Care Physician [place] [facility] [place]/25/22 - 08/24/[address] [address] Allergies, Adverse Reactions, Alerts Substance Reaction Severity Status amoxicillin Active penicillin Active Pamprin ES Multi-Symptom Relief Formula Active LaMICtal Active PROzac RASH Unknown Active Penelope Active Immunizations Given and Recorded [...] Refills, Maintenance, 05/07/22 9:41:00 EDT, Chew Tablet, [facility] #[id number], Partial fill upon patient request if the prescription is for a schedule II opioid drug., 165, cm, 05/07/22... Start Date: 05/07/22 Status: Ordered ondansetron 4 mg oral tablet, disintegrating 1 tablet = 4 mg, By Mouth, Every 8 hours, PRN Nausea & Vomiting, # 10 tablet, 0 Refills, Maintenance, 08/11/22 13:02:00 EST, Tablet, [facility] #[id number], Partial fill upon patient requestif the prescription is for a schedule II opioid drug.,... Start Date: 08/11/22 Status: Ordered Prenatabs Rx oral tablet 1 tablet, By Mouth, Daily, # 30 tablet, 11 Refills, Maintenance, 06/05/22 8:47:00 EDT, Tablet, [facility] #[id number], Partial fill upon patient request if the [...] Team Personnel Name: Joe Maya MD Position: [facility] Outreach Member Role: PCP Address: Address: [address] [place] [address]- Care Team Related Persons Name: KEYANA HOLLAND Address: home [address] [place] [address] Name: ELTON LEAHY Address: home [address] [place] [address]
--- OUTSIDE RECORDS SUMMARY | 2023-03-19 17:32 | XMS_ITS | Continuity of Care Document ---
Author Name Unknown Organization [facility] Address [address] [place] [address]- Care Team Providers Care Solution Design Engineer Name Role Phone Joe Maya MD Primary Care Physician Encounter [facility] [place] Date(s): 11/14/22 - 12/14/[address] [address] Allergies, Adverse Reactions, Alerts Substance Reaction Severity Status amoxicillin Active penicillin Active Penelope Active LaMICtal Active PROzac RASH [...] 11/30/22 23:59:00 EDT, Route to Pharmacy Electronically, [facility][id number], Partial fill upon patient request if the [...] Gm, 1 Refills, Maintenance, 11/27/22 16:05:00 EDT, [facility] #[id number], Partial fill upon patient request if the prescription is for a schedule I... Start Date: 11/27/22 Status: Ordered MiraLax oral powder for reconstitution = 17 Gm, By Mouth, Daily, dissolve in water before taking, # 255 Gm, 0 Refills, Maintenance, 11/30/22 23:59:00 EDT, REC Powder, [facility] #[id number], Partial fill upon patient request if the prescription is for a schedule II opioid drug., 17 Gm... Start Date: 11/30/22 Status: Ordered mupirocin 2% topical ointment See Instructions, apply sparingly to nipple after each feed, do not remove before next feed, # 22 Gm, 1 Refills, Maintenance, 11/27/22 16:05:00 EDT, [facility] #[id number], Partial fill upon patient request if the prescription is for a schedule I... Start Date: 11/27/22 Status: Ordered Prenatabs Rx oral tablet 1 tablet, By Mouth, Daily, # 30 tablet, 11 Refills, Maintenance, 06/05/22 8:47:00 EDT, Tablet, [facility][id number], Partial fill upon patient request if the prescription is for a schedule II opioid drug., 1 tablet By Mouth Daily, 165, cm, 05/11... Start Date: 06/05/22 Status: Ordered Slynd 4 mg oral tablet 1 tablet = 4 mg, By Mouth, Daily, # 84 tablet, 3 Refills, Maintenance, 10/26/22 6:46:00 EST, Tablet, [facility] #[id number], Partial fill upon patient request if the [...] Team Personnel Name: Joe Maya MD Position: [facility] Outreach Member Role: PCP Address: Address: [address] [place] [address]- Care Team Related Persons Name: MIMI DOE Address: home [address] [address] Name: SANDHYA DOE Address: [employer] Address: home [address] [place] [address] Name: KEYANA HOLLAND Address: home [address] [place] Name: ELTON LEAHY Address: home [address] [address]
--- OUTSIDE RECORDS SUMMARY | 2023-03-19 17:32 | XMS_ITS | Continuity of Care Document ---
Author Name Unknown Organization [facility] Address [address] [place] [address]- Care Team Providers Care Plaster Pattern Caster Name Role Phone Zulma LEIVA, Joe Primary Care Physician [phone] Encounter [facility] Date(s): 10/05/22 - 11/04/22 [facility] [address] [place] [address]- Allergies, Adverse Reactions, Alerts Substance Reaction Severity [...] Refills, Maintenance, 05/07/22 9:41:00 EDT, Chew Tablet, [facility][id number], Partial fill upon patient request if the [...] tablet, 0 Refills, Maintenance, 10/22/22 20:34:00EST, Tablet, [facility][id number], Partial fill upon patient request if the prescription is for a schedule II opioid drug., albino Butler, 10/19/22 8:... Start Date: 10/22/22 Stop Date: 10/29/22 Status: Ordered Prenatabs Rx oral tablet 1 tablet, By Mouth, Daily, # 30 tablet, 11 Refills, Maintenance, 06/05/22 8:47:00 EDT, Tablet, [facility] #[id number], Partial fill upon patient request if the prescription is for a schedule II opioid drug., 1 tablet By Mouth Daily, albino Butler, 05/11... Start Date: 06/05/22 Status: Ordered Slynd 4 mg oral tablet 1 tablet = 4 mg, By Mouth, Daily, # 84 tablet, 3 Refills, Maintenance, 10/26/22 6:46:00 EST, Tablet, [facility] #[id number], Partial fill upon patient request if the [...] 11/05/22 6:47:00 EST, 10/26/22 6:46:00 EST, Capsule, [facility] #[id number], Partial fill upon pa... Start Date: 10/26/22 [...] Team Personnel Name: Joe Maya MD Position: [facility] Outreach Member Role: PCP Address: Address: [address] [place] [address]- Care Team Related Persons Name: MIMI DOE Address: home [address] [address] Name: KEYANA HOLLAND Address: home [address] [place] [address] Name: DHEERAJ LEAHY GIRL Address: [employer] Address: home [address] [address] Name: ELTON LEAHY Address: home [address] [address]
--- OUTSIDE RECORDS SUMMARY | 2023-03-19 17:32 | XMS_ITS | Continuity of Care Document ---
Author Name Unknown Organization [facility] Address [address] [place] [address]- Care Team Providers Care Ammunition Storekeeper Name Role Phone Joe Maya MD Primary Care Physician Encounter [facility] Date(s): 07/10/22 - 07/10/[address] [address]- Encounter Diagnosis Dysuria in (Final) - 07/10/22 Abdominal pressure(Final) - 07/10/22 Bacterial vaginosis(Final) - 07/10/22 Discharge Disposition: A-D/C Home Attending Physician: Starla Astudillo MD Admitting Physician: Starla Astudillo MD Referring Physician: Not on Staff, Referring [...] Refills, Maintenance, 05/07/22 9:41:00 EDT, Chew Tablet, [facility] #[id number], Partial fill upon patient request if the prescription is for a schedule II opioid drug., 165, cm, 05/07/22... Start Date: 05/07/22 Status: Ordered metroNIDAZOLE 250 mg oral tablet 1 tablet = 250 mg, By Mouth, Every 8 hours, for 7 days, # 21 tablet, 0 Refills, Acute 07/17/22 20:16:00 EST, 07/10/22 20:16:00 EDT, Tablet, [facility] #[id number], Partial fill upon patient request if the prescription is for a schedule II opioid... Start Date: 07/10/22 Stop Date: 07/17/22 Status: Ordered Prenatabs Rx oral tablet 1 tablet, By Mouth, Daily, # 30 tablet, 11 Refills, Maintenance, 06/05/22 8:47:00 EDT, Tablet, [facility] #[id number], Partial fill upon patient request if the [...] supportive services in this 2Sees Dr. Granda. Results Orders for Microbiology Reports Name Date Wet Prep 07/10/22 Microbiology Reports TEST:Wet Prep STATUS:Auth (Verified) BODY SITE: SOURCE:VAGINA COLLECTED DATE/TIME:07/10/22 7:52 PM Wet Prep SPECIMEN DESCRIPTION : VAGINAL SPECIMEN SPECIAL REQUESTS : NONE DIRECT EXAM : 2+ WHITE BLOOD CELLS 2+ CLUE CELLS NO YEAST OBSERVED NO TRICHOMONAS OBSERVED REPORT STATUS : FINAL 07/10/2022 Vital Signs Most recent to oldest [Reference Range]: 1 2 3 Height 165 cm (07/10/22 7:07 PM) 165 cm (07/10/22 5:36 PM) 165 cm (07/10/22 5:32 PM) Weight 108.5 kg (07/10/22 5:36 PM) 108.5 kg (07/10/22 5:32 PM) Oxygen Saturation [94-100 %] 99 % (07/10/22 7:07 PM) 100 % (07/10/22 5:32 PM) Pulse Rate [55-90 bpm] 94 bpm *H* (07/10/22 7:07 PM) 104 bpm *H* (07/10/22 5:32 PM) Body Mass Index [18.5-24.99 kg/m2] 39.85 kg/m2 *>HHI* (07/10/22 5:32 PM) Blood Pressure [90-138/55-84 mm Hg] 113/71mm Hg (07/10/22 7:07 PM) 127/69mm Hg (07/10/22 5:32 PM) Respiratory Rate [16-30 br/min] 16 br/min (07/10/22 7:07 PM) 18 br/min (07/10/22 5:32 PM) Temperature [96.8-100.4 DegF] 98 DegF (07/10/22 5:32 PM) Liters per Minute 0 L/min (07/10/22 7:07 PM) Mode of Delivery (Oxygen) Room air (07/10/22 7:07 PM) Room air (07/10/22 5:32 PM) Blood pressure sites Arm, left (07/10/22 7:07 PM) Dry Weight 108.5 kg (07/10/22 5:36 PM) 108.5 kg (07/10/22 5:32 PM) Social History Social History Type Response Smoking Status Former smoker, quit more than 30 days ago entered on: 04/23/22 Sex Patient Care team information Personnel Name: Joe Maya MD Address: Address: [address] [place] [address]
--- OUTSIDE RECORDS SUMMARY | 2023-03-19 17:32 | XMS_ITS | Continuity of Care Document ---
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 Start Date: 05/07/22 Status: Ordered metroNIDAZOLE 250 mg oral tablet 2 tablet = 500 mg, By Mouth, Every 12 hours, for 7 days, # 28 tablet, 0 Refills, Acute 11/23/22 22:43:00 EST, 07/25/22 22:43:00 EST, [facility] #[id number], Partial fill upon patient request if the prescription is for a schedule II opioid drug.,... Start Date: 07/25/22 Stop Date: 08/01/22 Status: Ordered Prenatabs Rx oral tablet 1 tablet, By Mouth, Daily, # 30 tablet, 11 Refills, Maintenance, 06/05/22 8:47:00 EDT, Tablet, [facility] #[id number], Partial fill upon patient request if the [...] supportive services in this 2Sees Dr. Granda. Vital Signs Most recent to oldest [Reference Range]: 1 2 Height 165 cm (07/25/22 4:47 PM) 165 cm (07/25/22 4:44 PM) Weight 109 kg (07/25/22 4:47 PM) 109 kg (07/25/22 4:44 PM) Oxygen Saturation [94-100 %] 99 % (07/25/22 4:44 PM) Pulse Rate [55-90 bpm] 100 bpm *H* (07/25/22 4:44 PM) Body Mass Index [18.5-24.99 kg/m2] 40.04 kg/m2 *>HHI* (07/25/22 4:44 PM) Blood Pressure [90-138/55-84 mm Hg] 126/ 67mm Hg (07/25/22 4:44 PM) Respiratory Rate [16-30 br/min] 20 br/mi n (07/25/22 4:44 PM) Temperature [96.8-100.4 DegF] 97 DegF (07/25/22 4:44 PM) Temperature Route Temporal (07/25/22 4:44 PM) Dry Weight 109 kg (07/25/22 4:47 PM) 109 kg (07/25/22 4:44 PM) Weight Obtained Via Standing scale (07/25/22 4:44 PM) Dry Weight Obtained Via Standing scale (07/25/22 4:44 PM) Social History Social History Type Response Smoking Status Former smoker, quit more than 30 days ago entered on: 04/23/22 Sex Note * Moisés Diaz MD: PERFORM Event Display: Patient Education Leaflets Authored Date: [id number] Pelvic Pain in : Unclear (2???3 Trimester) ?? [id number] Pelvic Pain in : Unclear (2???3 Trimester) You are well into your and are having pain and pressure in your pelvic area. This is yourlower belly (abdomen). Mild pelvic pressure or heaviness is very common in the latter stages of a healthy . This is due to the growing uterus (womb). Although the exact cause of your pain isnot certain, it doesn't seem to be dangerous. It may be due to ligaments in your belly stretching to support your uterus as it grows. The weight of your baby may also be causing pressure and pain. Pain can be caused by the bones of your pelvis shifting as your body makes room for the baby to pass through. This is known as symphysis pubis dysfunction (SPD). SPD can cause quite a bit of pain and dis comfort as the due date nears. Home care Here are general care guidelines: ??? Don't do any strenuous activities or stand for a long time. Bed rest is not needed unless your healthcare provider has advised it. ??? Exercise for 30 minutes all or most days of the week. This will promote muscle tone, strength, and endurance. Ask your provider what exercises to do and to avoid. ??? Sit in a warm (not hot) bath. This helps relax tight, painful muscles. ??? Sleep on your side with a pillow between your legs. This helps align your pelvis. ??? Eat frequent, light meals. Choose foods that are easy to digest. ??? Ask your healthcare provider if a support belt could help you. ??? If told to by your healthcare provider, take an over-the- counter medicine, such as acetaminophen, to ease pain. Follow instructions carefully for how much to take and how often to take it. Don't take aspirin or nonsteroidal anti-inflammatory drugs (NSAIDs) such as ibuprofen unless your provider tells you to do so. ?? Follow-up care Follow up with your healthcare provider, or as advised. ?? When to get medical advice Call your healthcare provider right away if any of these occur:? Belly pain that is sudden or that slowly gets worse ??? Fainting, dizziness, or weakness when standing ??? Any vaginal bleeding ??? Fluid leaking from the vagina ??? Baby is moving less ??? Repeated vomiting or diarrhea ??? Pain that seems to settle in one area, especially the lower right belly ??? Blood in vomit or bowel movements (dark red or black color) ??? Fever of 100.4??F (38??C) or higher, or as directed ?? Last Reviewed Date: 2019 ?? 6296-6250 [employer]. All rights reserved. This information is not intended as a substitute for professional medical care. Always follow your healthcare professional's instructions. ?? Patient Care team information Care Team Personnel Name: oJe Maya MD Position: [facility] Outreach Member Role: PCP Address: Address: [address] [place] [address]- Name: Moisés Diaz MD Position: [facility] ED Medicine MD Member Role: Admitting Physician Address: Address: [address] [place] [address] Department [place] [address]- Name: Tamika June RN Position: [facility] ED RN W/OE and Tasks Member Role: Patient Care Provider Name: Natalie Soto Position: [facility] ED [facility] Care Team Related Persons Name: KEYANA HOLLAND Address: home [address] [place] [address] Name: ELTON LEAHY Address: home [address] [place] [address]
--- OUTSIDE RECORDS SUMMARY | 2023-03-19 17:32 | XMS_ITS | Continuity of Care Document ---
Author Name Unknown Organization [facility] Address [address] [place] [address]- Care Team Providers Care Student Accounts Manager Name Role Phone Zulma LEIVA, Joe Primary Care Physician Encounter [facility] Date(s): 12/22/22 - 12/22/[address] [address]- Discharge Disposition: A-D/C Walkout Attending Physician: Not [...] 11/30/22 23:59:00 EDT, Route to Pharmacy Electronically, [facility][id number], Partial fill upon patient request if the [...] Gm, 1 Refills, Maintenance, 11/27/22 16:05:00 EDT, [facility] #[id number], Partial fill upon patient request if the prescription is for a schedule I... Start Date: 11/27/22 Status: Ordered MiraLax oral powder for reconstitution = 17 Gm, By Mouth, Daily, dissolve in water before taking, # 255 Gm, 0 Refills, Maintenance, 11/30/22 23:59:00 EDT, REC Powder, [facility] #[id number], Partial fill upon patient request if the prescription is for a schedule II opioid drug., 17 Gm... Start Date: 11/30/22 Status: Ordered mupirocin 2% topical ointment See Instructions, apply sparingly to nipple after each feed, do not remove before next feed, # 22 Gm, 1 Refills, Maintenance, 11/27/22 16:05:00 EDT, [facility] #[id number], Partial fill upon patient request if the prescription is for a schedule I... Start Date: 11/27/22 Status: Ordered Prenatabs Rx oral tablet 1 tablet, By Mouth, Daily, # 30 tablet, 11 Refills, Maintenance, 06/05/22 8:47:00 EDT, Tablet, [facility] #[id number], Partial fill upon patient request if the prescription is for a schedule II opioid drug., 1 tablet By Mouth Daily, 165, cm, 05/11... Start Date: 06/05/22 Status: Ordered Slynd 4 mg oral tablet 1 tablet = 4 mg, By Mouth, Daily, # 84 tablet, 3 Refills, Maintenance, 10/26/22 6:46:00 EST, Tablet, [facility] #[id number], Partial fill upon patient request if the [...] Range]: 1 2 3 Height 165 cm (12/22/22 5:16 PM) Weight 110.7 kg (12/22/22 5:16 PM) Oxygen Saturation [94-100 %] 100 % (12/22/22 10:56 PM) 100 % (12/22/22 8:01 PM) 100 % (12/22/22 5:16 PM) Pulse Rate [55-90 bpm] 92 bpm *H* (12/22/22 10:56 PM) 86 bpm (12/22/22 8:01 PM) 100 bpm *H* (12/22/22 5:16 PM) Body Mass Index [18.5-24.99 kg/m2] 40.66 kg/m2 *>HHI* (12/22/22 5:16 PM) Blood Pressure [90-138/55-84 mm Hg] 116/71mm Hg (12/22/22 10:56 PM) 127/70mm Hg (12/22/22 8:01 PM) 137/78mm Hg (12/22/22 5:16 PM) Respiratory Rate [16-30 br/min] 22 br/min (12/22/22 5:16 PM) 16 br/min (12/22/22 4:58 PM) Temperature [96.8-100.4 DegF] 97.5 DegF (12/22/22 8:01 PM) 98.2 DegF (12/22/22 5:16 PM) Mode of Delivery (Oxygen) Room air (12/22/22 10:56 PM) Room air (12/22/22 8:01 PM) Room air (12/22/22 5:16 PM) Blood pressure sites Arm, left (12/22/22 10:56 PM) Arm, left (12/22/22 8:01 PM) Arm, left (12/22/22 5:16 PM) Temperature Route Oral (12/22/22 8:01 PM) Oral (12/22/22 5:16 PM) Dry Weight 110.7 kg (12/22/22 5:16 PM) Weight Obtained Via Standing scale (12/22/22 5:16 PM) Dry Weight Obtained Via Standing scale (12/22/22 5:16 PM) Social History Social History Type Response Smoking Status Former smoker, quit more than 30 days ago; Other: quit 2019; entered on: 12/06/22 Sex Patient Care team information Care Team Personnel Name: Zulma LEIVA , Joe Position: [facility] Outreach Member Role: PCP Address: Address: [address] [place] [address]- Care Team Related Persons Name: MIMI DOE Address: home [address] [facility] [address] [place] [id number] Name: SANDHYA DOE Address: [employer] Address: home [address] [place] [address] Name: KEYANA HOLLAND Address: home [address] [place] [address] Name: ELTON LEAHY Address: home [address] [address]
--- OUTSIDE RECORDS SUMMARY | 2023-03-19 17:32 | XMS_ITS | Continuity of Care Document ---
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 Name Role Phone Zulma LEIVA, Joe Primary Care Physician Encounter [facility] Date(s): 01/03/23 - 02/02/[address] [address]- Attending Physician: Admtr, Arnulfo Admitting Physician: Admtr, Arnulfo Referring Physician: Admtr, [...] capsule, 0 Refills, Maintenance, 01/14/23 9:11:00 EDT, [facility] #[id number], 165, cm, 01/03/23 14:19:00 EDT, Height, 110.7, kg, 12/22/22 17:16:00 EDT, Dry Weight Start Date: 01/14/23 Status: Ordered M-Rafi Plus oral tablet 1 tablet, By Mouth, Daily, # 90 tablet, 0 Refills, Maintenance, 01/18/23 12:12:00 EDT, [facility] #[id number], Partial fill upon patient request if the prescription is for a schedule II opioid drug., 1 tablet By Mouth Daily, 165, cm, 01/03/23 14:... Start Date: 01/18/23 Status: Ordered miconazole 2% topical ointment See Instructions, apply sparingly to nipple after each feed, do not remove before next feed, # 45 Gm, 1 Refills, Maintenance, 11/27/22 16:05:00 EDT, [facility] #[id number], Partial fill upon patient request if the prescription is for a schedule I... Start Date: 11/27/22 Status: Ordered MiraLax oral powder for reconstitution = 17 Gm, By Mouth, Daily, dissolve in water before taking, # 255 Gm, 0 Refills, Maintenance, 11/30/22 23:59:00 EDT, REC Powder, [facility] #[id number], Partial fill upon patient request if the prescription is for a schedule II opioid drug., 17 Gm... Start Date: 11/30/22 Status: Ordered mupirocin 2% topical ointment See Instructions, apply sparingly to nipple after each feed, do not remove before next feed, # 22 Gm, 1 Refills, Maintenance, 11/27/22 16:05:00 EDT, [facility] #[id number], Partial fill upon patient request if the prescription is for a schedule I... Start Date: 11/27/22 Status: Ordered Prenatabs Rx oral tablet 1 tablet, By Mouth, Daily, # 30 tablet, 11 Refills, Maintenance, 06/05/22 8:47:00 EDT, Tablet, [facility] #[id number], Partial fill upon patient request if the [...] Team Personnel Name: Joe Maya MD Position: [facility] Outreach Member Role: PCP Address: Address: [address] [place] [address]- Care Team Related Persons Name: MIMI DOE Address: home [address] Name: SANDHYA DOE Address: [employer] Address: home [address] [place], [place] Name: KEYANA HOLLAND Address: home [address] [place], [place] Name: ELTON LEAHY Address: home [address] [facility] [address] [place] [address]
--- OUTSIDE RECORDS SUMMARY | 2023-03-19 17:32 | XMS_ITS | Continuity of Care Document ---
Author Name Unknown Organization [facility] Address [address] [place] [address], [address] [place] [address]- Care Team Providers Care Obgyn Nurse Name Role Phone Joe Maya MD Primary Care Physician [phone] [id number] Date[facility] [address] [facility], 4th Floor [place], [place] [address] Allergies, Adverse Reactions, Alerts Substance [...] Refills, Maintenance, 05/07/22 9:41:00 EDT, Chew Tablet, [facility] #[id number], Partial fill upon patient request if the prescription is for a schedule II opioid drug., 165, cm, 05/07/22... Start Date: 05/07/22 Status: Ordered Prenatabs Rx oral tablet 1 tablet, By Mouth, Daily, # 30 tablet, 11 Refills, Maintenance, 06/05/22 8:47:00 EDT, Tablet, [facility] #[id number], Partial fill upon patient request if the [...] [facility] Outreach Member Role: PCP Address: Address: [address] [place] [address]- Care Team Related Persons Name: KEYANA HOLLAND Address: home [address] [place] [address] Name: ELTON LEAHY Address: home [address] [place] [address]
--- OUTSIDE RECORDS SUMMARY | 2023-03-19 17:32 | XMS_ITS | Continuity of Care Document ---
Author Name Unknown Organization [facility] ter Address [address] [place] [id number]- Care Team Providers Care Histologist Technologist Name Role Phone Zulma LEIVA, Joe Primary Care Physician [phone] Encounter [facility] Date(s): 11/30/22 - 12/01/[address] [address] Discharge Disposition: A-D/C Home Attending Physician: Keke [...] Refills, Maintenance, 05/07/22 9:41:00 EDT, Chew Tablet, [facility][id number], Partial fill upon patient request if the prescription is for a schedule II opioid drug., 165, cm, 05/07/22... Start Date: 05/07/22 Status: Ordered betamethasone topical valerate 0.1% ointment See Instructions, apply sparingly to nipple after each feed, do not remove before next feed, # 45 Gm, 1 Refills, Maintenance, 11/27/22 16:05:00 EDT, [facility] #[id number], Partial fill upon patient request if the prescription is for a schedule I... Start Date: 11/27/22 Status: Ordered Colace sodium 100 mg oral capsule 100 mg, 1, capsule, By Mouth, 2 times a day, PRN, # 20 capsule, Refills 0, Tot. Refills 0, Maintenance, for constipation, 11/30/22 23:59:00 EDT, Route to Pharmacy Electronically, [id number], Partial fill upon patient request if the [...] tablet, 0 Refills, Maintenance, 11/05/22 13:08:00EST, Tablet, [facility] #[id number], Partial fill upon patient request if the prescription is for a schedule II opioid drug., 165, cm, 10/29/22 10... Start Date: 11/05/22 Status: Ordered metroNIDAZOLE 500 mg oral tablet 1 tablet = 500 mg, By Mouth, Every 12 hours, # 14 tablet, 0 Refills, Maintenance, 10/22/22 20:34:00EST, Tablet, [facility] #[id number], Partial fill upon patient request if the prescription is for a schedule II opioid drug., 165, cm, 10/19/22 8:... Start Date: 10/22/22 Stop Date: 10/29/22 Status: Ordered miconazole 2% topical ointment See Instructions, apply sparingly to nipple after each feed, do not remove before next feed, # 45 Gm, 1 Refills, Maintenance, 11/27/22 16:05:00 EDT, [facility][id number], Partial fill upon patient request if the prescription is for a schedule I... Start Date: 11/27/22 Status: Ordered MiraLax oral powder for reconstitution = 17 Gm, By Mouth, Daily, dissolve in water before taking, # 255 Gm, 0 Refills, Maintenance, 11/30/22 23:59:00 EDT, REC Powder, [facility] #[id number], Partial fill upon patient request if the prescription is for a schedule II opioid drug., 17 Gm... Start Date: 11/30/22 Status: Ordered mupirocin 2% topical ointment See Instructions, apply sparingly to nipple after each feed, do not remove before next feed, # 22 Gm, 1 Refills, Maintenance, 11/27/22 16:05:00 EDT, [facility][id number], Partial fill upon patient request if the prescription is for a schedule I... Start Date: 11/27/22 Status: Ordered Plan B One-Step 1.5 mg oral tablet 1.5 mg, 1, tablet, By Mouth, Once, # 1 tablet, Refills 0, Tot. Refills 0, Soft Stop, 11/30/22 17:45:00 EDT, Route to Pharmacy Electronically, [facility][id number], Partial fill upon patient request if the prescription is for a schedule II opioi... Start Date: 11/30/22 Status: Ordered Prenatabs Rx oral tablet 1 tablet, By Mouth, Daily, # 30 tablet, 11 Refills, Maintenance, 06/05/22 8:47:00 EDT, Tablet, [facility] #[id number], Partial fill upon patient request if the prescription is for a schedule II opioid drug., 1 tablet By Mouth Daily, 165, cm, 05/11... Start Date: 06/05/22 Status: Ordered Slynd 4 mg oral tablet 1 tablet = 4 mg, By Mouth, Daily, # 84 tablet, 3 Refills, Maintenance, 10/26/22 6:46:00 EST, Tablet, [facility] #[id number], Partial fill upon patient request if the [...] Exam Date Time Procedure Performing Provider Status 11/30/22 10:56 PM US Doppler Ext Lower Venous Bilat Sherry Berry; Auth (Verified) Notes: (US Doppler Ext Lower Venous Bilat) Reason For Exam: Swelling Extremities RESULT: US Doppler Ext Lower Venous Bilat US Doppler Ext Lower Venous Bilat Reason: Swelling Extremities; Clinical Question(s): Thrombosis COMPARISON: None IMAGING TECHNIQUE: Ultrasound of the veins from the groin through the calf was performed using grayscale, color, and spectral Doppler ultrasound assessing for complete compressibility and normal flowcharacteristics. FINDINGS: RIGHT LOWER EXTREMITY: Common femoral vein: Patent. No thrombosis. Femoral vein: Patent. No thrombosis. Popliteal vein: Patent. No thrombosis. Gastrocnemius veins: The visualized portions are patent without evidence of thrombosis. Peroneal veins: The visualized portions are patent without evidence of thrombosis. Posterior tibial veins: The visualized portions are patent without evidence of thrombosis. LEFT LOWER EXTREMITY: Common femoral vein: Patent. No thrombosis. Femoral vein: Patent. No thrombosis. Popliteal vein: Patent. No thrombosis. Gastrocnemius veins: The visualized portions are patent without evidence of thrombosis. Peroneal veins: The visualized portions are patent without evidence of thrombosis. Posterior tibial veins: The visualized portions are patent without evidence of thrombosis. OTHER FINDINGS: IMPRESSION: No evidence of deep venous thrombosis. WSN: [id number] Ordering Physician: Kate Jama Dictated By: Raymundo Vides MD Dictated Date/Time: 11/30/22 11:00 p Reviewed By: Raymundo Vides MD Signed By: Raymundo Vides MD Signed Date/Time: 11/30/22 11:00 pm Transcribed By: JORDY Transcribed Date/Time: 11/30/22 10:59 pm Vital Signs Most recent to oldest [Reference Range]: 1 Height 165 cm (11/30/22 8:11 PM) Weight 111.3 kg (11/30/22 7:50 PM) Oxygen Saturation [94-100 %] 100 % (11/30/22 7:50 PM) Pulse Rate [55-90 bpm] 100 bpm *H* (11/30/22 7:50 PM) Blood Pressure [90-138/55-84 mm Hg] 113/ 71mm Hg (11/30/22 7:50 PM) Respiratory Rate [16-30 br/min] 18 br/mi n (11/30/22 7:50 PM) Temperature [96.8-100.4 DegF] 98.0 DegF (11/30/22 7:50 PM) Mode of Delivery (Oxygen) Room air (11/30/22 7:50 PM) Blood pressure sites Arm, right (11/30/22 7:50 PM) Temperature Route Oral (11/30/22 7:50 PM) Dry Weight 111.3 kg (11/30/22 7:50 PM) Weight Obtained Via Standing scale (11/30/22 7:50 PM) Dry Weight Obtained Via Standing scale (11/30/22 7:50 PM) Social History Social History Type Response Smoking Status Former smoker, quit more than 30 days ago entered on: 04/23/22 Sex Note * Sherry Godfrey RN: PERFORM Event Display: Discharge/Transfer Note Hospital Authored Date: [id number] Nursing Discharge Note Entered On: 12/01/2022 0:36 EDT Performed On: 12/01/2022 0:36 EDT by Sherry Godfrey RN Nursing Discharge Note 2 Discharge Time : 12/01/2022 0:36 EDT Discharge Level of Care at Discharge : Home/Shelter/Foster Care Patient Left Unit Via : Ambulatory Patient Accompanied Off Unit with : Other: self DC Instructions Provided & Signed by Pt : Yes Patient Understands D/C Instructions : Yes Patient Instructions Discharge Signed : Yes Did Pt have Specialty Bed or Wound Vac : No Sherry Godfrey RN - 12/01/2022 0:36 EDT * Sherry Godfrey RN: PERFORM Event Display: Patient Education/Instruction Authored Date: [id number] Inpatient Adult Discharge Instructions [address] [address] Name: DHEERAJ LEAHY : 1990 Visit: 11/30/2022 19:28:00 Current Date: 12/01/2022 00:01 Account: [id number] Inpatient Adult Discharge Instructions We would like [...] and their families. Surveys are administered by [employer] ?? If further treatment with your primary care physician or another doctor is recommended, it is important for you to keep the appointment. Call your primary care physician or return to the Emergency Department immediately if your condition worsens, fails to improve, or new symptoms develop. If you need to find a doctor, you can call [facility] for a referral at [phone] or toll free at [phone] or log in to [email or web address].. ?? You can view and manage your care through the patient portal or by using a health care ramesh of your choosing. [employer] is a website that allows you to securely view your medical information including your hospital discharge summary, office visit summaries, medications and follow-up visits. You can also request appointments, renew medications, and request access to your medical information using a health care ramesh of your choosing, or just ask a question. You can enroll at [email or web address] or register during your next office visit. You have been discharged from [facility], Patient Care Unit: WETU1. If you have any questions regarding these instructions after you leave, please call us and we will be happy to assist you. [facility] Your Care Team Attending Physician Keke Sparks MD Reason for Admission PLANT PHYSIOLOGIST QUEST BLOOD CLOT Your Diagnosis Lower extremity edema Pain of right side of body Breast pain Rectocele Tests Performed Below is a partial list of the tests performed during your hospitalization. You may have had other tests and procedures not included in this list. Please discuss all test results with your provider. Doppler Ext Lower Venous Bilat (US) Primary Care Provider Joe Maya MD Advance Directive Health Care Proxy on File No Discharge Vitals Temperature: 98 DegF Height: 165 cm Pulse Rate:??100 bpm??High Weight: 111.3 kg Respiratory Rate: 18 br/min ?? Systolic Blood Pressure: 113 mm Hg ?? Diastolic Blood Pressure: 71 mm Hg ?? Oxygen Saturation: 100 % [...] EDT ?? With: Harriet Henderson CNM Where: [facility] [employer] Professor [address] [place] [address]- You Need to Schedule the Following Appointments Follow Up with??please plan to follow up [facility] PCP When?? Follow Up with??[facility] [phone] When?? Discharge Medications DHEERAJ LEAHY :1990 Visit Date:11/30/2022 Medications: Please continue your medications until treatment is completed or stopped by your provider. Medications not listed below should be discontinued. Discuss any questions related to medications with your provider. What How Much When Why Instructions Next Dose New Docusate (Colace sodium 100 mg oral capsule) 1 capsule Oral Twice a day as needed for for constipation Pickup at [facility] #[id number] New Durable Medical Equipment (Compression Stockings) See instructions surgical, calf length 20-30 mm Hg ?? Printed Prescription New Ibuprofen (ibuprofen 600 mg oral tablet) See instructions 1 tablet taken By Mouth Every 6 hours not to exceed 3200 mg/ day ?? Pickup at [facility] #[id number] New Polyethylene Glycol 3350 (MiraLax oral powder for reconstitution) 17 gram Oral Daily dissolve in water before taking ?? Pickup at [facility] #[id number] Unchanged Amphetamine-Dextroamphetamine (Adderall 20 mg oral tablet) 1 tab(s) Oral Daily Unchanged Aspirin (aspirin 81 mg oral tablet, chewable) 2 tab(s) Chew Daily at Bedtime Unchanged Betamethasone Topical (betamethasone topical valerate 0.1% ointment) See instructions Nipple pain apply sparingly to nipple after each feed, do not remove before next feed ?? Unchanged BuPROpion (Wellbutrin) Oral Unchanged Drospirenone (Slynd 4 mg oral tablet) 1 tab(s) Oral Daily Unchanged Levonorgestrel (Plan B One-Step 1.5 mg oral tablet) 1 tab(s) Oral Once Unchanged Metronidazole (metroNIDAZOLE 500 mg oral tablet) 1 tab(s) Oral Every 12 hours Unchanged Metronidazole (metroNIDAZOLE 500 mg oral tablet) 1 tab(s) Oral Every 12 hours Duration: 7 Days Unchanged Miconazole Topical (miconazole 2% topical ointment) See instructions Nipple pain apply sparingly to nipple after each feed, do not remove before next feed ?? Unchanged Multivitamin, (Prenatabs Rx oral tablet) 1 tab(s) Oral Daily Unchanged Mupirocin Topical (mupirocin 2% topical ointment) See instructions Nipple pain apply sparingly to nipple after each feed, do not remove before next feed ?? Pharmacy Information [facility] #[id number]: [address], [place] [id number] [phone] Test Results Below is a partial list [...] Educational Leaflet Providered with your Discharge Instructions. Understanding Deep Vein Thrombosis (DVT) During and After Delivery?? Expressing Your Milk?? FAQs?? OB PP- Ineffective Latch?? OB PP Post Warning Signs?? Valuables and Belongings I fully understand and agree that [facility] accepts no responsibility for all my [...] are strongly encouraged to quit. Please call [facility] at [phone] or [phone] ([phone]) or log in to [email or web address] for referrals to smoking cessation programs. ?? The National Suicide Prevention Hotline is available 01/04 if you or someone you know needs to find a reason to keep living. By calling 0-363-775-[employer] (5153) you'll be connected to a skilled, trained counselor at a crisis center in your area. INPATIENT DISCHARGE INSTRUCTIONS SIGNATURE TEO DHEERAJ LEAHY Location:[facility] Registration Date and Time:11/30/2022 19:28 EDT Primary Care Physician: Zulma LEIVA , [facility], I TOSIN DHEERAJ, have received the above patient education materials/instructions and have verbalized understanding. If ambulance or transport services are being used I further acknowledge being given a choice of service. ?? If you need to contact me, please call me at this number: . Patient/Tab Card Press Operator Name: Patient/Tab Card Press Operator Signature: Relationship to Patient: Witness Name/Signature: Date: * Sherry Godfrey RN: PERFORM Event Display: Patient Education Leaflets Authored Date: [id number] T.E.D. Stockings ?? [id number] T.E.D. Stockings T.E.D. stockings are used to help stop blood clots from forming in the deep veins of your legs. T.E.D. stands for thrombo-embolic deterrent hose. They help prevent blood clots if you are immobile, asyou might be after certain types of surgeries. They look like support hose. But they are specially designed to put more pressure on your foot and ankle and less pressure at the upper end of the stocking. This keeps blood from pooling in your lower legs. When blood flow slows down, clots can form. The pressure from T.E.D. stockings helps blood flow in the deep leg veins. This reduces risk for clots when you also take anti-coagulation medicine. It's important that you have the correct size of the T.E.D. stockings for them to work. Your healthcare provider will give you the size you need. If you are having trouble putting your stockings on by yourself, ask your healthcare provider or supply store about using a sock aid. ?? Last Reviewed Date: 2022 ?? [employer]. All rights reserved. This information is not intended as a substitute for professional medical care. Always follow your healthcare professional's instructions. ?? * Sherry Godfrey RN: PERFORM Event Display: Patient Education Leaflets Authored Date: [id number] Understanding Deep Vein Thrombosis (DVT) During and After Delivery ?? 24812 Understanding Deep Vein Thrombosis (DVT) During and After Delivery A deep vein thrombosis (DVT) is when a blood clot forms in a vein deep in your body. This often occurs in a leg vein. But it can also occur in an arm or the pelvis. Deep vein thrombosis. DVT can be dangerous because the blood clot can break off and travel to the lungs. The clot can then stay in a blood vessel in the lungs and block blood flow (called a pulmonary embolism or PE). Thisblockage is a medical emergency and can be deadly. Here???s what you need to know about diagnosing and treating DVT during and after your delivery. Blood clots and Women have a higher risk for DVT during , delivery, and for about 6 to 8 weeks after giving . This is because raises the pressure in the veins in your legs and pelvis. This risk is even higher for women with any of these risk factors: ??? A past blood clot or familyhistory of blood clots ??? Being overweight ??? with twins or more ??? Taking medicines that increase the risk of clotting, such as control pills or estrogen hormones ??? Not being active due to bedrest, resting after delivery, or long-distance travel ??? Diabetes ??? High blood pressure ??? Being age 35 or older ??? Having another illness during , such as pre-eclampsia, cancer, or severe infection ??? Having a delivery ?? Symptoms of DVT The more common symptoms of DVT often occur in a leg and may include: ??? Leg pain or soreness, sometimes only when standing or walking ??? Affected part of the leg is red, swollen, and hot If you have any of these symptoms, call your healthcare provider. It???s common to have some leg pain and swelling during . So these symptoms may not mean that you have DVT. But check with your provider. ?? Diagnosing DVT If your healthcare provider thinks you may have DVT, you may have tests to see if you have a blood clot: ??? Ultrasound. This test uses sound waves and a computer screen to show an image of your babyinside your uterus. It can also show blood flow in your veins and spot any blockages. ??? MRI. Thismakes a detailed image of the inside of your body. ?? Treatment for DVT Medicines Treatment for DVT mainly includes blood-thinning medicines (anticoagulants). These are medicines that help stop your blood from clotting. Safe medicines during include certain forms of heparin. Your healthcare provider may also refer you to a doctor who treats blood conditions (staff nurse). After delivery, you will likely continue taking medicine for at least 6 weeks after delivery. If your DVT was found late in your or after childbirth, you may need treatment for a longer time. You may keep using heparin. Or your provider may have you take another blood thinner called warfar in (Coumadin). It is safe to take when , but not during . Talk with your healthcare provider about what medicine you should take. Surgery A few different types of procedures may be used to treat DVT: ??? Placing a filter in the largest vein (the inferior vena cava) to stop blood clots ??? Injectingthe vein or lung artery with medicines to break up the clot ??? In rare cases, a large clot may be removed from a vein What you can do Other things you can do to stay healthy when you have a DVT: ??? Wear special stockings (compression stockings) to reduce leg swelling ??? Stay active, as advised by your healthcare provider Ask your healthcare provider what pain relievers you can take. ?? Call 911 Call 911 right away if you think you may have symptoms of a pulmonary embolism. Symptoms may include: ??? Trouble breathing ??? Coughing up blood ??? Fast or irregular heartbeat ??? Chest pain that gets worse when you cough or take a deep breath ?? When to call your healthcare provider Call your healthcare provider right away if you are or recently had a baby and you have these symptoms: ??? Leg pain or soreness, sometimes only when standing or walking ??? Affected part of the leg is red, swollen, and hot ?? Last Reviewed Date: 2021 ?? 8831-2873 [employer]. All rights reserved. This information is not intended as a substitute for professional medical care. Always follow your healthcare professional's instructions. ?? * Sherry Godfrey RN: PERFORM Event Display: Patient Education Leaflets Authored Date: [id number] Expressing Your Milk ?? [address] Expressing Your Milk Work, school, or even a late-night movie can require you to be away from your baby.??This doesn't mean you have to give up . Feeding your baby from your breasts is ideal. If you must be away from your baby, you can express milk from your breast. Talk with your healthcare provider aboutthe best ways to feed expressed breastmilk to your infant. But remember, don???t give your baby bottles or pacifiers until they are about 4??to 6??weeks old, unless needed sooner for health reasons. This helps you both get a good start on . Your baby can get used to your natural nipplefirst. Always wash your hands before??expressing??milk from your breast. ?? Ideas to stimulate letdown ??? Hold a washcloth under very warm water and wring it out. ??? Place awarm washcloth over each breast to warm them.? Gently massage your breasts to stimulate the milk flow. ??? Start under the arm and move around the entire breast.? Apply steady pressure on areas of milk in the breast by pressing fingers in a C hold gently back toward the chest, not toward the nipple. While applying gentle pressure on the breast inward, press thumb and finger pads together (pushing in, not pulling out toward the nipple). Find a good rhythm of press and relax, like a baby???s suckling rhythm. ??? If you???re away from your baby, looking at your baby???s picture can help your milk letdown. ?? Expressing by hand or pump Your managing consultant??can help you choose the best method for your needs. Here are some tips: ??? Expressing by hand reduces pressure in swollen or leaky breasts. It may be a good way to start apumping session. If you need to give expressed milk to your baby in the first few days after delivery, hand expression can often help get more colostrum than using a pump. Ask your??nurse, managing consultant, or your healthcare provider??to teach you how to hand express. ??? Start expressing yourmilk within the first hour after if able, and definitely within 6 hours of separation from your baby in the hospital. ??? When from your baby, it's best to express as often as a baby would breastfeed. Newborns feed 8 to 12 times each 24 hours. ??? A pump??gently pulls your nipple into the cup??like a baby???s suck and??can be??the fastest way to express??after your??milk??comes in. Pumps come in manual, battery-operated, and electric styles. To protect your breasts??and the milkyou pump, follow the directions that come with your pump. If your pump is not comfortable, look fora managing consultant to help with the correct fit and use. ??? For sick or premature babies who aren't feeding at the breast, hands- on pumping is a special way to help be sure you make enough milk. Hands-on pumping involves a combination of both hand expression and an electrical pump.? Hand expressing while using a pump can increase the amount of milk you can pump. It can also increase the fat content of the pumped milk. ??? Many insurances cover a breast pump if you are expecting or have delivered a baby. You can also buy or rent a pump from a drugstore or medical equipment store. [place] with your hospital to find out where you can buy or rent a pump. Expressing by hand. Expressing with double pump. ?? Working and ??? Breastfeed your baby all the time during your maternity leave. This helps set up your milk supply for the whole year. ??? When your baby is about 2 to 4 weeks old, consider starting to pump on occasion after you feed the baby. It will help you build a supply for going back to work. You can freeze this expressed milk. Be sure to put the date on the container. Feeding at the breast plus pumping will help your breasts make more milk. It's possible to make too much milk, so get guidance on how to fit pumping into your schedule if you have questions. Feeding your baby from your breasts is ideal. If you must be away from your baby, you can express milk from your breast. Talk with your healthcare provider about the best ways to feed expressed breastmilk to your . ? Express milk during work breaks. This helps protect your milk supply. It also helps prevent engorged or leaking breasts. ??? Arrange to breastfeed at lunch if your childcare is nearby.??If not, be sure to pump during your lunch break. ??? Breastfeed before you leave for workand soon after you return home. Your partner may be able to make dinner while you feed the baby. ??? Breastfeed at night and on weekends. This will keep up your milk supply. ?? Last Reviewed Date: 2022 ?? [employer]. All rights reserved. This information is not intended as a substitute for professional medical care. Always follow your healthcare professional's instructions. ?? * Epifanio MONTES, Sherry: PERFORM, SIGN, VERIFY Event Display: Patient Education Handout Authored Date: US.doppler Lower extremity vein - bilateral * BHSPowerscribe , CIS S: TRANSCRIBE Raymundo Vides MD: VERIFY Event Display: Result: Authored Date: US Doppler Ext Lower Venous Bilat Reason: Swelling Extremities; Clinical Question(s): Thrombosis COMPARISON: None IMAGING TECHNIQUE: Ultrasound of the veins from the groin through the calf was performed using grayscale, color, and spectral Doppler ultrasound assessing for complete compressibility and normal flowcharacteristics. FINDINGS: RIGHT LOWER EXTREMITY: Common femoral vein: Patent. No thrombosis. Femoral vein: Patent. No thrombosis. Popliteal vein: Patent. No thrombosis. Gastrocnemius veins: The visualized portions are patent without evidence of thrombosis. Peroneal veins: The visualized portions are patent without evidence of thrombosis. Posterior tibial veins: The visualized portions are patent without evidence of thrombosis. LEFT LOWER EXTREMITY: Common femoral vein: Patent. No thrombosis. Femoral vein: Patent. No thrombosis. Popliteal vein: Patent. No thrombosis. Gastrocnemius veins: The visualized portions are patent without evidence of thrombosis. Peroneal veins: The visualized portions are patent without evidence of thrombosis. Posterior tibial veins: The visualized portions are patent without evidence of thrombosis. OTHER FINDINGS: IMPRESSION: No evidence of deep venous thrombosis. WSN: [id number] Ordering Physician: Kate Jama Dictated By: Raymundo Vides MD Dictated Date/Time: 11/30/22 11:00 p Reviewed By: Raymundo Vides MD Signed By: Raymudno Vides MD Signed Date/Time: 11/30/22 11:00 pm Transcribed By: JORDY Transcribed Date/Time: 11/30/22 10:59 pm Patient Care team information Care Team Personnel Name: Joe Maya MD Position: [facility] Outreach Member Role: PCP Address: Address: [address] [place] [address]- Care Team Related Persons Name: MIMI DOE Address: home [address] [address] Name: SANDHYA DOE Address: [employer] Address: home [address] [place] [address] Name: KEYANA HOLLAND Address: home [address] [place] [address] Name: ELTON LEAHY Address: home [address] [address]
--- OUTSIDE RECORDS SUMMARY | 2023-03-19 17:32 | XMS_ITS | Continuity of Care Document ---
Author Name Unknown Organization [facility] Address [address] [place] [address]- Care Team Providers Care Shot Examiner Name Role Phone Zulma LEIVA, Joe Primary Care Physician Encounter [facility] Date(s): 12/10/22 - 01/15/[address] [address] [phone] Attending Physician: Joe Maya MD Admitting Physician: Joe Maya MD Referring Physician: Joe Maya MD Allergies, Adverse Reactions, Alerts Substance Reaction [...] capsule, 0 Refills, Maintenance, 01/14/23 9:11:00 EDT, [facility][id number], 165, cm, 01/03/23 14:19:00 EDT, Height, 110.7, kg, 12/22/22 17:16:00 EDT, Dry Weight Start Date: 01/14/23 Status: Ordered miconazole 2% topical ointment See Instructions, apply sparingly to nipple after each feed, do not remove before next feed, # 45 Gm, 1 Refills, Maintenance, 11/27/22 16:05:00 EDT, [facility] #[id number], Partial fill upon patient request if the prescription is for a schedule I... Start Date: 11/27/22 Status: Ordered MiraLax oral powder for reconstitution = 17 Gm, By Mouth, Daily, dissolve in water before taking, # 255 Gm, 0 Refills, Maintenance, 11/30/22 23:59:00 EDT, REC Powder, [facility] #[id number], Partial fill upon patient request if the prescription is for a schedule II opioid drug., 17 Gm... Start Date: 11/30/22 Status: Ordered mupirocin 2% topical ointment See Instructions, apply sparingly to nipple after each feed, do not remove before next feed, # 22 Gm, 1 Refills, Maintenance, 11/27/22 16:05:00 EDT, [facility] #[id number], Partial fill upon patient request if the prescription is for a schedule I... Start Date: 11/27/22 Status: Ordered Prenatabs Rx oral tablet 1 tablet, By Mouth, Daily, # 30 tablet, 11 Refills, Maintenance, 06/05/22 8:47:00 EDT, Tablet, [facility] #[id number], Partial fill upon patient request if the [...] Team Personnel Name: Joe Maya MD Position: [facility] Outreach Member Role: PCP Address: Address: [address] [place] [address]- Care Team Related Persons Name: MIMI DOE Address: home [address] [address] Name: SANDHYA DOE Address: [employer] Address: home [address] [place] [address] Name: KEYANA HOLLAND Address: home [address] [place] [address] Name: ELTON LEAHY Address: home [address] [address]
--- OUTSIDE RECORDS SUMMARY | 2023-03-19 17:32 | XMS_ITS | Continuity of Care Document ---
Author Name Unknown Organization [facility] Address [address] [place] [address]- Care Team Providers Care Technical Architect Name Role Phone Joe Maya MD Primary Care Physician Encounter [facility] Date(s): 05/09/22 - 06/08/[address] [address] Allergies, Adverse Reactions, Alerts Substance [...] Refills, Maintenance, 05/07/22 9:41:00 EDT, Chew Tablet, [email or web address] #[id number], Partial fill upon patient request if the prescription is for a schedule II opioid drug., 165, cm, 05/07/22... Start Date: 05/07/22 Status: Ordered Prenatabs Rx oral tablet 1 tablet, By Mouth, Daily, # 30 tablet, 11 Refills, Maintenance, 06/05/22 8:47:00 EDT, Tablet, [email or web address] #[id number], Partial fill upon patient request if the [...] Personnel Name: Joe Maya MD Address: Address: [address] [place] [address]
--- OUTSIDE RECORDS SUMMARY | 2023-03-19 17:32 | XMS_ITS | Continuity of Care Document ---
Author Name Unknown Organization [facility] Address [address] [place] [address]- Care Team Providers Care Blueprint Cutter Name Role Phone Zulma LEIVA, Joe Primary Care Physician [place] [facility] Date(s): 10/22/22 - 11/24/[address] [address] Attending Physician: Chanda Spears MD Referring Physician: Therese Sepulveda DO Allergies, Adverse Reactions, Alerts Substance Reaction [...] Refills, Maintenance, 05/07/22 9:41:00 EDT, Chew Tablet, [facility] #[id number], Partial fill upon patient request if the prescription is for a schedule II opioid drug., albino Butler, 05/07/22... Start Date: 05/07/22 Status: Ordered metroNIDAZOLE 500 mg oral tablet 1 tablet = 500 mg, By Mouth, Every 12 hours, # 14 tablet, 0 Refills, Maintenance, 11/05/22 13:08:00EST, Tablet, [facility] #[id number], Partial fill upon patient request if the prescription is for a schedule II opioid drug., albino Butler, 10/29/22 10... Start Date: 11/05/22 Status: Ordered metroNIDAZOLE 500 mg oral tablet 1 tablet = 500 mg, By Mouth, Every 12 hours, # 14 tablet, 0 Refills, Maintenance, 10/22/22 20:34:00EST, Tablet, [facility] #[id number], Partial fill upon patient request if the prescription is for a schedule II opioid drug., albino Butler, 10/19/22 8:... Start Date: 10/22/22 Stop Date: 10/29/22 Status: Ordered Prenatabs Rx oral tablet 1 tablet, By Mouth, Daily, # 30 tablet, 11 Refills, Maintenance, 06/05/22 8:47:00 EDT, Tablet, [facility] #[id number], Partial fill upon patient request if the prescription is for a schedule II opioid drug., 1 tablet By Mouth Daily, albino Butler, 05/11... Start Date: 06/05/22 Status: Ordered Slynd 4 mg oral tablet 1 tablet = 4 mg, By Mouth, Daily, # 84 tablet, 3 Refills, Maintenance, 10/26/22 6:46:00 EST, Tablet, [facility] #[id number], Partial fill upon patient request if the [...] Team Personnel Name: Joe Maya MD Position: [facility] Outreach Member Role: PCP Address: Address: [address] [place] [address]- Care Team Related Persons Name: MIMI DOE Address: home [address] [facility] [address] [place] [address] Name: SANDHYA DOE Address: [employer] Address: home [address] [place] [address] Name: KEYANA HOLLAND Address: home [address] [place], [place] Name: ELTON LEAHY Address: home [address] [facility] [address] [place] [address]
--- OUTSIDE RECORDS SUMMARY | 2023-03-19 17:32 | XMS_ITS | Continuity of Care Document ---
Author Name Unknown Organization [facility] Address [address] [place] [address]- Care Team Providers Care Asparagus Buncher Name Role Phone Zulma LEIVA, Joe Primary Care Physician [phone] Encounter [facility] Date(s): 09/04/22 - 10/04/[address] [address]- Allergies, Adverse Reactions, Alerts Substance Reaction Severity [...] Refills, Maintenance, 05/07/22 9:41:00 EDT, Chew Tablet, [facility] #[id number], Partial fill upon patient request if the prescription is for a schedule II opioid drug., 165, cm, 05/07/22... Start Date: 05/07/22 Status: Ordered Prenatabs Rx oral tablet 1 tablet, By Mouth, Daily, # 30 tablet, 11 Refills, Maintenance, 06/05/22 8:47:00 EDT, Tablet, [facility] #[id number], Partial fill upon patient request if the [...] Team Personnel Name: Joe Maya MD Position: [facility] Outreach Member Role: PCP Address: Address: [address] [place] [address]- Care Team Related Persons Name: KEYANA HOLLAND Address: home [address] [place] [address] Name: ELTON LEAHY Address: home [address] [facility] [address] [place] [address]
--- OUTSIDE RECORDS SUMMARY | 2023-03-19 17:32 | XMS_ITS | Continuity of Care Document ---
Author Name Unknown Organization [facility] Dewayne kayla Address [address] [place] [address] [address] [place] [address]- Care Team Providers Care Trouble Clerk Name Role Phone Zulma LEIVA, Joe Primary Care Physician [phone] Encounter [facility] [place] Date(s): 06/26/22 - 07/03/22 [facility] [address] [place], [place] [address] Attending Physician: Tino Washington MD Referring Physician: Carin Casillas GC Allergies, Adverse Reactions, Alerts Substance Reaction Severity [...] Refills, Maintenance, 05/07/22 9:41:00 EDT, Chew Tablet, [facility] #[id number], Partial fill upon patient request if the prescription is for a schedule II opioid drug., 165, cm, 05/07/22... Start Date: 05/07/22 Status: Ordered Prenatabs Rx oral tablet 1 tablet, By Mouth, Daily, # 30 tablet, 11 Refills, Maintenance, 06/05/22 8:47:00 EDT, Tablet, [facility] #[id number], Partial fill upon patient request if the [...] oldest [Reference Range]: 1 Height 165 cm (06/26/22 11:02 AM) Weight 108.1 kg (06/26/22 11:02 AM) Body Mass Index [18.5-24.99 kg/m2] 39.71 kg/m2 *>HHI* (06/26/22 11:02 AM) Temperature [96.8-100.4 DegF] 97.9 DegF (06/26/22 11:02 AM) Temperature Route Temporal (06/26/22 11:02 AM) Weight Obtained Via Standing scale (06/26/22 11:02 AM) Social History Social History Type Response Smoking Status Former smoker, quit more than 30 days ago entered on: 04/23/22 Sex Patient Care team information Personnel Name: Joe Maya MD Address: Address: [address] [place] [address]
--- OUTSIDE RECORDS SUMMARY | 2023-03-19 17:32 | XMS_ITS | Continuity of Care Document ---
Author Name Unknown Organization [facility] Address [address] [place] [address]- Care Team Providers Care Red Cross Worker Name Role Phone Joe Maya MD Primary Care Physician Encounter [facility] Date(s): 11/16/22 - 12/16/[address] [address] Allergies, Adverse Reactions, Alerts Substance Reaction Severity [...] 11/30/22 23:59:00 EDT, Route to Pharmacy Electronically, [facility][id number], Partial fill upon patient request if the [...] Gm, 1 Refills, Maintenance, 11/27/22 16:05:00 EDT, [facility] #[id number], Partial fill upon patient request if the prescription is for a schedule I... Start Date: 11/27/22 Status: Ordered MiraLax oral powder for reconstitution = 17 Gm, By Mouth, Daily, dissolve in water before taking, # 255 Gm, 0 Refills, Maintenance, 11/30/22 23:59:00 EDT, REC Powder, [facility] #[id number], Partial fill upon patient request if the prescription is for a schedule II opioid drug., 17 Gm... Start Date: 11/30/22 Status: Ordered mupirocin 2% topical ointment See Instructions, apply sparingly to nipple after each feed, do not remove before next feed, # 22 Gm, 1 Refills, Maintenance, 11/27/22 16:05:00 EDT, [facility] #[id number], Partial fill upon patient request if the prescription is for a schedule I... Start Date: 11/27/22 Status: Ordered Prenatabs Rx oral tablet 1 tablet, By Mouth, Daily, # 30 tablet, 11 Refills, Maintenance, 06/05/22 8:47:00 EDT, Tablet, [facility] #[id number], Partial fill upon patient request if the prescription is for a schedule II opioid drug., 1 tablet By Mouth Daily, 165, cm, 05/11... Start Date: 06/05/22 Status: Ordered Slynd 4 mg oral tablet 1 tablet = 4 mg, By Mouth, Daily, # 84 tablet, 3 Refills, Maintenance, 10/26/22 6:46:00 EST, Tablet, [facility] #[id number], Partial fill upon patient request if the [...] Team Personnel Name: Joe Maya MD Position: [facility] Outreach Member Role: PCP Address: Address: [address] [place] [address]- Care Team Related Persons Name: MIMI DOE Address: home [address] [address] Name: SANDHYA DOE Address: [employer] Address: home [address] [place] [address] Name: KEYANA HOLLAND Address: home [address] [place], [place] Name: ELTON LEAHY Address: home [address] [address]
--- OUTSIDE RECORDS SUMMARY | 2023-03-19 17:32 | XMS_ITS | Continuity of Care Document ---
Author Name Unknown Organization [facility] ter Address [address] [place] [address]- Care Team Providers Care Engineering Intern Name Role Phone Zulma LEIVA, Joe Primary Care Physician [phone] Encounter [facility] Date(s): 10/19/22 - 10/20/[address] [address] Discharge Disposition: A-D/C Home Attending Physician: Jo Ann Stack DO Admitting Physician: Jo Ann Stack DO Referring Physician: Jo Ann Stack DO Allergies, Adverse Reactions, Alerts Substance Reaction Severity Status amoxicillin Active penicillin Active Pamprin ES Multi-Symptom Relief Formula Active PROzac RASH Unknown Active LaMICtal Active Penelope Active Immunizations Given and Recorded [...] Refills, Maintenance, 05/07/22 9:41:00 EDT, Chew Tablet, [facility][id number], Partial fill upon patient request if the prescription is for a schedule II opioid drug., 165, cm, 05/07/22... Start Date: 05/07/22 Status: Ordered Prenatabs Rx oral tablet 1 tablet, By Mouth, Daily, # 30 tablet, 11 Refills, Maintenance, 06/05/22 8:47:00 EDT, Tablet, [facility] #[id number], Partial fill upon patient request if the [...] Most recent to oldest [Reference Range]: 1 Pulse Rate [55-90 bpm] 121 bpm *H* (10/20/22 12:19 AM) Respiratory Rate [16-30 br/min] 18 br/mi n (10/20/22 12:19 AM) Mode of Delivery (Oxygen) Room air (10/20/22 12:19 AM) Blood pressure sites Arm, left (10/20/22 12:19 AM) Temperature Route Oral (10/20/22 12:19 AM) Social History Social History Type Response Smoking Status Former smoker, quit more than 30 days ago entered on: 04/23/22 Sex Note * Alaina MONTES, Therese Andrade: PERFORM Event Display: Discharge/Transfer Note Hospital Authored Date: [id number] Nursing Discharge Note Entered On: 10/20/2022 3:18 EST Performed On: 10/20/2022 3:18 EST by Therese Foley RN Nursing Discharge Note 2 Discharge Time : 10/20/2022 3:18 EST Discharge Level of Care at Discharge : Home/Senior Care/Foster Care Patient Left Unit Via : Ambulatory Patient Accompanied Off Unit with : Responsible adult DC Instructions Provided & Signed by Pt : Yes Patient Understands D/C Instructions : Yes Patient Instructions Discharge Signed : Yes Did Pt have Specialty Bed or Wound Vac : No Therese Foley RN - 10/20/2022 3:18 EST * Therese Foley RN: PERFORM Event Display: Patient Education/Instruction Authored Date: [id number] Inpatient Adult Discharge Instructions [address] [id number] Name: DHEERAJ LEAHY : 1990 Visit: 10/19/2022 23:42:00 Current Date: 10/20/2022 02:51 Account: [id number] Inpatient Adult Discharge Instructions We would like [...] and their families. Surveys are administered by [employer]. ?? If further treatment with your primary care physician or another doctor is recommended, it is important for you to keep the appointment. Call your primary care physician or return to the Emergency Department immediately if your condition worsens, fails to improve, or new symptoms develop. If you need to find a doctor, you can call [facility] [employer] for a referral at [phone] or toll free at [phone] ([phone]) or log in to [email or web address].. ?? You can view and manage your care through the patient portal or by using a health care ramesh of your choosing. [employer] is a website that allows you to securely view your medical information including your hospital discharge summary, office visit summaries, medications and follow-up visits. You can also request appointments, renew medications, and request access to your medical information using a health care ramesh of your choosing, or just ask a question. You can enroll at [email or web address] or register during your next office visit. You have been discharged from [facility], Patient Care Unit: WETU1. If you have any questions regarding these instructions after you leave, please call us and we will be happy to assist you. [facility] Your Care Team Attending Physician Jo Ann Stack DO Tests Performed Below is a partial list of the tests performed during your hospitalization. You may have had other tests and procedures not included in this list. Please discuss all test results with your provider. Primary Care Provider Zulma LEIVA , Joe Advance Directive Health Care Proxy on File No Patient has a Designated Caregiver: No Discharge Vitals Pulse Rate:??121 bpm??High Respiratory Rate: 18 br/min Studies Pending All tests and labs ordered during this hospital stay have been completed unless listed below. Please discuss all pending results with your provider listed above in these instructions. ?? No incomplete studies found What to do next Instructions From Your Doctor Discharge Orders Scheduled Follow-Up Appointments Saturday 8:40 AM EST ?? With: Derick YOUNG, Therese Farley Where: [facility] - Commercial Credit Reviewer [address] [place] [address]- You Need to Schedule the Following Appointments Follow Up with??[facility] [phone] When?? Follow Up with??[facility] [phone] When?? Discharge Medications DHEERAJ LEAHY :1990 Visit Date:10/19/2022 Medications: Please continue your medications until treatment [...] Educational Leaflet Providered with your Discharge Instructions. Viral Gastroenteritis?? Recognizing Labor?? Kick Counts?? Adapting to : Third Trimester?? Valuables and Belongings I fully understand and agree that [facility] accepts no responsibility for all my [...] are strongly encouraged to quit. Please call [facility] at [phone] or [phone] ([phone]) or log in to [email or web address] for referrals to smoking cessation programs. ?? The National Suicide Prevention Hotline is available 01/04 if you or someone you know needs to find a reason to keep living. By calling 4-107-486-talk (1510) you'll be connected to a skilled, trained counselor at a crisis center in your area. INPATIENT DISCHARGE INSTRUCTIONS SIGNATURE PAGE DHEERAJ LEAHY Location:[facility] Registration Date and Time:10/19/2022 23:42 EST Primary Care Physician: Zulma LEIVA , Joe, I DHEERAJ LEAHY, have received the above patient education materials/instructions and have verbalized understanding. If ambulance or transport services are being used I further acknowledge being given a choice of service. ?? If you need to contact me, please call me at this number: . Patient/Supervisor Residential Name: Patient/Supervisor Residential Signature: Relationship to Patient: Witness Name/Signature: Date: * Therese Foley RN: PERFORM Event Display: Patient Education Leaflets Authored Date: [id number] Viral Gastroenteritis ?? 208 Viral Gastroenteritis What is viral gastroenteritis? Viral gastroenteritis is an inflammation, swelling, and irritation of the inside lining of your gastrointestinal tract. A virus causes this illness. It can infect your stomach, small intestine, and large intestine. Viral gastroenteritis is very common. In most cases, it lasts only a few days and doesn???t requiretreatment. The biggest danger is dehydration from loss of fluid due to diarrhea and vomiting. ?? What causes viral gastroenteritis? Several viruses can cause gastroenteritis. Viruses can be found in the vomit and the diarrhea of infected people. It can live for a long time outside the body. People who are infected can spread the virus to objects they touch, especially if they don???t wash their hands after using the bathroom. Food workers with the infection can spread it to others through food and beverages. Sewage that gets i nto the water supply can also spread the illness. Although viral gastroenteritis is sometimes called stomach flu, the seasonal influenza (flu) virus does not cause it. Some of the common viruses that cause gastroenteritis include: ??? Rotavirus. This virus most commonly infects infants age 3 to 15 months. The illness lasts for 3to 7 days and is most common in fall and winter. ??? Norovirus. This virus is the most common causeof adult infections, and it???s usually responsible for outbreaks on cruise ships. Symptoms last from 1 to 3 days and can occur any time of the year. ??? Adenovirus. This virus occurs year- round and affects children age 2 and younger. Symptoms last from 5 to 12 days. Many other viruses can also cause viral gastroenteritis. ?? What are the symptoms of viral gastroenteritis? Symptoms of viral gastroenteritis usually begin about 1 to 2 days after the virus gets into the body. Common symptoms include: ??? Nausea ??? Vomiting ??? Watery diarrhea ??Other possible symptoms are: ??? Headache ??? Fever ??? Chills ??? Stomachache Signs of dehydration: ??? Decreased urine output ??? Dark-colored urine ??? Dry skin ??? Thirst ??? Dizziness Signs of dehydration in young children: ??? Dry diapers (from a lack of urination) ??? Lack of tears ??? Dry mouth ??? Drowsiness ??? Sunken fontanel (the soft spot on the top of an ???s head) ?? How is viral gastroenteritis diagnosed? Your healthcare provider will most likely diagnose your condition based on your history and symptoms. You will rarely need testing. If your symptoms persist, your healthcare provider may ask for a stool sample to look for viruses, bacteria, and parasites. ?? Can viral gastroenteritis be prevented? Vaccines are available to protect children from rotavirus. Healthcare providers give shots to babies before age 6 months. You and your children can help prevent viral gastroenteritis by taking these steps: ??? Wash hands for 20 seconds with soap and water after going to the bathroom, after changinga diaper, and before touching any food. ??? Use alcohol-based sanitizers. ??? If someone in the house has gastroenteritis, wash all surfaces that might be contaminated with a bleach- based school cleaner. ??? Don't eat or drink any food or water with warnings of contamination. ?? How is viral gastroenteritis treated? Specific treatment is usually not needed. In most cases, you simply need to drink plenty of fluids and rest at home until the virus leaves your system. In rare cases, you may need treatment for severe dehydration with IV (intravenous) fluids. Helpful home care tips include: ??? Drink plenty of light fluids like water, ice chips, fruit juice, and broth. Keep in mind that sports drinks are high in sugar and are not appropriate if you are extremely dehydrated. In this case, you will need an oral rehydration solution. ??? Don't have drinks that contain milk, caffeine, or alcohol. ??? Once you feel hungry again, start with mild, easy to digest foods. ??? Rehydrate children with oral rehydration solutions. ??? You may take antidiarrheal medicines for a couple days. But don't take these if you have a fever or bloody stool. Don't take them if you are an elderly adult. Don't give these to a child. ?? When should I call my healthcare provider? Viral gastroenteritis is common in children and adults. In most cases, the disease is not serious and will run its course in a few days. Call your healthcare provider if you or a family member has vomiting or diarrhea that???s not getting better, if you see blood or tar-like stool, or if you have any signs of dehydration. ?? Mary points about viral gastroenteritis ??? Viral gastroenteritis is an inflammation of the inside lining of your gastrointestinal tract. ??? It can be caused by rotavirus, norovirus, adenovirus, and other viruses. ??? Babies can be vaccinated against rotavirus. ??? Symptoms of viral gastroenteritisare nausea, vomiting, and watery diarrhea. ??? Dehydration is the most serious complication of thisillness. ??? This illness should run its course in a few days. But it may need medical attention ifdiarrhea or vomiting persists or if there are signs of dehydration. ?? Next steps Tips to help you get the most from a visit to your healthcare provider: ??? Know the reason for your visit and what you want to happen. ??? Before your visit, write down questions you want answered. ??? Bring someone with you to help you ask questions and remember what your provider tells you. ??? At the visit, write down the name of a new diagnosis and any new medicines, treatments, or tests. Also write down any new instructions your provider gives you. ??? Know why a new medicine or treatmentis prescribed and how it will help you. Also know what the side effects are. ??? Ask if your condition can be treated in other ways. ??? Know why a test or procedure is recommended and what the results could mean. ??? Know what to expect if you do not take the medicine or have the test or procedure. ??? If you have a follow-up appointment, write down the date, time, and purpose for that visit. ??? Know how you can contact your provider if you have questions. ?? Last Reviewed Date: 2020 ?? 5350-1312 [employer]. All rights reserved. This information is not intended as a substitute for professional medical care. Always follow your healthcare professional's instructions. ?? * Alaina MONTES, Therese Andrade: PERFORM Event Display: Patient Education Leaflets Authored Date: [id number] Recognizing Labor ?? 31469 Recognizing Labor The beginning of labor is [...] contraction. ?? Last Reviewed Date: 2022 ?? 6725-3446 [employer]. All rights reserved. This information is not intended as a substitute for professional medical care. Always follow your healthcare professional's instructions. ?? * Alaina MONTES, Therese Andrade: PERFORM Event Display: Patient Education Leaflets Authored Date: [id number] Kick Counts ?? 50689 Kick Counts It???s normal to worry about [...] day. ?? Last Reviewed Date: 2022 ?? 3062-0044 [employer]. All rights reserved. This information is not intended as a substitute for professional medical care. Always follow your healthcare professional's instructions. ?? Patient Care team information Care Team Personnel Name: Joe Maya MD Position: [facility] Outreach Member Role: PCP Address: Address: [address] [place] [address]- [place] Care Team Related Persons Name: MIMI DOE Address: home [address] [place] [address] Name: KEYANA HOLLAND Address: home [address] [place] [address] Name: ELTON LEAHY Address: home [address] [place] [address]
--- OUTSIDE RECORDS SUMMARY | 2023-03-19 17:32 | XMS_ITS | Continuity of Care Document ---
Author Name Unknown Organization [facility] Address [address] [place] [address]- Care Team Providers Care Steam Crane Operator Name Role Phone Joe Maya MD Primary Care Physician [place] [facility] [place] 11/26/[place] - 12/26/[address] [address] Allergies, Adverse Reactions, Alerts Substance Reaction [...] 11/30/22 23:59:00 EDT, Route to Pharmacy Electronically, [facility]#[id number], Partial fill upon patient request if the [...] Gm, 1 Refills, Maintenance, 11/27/22 16:05:00 EDT, [facility] #[id number], Partial fill upon patient request if the prescription is for a schedule I... Start Date: 11/27/22 Status: Ordered MiraLax oral powder for reconstitution = 17 Gm, By Mouth, Daily, dissolve in water before taking, # 255 Gm, 0 Refills, Maintenance, 11/30/22 23:59:00 EDT, REC Powder, [facility] #[id number], Partial fill upon patient request if the prescription is for a schedule II opioid drug., 17 Gm... Start Date: 11/30/22 Status: Ordered mupirocin 2% topical ointment See Instructions, apply sparingly to nipple after each feed, do not remove before next feed, # 22 Gm, 1 Refills, Maintenance, 11/27/22 16:05:00 EDT, [facility] #[id number], Partial fill upon patient request if the prescription is for a schedule I... Start Date: 11/27/22 Status: Ordered Prenatabs Rx oral tablet 1 tablet, By Mouth, Daily, # 30 tablet, 11 Refills, Maintenance, 06/05/22 8:47:00 EDT, Tablet, [facility] #[id number], Partial fill upon patient request if the prescription is for a schedule II opioid drug., 1 tablet By Mouth Daily, 165, cm, 05/11... Start Date: 06/05/22 Status: Ordered Slynd 4 mg oral tablet 1 tablet = 4 mg, By Mouth, Daily, # 84 tablet, 3 Refills, Maintenance, 10/26/22 6:46:00 EST, Tablet, [facility] #[id number], Partial fill upon patient request if the [...] MD Position: [facility] Outreach Member Role: PCP Address: Address: [address] [place] [address]- Care Team Related Persons Name: MIMI DOE Address: home [address] Name: SANDHYA DOE Address: [employer] Address: home [address] [place], [place] Name: KEYANA HOLLAND Address: home [address] [place], [place] Name: ELTON LEAHY Address: home [address] [address]
--- OUTSIDE RECORDS SUMMARY | 2023-03-19 17:32 | XMS_ITS | Continuity of Care Document ---
Author Name Unknown Organization [facility] Address [address] [place] [address]- Care Team Providers Care Financial Sales Professional Name Role Phone Joe Maya MD Primary Care Physician [place] [facility] 09/16/[place] - 10/16/[address] [address] Allergies, Adverse Reactions, Alerts Substance [...] Refills, Maintenance, 05/07/22 9:41:00 EDT, Chew Tablet, [facility] #[id number], Partial fill upon patient request if the prescription is for a schedule II opioid drug., 165, cm, 05/07/22... Start Date: 05/07/22 Status: Ordered Prenatabs Rx oral tablet 1 tablet, By Mouth, Daily, # 30 tablet, 11 Refills, Maintenance, 06/05/22 8:47:00 EDT, Tablet, [facility] #[id number], Partial fill upon patient request if the [...] [facility] Outreach Member Role: PCP Address: Address: [address] [place] [address]- Care Team Related Persons Name: MIMI DOE Address: home [address] [address] Name: KEYANA HOLLAND Address: home [address] [place] [address] Name: ELTON LEAHY Address: home [address] [address]
--- OUTSIDE RECORDS SUMMARY | 2023-03-19 17:32 | XMS_ITS | Continuity of Care Document ---
Author Name Unknown Organization [facility] Address [address] [place] [address]- Care Team Providers Care Business Attorney Name Role Phone Zulma LEIVA, Joe Primary Care Physician [phone] Encounter [facility] Date(s): 10/28/22 - 10/28/[address] [place] [address] [address]- Discharge Disposition: A-D/C Home Attending Physician: To Ospina MD Admitting Physician: To Ospina MD Referring Physician: Not on Staff, Referring [...] Refills, Maintenance, 05/07/22 9:41:00 EDT, Chew Tablet, [facility] #[id number], Partial fill upon patient request if the [...] tablet, 0 Refills, Maintenance, 10/22/22 20:34:00EST, Tablet, [facility] #[id number], Partial fill upon patient request if the prescription is for a schedule II opioid drug., albino Butler, 10/19/22 8:... Start Date: 10/22/22 Stop Date: 10/29/22 Status: Ordered Prenatabs Rx oral tablet 1 tablet, By Mouth, Daily, # 30 tablet, 11 Refills, Maintenance, 06/05/22 8:47:00 EDT, Tablet, [facility] #[id number], Partial fill upon patient request if the prescription is for a schedule II opioid drug., 1 tablet By Mouth Daily, albino Butler, 05/11... Start Date: 06/05/22 Status: Ordered Slynd 4 mg oral tablet 1 tablet = 4 mg, By Mouth, Daily, # 84 tablet, 3 Refills, Maintenance, 10/26/22 6:46:00 EST, Tablet, [facility] #[id number], Partial fill upon patient request if the [...] 11/05/22 6:47:00 EST, 10/26/22 6:46:00 EST, Capsule, [facility] #[id number], Partial fill upon pa... Start Date: 10/26/22 [...] Range]: 1 2 3 Height 165 cm (10/28/22 11:54 AM) Weight 119.1 kg (10/28/22 11:54 AM) Oxygen Saturation [94-100 %] 100 % (10/28/22 2:33 PM) 100 % (10/28/22 12:20 PM) 97 % (10/28/22 11:54 AM) Pulse Rate [55-90 bpm] 74 bpm (10/28/22 2:33 PM) 83 bpm (10/28/22 12:20 PM) 102 bpm *H* (10/28/22 11:54 AM) Blood Pressure [90-138/55-84 mm Hg] 119/73mm Hg (10/28/22 2:33 PM) 117/78mm Hg (10/28/22 12:20 PM) 145/96mm Hg *H* (10/28/22 11:54 AM) Respiratory Rate [16-30 br/min] 17 br/min (10/28/22 2:33 PM) 16 br/min (10/28/22 11:54 AM) 20 br/min (10/28/22 11:53 AM) Temperature [96.8-100.4 DegF] 97.5 DegF (10/28/22 2:33 PM) 97.1 DegF (10/28/22 11:54 AM) Mode of Delivery (Oxygen) Room air (10/28/22 2:33 PM) Room air (10/28/22 12:20 PM) Room air (10/28/22 11:54 AM) Blood pressure sites Arm, left (10/28/22 2:33 PM) Arm, right (10/28/22 12:20 PM) Arm, left (10/28/22 11:54 AM) Temperature Route Temporal (10/28/22 2:33 PM) Temporal (10/28/22 11:54 AM) Dry Weight 119.1 kg (10/28/22 11:54 AM) Weight Obtained Via Standing scale (10/28/22 11:54 AM) Dry Weight Obtained Via Standing scale (10/28/22 11:54 AM) Social History Social History Type Response Smoking Status Former smoker, quit more than 30 days ago entered on: 04/23/22 Sex Patient Care team information Care Team Personnel Name: Joe Maya MD Position: [facility] Outreach Member Role: PCP Address: Address: [address] [place] [address]- Name: To Ospina MD Position: [facility] ED Medicine MD Member Role: Admitting Physician Address: Address: [address] [place] [address]- [place] [address]- Name: Suresh English RN Position: [facility] ED RN W/OE and Tasks Member Role: Patient Care Provider Care Team Related Persons Name: MIMI DOE Address: home [address] [place] [address] Name: KEYANA HOLLAND Address: home [address] [place] [address] Name: DHEERAJ LEAHY GIRL Address: [employer] Address: home [address] [facility] [address] [place] [address] [place] Name: ELTON LEAHY Address: home [address] [facility] [address] [place] [address]
--- OUTSIDE RECORDS SUMMARY | 2023-03-19 17:32 | XMS_ITS | Continuity of Care Document ---
Author Name Unknown Organization [facility] Address [address] [place] [address]- Care Team Providers Care Dispensing Optician Name Role Phone Joe Maya MD Primary Care Physician [place] [facility] [place]04/[place] - 11/03/[address] [address] Allergies, Adverse Reactions, Alerts Substance [...] Refills, Maintenance, 05/07/22 9:41:00 EDT, Chew Tablet, [facility][id number], Partial fill upon patient request if the [...] tablet, 0 Refills, Maintenance, 10/22/22 20:34:00EST, Tablet, [facility] #[id number], Partial fill upon patient request if the prescription is for a schedule II opioid drug., albino Butler, 10/19/22 8:... Start Date: 10/22/22 Stop Date: 10/29/22 Status: Ordered Prenatabs Rx oral tablet 1 tablet, By Mouth, Daily, # 30 tablet, 11 Refills, Maintenance, 06/05/22 8:47:00 EDT, Tablet, [facility] #[id number], Partial fill upon patient request if the prescription is for a schedule II opioid drug., 1 tablet By Mouth Daily, albino Butler, 05/11... Start Date: 06/05/22 Status: Ordered Slynd 4 mg oral tablet 1 tablet = 4 mg, By Mouth, Daily, # 84 tablet, 3 Refills, Maintenance, 10/26/22 6:46:00 EST, Tablet, [facility] #[id number], Partial fill upon patient request if the [...] 11/05/22 6:47:00 EST, 10/26/22 6:46:00 EST, Capsule, [facility] #[id number], Partial fill upon pa... Start Date: 10/26/22 [...] Team Personnel Name: Joe Maya MD Position: [facility] Outreach Member Role: PCP Address: Address: [address] [place] [address]- Care Team Related Persons Name: MIMI DOE Address: home [address] [address] Name: KEYANA HOLLAND Address: home [address] [place] [address] Name: DHEERAJ LEAHY GIRL Address: [employer] Address: home [address] [address] Name: ELTON LEAHY Address: home [address] [address]
--- OUTSIDE RECORDS SUMMARY | 2023-03-19 17:32 | XMS_ITS | Continuity of Care Document ---
Author Name Unknown Organization [facility] Dewayne kayla Address [address] [place] [address] [address] [place] [address]- Care Team Providers Care Director Of Accounts Payable Name Role Phone Zulma LEIVA, Joe Primary Care Physician [place] [facility] [place] 07/[place]/22 [facility] [address] [place] [address]- Attending Physician: AdmArnulfo brown Admitting Physician: Admtr, Arnulfo Referring Physician: Admtr, [...] Refills, Maintenance, 05/07/22 9:41:00 EDT, Chew Tablet, [facility] #[id number], Partial fill upon patient request if the prescription is for a schedule II opioid drug., 165, cm, 05/07/22... Start Date: 05/07/22 Status: Ordered metroNIDAZOLE 250 mg oral tablet 2 tablet = 500 mg, By Mouth, Every 12 hours, for 7 days, # 28 tablet, 0 Refills, Acute 08/01/22 22:43:00 EST, 07/25/22 22:43:00 EST, [facility] #[id number], Partial fill upon patient request if the prescription is for a schedule II opioid drug.,... Start Date: 07/25/22 Stop Date: 08/01/22 Status: Ordered Prenatabs Rx oral tablet 1 tablet, By Mouth, Daily, # 30 tablet, 11 Refills, Maintenance, 06/05/22 8:47:00 EDT, Tablet, [facility] #[id number], Partial fill upon patient request if the [...] Team Personnel Name: Joe Maya MD Position: [facility] Outreach Member Role: PCP Address: Address: [address] [place] [address]- Care Team Related Persons Name: KEYANA HOLLAND Address: home [address] [place] [address] Name: ELTON LEAHY Address: home [address] [place] [address]
--- OUTSIDE RECORDS SUMMARY | 2023-03-19 17:32 | XMS_ITS | Continuity of Care Document ---
Author Name Unknown Organization [facility] Address [address] [place] [address]- Care Team Providers Care Nutrition Technician Name Role Phone Zulma LEIVA, Joe Primary Care Physician Encounter [facility] [place] Date(s): 04/10/22 - 05/10/22 [facility] [address] [place] [id number] Allergies, Adverse Reactions, Alerts Substance Reaction Severity Status amoxicillin Active penicillin Active Pamprin ES Multi-Symptom Relief Formula Active Penleope Active LaMICtal Active PROzac RASH Unknown Active [...] Refills, Maintenance, 05/07/22 9:41:00 EDT, Chew Tablet, [facility] #[id number], Partial fill upon patient request if the prescription is for a schedule II opioid drug., 165, cm, 05/07/22... Start Date: 05/07/22 Status: Ordered Multivitamins By Mouth, Daily, 0 Refills, Maintenance, 04/23/22 15:47:00 EDT, Partial fill upon patient request if the prescription is for a schedule II opioid drug. Start Date: 04/23/22 Status: Ordered Problem List Condition Effective Dates Status Health Status Inform ant ETOH abuse(Confirmed) 1 Active ADD (attention deficit disorder)(Confirmed) 2 Active Bipolar disorder(Confirmed) Active Borderline personality disor verenice in adult(Confirmed) Active Stress at home(Confirmed) Active History of COVID-19(Confirmed) Active Mood disorder(Confirmed) Active Obese class II(Confirmed) Active Obesity during (Confirmed) Active (Confirmed) Active 1sts past hx, has been to rehab, no issues at this time, knows not to drink in , advised toreach out to providers or call if feels she needs addtional supportive services in this 2Sees Dr. Granda. Social History Social History Type Response Smoking Status Former smoker, quit more than 30 days ago entered on: 04/23/22 Sex Care Team Personnel Name: Joe Maya MD Address: [address] [place] [id number]
--- OUTSIDE RECORDS SUMMARY | 2023-03-19 17:32 | XMS_ITS | Continuity of Care Document ---
Author Name Unknown Organization [facility] Address [address] [place] [address]- Care Team Providers Care Sock Boarder Name Role Phone Joe Maya MD Primary Care Physician [phone] Encounter [facility] [place] Date(s): 10/29/22 - 11/28/[address] [id number] Allergies, Adverse Reactions, Alerts Substance Reaction [...] Refills, Maintenance, 05/07/22 9:41:00 EDT, Chew Tablet, [facility] #[id number], Partial fill upon patient request if the prescription is for a schedule II opioid drug., 165, albino, 05/07/22... Start Date: 05/07/22 Status: Ordered betamethasone topical valerate 0.1% ointment See Instructions, apply sparingly to nipple after each feed, do not remove before next feed, # 45 Gm, 1 Refills, Maintenance, 11/27/22 16:05:00 EDT, [facility] #[id number], Partial fill upon patient request if the prescription is for a schedule I... Start Date: 11/27/22 Status: Ordered metroNIDAZOLE 500 mg oral tablet 1 tablet = 500 mg, By Mouth, Every 12 hours, # 14 tablet, 0 Refills, Maintenance, 11/05/22 13:08:00EST, Tablet, [facility] #[id number], Partial fill upon patient request if the prescription is for a schedule II opioid drug., 165, albino, 10/29/22 10... Start Date: 11/05/22 Status: Ordered metroNIDAZOLE 500 mg oral tablet 1 tablet = 500 mg, By Mouth, Every 12 hours, # 14 tablet, 0 Refills, Maintenance, 10/22/22 20:34:00EST, Tablet, [facility] #[id number], Partial fill upon patient request if the prescription is for a schedule II opioid drug., 165, albino, 10/19/22 8:... Start Date: 10/22/22 Stop Date: 10/29/22 Status: Ordered miconazole 2% topical ointment See Instructions, apply sparingly to nipple after each feed, do not remove before next feed, # 45 Gm, 1 Refills, Maintenance, 11/27/22 16:05:00 EDT, [facility] #[id number], Partial fill upon patient request if the prescription is for a schedule I... Start Date: 11/27/22 Status: Ordered mupirocin 2% topical ointment See Instructions, apply sparingly to nipple after each feed, do not remove before next feed, # 22 Gm, 1 Refills, Maintenance, 11/27/22 16:05:00 EDT, [facility] #[id number], Partial fill upon patient request if the prescription is for a schedule I... Start Date: 11/27/22 Status: Ordered Prenatabs Rx oral tablet 1 tablet, By Mouth, Daily, # 30 tablet, 11 Refills, Maintenance, 06/05/22 8:47:00 EDT, Tablet, [facility] #[id number], Partial fill upon patient request if the prescription is for a schedule II opioid drug., 1 tablet By Mouth Daily, 165, cm, 05/11... Start Date: 06/05/22 Status: Ordered Slynd 4 mg oral tablet 1 tablet = 4 mg, By Mouth, Daily, # 84 tablet, 3 Refills, Maintenance, 10/26/22 6:46:00 EST, Tablet, [facility] #[id number], Partial fill upon patient request if the [...] Team Personnel Name: Joe Maya MD Position: [facility] Outreach Member Role: PCP Address: Address: [address] [place] [address]- Care Team Related Persons Name: MIMI DOE Address: home [address] [facility] [address] [place] [address] Name: SANDHYA DOE Address: AMER[employer] Address: home [address] [place] [address] Name: KEYANA HOLLAND Address: home [address] [place], [place] Name: ELTON LEAHY Address: home [address] [facility] [address] [place] [address]
--- OUTSIDE RECORDS SUMMARY | 2023-03-19 17:32 | XMS_ITS | Continuity of Care Document ---
Author Name Unknown Organization [facility] Address [address] [place] [address]- Care Team Providers Care Regulated Program Manager Name Role Phone Joe Maya MD Primary Care Physician [phone] Encounter [facility] [place] Date(s): 01/18/23 - 02/17/[address] [address] Allergies, Adverse Reactions, Alerts Substance Reaction Severity [...] capsule, 0 Refills, Maintenance, 01/14/23 9:11:00 EDT, [facility] #[id number], 165, cm, 01/03/23 14:19:00 EDT, Height, 110.7, kg, 12/22/22 17:16:00 EDT, Dry Weight Start Date: 01/14/23 Status: Ordered M- Plus oral tablet 1 tablet, By Mouth, Daily, # 90 tablet, 0 Refills, Maintenance, 01/18/23 12:12:00 EDT, [facility] #[id number], Partial fill upon patient request if the prescription is for a schedule II opioid drug., 1 tablet By Mouth Daily, 165, cm, 01/03/23 14:... Start Date: 01/18/23 Status: Ordered miconazole 2% topical ointment See Instructions, apply sparingly to nipple after each feed, do not remove before next feed, # 45 Gm, 1 Refills, Maintenance, 11/27/22 16:05:00 EDT, [facility] #[id number], Partial fill upon patient request if the prescription is for a schedule I... Start Date: 11/27/22 Status: Ordered MiraLax oral powder for reconstitution = 17 Gm, By Mouth, Daily, dissolve in water before taking, # 255 Gm, 0 Refills, Maintenance, 11/30/22 23:59:00 EDT, REC Powder, [facility] #[id number], Partial fill upon patient request if the prescription is for a schedule II opioid drug., 17 Gm... Start Date: 11/30/22 Status: Ordered mupirocin 2% topical ointment See Instructions, apply sparingly to nipple after each feed, do not remove before next feed, # 22 Gm, 1 Refills, Maintenance, 11/27/22 16:05:00 EDT, [facility] #[id number], Partial fill upon patient request if the prescription is for a schedule I... Start Date: 11/27/22 Status: Ordered Prenatabs Rx oral tablet 1 tablet, By Mouth, Daily, # 30 tablet, 11 Refills, Maintenance, 06/05/22 8:47:00 EDT, Tablet, [facility] #[id number], Partial fill upon patient request if the [...] Team Personnel Name: Joe Maya MD Position: [facility] Outreach Member Role: PCP Address: Address: [address] [place] [address]- Care Team Related Persons Name: MIMI DOE Address: home [address] Name: SANDHYA DOE Address: [employer] Address: home [address] [place] [address] [place] Name: KEYANA HOLLAND Address: home [address] [place] [address] Name: ELTON LEAHY Address: home [address]
--- OUTSIDE RECORDS SUMMARY | 2023-03-19 17:32 | XMS_ITS | Continuity of Care Document ---
Author Name Unknown Organization [facility] Address [address] [place] [address]- Care Team Providers Care Paving And Surfacing Labourer Name Role Phone Zulma LEIVA, Joe Primary Care Physician Encounter [facility] Date(s): 11/29/22 - 12/29/[address] [address] Allergies, Adverse Reactions, Alerts [...] 11/30/22 23:59:00 EDT, Route to Pharmacy Electronically, [facility][id number], Partial fill upon patient request if the [...] Gm, 1 Refills, Maintenance, 11/27/22 16:05:00 EDT, [facility] #[id number], Partial fill upon patient request if the prescription is for a schedule I... Start Date: 11/27/22 Status: Ordered MiraLax oral powder for reconstitution = 17 Gm, By Mouth, Daily, dissolve in water before taking, # 255 Gm, 0 Refills, Maintenance, 11/30/22 23:59:00 EDT, REC Powder, [facility] #[id number], Partial fill upon patient request if the prescription is for a schedule II opioid drug., 17 Gm... Start Date: 11/30/22 Status: Ordered mupirocin 2% topical ointment See Instructions, apply sparingly to nipple after each feed, do not remove before next feed, # 22 Gm, 1 Refills, Maintenance, 11/27/22 16:05:00 EDT, [facility] #[id number], Partial fill upon patient request if the prescription is for a schedule I... Start Date: 11/27/22 Status: Ordered Prenatabs Rx oral tablet 1 tablet, By Mouth, Daily, # 30 tablet, 11 Refills, Maintenance, 06/05/22 8:47:00 EDT, Tablet, [facility] #[id number], Partial fill upon patient request if the prescription is for a schedule II opioid drug., 1 tablet By Mouth Daily, 165, cm, 05/11... Start Date: 06/05/22 Status: Ordered Slynd 4 mg oral tablet 1 tablet = 4 mg, By Mouth, Daily, # 84 tablet, 3 Refills, Maintenance, 10/26/22 6:46:00 EST, Tablet, [facility] #[id number], Partial fill upon patient request if the [...] Team Personnel Name: Joe Maya MD Position: [facility] Outreach Member Role: PCP Address: Address: [address] [place] [address]- Care Team Related Persons Name: MIMI DOE Address: home [address] Name: SANDHYA DOE Address: AMER[employer] Address: home [address] [place], [place] Name: KEYANA HOLLAND Address: home [address] [place] [address] Name: ELTON LEAHY Address: home [address] [address]
--- OUTSIDE RECORDS SUMMARY | 2023-03-19 17:32 | XMS_ITS | Continuity of Care Document ---
Author Name Unknown Organization [facility] Address [address] [place] [address]- Care Team Providers Care Core Machine Tender Name Role Phone Joe Maya MD Primary Care Physician [phone] Encounter [facility] [place] Date(s): 10/29/22 - 12/05/[address] [address] Attending Physician: Not on Staff, Attending MD [...] Refills, Maintenance, 05/07/22 9:41:00 EDT, Chew Tablet, [facility] #[id number], Partial fill upon patient request if the prescription is for a schedule II opioid drug., 165, cm, 05/07/22... Start Date: 05/07/22 Status: Ordered betamethasone topical valerate 0.1% ointment See Instructions, apply sparingly to nipple after each feed, do not remove before next feed, # 45 Gm, 1 Refills, Maintenance, 11/27/22 16:05:00 EDT, [facility] #[id number], Partial fill upon patient request if the prescription is for a schedule I... Start Date: 11/27/22 Status: Ordered Colace sodium 100 mg oral capsule 100 mg, 1, capsule, By Mouth, 2 times a day, PRN, # 20 capsule, Refills 0, Tot. Refills 0, Maintenance, for constipation, 11/30/22 23:59:00 EDT, Route to Pharmacy Electronically, [facility][id number], Partial fill upon patient request if the [...] tablet, 0 Refills, Maintenance, 11/05/22 13:08:00EST, Tablet, [facility] #[id number], Partial fill upon patient request if the prescription is for a schedule II opioid drug., 165, cm, 10/29/22 10... Start Date: 11/05/22 Status: Ordered metroNIDAZOLE 500 mg oral tablet 1 tablet = 500 mg, By Mouth, Every 12 hours, # 14 tablet, 0 Refills, Maintenance, 10/22/22 20:34:00EST, Tablet, [facility] #[id number], Partial fill upon patient request if the prescription is for a schedule II opioid drug., 165, cm, 10/19/22 8:... Start Date: 10/22/22 Stop Date: 10/29/22 Status: Ordered miconazole 2% topical ointment See Instructions, apply sparingly to nipple after each feed, do not remove before next feed, # 45 Gm, 1 Refills, Maintenance, 11/27/22 16:05:00 EDT, [facility] #[id number], Partial fill upon patient request if the prescription is for a schedule I... Start Date: 11/27/22 Status: Ordered MiraLax oral powder for reconstitution = 17 Gm, By Mouth, Daily, dissolve in water before taking, # 255 Gm, 0 Refills, Maintenance, 11/30/22 23:59:00 EDT, REC Powder, [facility] #[id number], Partial fill upon patient request if the prescription is for a schedule II opioid drug., 17 Gm... Start Date: 11/30/22 Status: Ordered mupirocin 2% topical ointment See Instructions, apply sparingly to nipple after each feed, do not remove before next feed, # 22 Gm, 1 Refills, Maintenance, 11/27/22 16:05:00 EDT, [facility] #[id number], Partial fill upon patient request if the prescription is for a schedule I... Start Date: 11/27/22 Status: Ordered Plan B One-Step 1.5 mg oral tablet 1.5 mg, 1, tablet, By Mouth, Once, # 1 tablet, Refills 0, Tot. Refills 0, Soft Stop, 11/30/22 17:45:00 EDT, Route to Pharmacy Electronically, [facility] #[id number], Partial fill upon patient request if the prescription is for a schedule II opioi... Start Date: 11/30/22 Status: Ordered Prenatabs Rx oral tablet 1 tablet, By Mouth, Daily, # 30 tablet, 11 Refills, Maintenance, 06/05/22 8:47:00 EDT, Tablet, [facility] #[id number], Partial fill upon patient request if the prescription is for a schedule II opioid drug., 1 tablet By Mouth Daily, 165, cm, 05/11... Start Date: 06/05/22 Status: Ordered Slynd 4 mg oral tablet 1 tablet = 4 mg, By Mouth, Daily, # 84 tablet, 3 Refills, Maintenance, 10/26/22 6:46:00 EST, Tablet, [facility] #[id number], Partial fill upon patient request if the [...] Personnel Name: Joe Maya MD Position: [facility] Outreach Member Role: PCP Address: Address: [address] [place] [address]- Care Team Related Persons Name: MIMI DOE Address: home [address] [facility] [address] [place] [address] Name: SANDHYA DOE Address: [employer] Address: home [address] [place] [address] Name: KEYANA HOLLAND Address: [address] [place], [place] Name: ELTON LEAHY Address: home [address] [address]
--- OUTSIDE RECORDS SUMMARY | 2023-03-19 17:33 | XMS_ITS | Continuity of Care Document ---
Author Name Unknown Organization [facility] Address [address] [place] [address]- Care Team Providers Care Rolling Attendant Name Role Phone Joe Maya MD Primary Care Physician [phone] Encounter [facility] [place] Date(s): 10/22/22 - 11/21/[address] [address] Allergies, Adverse Reactions, Alerts Substance Reaction [...] Refills, Maintenance, 05/07/22 9:41:00 EDT, Chew Tablet, [facility] #[id number], Partial fill upon patient request if the prescription is for a schedule II opioid drug., albino Butler, 05/07/22... Start Date: 05/07/22 Status: Ordered metroNIDAZOLE 500 mg oral tablet 1 tablet = 500 mg, By Mouth, Every 12 hours, # 14 tablet, 0 Refills, Maintenance, 11/05/22 13:08:00EST, Tablet, [facility] #[id number], Partial fill upon patient request if the prescription is for a schedule II opioid drug., albino Butler, 10/29/22 10... Start Date: 11/05/22 Status: Ordered metroNIDAZOLE 500 mg oral tablet 1 tablet = 500 mg, By Mouth, Every 12 hours, # 14 tablet, 0 Refills, Maintenance, 10/22/22 20:34:00EST, Tablet, [facility] #[id number], Partial fill upon patient request if the prescription is for a schedule II opioid drug., albino Butler, 10/19/22 8:... Start Date: 10/22/22 Stop Date: 10/29/22 Status: Ordered Prenatabs Rx oral tablet 1 tablet, By Mouth, Daily, # 30 tablet, 11 Refills, Maintenance, 06/05/22 8:47:00 EDT, Tablet, [facility] #[id number], Partial fill upon patient request if the prescription is for a schedule II opioid drug., 1 tablet By Mouth Daily, albino Butler, 05/11... Start Date: 06/05/22 Status: Ordered Slynd 4 mg oral tablet 1 tablet = 4 mg, By Mouth, Daily, # 84 tablet, 3 Refills, Maintenance, 10/26/22 6:46:00 EST, Tablet, [facility] #[id number], Partial fill upon patient request if the [...] [facility] Outreach Member Role: PCP Address: Address: [address] [place] [address]- Care Team Related Persons Name: MIMI DOE Address: home [address] [facility] [address] [place] [address] Name: SANDHYA DOE Address: [employer] Address: home [address] [place] [address] Name: KEYANA HOLLAND Address: home [address] [place], [place] Name: ELTON LEAHY Address: home [address] [facility] [address] [place] [address]
--- OUTSIDE RECORDS SUMMARY | 2023-03-19 17:33 | XMS_ITS | Continuity of Care Document ---
Author Name Unknown Organization [facility] Address [address] [place] [address]- Care Team Providers Care Park Police Name Role Phone Zulma LEIVA, Joe Primary Care Physician [phone] [place] [facility] [place] - 07/20/[address] [address] Allergies, Adverse Reactions, Alerts [...] Refills, Maintenance, 05/07/22 9:41:00 EDT, Chew Tablet, [facility] #[id number], Partial fill upon patient request if the prescription is for a schedule II opioid drug., 165, cm, 05/07/22... Start Date: 05/07/22 Status: Ordered Prenatabs Rx oral tablet 1 tablet, By Mouth, Daily, # 30 tablet, 11 Refills, Maintenance, 06/05/22 8:47:00 EDT, Tablet, [facility] #[id number], Partial fill upon patient request if the [...] HOSPITAL Outreach Member Role: PCP Address: Address: [address] [place] [address]- Care Team Related Persons Name: KEYANA HOLLAND Address: home [address] [place] [address] Name: ELTON LEAHY Address: home [address] [place] [address]
--- OUTSIDE RECORDS SUMMARY | 2023-03-19 17:33 | XMS_ITS | Continuity of Care Document ---
Author Name Unknown Organization [facility] Address [address] [place] [address]- Care Team Providers Care Supervisor Production Name Role Phone Zulma LEIVA, Joe Primary Care Physician En[place] [facility] [place] Date(s): 07/28/22 - 11/25/[address] [address] Attending Physician: Not on Staff, Attending MD Admitting Physician: Harriet Henderson CNM Allergies, Adverse Reactions, Alerts Substance Reaction Severity Status amoxicillin Active penicillin Active PROzac RASH Unknown Active Pamprin ES Multi-Symptom Relief Formula Active Penelope Active LaMICtal Active Immunizations Given [...] Refills, Maintenance, 05/07/22 9:41:00 EDT, Chew Tablet, [facility] #[id number], Partial fill upon patient request if the prescription is for a schedule II opioid drug., albino Butler, 05/07/22... Start Date: 05/07/22 Status: Ordered metroNIDAZOLE 500 mg oral tablet 1 tablet = 500 mg, By Mouth, Every 12 hours, # 14 tablet, 0 Refills, Maintenance, 11/05/22 13:08:00EST, Tablet, [facility] #[id number], Partial fill upon patient request if the prescription is for a schedule II opioid drug., albino Butler, 10/29/22 10... Start Date: 11/05/22 Status: Ordered metroNIDAZOLE 500 mg oral tablet 1 tablet = 500 mg, By Mouth, Every 12 hours, # 14 tablet, 0 Refills, Maintenance, 10/22/22 20:34:00EST, Tablet, [facility] #[id number], Partial fill upon patient request if the prescription is for a schedule II opioid drug., albino Butler, 10/19/22 8:... Start Date: 10/22/22 Stop Date: 10/29/22 Status: Ordered Prenatabs Rx oral tablet 1 tablet, By Mouth, Daily, # 30 tablet, 11 Refills, Maintenance, 06/05/22 8:47:00 EDT, Tablet, [facility] #[id number], Partial fill upon patient request if the prescription is for a schedule II opioid drug., 1 tablet By Mouth Daily, albino Butler, 05/11... Start Date: 06/05/22 Status: Ordered Slynd 4 mg oral tablet 1 tablet = 4 mg, By Mouth, Daily, # 84 tablet, 3 Refills, Maintenance, 10/26/22 6:46:00 EST, Tablet, [facility] #[id number], Partial fill upon patient request if the [...] HOSPITAL Outreach Member Role: PCP Address: Address: [address] [place] [address]- Care Team Related Persons Name: MIMI DOE Address: home [address] [address] Name: SANDHYA DOE Address: [employer] Address: home [address] [place] [address] Name: KEYANA HOLLAND Address: home [address] [place], [place] Name: ELTON LEAHY Address: home [address] [address]
--- OUTSIDE RECORDS SUMMARY | 2023-03-19 17:33 | XMS_ITS | Continuity of Care Document ---
Author Name Unknown Organization [facility] Address [address] [place] [address]- Care Team Providers Care Patient Account Liaison Name Role Phone Joe Maya MD Primary Care Physician [phone] Encounter [facility] [place] Date(s): 07/11/22 - 08/10/[address] [address] Allergies, Adverse Reactions, [...] Refills, Maintenance, 05/07/22 9:41:00 EDT, Chew Tablet, [facility] #[id number], Partial fill upon patient request if the prescription is for a schedule II opioid drug., 165, cm, 05/07/22... Start Date: 05/07/22 Status: Ordered Prenatabs Rx oral tablet 1 tablet, By Mouth, Daily, # 30 tablet, 11 Refills, Maintenance, 06/05/22 8:47:00 EDT, Tablet, [facility] #[id number], Partial fill upon patient request if the prescription is for a schedule II opioid drug., 1 tablet By Mouth Daily, 165, cm, 05/11... Start Date: 06/05/22 Status: Ordered Problem List Condition Confirmation Course Effective Dates Status Health St [facility] Informant ADD (attention deficit disorder) 1 Confirmed Active [...] Team Personnel Name: Joe Maya MD Position: [facility] Outreach Member Role: PCP Address: Address: [address] [place] [address]- Care Team Related Persons Name: KEYANA HOLLAND Address: home [address] [place] [address] Name: ELTON LEAHY Address: home [address] [place] [address]
--- OUTSIDE RECORDS SUMMARY | 2023-03-19 17:33 | XMS_ITS | Continuity of Care Document ---
Author Name Unknown Organization [facility] Address [address] [place] [address]- Care Team Providers Care Propeller Driven Airplane Mechanic Name Role Phone Joe Maya MD Primary Care Physician [place] [facility] [place]): 09/25/22 - 10/25/[address] [address] Allergies, Adverse Reactions, Alerts Substance Reaction [...] Refills, Maintenance, 05/07/22 9:41:00 EDT, Chew Tablet, [facility] #[id number], Partial fill upon patient request if the prescription is for a schedule II opioid drug., 165 cm, 05/07/22... Start Date: 05/07/22 Status: Ordered metroNIDAZOLE 500 mg oral tablet 1 tablet = 500 mg, By Mouth, Every 12 hours, # 14 tablet, 0 Refills, Maintenance, 10/22/22 20:34:00EST, Tablet, [facility] #[id number], Partial fill upon patient request if the prescription is for a schedule II opioid drug., 165 cm, 10/19/22 8:... Start Date: 10/22/22 Stop Date: 10/29/22 Status: Ordered Prenatabs Rx oral tablet 1 tablet, By Mouth, Daily, # 30 tablet, 11 Refills, Maintenance, 06/05/22 8:47:00 EDT, Tablet, [facility] #[id number], Partial fill upon patient request if the [...] Team Personnel Name: Joe Maya MD Position: [facility] Outreach Member Role: PCP Address: Address: [address] [place] [address]- Care Team Related Persons Name: MIMI DOE Address: home [address] [place] [address] Name: KEYANA HOLLAND Address: home [address] [place] [address] Name: DHEERAJ LEAHY GIRL Address: AMERCN Address: home [address] [place], [place] [id number] Name: ELTON LEAHY Address: home [address] [place], [place] [id number]
--- OUTSIDE RECORDS SUMMARY | 2023-03-19 17:33 | XMS_ITS | Continuity of Care Document ---
Author Name Unknown Organization [facility] Address [address] [place] [address]- Care Team Providers Care Refrigeration Insulator Name Role Phone Joe Maya MD Primary Care Physician [phone] [place] [facility] Date[place] 11/01/22 - 12/01/[address] [address] Allergies, Adverse Reactions, Alerts Substance [...] Refills, Maintenance, 05/07/22 9:41:00 EDT, Chew Tablet, [facility] #[id number], Partial fill upon patient request if the prescription is for a schedule II opioid drug., 165, cm, 05/07/22... Start Date: 05/07/22 Status: Ordered betamethasone topical valerate 0.1% ointment See Instructions, apply sparingly to nipple after each feed, do not remove before next feed, # 45 Gm, 1 Refills, Maintenance, 11/27/22 16:05:00 EDT, [facility] #[id number], Partial fill upon patient request if the prescription is for a schedule I... Start Date: 11/27/22 Status: Ordered Colace sodium 100 mg oral capsule 100 mg, 1, capsule, By Mouth, 2 times a day, PRN, # 20 capsule, Refills 0, Tot. Refills 0, Maintenance, for constipation, 11/30/22 23:59:00 EDT, Route to Pharmacy Electronically, [facility][id number], Partial fill upon patient request if the [...] tablet, 0 Refills, Maintenance, 11/05/22 13:08:00EST, Tablet, [facility] #[id number], Partial fill upon patient request if the prescription is for a schedule II opioid drug., 165, cm, 10/29/22 10... Start Date: 11/05/22 Status: Ordered metroNIDAZOLE 500 mg oral tablet 1 tablet = 500 mg, By Mouth, Every 12 hours, # 14 tablet, 0 Refills, Maintenance, 10/22/22 20:34:00EST, Tablet, [facility] #[id number], Partial fill upon patient request if the prescription is for a schedule II opioid drug., 165, cm, 10/19/22 8:... Start Date: 10/22/22 Stop Date: 10/29/22 Status: Ordered miconazole 2% topical ointment See Instructions, apply sparingly to nipple after each feed, do not remove before next feed, # 45 Gm, 1 Refills, Maintenance, 11/27/22 16:05:00 EDT, [facility] #[id number], Partial fill upon patient request if the prescription is for a schedule I... Start Date: 11/27/22 Status: Ordered MiraLax oral powder for reconstitution = 17 Gm, By Mouth, Daily, dissolve in water before taking, # 255 Gm, 0 Refills, Maintenance, 11/30/22 23:59:00 EDT, REC Powder, [facility] #[id number], Partial fill upon patient request if the prescription is for a schedule II opioid drug., 17 Gm... Start Date: 11/30/22 Status: Ordered mupirocin 2% topical ointment See Instructions, apply sparingly to nipple after each feed, do not remove before next feed, # 22 Gm, 1 Refills, Maintenance, 11/27/22 16:05:00 EDT, [facility] #[id number], Partial fill upon patient request if the prescription is for a schedule I... Start Date: 11/27/22 Status: Ordered Plan B One-Step 1.5 mg oral tablet 1.5 mg, 1, tablet, By Mouth, Once, # 1 tablet, Refills 0, Tot. Refills 0, Soft Stop, 11/30/22 17:45:00 EDT, Route to Pharmacy Electronically, [facility] #[id number], Partial fill upon patient request if the prescription is for a schedule II opioi... Start Date: 11/30/22 Status: Ordered Prenatabs Rx oral tablet 1 tablet, By Mouth, Daily, # 30 tablet, 11 Refills, Maintenance, 06/05/22 8:47:00 EDT, Tablet, [facility] #[id number], Partial fill upon patient request if the prescription is for a schedule II opioid drug., 1 tablet By Mouth Daily, 165, cm, 2... Start Date: 06/05/22 Status: Ordered Slynd 4 mg oral tablet 1 tablet = 4 mg, By Mouth, Daily, # 84 tablet, 3 Refills, Maintenance, 10/26/22 6:46:00 EST, Tablet, [facility] #[id number], Partial fill upon patient request if the [...] SYSTEM Outreach Member Role: PCP Address: Address: [address] [place] [address]- Care Team Related Persons Name: MIMI DOE Address: home [address] [facility] [place] [address] Name: SANDHYA DOE Address: [employer] Address: home [address] [place] [address] Name: KEYANA HOLLAND Address: home [address] [place], [place] Name: ELTON LEAHY Address: home [address] [facility] [place] [address]
--- OUTSIDE RECORDS SUMMARY | 2023-03-19 17:33 | XMS_ITS | Continuity of Care Document ---
Author Name Unknown Organization [facility] Address [address] [place] [address], [address]t [place] [address]- Care Team Providers Care Solid Waste Disposal Manager Name Role Phone Joe Maya MD Primary Care Physician [phone] [id number] Date(s): 05/21/22 [facility] [address] [facility], 4th Floor [place], [place] [address] Allergies, Adverse Reactions, Alerts [...] Refills, Maintenance, 05/07/22 9:41:00 EDT, Chew Tablet, [facility] #[id number], Partial fill upon patient request if the prescription is for a schedule II opioid drug., 165, cm, 05/07/22... Start Date: 05/07/22 Status: Ordered Prenatabs Rx oral tablet 1 tablet, By Mouth, Daily, # 30 tablet, 11 Refills, Maintenance, 06/05/22 8:47:00 EDT, Tablet, [facility] #[id number], Partial fill upon patient request if the [...] Personnel Name: Joe Maya MD Address: Address: [address] [place] [address]
--- OUTSIDE RECORDS SUMMARY | 2023-03-19 17:33 | XMS_ITS | Continuity of Care Document ---
Author Name Unknown Organization [facility] Address [address] [place] [address]- Care Team Providers Care Senior Storage Administrator Name Role Phone Zulma LEIVA, Joe Primary Care Physician [phone] Encounter [place] Date(s): 09/30/22 - 10/01/[address] [address] Discharge Disposition: A-D/C Home Attending Physician: Shannan Cheney DO Admitting Physician: Shannan Cheney DO Referring Physician: Shannan Cheney DO Allergies, Adverse Reactions, Alerts Substance Reaction Severity Status amoxicillin Active penicillin Active Penelope Active PROzac RASH Unknown Active Pamprin ES Multi-Symptom Relief Formula Active LaMICtal Active Immunizations Given and Recorded [...] Refills, Maintenance, 05/07/22 9:41:00 EDT, Chew Tablet, [facility] #[id number], Partial fill upon patient request if the prescription is for a schedule II opioid drug., 165, cm, 05/07/22... Start Date: 05/07/22 Status: Ordered Prenatabs Rx oral tablet 1 tablet, By Mouth, Daily, # 30 tablet, 11 Refills, Maintenance, 06/05/22 8:47:00 EDT, Tablet, [facility] #[id number], Partial fill upon patient request if the [...] recent to oldest [Reference Range]: 1 Weight 118.3 kg (09/30/22 10:15 PM) Oxygen Saturation [94-100 %] 99 % (09/30/22 10:15 PM) Pulse Rate [55-90 bpm] 105 bpm *H* (09/30/22 10:15 PM) Blood Pressure [90-138/55-84 mm Hg] 116/ 62mm Hg (09/30/22 10:15 PM) Respiratory Rate [16-30 br/min] 18 br/mi n (09/30/22 10:15 PM) Temperature [96.8-100.4 DegF] 98.3 DegF (09/30/22 10:15 PM) Mode of Delivery (Oxygen) Room air (09/30/22 10:15 PM) Blood pressure sites Arm, right (09/30/22 10:15 PM) Temperature Route Oral (09/30/22 10:15 PM) Dry Weight 118.3 kg (09/30/22 10:15 PM) Weight Obtained Via Standing scale (09/30/22 10:15 PM) Dry Weight Obtained Via Standing scale (09/30/22 10:15 PM) Social History Social History Type Response Smoking Status Former smoker, quit more than 30 days ago entered on: 04/23/22 Sex Note * Gabi Jeff RN: PERFORM Event Display: Discharge/Transfer Note Hospital Authored Date: [id number] Nursing Discharge Note Entered On: 10/01/2022 0:57 EST Performed On: 10/01/2022 0:56 EST by Gabi Jeff RN Nursing Discharge Note 2 Discharge Time : 10/01/2022 0:56 EST Discharge Level of Care at Discharge : Home/Alf/Foster Care Patient Left Unit Via : Ambulatory Patient Accompanied Off Unit with : Significant other DC Instructions Provided & Signed by Pt : Yes Patient Understands D/C Instructions : Yes Patient Instructions Discharge Signed : Yes Did Pt have Specialty Bed or Wound Vac : No Gabi Jeff RN - 10/01/2022 0:56 EST * Gabi Jeff RN: PERFORM Event Display: Patient Education/Instruction Authored Date: [id number] Inpatient Adult Discharge Instructions [address] [address] Name: DHEERAJ LEAHY : 1990 Visit: 09/30/2022 21:57:00 Current Date: 10/01/2022 00:50 Account: [id number] Inpatient Adult Discharge Instructions We would like [...] and their families. Surveys are administered by [employer] ?? If further treatment with your primary care physician or another doctor is recommended, it is important for you to keep the appointment. Call your primary care physician or return to the Emergency Department immediately if your condition worsens, fails to improve, or new symptoms develop. If you need to find a doctor, you can call [facility] [employer] for a referral at [phone] or toll free at [phone] ([phone]) or log in to [email or web address].. ?? You can view and manage your care through the patient portal or by using a health care ramesh of your choosing. [employer] is a website that allows you to securely view your medical information including your hospital discharge summary, office visit summaries, medications and follow-up visits. You can also request appointments, renew medications, and request access to your medical information using a health care ramesh of your choosing, or just ask a question. You can enroll at [email or web address] or register during your next office visit. You have been discharged from [facility], Patient Care Unit: WETU1. If you have any questions regarding these instructions after you leave, please call us and we will be happy to assist you. [facility] Your Care Team Attending Physician Shannan Cheney DO Tests Performed Below is a partial list of the tests performed during your hospitalization. You may have had other tests and procedures not included in this list. Please discuss all test results with your provider. Primary Care Provider Joe Maya MD Advance Directive Health Care Proxy on File No No qualifying data available. Discharge Vitals Temperature: 98.3 DegF Weight: 118.3 kg Pulse Rate:??105 bpm??High ?? Respiratory Rate: 18 br/min ?? Systolic Blood Pressure: 116 mm Hg ?? Diastolic Blood Pressure: 62 mm Hg ?? Oxygen Saturation: 99 % ?? Studies Pending All tests and labs ordered during this hospital stay have been completed unless listed below. Please discuss all pending results with your provider listed above in these instructions. ?? No incomplete studies found What to do next Instructions From Your Doctor Discharge Orders Scheduled Follow-Up Appointments 2022 11:00 AM EST ?? With: Marti Moore DO Where: [facility] Tester [address] [place] [address] - Saturday 8:40 AM EST ?? With: Therese Sepulveda DO Where: [facility] [address] [place] [address] - Saturday 8:40 AM EST ?? With: Therese Sepulveda DO Where: [facility] [address] [place] [address] - Saturday 8:40 AM EST ?? With: Therese Sepulveda DO Where: [facility] Core Tester [address] [place] [address] - Discharge Medications DHEERAJ LEAHY :1990 Visit Date:09/30/2022 Medications: Please continue your medications until treatment [...] Educational Leaflet Providered with your Discharge Instructions. Treating Constipation?? Recognizing Labor?? Kick Counts?? Valuables and Belongings I fully understand and agree that [facility] accepts no responsibility for all my personal [...] are strongly encouraged to quit. Please call [facility] [employer] at [phone] or [phone] ([phone]) or log in to [email or web address] for referrals to smoking cessation programs. ?? The National Suicide Prevention Hotline is available 01/04 if you or someone you know needs to find a reason to keep living. By calling 1-490-879-[employer] (6926) you'll be connected to a skilled, trained counselor at a crisis center in your area. INPATIENT DISCHARGE INSTRUCTIONS SIGNATURE DHEERAJ [place] Location:[facility] Registration Date and Time:09/30/2022 21:57 EST Primary Care Physician: Zulma LEIVA , [facility], I TOSIN DHEERAJ, have received the above patient education materials/instructions and have verbalized understanding. If ambulance or transport services are being used I further acknowledge being given a choice of service. ?? If you need to contact me, please call me at this number: . Patient/Barkeeper Name: Patient/Barkeeper Signature: Relationship to Patient: Witness Name/Signature: Date: * Gabi Jeff RN: PERFORM Event Display: Patient Education Leaflets Authored Date: [id number] Treating Constipation ?? [address] Treating Constipation Constipation is a common and often uncomfortable problem. Constipation means you have bowel movements??fewer than 3 times per week. Or that you strain to pass hard, dry stool. It can last a short time. Or it can be a problem that never seems to go away. The good news is that it can often be treatedand controlled. Eat more fiber One of the best ways to help treat constipation is to increase your fiber intake. You can do this either through diet or by using fiber supplements. Fiber (in whole grains, fruits, and vegetables) adds bulk and absorbs water to soften the stool. This helps the stool pass through the colon more easily. When you increase your fiber intake, do it slowly to prevent side effects such as bloating. Alsoincrease the amount of water that you drink. Eating more of these foods can add fiber to your diet:??? High-fiber cereals ??? Whole grains, bran, and brown rice ??? Vegetables such as carrots, broccoli, and greens ??? Fresh fruits (especially apples, pears, and dried fruits such as raisins and apricots) ??? Nuts and legumes (especially beans such as lentils, kidney beans, and anders beans) ?? Set a good routine ??? Go to the bathroom when you feel you need to. Don???t ignore the urge to have a bowel movement.??? Set aside time after meals to go to the bathroom. ?? Get physically active Exercise helps improve the working of your colon which helps ease constipation. Try to get some physical??activity every day. If you haven???t been active for a while, talk with your??healthcare provider??before starting again. ?? Consider other choices ??? Laxatives. Your healthcare provider may suggest an [id number] product to help ease your constipation. They may suggest using bulk-forming products or laxatives. Laxatives are common and safe if used as directed. Follow directions carefully when using them. See your provider for new constipation or long-term constipation. This is??to rule out other causes such as certain medicines or other health conditions. See your provider if you have rectal bleeding. ??? Pelvic floor training. Biofeedback and pelvic physical therapy (PT) may be helpful. They can help if youhave pelvic floor problems that may be lead to constipation. For biofeedback, the healthcare provider puts sensors in and outside your anus. This helps you learn how to find and relax the muscles during a bowel movement so you don't get constipated. With PT, you'll learn exercises to help have normal bowel movements and prevent constipation. You may be taught different positions to use to keep from straining during a bowel movement. ?? Last Reviewed Date: 2022 ?? [employer]. All rights reserved. This information is not intended as a substitute for professional medical care. Always follow your healthcare professional's instructions. ?? * Gabi Jeff RN: PERFORM Event Display: Patient Education Leaflets Authored Date: [id number] Recognizing Labor ?? [address] Recognizing Labor The beginning of labor is [...] contraction. ?? Last Reviewed Date: 2022 ?? 4378-2659 [employer]. All rights reserved. This information is not intended as a substitute for professional medical care. Always follow your healthcare professional's instructions. ?? * Gabi Jeff RN: PERFORM Event Display: Patient Education Leaflets Authored Date: [id number] Kick Counts ?? [address] Kick Counts It???s normal to worry about [...] day. ?? Last Reviewed Date: 2022 ?? 6936-5426 [employer]. All rights reserved. This information is not intended as a substitute for professional medical care. Always follow your healthcare professional's instructions. ?? Patient Care team information Care Team Personnel Name: Joe Maya MD Position: [facility] Outreach Member Role: PCP Address: Address: [address] [place] [address]- Care Team Related Persons Name: KEYANA HOLLAND Address: home [address] [place] [address] Name: ELTON LEAHY Address: home [address] [address]
--- OUTSIDE RECORDS SUMMARY | 2023-03-19 17:33 | XMS_ITS | Continuity of Care Document ---
Author Name Unknown Organization [facility] Address [address] [place] [address]- Care Team Providers Care Enterprise Services Manager Name Role Phone Joe Maya MD Primary Care Physician [place] [facility] [place] [facility] and [address] [address] Allergies, Adverse Reactions, Alerts Substance Reaction [...] Refills, Maintenance, 05/07/22 9:41:00 EDT, Chew Tablet, [facility] #[id number], Partial fill upon patient request if the prescription is for a schedule II opioid drug., 165, cm, 05/07/22... Start Date: 05/07/22 Status: Ordered metroNIDAZOLE 250 mg oral tablet 1 tablet = 250 mg, By Mouth, Every 8 hours, for 7 days, # 21 tablet, 0 Refills, Acute 07/17/22 20:16:00 EST, 07/10/22 20:16:00 EDT, Tablet, [facility] #[id number], Partial fill upon patient request if the prescription is for a schedule II opioid... Start Date: 07/10/22 Stop Date: 07/17/22 Status: Ordered Prenatabs Rx oral tablet 1 tablet, By Mouth, Daily, # 30 tablet, 11 Refills, Maintenance, 06/05/22 8:47:00 EDT, Tablet, [facility] #[id number], Partial fill upon patient request if the [...] Personnel Name: Joe Maya MD Address: Address: [address] [place] [address]
--- OUTSIDE RECORDS SUMMARY | 2023-03-19 17:33 | XMS_ITS | Continuity of Care Document ---
Author Name Unknown Organization [facility] Address [address] [place] [address]- Care Team Providers Care Radio Announcer Name Role Phone Joe Maya MD Primary Care Physician [place] [facility] [place]/15/22 - 06/14/[address] [address] Allergies, Adverse Reactions, Alerts Substance Reaction [...] Refills, Maintenance, 05/07/22 9:41:00 EDT, Chew Tablet, [facility] #[id number], Partial fill upon patient request if the prescription is for a schedule II opioid drug., 165, cm, 05/07/22... Start Date: 05/07/22 Status: Ordered Prenatabs Rx oral tablet 1 tablet, By Mouth, Daily, # 30 tablet, 11 Refills, Maintenance, 06/05/22 8:47:00 EDT, Tablet, [facility] #[id number], Partial fill upon patient request if the [...] Personnel Name: Joe Maya MD Address: Address: [address] [place] [address]
--- OUTSIDE RECORDS SUMMARY | 2023-03-19 17:33 | XMS_ITS | Continuity of Care Document ---
Author Name Unknown Organization [facility] ter Address [address] [place] [address]- Care Team Providers Care Director Of Physician Practices Name Role Phone Zulma LEIVA, Joe Primary Care Physician [phone] Encounter [facility] [place] Date(s): 12/06/22 - 12/06/[address] [address]- Encounter Diagnosis Edema(Final) - 12/06/22 Discharge Disposition: A-D/C Home Attending Physician: Kian Sneed MD Admitting Physician: Kian Sneed MD Referring Physician: Not on Staff, Referring [...] Refills, Maintenance, 05/07/22 9:41:00 EDT, Chew Tablet, [facility] #[id number], Partial fill upon patient request if the prescription is for a schedule II opioid drug., 165, cm, 05/07/22... Start Date: 05/07/22 Status: Ordered betamethasone topical valerate 0.1% ointment See Instructions, apply sparingly to nipple after each feed, do not remove before next feed, # 45 Gm, 1 Refills, Maintenance, 11/27/22 16:05:00 EDT, [facility] #[id number], Partial fill upon patient request if the prescription is for a schedule I... Start Date: 11/27/22 Status: Ordered Colace sodium 100 mg oral capsule 100 mg, 1, capsule, By Mouth, 2 times a day, PRN, # 20 capsule, Refills 0, Tot. Refills 0, Maintenance, for constipation, 11/30/22 23:59:00 EDT, Route to Pharmacy Electronically, [facility]#[id number], Partial fill upon patient request if the [...] tablet, 0 Refills, Maintenance, 11/05/22 13:08:00EST, Tablet, [facility] #[id number], Partial fill upon patient request if the prescription is for a schedule II opioid drug., 165, cm, 10/29/22 10... Start Date: 11/05/22 Status: Ordered metroNIDAZOLE 500 mg oral tablet 1 tablet = 500 mg, By Mouth, Every 12 hours, # 14 tablet, 0 Refills, Maintenance, 10/22/22 20:34:00EST, Tablet, [facility] #[id number], Partial fill upon patient request if the prescription is for a schedule II opioid drug., 165, cm, 10/19/22 8:... Start Date: 10/22/22 Stop Date: 10/29/22 Status: Ordered miconazole 2% topical ointment See Instructions, apply sparingly to nipple after each feed, do not remove before next feed, # 45 Gm, 1 Refills, Maintenance, 11/27/22 16:05:00 EDT, [facility] #[id number], Partial fill upon patient request if the prescription is for a schedule I... Start Date: 11/27/22 Status: Ordered MiraLax oral powder for reconstitution = 17 Gm, By Mouth, Daily, dissolve in water before taking, # 255 Gm, 0 Refills, Maintenance, 11/30/22 23:59:00 EDT, REC Powder, [facility] #[id number], Partial fill upon patient request if the prescription is for a schedule II opioid drug., 17 Gm... Start Date: 11/30/22 Status: Ordered mupirocin 2% topical ointment See Instructions, apply sparingly to nipple after each feed, do not remove before next feed, # 22 Gm, 1 Refills, Maintenance, 11/27/22 16:05:00 EDT, [facility] #[id number], Partial fill upon patient request if the prescription is for a schedule I... Start Date: 11/27/22 Status: Ordered Plan B One-Step 1.5 mg oral tablet 1.5 mg, 1, tablet, By Mouth, Once, # 1 tablet, Refills 0, Tot. Refills 0, Soft Stop, 11/30/22 17:45:00 EDT, Route to Pharmacy Electronically, [facility] #[id number], Partial fill upon patient request if the prescription is for a schedule II opioi... Start Date: 11/30/22 Status: Ordered Prenatabs Rx oral tablet 1 tablet, By Mouth, Daily, # 30 tablet, 11 Refills, Maintenance, 06/05/22 8:47:00 EDT, Tablet, [facility] #[id number], Partial fill upon patient request if the prescription is for a schedule II opioid drug., 1 tablet By Mouth Daily, 165, cm, 05/11... Start Date: 06/05/22 Status: Ordered Slynd 4 mg oral tablet 1 tablet = 4 mg, By Mouth, Daily, # 84 tablet, 3 Refills, Maintenance, 10/26/22 6:46:00 EST, Tablet, [facility] #[id number], Partial fill upon patient request if the [...] Exam Date Time Procedure Performing Provider Status 12/06/22 6:46 PM Chest 2 Views Frontal and Lat Natalie Jacques; Auth (Verified) Notes: (Chest 2 Views Frontal and Lat) Reason For Exam: Chest Pain;Other: RESULT: Chest 2 Views Frontal and Lat Chest 2 Views Frontal and Lat Hx of Present Illness: gave to first baby 2 15, had epidural. mco since - BLLE pain L>R, pain to BL ankles feet thighs. R shoulder pain and L lower back pain. Also c o neck 'tingling' like pins and needles. Said she had neg U S 2 days ago at PCP office; Reason: Other:; Chest Pain; ClinicalQuestion(s): Other: COMPARISON: None. FINDINGS: LINES AND TUBES: None. LUNGS AND PLEURA: Clear lungs. Normal pulmonary vascularity. No pleural effusion. No pneumothorax. HEART, MEDIASTINUM AND DAYA: Unchanged. Normal mediastinal and hilar contour. BONES AND SOFT TISSUES: No acute abnormality. IMPRESSION: No acute abnormality. WSN: [id number] Ordering Physician: Cece Frausto Dictated By: Robert Cordova MD Dictated Date/Time: 12/06/22 6:51 pm Reviewed By: Robert Cordova MD Signed By: Robert Cordova MD Signed Date/Time: 12/06/22 6:51 pm Transcribed By: JORDY Transcribed Date/Time: 12/06/22 6:50 pm * Exam Date Time Procedure Performing Provider Status 12/06/22 6:39 PM US Doppler Ext Lower Venous Bilat Hilary Claire; Auth (Verified) Notes: (US Doppler Ext Lower Venous Bilat) Reason For Exam: Pain in limb;Other: RESULT: US Doppler Ext Lower Venous Bilat US Doppler Ext Lower Venous Bilat Hx of Present Illness: gave to first baby 2 15, had epidural. mco since - BLLE pain L>R, pain to BL ankles feet thighs. R shoulder pain and L lower back pain. Also c o neck 'tingling' like pins and needles. Said she had neg U S 2 days ago at PCP office; Reason: Other:; Pain in limb; Clinical Question(s): Thrombosis COMPARISON: None IMAGING TECHNIQUE: [...] patent without evidence of thrombosis. OTHER FINDINGS: There is diffuse calf edema. IMPRESSION: No evidence of deep venous thrombosis. WSN: [id number] Ordering Physician: Kian Sneed Dictated By: Robert Cordova MD Dictated Date/Time: 12/06/22 6:49 pm Reviewed By: Robert Cordova MD Signed By: Robert Cordova MD Signed Date/Time: 12/06/22 6:49 pm Transcribed By: JORDY Transcribed Date/Time: 12/06/22 6:35 pm Vital Signs Most recent to oldest [Reference Range]: 1 2 3 Height 166 cm (12/06/22 5:09 PM) Weight 111 kg (12/06/22 5:09 PM) Oxygen Saturation [94-100 %] 100 % (12/06/22 7:15 PM) 100 % (12/06/22 5:09 PM) 99 % (12/06/22 4:39 PM) Pulse Rate [55-90 bpm] 83 bpm (12/06/22 7:15 PM) 102 bpm *H* (12/06/22 5:09 PM) 125 bpm *H* (12/06/22 4:39 PM) Blood Pressure [90-138/55-84 mm Hg] 127/82mm Hg (12/06/22 7:15 PM) Respiratory Rate [16-30 br/min] 18 br/min (12/06/22 7:15 PM) 22 br/min (12/06/22 5:09 PM) Temperature [96.8-100.4 DegF] 98.3 DegF (12/06/22 7:15 PM) 98.2 DegF (12/06/22 5:09 PM) Mode of Delivery (Oxygen) Room air (12/06/22 7:15 PM) Room air (12/06/22 5:09 PM) Blood pressure sites Arm, right (12/06/22 7:15 PM) Arm, left (12/06/22 5:09 PM) Temperature Route Oral (12/06/22 7:15 PM) Oral (12/06/22 5:09 PM) Dry Weight 111 kg (12/06/22 5:09 PM) Dry Weight Obtained Via Patient/family s tated (12/06/22 5:09 PM) Social History Social History Type Response Smoking Status Former smoker, quit more than 30 days ago; Other: quit 2019; entered on: 12/06/22 Sex Note * Kian Sneed MD: PERFORM Event Display: Patient Education Leaflets Authored Date: [id number] Shoulder Pain with Uncertain Cause ?? [id number] Shoulder Pain with Uncertain Cause Shoulder pain can have many causes. Pain often comes from the structures that surround the shoulderjoint. These are the joint capsule, ligaments, tendons, muscles, and bursa. Pain can also come fromcartilage in the joint. Cartilage can become worn out or injured. It???s important to know what???scausing your pain so the healthcare provider can use the correct treatment. But sometimes, it???s difficult to find the exact cause of shoulder pain. You may need to see a specialist (orthopedist). You may also need special tests such as a CT scan or MRI. The provider may need to use special tools to look inside the joint (arthroscopy). Shoulder pain can be treated with a sling or a device that keeps your shoulder from moving. You cantake an anti-inflammatory medicine such as ibuprofen to ease pain. You may need to do special shoulder exercises. Follow up with a specialist if the pain is severe or doesn???t go away after a few weeks. Home care Follow these tips when caring for yourself at home: ??? If a sling was given to you, leave it in place for the time advised by your healthcare provider. If you aren???t sure how long to wear it, ask for advice. If the sling becomes loose, adjust it so that your forearm is level with the ground. Your shoulder should feel well supported. ??? Put an ice pack on the injured area for 20 minutes every 1 to 2 hours the first day. You can make your own ice pack by putting ice cubes in a plastic bag. Wrap the bag in a thin towel. Continue with ice packs 3 to 4 times a day for the next 2 days. Then usethe pack as needed to ease pain and swelling. ??? You may use acetaminophen or ibuprofen to controlpain, unless another pain medicine was prescribed.??If you have chronic liver or kidney disease, talk with your healthcare provider before using these medicines. Also talk with your provider if you???ve ever had a stomach ulcer or digestive bleeding. ??? Shoulder pain may seem worse at night, when there is less to distract you from the pain. If you sleep on your side, try to keep weight off your painful shoulder. Propping pillows behind you may stop you from rolling over onto that shoulder during sleep.? Shoulder and elbow joints can become stiff if left in a sling for too long. You may be instructed to start range of motion exercises about 7 to 10 days after the injury. Talk with yourprovider to find out what type of exercises to do and how soon to start. ??? You can take the slingoff to shower or bathe. ?? Follow-up care Follow up with your healthcare provider if you don???t start to get better in the next 5 days. ?? When to seek medical advice Call your healthcare provider right away??if any of these occur: ??? Pain or swelling gets worse??or continues for more than a few days ??? Your hand or fingers become cold, blue, numb, or tingly ???Large amount of bruising on your shoulder or upper arm ??? Trouble moving your hand or fingers ??? Weakness in your hand or fingers ??? Your shoulder becomes stiff ??? It feels like your shoulder is popping out ??? You are less able to do your daily activities ?? Last Reviewed Date: 2022 ?? 1532-2076 [employer]. All rights reserved. This information is not intended as a substitute for professional medical care. Always follow your healthcare professional's instructions. ?? * Axel , CIS S: Robert Haskins MD: VERIFY Event Display: Result: Authored Date: [id number] Chest 2 Views Frontal and Lat Hx of Present Illness: gave to first baby 2 15, had epidural. mco since - BLLE pain L>R, pain to BL ankles feet thighs. R shoulder pain and L lower back pain. Also c o neck 'tingling' like pins and needles. Said she had neg U S 2 days ago at PCP office; Reason: Other:; Chest Pain; ClinicalQuestion(s): Other: COMPARISON: None. FINDINGS: LINES AND TUBES: None. LUNGS AND PLEURA: Clear lungs. Normal pulmonary vascularity. No pleural effusion. No pneumothorax. HEART, MEDIASTINUM AND DAYA: Unchanged. Normal mediastinal and hilar contour. BONES AND SOFT TISSUES: No acute abnormality. IMPRESSION: No acute abnormality. WSN: [id number] Ordering Physician: Cece Frausto Dictated By: Robert Cordova MD Dictated Date/Time: 12/06/22 6:51 pm Reviewed By: Robert Cordova MD Signed By: Robert Cordova MD Signed Date/Time: 12/06/22 6:51 pm Transcribed By: JORDY Transcribed Date/Time: 12/06/22 6:50 pm US.doppler Lower extremity vein - bilateral * [facility]SP[facility]ers[facility] , CIS S: TRANSCRIBE Robert Cordova MD: VERIFY Event Display: Result: Authored Date: [id number] US Doppler Ext Lower Venous Bilat Hx of Present Illness: gave to first baby 2 15, had epidural. mco since - BLLE pain L>R, pain to BL ankles feet thighs. R shoulder pain and L lower back pain. Also c o neck 'tingling' like pins and needles. Said she had neg U S 2 days ago at PCP office; Reason: Other:; Pain in limb; Clinical Question(s): Thrombosis COMPARISON: None IMAGING TECHNIQUE: [...] patent without evidence of thrombosis. OTHER FINDINGS: There is diffuse calf edema. IMPRESSION: No evidence of deep venous thrombosis. WSN: [id number] Ordering Physician: Kian Sneed Dictated By: Robert Cordova MD Dictated Date/Time: 12/06/22 6:49 pm Reviewed By: Robert Cordova MD Signed By: Robert Cordova MD Signed Date/Time: 12/06/22 6:49 pm Transcribed By: JORDY Transcribed Date/Time: 12/06/22 6:35 pm Patient Care team information Care Team Personnel Name: Joe Maya MD Position: [facility] Outreach Member Role: PCP Address: Address: [address] [place] [id number]- Name: Kian Sneed MD Position: [facility] ED Medicine MD Member Role: Admitting Physician Address: Address: [address] [place] [address]- Name: Alicia Ayala RN Position: [facility] ED RN W/OE and Tasks Member Role: Patient Care Provider Care Team Related Persons Name: MIMI DOE Address: home [address] [address] Name: SANDHYA DOE Address: [employer] Address: home [address] [place] [address] [place] Name: KEYANA HOLLAND Address: home [address] [place] [address] Name: ELTON LEAHY Address: home [address] [address]
--- OUTSIDE RECORDS SUMMARY | 2023-03-19 17:33 | XMS_ITS | Continuity of Care Document ---
Author Name Unknown Organization [facility] Address [address] [place] [address]- Care Team Providers Care Statistical Financial Analyst Name Role Phone Joe Maya MD Primary Care Physician [phone] Encounter [facility] [place] Date(s): 12/24/22 - 01/23/[address] [address] Allergies, Adverse Reactions, [...] capsule, 0 Refills, Maintenance, 01/14/23 9:11:00 EDT, [facility] #[id number], 165, cm, 01/03/23 14:19:00 EDT, Height, 110.7, kg, 12/22/22 17:16:00 EDT, Dry Weight Start Date: 01/14/23 Status: Ordered M- Plus oral tablet 1 tablet, By Mouth, Daily, # 90 tablet, 0 Refills, Maintenance, 01/18/23 12:12:00 EDT, [facility] #[id number], Partial fill upon patient request if the prescription is for a schedule II opioid drug., 1 tablet By Mouth Daily, 165, cm, 01/03/23 14:... Start Date: 01/18/23 Status: Ordered miconazole 2% topical ointment See Instructions, apply sparingly to nipple after each feed, do not remove before next feed, # 45 Gm, 1 Refills, Maintenance, 11/27/22 16:05:00 EDT, [facility] #[id number], Partial fill upon patient request if the prescription is for a schedule I... Start Date: 11/27/22 Status: Ordered MiraLax oral powder for reconstitution = 17 Gm, By Mouth, Daily, dissolve in water before taking, # 255 Gm, 0 Refills, Maintenance, 11/30/22 23:59:00 EDT, REC Powder, [facility] #[id number], Partial fill upon patient request if the prescription is for a schedule II opioid drug., 17 Gm... Start Date: 11/30/22 Status: Ordered mupirocin 2% topical ointment See Instructions, apply sparingly to nipple after each feed, do not remove before next feed, # 22 Gm, 1 Refills, Maintenance, 11/27/22 16:05:00 EDT, [email or web address] #[id number], Partial fill upon patient request if the prescription is for a schedule I... Start Date: 11/27/22 Status: Ordered Prenatabs Rx oral tablet 1 tablet, By Mouth, Daily, # 30 tablet, 11 Refills, Maintenance, 06/05/22 8:47:00 EDT, Tablet, [facility] #[id number], Partial fill upon patient request if the [...] Team Personnel Name: Joe Maya MD Position: [facility] Outreach Member Role: PCP Address: Address: [address] [place] [address]- Care Team Related Persons Name: MIMI DOE Address: home [address] [address] Name: SANDHYA DOE Address: [employer] Address: home [address] [place] [address] [place] Name: KEYANA HOLLAND Address: home [address] [place] [address] Name: ELTON LEAHY Address: home [address] [address]
--- OUTSIDE RECORDS SUMMARY | 2023-03-19 17:33 | XMS_ITS | Continuity of Care Document ---
Author Name Unknown Organization [facility] Address [address] [place] [address]- Care Team Providers Care Blind Teacher Name Role Phone Joe Maya MD Primary Care Physician Encounter [facility] Date(s): 10/29/22 - 11/28/[address] [address] Allergies, Adverse Reactions, Alerts Substance [...] Refills, Maintenance, 05/07/22 9:41:00 EDT, Chew Tablet, [facility] #[id number], Partial fill upon patient request if the prescription is for a schedule II opioid drug., 165, albino, 05/07/22... Start Date: 05/07/22 Status: Ordered betamethasone topical valerate 0.1% ointment See Instructions, apply sparingly to nipple after each feed, do not remove before next feed, # 45 Gm, 1 Refills, Maintenance, 11/27/22 16:05:00 EDT, [facility] #[id number], Partial fill upon patient request if the prescription is for a schedule I... Start Date: 11/27/22 Status: Ordered metroNIDAZOLE 500 mg oral tablet 1 tablet = 500 mg, By Mouth, Every 12 hours, # 14 tablet, 0 Refills, Maintenance, 11/05/22 13:08:00EST, Tablet, [facility] #[id number], Partial fill upon patient request if the prescription is for a schedule II opioid drug., 165, albino, 10/29/22 10... Start Date: 11/05/22 Status: Ordered metroNIDAZOLE 500 mg oral tablet 1 tablet = 500 mg, By Mouth, Every 12 hours, # 14 tablet, 0 Refills, Maintenance, 10/22/22 20:34:00EST, Tablet, [facility] #[id number], Partial fill upon patient request if the prescription is for a schedule II opioid drug., 165, albino, 10/19/22 8:... Start Date: 10/22/22 Stop Date: 10/29/22 Status: Ordered miconazole 2% topical ointment See Instructions, apply sparingly to nipple after each feed, do not remove before next feed, # 45 Gm, 1 Refills, Maintenance, 11/27/22 16:05:00 EDT, [facility] #[id number], Partial fill upon patient request if the prescription is for a schedule I... Start Date: 11/27/22 Status: Ordered mupirocin 2% topical ointment See Instructions, apply sparingly to nipple after each feed, do not remove before next feed, # 22 Gm, 1 Refills, Maintenance, 11/27/22 16:05:00 EDT, [facility] #[id number], Partial fill upon patient request if the prescription is for a schedule I... Start Date: 11/27/22 Status: Ordered Prenatabs Rx oral tablet 1 tablet, By Mouth, Daily, # 30 tablet, 11 Refills, Maintenance, 06/05/22 8:47:00 EDT, Tablet, [facility] #[id number], Partial fill upon patient request if the prescription is for a schedule II opioid drug., 1 tablet By Mouth Daily, 165, cm, 05/11... Start Date: 06/05/22 Status: Ordered Slynd 4 mg oral tablet 1 tablet = 4 mg, By Mouth, Daily, # 84 tablet, 3 Refills, Maintenance, 10/26/22 6:46:00 EST, Tablet, [facility] #[id number], Partial fill upon patient request if the [...] Team Personnel Name: Joe Maya MD Position: [facility] Outreach Member Role: PCP Address: Address: [address] [place] [address]- Care Team Related Persons Name: MIMI DOE Address: home [address] [facility] [address] [address] [place] [address] Name: SANDHYA DOE Address: [employer] Address: home [address] [place] [address] Name: KEYANA HOLLAND Address: home [address] [place], [place] Name: ELTON LEAHY Address: home [address] [facility] [address] [place] [address]
--- OUTSIDE RECORDS SUMMARY | 2023-03-19 17:33 | XMS_ITS | Continuity of Care Document ---
Author Name Unknown Organization [facility] Address [address] [place] [address]- Care Team Providers Care [employer] Name Role Phone Joe Maya MD Primary Care Physician [phone] Encounter [facility] [place] Date(s): 11/08/22 - 12/08/[address] [address] Allergies, Adverse Reactions, Alerts Substance [...] Refills, Maintenance, 05/07/22 9:41:00 EDT, Chew Tablet, [facility] #[id number], Partial fill upon patient request if the prescription is for a schedule II opioid drug., 165, cm, 05/07/22... Start Date: 05/07/22 Status: Ordered betamethasone topical valerate 0.1% ointment See Instructions, apply sparingly to nipple after each feed, do not remove before next feed, # 45 Gm, 1 Refills, Maintenance, 11/27/22 16:05:00 EDT, [facility] #[id number], Partial fill upon patient request if the prescription is for a schedule I... Start Date: 11/27/22 Status: Ordered Colace sodium 100 mg oral capsule 100 mg, 1, capsule, By Mouth, 2 times a day, PRN, # 20 capsule, Refills 0, Tot. Refills 0, Maintenance, for constipation, 11/30/22 23:59:00 EDT, Route to Pharmacy Electronically, [facility]#[id number], Partial fill upon patient request if the [...] tablet, 0 Refills, Maintenance, 11/05/22 13:08:00EST, Tablet, [facility] #[id number], Partial fill upon patient request if the prescription is for a schedule II opioid drug., 165, cm, 10/29/22 10... Start Date: 11/05/22 Status: Ordered metroNIDAZOLE 500 mg oral tablet 1 tablet = 500 mg, By Mouth, Every 12 hours, # 14 tablet, 0 Refills, Maintenance, 10/22/22 20:34:00EST, Tablet, [facility] #[id number], Partial fill upon patient request if the prescription is for a schedule II opioid drug., 165, cm, 10/19/22 8:... Start Date: 10/22/22 Stop Date: 10/29/22 Status: Ordered miconazole 2% topical ointment See Instructions, apply sparingly to nipple after each feed, do not remove before next feed, # 45 Gm, 1 Refills, Maintenance, 11/27/22 16:05:00 EDT, [facility] #[id number], Partial fill upon patient request if the prescription is for a schedule I... Start Date: 11/27/22 Status: Ordered MiraLax oral powder for reconstitution = 17 Gm, By Mouth, Daily, dissolve in water before taking, # 255 Gm, 0 Refills, Maintenance, 11/30/22 23:59:00 EDT, REC Powder, [facility] #[id number], Partial fill upon patient request if the prescription is for a schedule II opioid drug., 17 Gm... Start Date: 11/30/22 Status: Ordered mupirocin 2% topical ointment See Instructions, apply sparingly to nipple after each feed, do not remove before next feed, # 22 Gm, 1 Refills, Maintenance, 11/27/22 16:05:00 EDT, [facility] #[id number], Partial fill upon patient request if the prescription is for a schedule I... Start Date: 11/27/22 Status: Ordered Plan B One-Step 1.5 mg oral tablet 1.5 mg, 1, tablet, By Mouth, Once, # 1 tablet, Refills 0, Tot. Refills 0, Soft Stop, 11/30/22 17:45:00 EDT, Route to Pharmacy Electronically, [facility] #[id number], Partial fill upon patient request if the prescription is for a schedule II opioi... Start Date: 11/30/22 Status: Ordered Prenatabs Rx oral tablet 1 tablet, By Mouth, Daily, # 30 tablet, 11 Refills, Maintenance, 06/05/22 8:47:00 EDT, Tablet, [facility] #[id number], Partial fill upon patient request if the prescription is for a schedule II opioid drug., 1 tablet By Mouth Daily, 165, cm, 05/11... Start Date: 06/05/22 Status: Ordered Slynd 4 mg oral tablet 1 tablet = 4 mg, By Mouth, Daily, # 84 tablet, 3 Refills, Maintenance, 10/26/22 6:46:00 EST, Tablet, [facility] #[id number], Partial fill upon patient request if the [...] Team Personnel Name: Joe Maya MD Position: [facility] Outreach Member Role: PCP Address: Address: [address] [place] [address]- Care Team Related Persons Name: MIMI DOE Address: home [address] [facility] [address] [place], [place] Name: SANDHYA DOE Address: [employer] Address: home [address] [place] [address] Name: KEYANA HOLLAND Address: home [address] [place], [place] Name: ELTON LEAHY Address: home [address] [facility] [address] [place], [place]
--- OUTSIDE RECORDS SUMMARY | 2023-03-19 17:33 | XMS_ITS | Continuity of Care Document ---
Author Name Unknown Organization [facility] Address [address] [place] [address]- Care Team Providers Care Balance Wheel Screw Hole Driller Name Role Phone Zulma LEIVA, Joe Primary Care Physician [phone] Encounter [facility] Date(s): 12/22/22 - 12/22/[address] [address]- Discharge Disposition: A-D/C Walkout Attending Physician: Rob Grant MD Admitting Physician: Rob Grant MD Referring Physician: Not on Staff, Referring [...] 11/30/22 23:59:00 EDT, Route to Pharmacy Electronically, [facility][id number], Partial fill upon patient request if the [...] Gm, 1 Refills, Maintenance, 11/27/22 16:05:00 EDT, [facility] #[id number], Partial fill upon patient request if the prescription is for a schedule I... Start Date: 11/27/22 Status: Ordered MiraLax oral powder for reconstitution = 17 Gm, By Mouth, Daily, dissolve in water before taking, # 255 Gm, 0 Refills, Maintenance, 11/30/22 23:59:00 EDT, REC Powder, [facility] #[id number], Partial fill upon patient request if the prescription is for a schedule II opioid drug., 17 Gm... Start Date: 11/30/22 Status: Ordered mupirocin 2% topical ointment See Instructions, apply sparingly to nipple after each feed, do not remove before next feed, # 22 Gm, 1 Refills, Maintenance, 11/27/22 16:05:00 EDT, [facility] #[id number], Partial fill upon patient request if the prescription is for a schedule I... Start Date: 11/27/22 Status: Ordered Prenatabs Rx oral tablet 1 tablet, By Mouth, Daily, # 30 tablet, 11 Refills, Maintenance, 06/05/22 8:47:00 EDT, Tablet, [facility] #[id number], Partial fill upon patient request if the prescription is for a schedule II opioid drug., 1 tablet By Mouth Daily, 165, cm, 05/11... Start Date: 06/05/22 Status: Ordered Slynd 4 mg oral tablet 1 tablet = 4 mg, By Mouth, Daily, # 84 tablet, 3 Refills, Maintenance, 10/26/22 6:46:00 EST, Tablet, [facility] #[id number], Partial fill upon patient request if the [...] oldest [Reference Range]: 1 Height 165 cm (12/22/22 11:51 AM) Weight 111.1 kg (12/22/22 11:51 AM) Oxygen Saturation [94-100 %] 99 % (12/22/22 11:51 AM) Pulse Rate [55-90 bpm] 98 bpm *H* (12/22/22 11:51 AM) Blood Pressure [90-138/55-84 mm Hg] 131/ 77mm Hg (12/22/22 11:51 AM) Respiratory Rate [16-30 br/min] 17 br/mi n (12/22/22 11:51 AM) Temperature [96.8-100.4 DegF] 97.4 DegF (12/22/22 11:51 AM) Mode of Delivery (Oxygen) Room air (12/22/22 11:51 AM) Temperature Route Temporal (12/22/22 11:51 AM) Dry Weight 111.1 kg (12/22/22 11:51 AM) Dry Weight Obtained Via Standing scale (12/22/22 11:51 AM) Social History Social History Type Response Smoking Status Former smoker, quit more than 30 days ago; Other: quit 2019; entered on: 12/06/22 Sex Patient Care team information Care Team Personnel Name: Joe Maya MD Position: [facility] Outreach Member Role: PCP Address: Address: [address] [place] [address]- Care Team Related Persons Name: MIMI DOE Address: home [address] [facility] [address] [place] [address] Name: SANDHYA DOE Address: [employer] Address: home [address] [place] [address] Name: KEYANA HOLLAND Address: home [address] [place] [address] Name: ELTON LEAHY Address: home [address] [facility] [address] [place] [address]
--- OUTSIDE RECORDS SUMMARY | 2023-03-19 17:33 | XMS_ITS | Continuity of Care Document ---
Author Name Unknown Organization [facility] ter Address [address] [place] [address]- Care Team Providers Care Space Control Agent Name Role Phone Zulma LEIVA, Joe Primary Care Physician Encounter [facility] Date(s): 08/23/22 - 08/23/[address] [address] Discharge Disposition: A-D/C Home Attending [...] Refills, Maintenance, 05/07/22 9:41:00 EDT, Chew Tablet, [facility] #[id number], Partial fill upon patient request if the prescription is for a schedule II opioid drug., 165, cm, 05/07/22... Start Date: 05/07/22 Status: Ordered ondansetron 4 mg oral tablet, disintegrating 1 tablet = 4 mg, By Mouth, Every 8 hours, PRN Nausea & Vomiting, # 10 tablet, 0 Refills, Maintenance, 08/11/22 13:02:00 EST, Tablet, [facility] #[id number], Partial fill upon patient requestif the prescription is for a schedule II opioid drug.,... Start Date: 08/11/22 Status: Ordered Prenatabs Rx oral tablet 1 tablet, By Mouth, Daily, # 30 tablet, 11 Refills, Maintenance, 06/05/22 8:47:00 EDT, Tablet, [facility] #[id number], Partial fill upon patient request if the [...] recent to oldest [Reference Range]: 1 Weight 114.1 kg (08/23/22 6:43 PM) Respiratory Rate [16-30 br/min] 18 br/mi n (08/23/22 6:58 PM) Temperature [96.8-100.4 DegF] 98.5 DegF (08/23/22 6:58 PM) Blood pressure sites Arm, right (08/23/22 6:58 PM) Temperature Route Oral (08/23/22 6:58 PM) Weight Obtained Via Standing scale (08/23/22 6:43 PM) Social History Social History Type Response Smoking Status Former smoker, quit more than 30 days ago entered on: 04/23/22 Sex Note * Sherry Godfrey RN: PERFORM Event Display: Discharge/Transfer Note Hospital Authored Date: [id number] Nursing Discharge Note Entered On: 08/23/2022 21:21 EST Performed On: 08/23/2022 21:20 EST by Sherry Godfrey RN Nursing Discharge Note 2 Discharge Time : 08/23/2022 21:05 EST Discharge Level of Care at Discharge : Home/Usp/Foster Care Patient Left Unit Via : Ambulatory Patient Accompanied Off Unit with : Significant other DC Instructions Provided & Signed by Pt : Yes Patient Understands D/C Instructions : Yes Patient Instructions Discharge Signed : Yes Did Pt have Specialty Bed or Wound Vac : No Sherry Godfrey RN - 08/23/2022 21:20 EST * Sherry Godfrey RN: PERFORM Event Display: Patient Education/Instruction Authored Date: [id number] Inpatient Adult Discharge Instructions [address] [address] Name: DHEERAJ LEAHY : 1990 Visit: 08/23/2022 18:11:00 Current Date: 08/23/2022 20:56 Account: [id number] Inpatient Adult Discharge Instructions We would like [...] and their families. Surveys are administered by [employer] ?? If further treatment with your primary care physician or another doctor is recommended, it is important for you to keep the appointment. Call your primary care physician or return to the Emergency Department immediately if your condition worsens, fails to improve, or new symptoms develop. If you need to find a doctor, you can call [facility] for a referral at [phone] or toll free at [phone] ([phone]) or log in to [email or web address].. ?? You can view and manage your care through the patient portal or by using a health care ramesh of your choosing. [employer] is a website that allows you to [...] office visit. You have been discharged from [facility], Patient Care Unit: WETU1. If you have any questions regarding these instructions after you leave, please call us and we will be happy to assist you. [facility] Your Care Team Attending Physician Cruz LEIVA [OB]Edita Tests Performed Below is a partial list of the tests performed during your hospitalization. You may have had other tests and procedures not included in this list. Please discuss all test results with your provider. Complete Urinalysis Primary Care Provider Joe Maya MD Advance Directive Health Care Proxy on File No No qualifying data available. Discharge Vitals Temperature: 98.5 DegF Weight: 114.1 kg Respiratory Rate: 18 br/min ?? Studies Pending All tests and labs ordered during this hospital stay have been completed unless listed below. Please discuss all pending results with your provider listed above in these instructions. ?? Urine Culture What to do next Instructions From Your Doctor Discharge Orders Scheduled Follow-Up Appointments Saturday 1:00 PM EST ?? With: Therese Sepulveda DO Where: [facility] - [address] - 2022 2:00 PM EST ?? With: Kendra Diaz MD Where: [address] - 2022 11:00 AM EST ?? With: Marti Moore DO Where: [address] - Saturday 8:40 AM EST ?? With: Therese Sepulveda DO Where: [address] - Saturday 8:40 AM EST ?? With: Therese Sepulveda DO S Where: [address] - Saturday 8:40 AM EST ?? With: Therese Sepulveda DO Where: [address] - Discharge Medications DHEERAJ LEAHY :1990 Visit Date:08/23/2022 Medications: Please continue your medications until treatment [...] oral tablet) 1 tab(s) Oral Daily Unchanged Ondansetron (ondansetron 4 mg oral tablet, disintegrating) 1 tab(s) Oral Every 8 hours as needed for Nausea & Vomiting Test Results Below is a partial list of the most recent Laboratory test results done prior to this discharge. You may have had other tests and procedures not included in this list. Please discuss all test resultswith your provider. Complete Urinalysis (08/23/2022) ???Appear/Color, Urine - LIGHT YELLOW???Specific [place]on, Urine - 1.016???pH, Urine - 6.5???Albumin, Urine - NEGATIVE???Glucose, Urine - NEGATIVE???Ketones, Urine - NEGATIVE???Bilirubin, Urine - NEGATIVE???Hemoglobin, Urine - NEGATIVE???Nitrite, Urine - NEGATIVE???Leukocyte, Urine - NEGATIVE???Urobi linogen - NORMAL? ?WBC's, Urine - <1 /HPF? ?RBC's, Urine - 1 /HPF? ?Squamous Epith - 1 /HPF? ?Mucus - SLIGHT Allergies (NKA means No Known Allergies) PROzac??(RASH) LaMICtal Pamprin ES Multi-Symptom Relief Formula Penelope amoxicillin penicillin Problems Active Problems??(11) ADD (attention deficit disorder)?? Anxiety?? Bipolar disorder?? Borderline personality disorder in adult?? Depression?? History of alcohol abuse?? Obesity during ? Severe obesity?? Stress at home?? Education Materials Below is the list of Educational Leaflet Providered with your Discharge Instructions. Kick Counts?? Eating Well During ?? Adapting to : Third Trimester?? Valuables and Belongings I fully understand and agree that [facility] accepts no responsibility for all my [...] are strongly encouraged to quit. Please call [employer] [facility] at [phone] or [phone] ([phone]) or log in to [email or web address] for referrals to smoking cessation programs. ?? The National Suicide Prevention Hotline is available 01/04 if you or someone you know needs to find a reason to keep living. By calling 6-065-726-talk (3340) you'll be connected to a skilled, trained counselor at a crisis center in your area. INPATIENT DISCHARGE INSTRUCTIONS SIGNATURE PAGE DHEERAJ LEAHY Location:[facility] Registration Date and Time:08/23/2022 18:11 [facility] Primary Care Physician: Zulma LEIVA [facility], I DHEERAJ LEAHY, have received the above patient education materials/instructions and have verbalized understanding. If ambulance or transport services are being used I further acknowledge being given a choice of service. ?? If you need to contact me, please call me at this number: . Patient/Shuttle Hand Name: Patient/Shuttle Hand Signature: Relationship to Patient: Witness Name/Signature: Date: * Sherry Godfrey RN: PERFORM Event Display: Patient Education Leaflets Authored Date: [id number] Kick Counts ?? 17296 Kick Counts It???s normal to worry about [...] day. ?? Last Reviewed Date: 2020 ?? [id number] [employer]. All rights reserved. This information is not intended as a substitute for professional medical care. Always follow your healthcare professional's instructions. ?? * Sherry Godfrey RN: PERFORM Event Display: Patient Education Leaflets Authored Date: [id number] Eating Well During ?? Eating Well During - Video A healthy baby begins with you.Choosing the right foods can help give you and your growing baby thenutrition you need and help you recover faster. Here are some tips to help you have a healthy . To view the video go to this web address: https://bit.ly/3vntDyd Or, scan this QR code with your smart phone Last Reviewed Date: 2019 ?? [employer]. All rights reserved. This information is not intended as a substitute for professional medical care. Always follow your healthcare professional's instructions. ?? * Sherry Godfrey RN: PERFORM Event Display: Patient Education Leaflets Authored Date: [id number] Adapting to : Third Trimester ?? 67178 Adapting to : Third Trimester Although common [...] transportation, money problems,housing, access to food, and childcare worker. If you can???t get to medical appointments, [...] help. ?? Last Reviewed Date: 2021 ?? 0726-6416 [employer]. All rights reserved. This information is not intended as a substitute for professional medical care. Always follow your healthcare professional's instructions. ?? Patient Care team information Care Team Personnel Name: Joe Maya MD Position: [facility] Outreach Member Role: PCP Address: Address: [address] [place] [address]- Care Team Related Persons Name: KEYANA HOLLAND Address: home [address] [place] [address] Name: ELTON LEAHY Address: home [address] [place] [address]
--- OUTSIDE RECORDS SUMMARY | 2023-03-19 17:33 | XMS_ITS | Continuity of Care Document ---
Author Name Unknown Organization [facility] r Address [address] [place] [address]- Care Team Providers Care Vault Maker Name Role Phone Zulma LEIVA, Joe Primary Care Physician Encounter [facility] Date(s): 10/24/20 - 01/24/[address] [address]- Encounter Diagnosis Dorsalgia, unspecified(Final) - Discharge Disposition: A-D/C Home Attending Physician: Joe Maya MD Admitting Physician: [...] 15:59:00 EST, Route to Pharmacy Electronically, [facility]/pharmacy #[id number], Partial fill upon patient request if the prescription is for a... Start Date: 09/07/20 Status: Ordered acetaminophen 325 mg oral tablet 650 mg, 2, tablet, By Mouth, 4 times a day, PRN, # 16 tablet, Refills 0, Tot. Refills 0, Maintenance, as needed for pain, 09/07/20 19:15:00 EST, Route to Pharmacy Electronically, [facility][id number], 165, cm, 09/07/20 16:22:00 EST, Height, 108... [...] 09/07/20 19:15:00 EST, Route to Pharmacy Electronically, [facility] #[id number], Partial fill upon patient request if the prescription is for a sandra... Start Date: 09/07/20 Status: Ordered ibuprofen 200 mg oral capsule 2 capsule = 400 mg, By Mouth, Every 4 hours, PRN for pain, # 24 capsule, 0 Refills, Maintenance, 09/07/20 19:15:00 EST, Capsule, [facility] #[id number], Partial fill upon patient request if the prescription is for a schedule II opioid drug., 165,... Start Date: 09/07/20 Status: Ordered Lidoderm 5% film 1 patch, Topically, Daily, remove patches after 12 hours and leave off for 12 hours before replacing. You may apply 1-2 patches to the area., # 30 patch, 0 Refills, Maintenance, 09/07/20 19:15:00 EST, [facility] #[id number], 1 patch Topically Da... Start Date: 09/07/20 Status: Ordered Problem List Condition Effective Dates Status Health Status Inform ant ADD (attention deficit disorder)(Confirmed) 1 Active Mood disorder(Confirmed) Active Raynaud's phenomenon(Confirmed) Active 1Sees Dr. Granda. Social History Social History Type Response Smoking Status Current every day candido ponce; Type: Cigarettes; Tobacco use times per day: 4 cig a day for the last 6 years; entered on: 07/28/15 Sex
--- OUTSIDE RECORDS SUMMARY | 2023-03-19 17:33 | XMS_ITS | Continuity of Care Document ---
Author Name Unknown Organization [facility] r Address [address] [place] [address]- Care Team Providers Care Information Technology Intern Name Role Phone Joe Maya MD Primary Care Physician Encounter [facility] Date(s): 11/24/20 - 12/24/[address] [address]- Attending Physician: AdmArnulfo brown Admitting Physician: Admtr, Arnulfo Referring Physician: Admtr, Ar8 Allergies, Adverse Reactions, Alerts Substance Reaction Severity Status amoxicillin Active penicillin Active LaMICtal Active PROzac RASH Unknown Active Pamprin ES Multi-Symptom Relief Formula Active Penelope Active Immunizations Given and Recorded [...] 09/07/20 15:59:00 EST, Route to Pharmacy Electronically, [facility]/pharmacy #[id number], Partial fill upon patient request if the prescription is for a... Start Date: 09/07/20 Status: Ordered acetaminophen 325 mg oral tablet 650 mg, 2, tablet, By Mouth, 4 times a day, PRN, # 16 tablet, Refills 0, Tot. Refills 0, Maintenance, as needed for pain, 09/07/20 19:15:00 EST, Route to Pharmacy Electronically, [facility]#[id number], 165, cm, 09/07/20 16:22:00 EST, Height, 108... [...] 09/07/20 19:15:00 EST, Route to Pharmacy Electronically, [facility] #[id number], Partial fill upon patient request if the prescription is for a sandra... Start Date: 09/07/20 Status: Ordered ibuprofen 200 mg oral capsule 2 capsule = 400 mg, By Mouth, Every 4 hours, PRN for pain, # 24 capsule, 0 Refills, Maintenance, 09/07/20 19:15:00 EST, Capsule, [facility] #[id number], Partial fill upon patient request if the prescription is for a schedule II opioid drug., 165,... Start Date: 09/07/20 Status: Ordered Lidoderm 5% film 1 patch, Topically, Daily, remove patches after 12 hours and leave off for 12 hours before replacing. You may apply 1-2 patches to the area., # 30 patch, 0 Refills, Maintenance, 09/07/20 19:15:00 EST, [facility] #[id number], 1 patch Topically Da... Start Date: 09/07/20 Status: Ordered Problem List Condition Effective Dates Status Health Status Inform ant ADD (attention deficit disorder)(Confirmed) 1 Active Mood disorder(Confirmed) Active Raynaud's phenomenon(Confirmed) Active 1Sees Dr. Granda. Social History Social History Type Response Smoking Status Current every day sm oker; Type: Cigarettes; Tobacco use times per day: 4 cig a day for the last 6 years; entered on: 07/28/15 Sex
--- OUTSIDE RECORDS SUMMARY | 2023-03-19 17:33 | XMS_ITS | Continuity of Care Document ---
Author Name Unknown Organization [facility] Address [address] [place] [address]- Care Team Providers Care Chargeback Analyst Name Role Phone Joe Maya MD Primary Care Physician Encounter [facility] Date(s): 12/24/22 - 01/23/[address] [address] Allergies, Adverse Reactions, Alerts [...] capsule, 0 Refills, Maintenance, 01/14/23 9:11:00 EDT, [facility] #[id number], 165, cm, 01/03/23 14:19:00 EDT, Height, 110.7, kg, 12/22/22 17:16:00 EDT, Dry Weight Start Date: 01/14/23 Status: Ordered M- Plus oral tablet 1 tablet, By Mouth, Daily, # 90 tablet, 0 Refills, Maintenance, 01/18/23 12:12:00 EDT, [facility] #[id number], Partial fill upon patient request if the prescription is for a schedule II opioid drug., 1 tablet By Mouth Daily, 165, cm, 01/03/23 14:... Start Date: 01/18/23 Status: Ordered miconazole 2% topical ointment See Instructions, apply sparingly to nipple after each feed, do not remove before next feed, # 45 Gm, 1 Refills, Maintenance, 11/27/22 16:05:00 EDT, [facility] #[id number], Partial fill upon patient request if the prescription is for a schedule I... Start Date: 11/27/22 Status: Ordered MiraLax oral powder for reconstitution = 17 Gm, By Mouth, Daily, dissolve in water before taking, # 255 Gm, 0 Refills, Maintenance, 11/30/22 23:59:00 EDT, REC Powder, [facility] #[id number], Partial fill upon patient request if the prescription is for a schedule II opioid drug., 17 Gm... Start Date: 11/30/22 Status: Ordered mupirocin 2% topical ointment See Instructions, apply sparingly to nipple after each feed, do not remove before next feed, # 22 Gm, 1 Refills, Maintenance, 11/27/22 16:05:00 EDT, [facility] #[id number], Partial fill upon patient request if the prescription is for a schedule I... Start Date: 11/27/22 Status: Ordered Prenatabs Rx oral tablet 1 tablet, By Mouth, Daily, # 30 tablet, 11 Refills, Maintenance, 06/05/22 8:47:00 EDT, Tablet, [facility] #[id number], Partial fill upon patient request if the [...] Outreach Member Role: PCP Address: Address: [address] [place] [address]- Care Team Related Persons Name: MIMI DOE Address: home [address] [address] Name: SANDHYA DOE Address: [employer] Address: home [address] [place] [address] [place] Name: KEYANA HOLLAND Address: home [address] [place] [address] Name: ELTON LEAHY Address: home [address] [address]
[2023-03-19 20:17] VITALS: BP 127/74; PULSE 94; RESP 18; TEMP 36.5; O2SAT 99
[2023-03-19 20:30] VITALS: BMI 6927.0
--- NOTE | 2023-03-19 20:33 | PC.ADMIT ---
Nursing admission note: 32 year old female DX: BiPolar disorder, Borderline personality disorder. Referred by CARE team for admission, signed conditional voluntary. [facility]. States she would like transfer to [facility] as soon as a bed is available . Patient engages however irritable. A+O x4. Patient arrives in hospital attire, skin check completed with RN . Mood anxious, depressed, labile. Speech normal rate, mumbles, loud at times. Good eye contact. Tangential, loose associations. Feels hopeless, overwhelmed. Intermittent SI. History of cutting, superficial scratches r upper arm. Various healed mosquito bites over body. No overt psychosis or expressed delusions, reports she will occasionally hear her name being called. Patient is 5 months , cholecystectomy in January 2023. Allergies to PCN, Amoxicillin, Sertraline, Lamictal, Fluoxetine. TOX screen negative. Patient oriented to unit, placed on unit safety checks. See nursing assessment, crisis eval for further details.
[2023-03-20 08:05] VITALS: BP 121/67; PULSE 96; RESP 18; TEMP 36.3; O2SAT 97
[2023-03-20] MEDS: Dextroamphetamine/Amphetamine XR 10 MG CAP.ER.24H 40 MG PO (08:31)
[2023-03-20] MEDS: OLANZapine 5 MG TABLET PO ×2 (08:31→14:38)
[2023-03-20] MEDS: buPROPion HCl XL 150 MG TAB.ER.24H PO (08:31)
[2023-03-20] MEDS: Ibuprofen 600 MG TABLET PO (08:35)
[2023-03-20] MEDS: clonazePAM 1 MG TABLET 2 MG PO (08:35)
[2023-03-20 08:51] LABS: Estimated Average Glucose 88 mg/dL; Hemoglobin A1C 94.8865 umol/L; Hemoglobin A1c % 4.7 %
[2023-03-20 09:13] LABS: Cholesterol 182 mg/dL; HDL Cholesterol 58 mg/dL; LDL Cholesterol Calculated 102 mg/dl; Triglycerides 112 mg/dL
[2023-03-20 09:21] LABS: TSH reflex Free T4 2.63 uIU/mL (0.32-4.0)
[2023-03-20] MEDS: hydrOXYzine HCL 50 MG TABLET PO (11:08)
[2023-03-20] MEDS: OLANZapine ODT 10 MG TAB.RAPDIS TRANSLINGU (11:08)
[2023-03-20] MEDS: Nicotine 21 MG PATCH.TD24 TRANSDERMA (11:12)
--- NOTE | 2023-03-20 13:32 | P.CONHOSP_ITS ---
History of Present Illness Data of Consult Service Date: 03/20/23 Primary Care Provider: Unknown Physician HPI Reason for consult: Admission H&P Pt is a 32-year-old female with a PMH significant for?hx of cholecystectomy and incarcerated umbilical hernia who is admitted to psychiatry unit for . Medical consult for admission H&P. ? Labs reviewed, significant for [facility] Medical History Anemia Anxiety with depression Borderline personality disorder Dissociative disorder Dysplasia of cervix, low grade (WILBER 1) Edema History of heart disorder Hx of gastroesophageal reflux (GERD) Kidney stones Morbid obesity Nodule of left lung Normal endoscopic ultrasound of upper gastrointestinal tract Family History Family/Other Breast cancer Mother No problems noted. Father Diabetes Maternal Grandmother HTN (hypertension) Surgical History History of dental surgery Hx laparoscopic cholecystectomy Social History Alcohol intake: current Alcohol intake frequency: 0-2 drinks per day Alcohol type: beer and hard liquor Patient Tobacco Use Status: Former Tobacco user Tobacco use type: Cigarette Second Hand Smoke Exposure: No Currently Displaying Signs/Symptoms of Drug Intoxication Withdrawal: No Special kd needs: No Agree to transfusion: Yes Advance Directives: No Advance Directives Information Provided: No Do you have thoughts of harming others: None Do you have a plan to hurt others: No Plan service: No Current occupational status: unemployed Sexual orientation: Bisexual Gender identity: Female Meds Allergies Allergy/AdvReac Type Severity Reaction Status Date / Time fluoxetine [Prozac] Allergy Severe Unknown Verified 01/29/23 13:41 lamotrigine [Lamictal] Allergy Severe Unknown Verified 01/29/23 13:41 penicillin V Allergy Severe Shortness Verified 01/29/23 13:41 of Breath sertraline [Zoloft] Allergy Severe Agitated Verified 01/29/23 13:41 amoxicillin [AMOXICILLIN] Allergy Intermediate Shortness Verified 01/29/23 13:41 of Breath Penicillins [PENICILLINS] Allergy Intermediate Shortness Verified 01/29/23 13:41 of Breath Active Medications: Current Medications Acetaminophen (Acetaminophen 325 Mg Tablet) 650 mg PO Q6H PRN PRN Reason: Headache/Pain Mild Scale (1-3) Al Hydroxide/Mg Hydroxide (Magnesium Hydrox/Alum Hydrox 30 Ml Oral.Susp) 30 ml PO Q6H PRN PRN Reason: Heartburn/Nausea Amphetamine/Dextroamphetamine (Dextroamphetamine/Amphetamine Xr 10 Mg Cap.Er.24h) 40 mg PO DAILY [facility] Last Admin: 03/20/23 08:31 Dose: 40 mg Bupropion HCl (Bupropion Hcl Xl 150 Mg Tab.Er.24h) 150 mg PO DAILY [facility] Last Admin: 03/20/23 08:31 Dose: 150 mg Clonazepam (Clonazepam 1 Mg Tablet) 2 mg PO BID PRN PRN Reason: anxiety Last Admin: 03/20/23 08:35 Dose: 2 mg Hydroxyzine HCl (Hydroxyzine Hcl 50 Mg Tablet) 50 mg PO BEDTIME PRN PRN Reason: Insomnia Last Admin: 03/20/23 11:08 Dose: 50 mg Magnesium Hydroxide (Milk Of Magnesia 30 Ml Oral.Susp) 30 ml PO DAILY PRN PRN Reason: Constipation Nicotine (Nicotine 21 Mg Patch.Td24) 21 mg TRANSDERMA DAILY PRN PRN Reason: smoking cessation Last Admin: 03/20/23 11:12 Dose: 21 mg Nicotine Polacrilex (Nicotine Polacrilex 2 Mg Gum) 4 mg BUCCAL Q2H PRN PRN Reason: Nicotine Cravings Olanzapine (Olanzapine 5 Mg Tablet) 5 mg PO TID [facility] Last Admin: 03/20/23 08:31 Dose: 5 mg Olanzapine (Olanzapine Odt 10 Mg Tab.Rapdis) 10 mg TRANSLINGU BID PRN PRN Reason: agitation Last Admin: 03/20/23 11:08 Dose: 10 mg Trazodone HCl (Trazodone Hcl 50 Mg Tablet) 50 mg PO BEDTIME MRX1 PRN PRN Reason: Insomnia Home Medications Medication Instructions Recorded Confirmed Last Taken Type bupropion HCl 150 mg 24 hr tablet, 150 mg PO DAILY 12/26/22 03/19/23 03/19/23 09:25 History extended release (Wellbutrin XL) dextroamphetamine-amphetamine ER 40 mg PO DAILY 01/02/23 03/19/23 03/19/23 09:25 History 20 mg 24hr capsule,extend release 40 mg (Adderall XR) acetaminophen 325 mg tablet 325 mg PO Q4H PRN Pain 01/13/23 03/20/23 01/12/23 History (Tylenol) dextroamphetamine-amphetamine 20 1 tab PO DAILY@1600 01/13/23 03/20/23 01/10/23 History mg tablet docusate sodium 100 mg capsule 100 mg PO BID PRN constipation 01/13/23 01/13/23 01/12/23 History (Colace) miconazole nitrate 2 % topical 1 appl topical DAILY PRN 01/13/23 03/19/23 Unknown History cream (Antifungal (miconazole)) oxycodone 5 mg capsule 5 mg PO Q4H PRN pain 01/13/23 01/13/23 01/12/23 History polyethylene glycol 3350 17 17 g PO DAILY 01/13/23 01/13/23 Unknown History gram/dose oral powder vitamin with calcium 1 tab PO DAILY 01/13/23 01/13/23 Unknown History no.72-iron 27 mg-folic acid 1 mg tablet (WesTab Plus) clonazepam PRN Anxiety 03/19/23 03/19/23 09:28 History 2 mg ibuprofen pain 03/19/23 03/18/23 18:02 History olanzapine 03/19/23 03/19/23 09:25 History 5 mg trazodone 03/19/23 Unknown History Physical Exam Vital Signs and Narrative: Vital Signs: Last Vital Signs Temp 97.3 F 03/20/23 08:05 Pulse 96 03/20/23 08:05 Resp 18 03/20/23 08:05 BP 121/67 03/20/23 08:05 Pulse Ox 97 03/20/23 08:05 O2 Del Method Room Air 03/20/23 08:05 BMI result Body Mass Index 6927.0 Results Labs Labs: Laboratory Results - last 24 hr 03/20/23 03/20/23 08:32 08:32 Estimat Average Glucose 88 Hemoglobin A1c % 4.7 Triglycerides 112 Cholesterol 182 LDL Cholesterol, Calc 102 HDL Cholesterol 58 TSH 2.63 Assessment and Plan Time Spent With Patient Time: Total time managing care of this patient today ____ minutes.
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
--- NOTE | 2023-03-20 14:27 | PM.EVENT ---
Event Note Date of Service: 03/20/23 Event Note: Patient is a 32-year-old female with PMH bipolar disorder borderline personality disorder, intermittent explosive disorder, and cholecystectomy in January 2023 who was admitted to [facility] psychiatry unit for increasing depression with SI. Attempted to see patient for admission history and physical, but patient already discharged less than 24 hours after admission. Time Spent With Patient Time: Total time managing care of this patient today ____ minutes.
[2023-03-20] MEDS: clonazePAM 1 MG TABLET PO (14:38)
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
== END 2023-03-20 14:51 | disposition home or self-care (01) | DRG 752 ==
PROVIDERS: Psychiatry & Neurology Psychiatry; Admitting Provider Psychiatry & Neurology Psychiatry; Visit Provider Psychiatry & Neurology Psychiatry
DX: F60.3 Borderline personality disorder (principal); R45.851 Suicidal ideations; Z79.899 Other long term (current) drug therapy
CPT/HCPCS: 36415; 80061; 83036; 84443

== ENCOUNTER → 2023-03-19 17:27 | Outpatient (BNV) | payer OTHER, SELFPAY | PROVIDERS: Admitting Provider Psychiatry & Neurology Psychiatry; Visit Provider Student in an Organized Health Care Education/Training Program | DX: F31.9 Bipolar disorder, unspecified (principal) | CPT/HCPCS: 99499 ==

== ENCOUNTER → 2023-03-19 17:27 | Outpatient (BNV) | payer OTHER, SELFPAY | PROVIDERS: Admitting Provider Psychiatry & Neurology Psychiatry; Visit Provider Psychiatry & Neurology Psychiatry | DX: F60.3 Borderline personality disorder (principal) | CPT/HCPCS: 99233 ==

== ENCOUNTER 2023-03-20 15:58 | Emergency (ER) | payer OTHER, MEDICAID, SELFPAY ==
[2023-03-20 16:17] VITALS: BP 136/84; BP 150/90; PULSE 93; PULSE 96; RESP 16; TEMP 37.3; O2SAT 97; O2SAT 99; BMI 42.9
--- NOTE | 2023-03-20 16:28 | ED.GENADULT ---
HPI - General Adult General Chief complaint: Psychiatric Symptoms Stated complaint: SI Source: patient Mode of arrival: ambulatory Limitations: no limitations History of Present Illness HPI narrative: 32-year-old female history of dissociative disorder, anxiety, depression, borderline personality disorder presenting from [facility] after being discharged from this facility earlier today, patient reports she was discharged from this facility was told to go to [facility] as she was hoping to have inpatient psychiatric admission she tells me when she arrived to [facility] they told her that they could not except her for an inpatient admission, she called 911, she reports suicidal ideation with plan to slit her wrist. Patient denies visual, auditory and tactile hallucinations. Denies drugs, alcohol and tobacco. She tells me she is suffering from depression and psychosis, she is aggravated on arrival in also complains of constipation, last bowel movement yesterday. No abdominal surgeries. Denies fevers, chills, nausea, vomiting, abdominal pain, headache, vision changes, dizziness, chest pain, shortness of breath. Related Data Home Medications Medication Instructions Recorded Confirmed bupropion HCl 150 mg 24 hr tablet, 150 mg PO DAILY 12/26/22 03/19/23 extended release (Wellbutrin XL) dextroamphetamine-amphetamine ER 40 mg PO DAILY 01/02/23 03/19/23 20 mg 24hr capsule,extend release (Adderall XR) acetaminophen 325 mg tablet 325 mg PO Q4H PRN Pain 01/13/23 03/20/23 (Tylenol) dextroamphetamine-amphetamine 20 1 tab PO DAILY@1600 01/13/23 03/20/23 mg tablet docusate sodium 100 mg capsule 100 mg PO BID PRN constipation 01/13/23 01/13/23 (Colace) miconazole nitrate 2 % topical 1 appl topical DAILY PRN 01/13/23 03/19/23 cream (Antifungal (miconazole)) oxycodone 5 mg capsule 5 mg PO Q4H PRN pain 01/13/23 01/13/23 polyethylene glycol 3350 17 17 g PO DAILY 01/13/23 01/13/23 gram/dose oral powder vitamin with calcium 1 tab PO DAILY 01/13/23 01/13/23 no.72-iron 27 mg-folic acid 1 mg tablet (WesTab Plus) clonazepam PRN Anxiety 03/19/23 ibuprofen pain 03/19/23 olanzapine 03/19/23 trazodone 03/19/23 Allergies Allergy/AdvReac Type Severity Reaction Status Date / Time fluoxetine [Prozac] Allergy Severe Unknown Verified 01/29/23 13:41 lamotrigine [Lamictal] Allergy Severe Unknown Verified 01/29/23 13:41 penicillin V Allergy Severe Shortness Verified 01/29/23 13:41 of Breath sertraline [Zoloft] Allergy Severe Agitated Verified 01/29/23 13:41 amoxicillin [AMOXICILLIN] Allergy Intermediate Shortness Verified 01/29/23 13:41 of Breath Penicillins [PENICILLINS] Allergy Intermediate Shortness Verified 01/29/23 13:41 of Breath Review of Systems Review of Systems: Constitutional : No Weight loss, No Fever, No Chills, No Fatigue, No Malaise ENT/Mouth : No sore throat, No Rhinorrhea Eyes: No Eye Pain, No Swelling, No Redness Cardiovascular : No Chest Pain, No SOB, No Dyspnea on Exertion, No Orthopnea, No Edema, No Palpitations Respiratory : No Cough, No Sputum, No Wheezing Gastrointestinal : No Nausea, No Vomiting, No Diarrhea, + Constipation, No abdominal Pain, No Hematochezia, No Melena Genitourinary : No Dysuria, No Urinary Frequency, No Hematuria, Musculoskeletal : No joint pain, No Myalgias, No Joint Swelling Skin : No Skin Lesions, No rash Neuro : No Weakness, No Numbness, No Dizziness, No Headache Psych : + Anxiety/Panic, + Depression All other systems reviewed and are negative Yes all other systems are reviewed and are negative [facility] Past Medical History Attestation statement: The following information was validated with the patient. Source: old records reviewed and nursing notes reviewed Medical History Anemia Anxiety with depression Borderline personality disorder Dissociative disorder Dysplasia of cervix, low grade (WILBER 1) Edema History of heart disorder Hx of gastroesophageal reflux (GERD) Kidney stones Morbid obesity Nodule of left lung Normal endoscopic ultrasound of upper gastrointestinal tract Surgical History History of dental surgery Hx laparoscopic cholecystectomy Family History Family History Family/Other Breast cancer Mother No problems noted. Father Diabetes Maternal Grandmother HTN (hypertension) Social History Social History Alcohol intake: current Alcohol intake frequency: 0-2 drinks per day Alcohol type: beer and hard liquor Patient Tobacco Use Status: Former Tobacco user Tobacco use type: Cigarette Second Hand Smoke Exposure: No Special kd needs: No Agree to transfusion: Yes Advance Directives: Yes Advance Directives on File: Yes Advance Directives Date on File: 01/17/23 Patient : No service: No Current occupational status: unemployed Sexual orientation: Bisexual Gender identity: Female Physical Exam ED Vital Signs: Vital Signs - 24 hr 03/20/23 16:17 03/20/23 17:13 Temperature 99.1 F Pulse Rate 93 Respiratory Rate 16 15 Blood Pressure 136/84 Pulse Oximetry 99 Oxygen Delivery Method Room Air BMI result Body Mass Index 42.9 vss Appearance: Alert.? Oriented X3.? No acute distress.? Head: Normocephalic, atraumatic, no step-offs or deformities Eyes: Pupils equal, round and reactive to light.? ENT: Pharynx normal.? Neck: Normal inspection.? Neck supple.? CVS: Normal heart rate and rhythm.? Pulses normal.? Respiratory: No respiratory distress.? Breath sounds normal.? Abdomen: Soft and nontender.? Normoactive bowel sounds throughout. Skin: Skin warm and dry.? Normal skin color.? Normal skin turgor.? Extremities: No lower extremity edema.? No calf ttp. 5/5 strength to bilateral upper and lower extremities Neuro: Oriented X 3.? No motor deficit.? No sensory deficit. CN 2-12 intact . Ambulating with steady gait normal coordination. Course Reevaluation(s) Reevaluation #1: CBC appears to be within normal limits. Chemistry with no acute findings requiring intervention. BUN is slightly elevated however patient tolerating p.o. fluids. Patient's alk-phos chronically elevated no acute findings no abdominal pain on palpation. UA without infection. Patient is positive for amphetamines. Negative salicylates, acetaminophen and ethanol. At this time patient to be placed in observation to allow more time to be evaluated by care team pending disposition. Time: 18:53 Medications Administered Discontinued Medications Generic Name Dose Route Start Last Admin Trade Name Freq PRN Reason Stop Dose Admin Clonazepam 2 mg 03/20/23 16:50 03/20/23 17:04 Clonazepam 1 Mg Tablet PO 03/20/23 16:51 2 mg ONCE ONE Administration Docusate Sodium 100 mg 03/20/23 16:34 03/20/23 17:04 Docusate Sodium 100 Mg Capsule PO 03/20/23 16:35 100 mg ONCE ONE Administration Senna 15 ml 03/20/23 16:34 03/20/23 17:04 Senna [place] Extract Oral Syrup 15 Ml Syrup PO 03/20/23 16:35 15 ml ONCE ONE Administration Medical Decision Making Medical Decision Making [facility] Narrative: 32-year-old female presents with anxiety, depression, suicidal ideation, and constipation. Discharge from this facility earlier today. Hoping for inpatient hospital admission Physical examination benign. Normoactive bowel sounds throughout. Abdomen soft nontender nondistended. This is likely borderline personality disorder with anxiety, depression and possible psychosis/depression. Constipation likely functional in possibly medication induced. No signs of small or large bowel obstruction. Plan at this time medical clearance evaluation by behavioral health team. Will give senna and Colace for constipation. Differential Diagnosis Differential Diagnoses: The differential diagnosis associated with the presentation includes This is likely borderline personality disorder with anxiety, depression and possible psychosis/depression. Constipation likely functional in possibly medication induced. No signs of small or large bowel obstruction. Admission/Observation Consideration of admission/observation: Escalation of care including admission/observation considered possible Consult Healthcare Provider Management of the patient was discussed with: Behavioral Health Provider Lab Data [facility] Lab Attestation statement: I reviewed the patient's lab results. 03/20/23 17:19 03/20/23 17:19 Labs: Lab Results 03/20/23 03/20/23 03/20/23 Range/Units 16:46 16:46 17:19 WBC 9.8 (4.8-10.8) X10*3/uL RBC 4.73 D (4.20-5.50) X10*6/uL Hgb 13.7 D (12.0-16.0) g/dl Hct 42.8 D (37.0-47.0) % MCV 90.5 (80.0-98.0) fL MCH 29.0 (27.0-33.0) pg MCHC 32.0 (31.0-35.0) g/dl RDW 15.0 (11.0-16.0) % Plt Count 491 H D (160-400) X10*3/uL MPV 8.4 L (9.4-12.3) fL Immature Gran % (Auto) 0.3 (0.0-0.4) % Neut % (Auto) 66.0 (45-73) % Lymph % (Auto) 25.3 (20-40) % [place] % (Auto) 5.8 (2-11) % Eos % (Auto) 1.9 (0-4) % Baso % (Auto) 0.7 (0-2) % Lymph # (Auto) 2.5 (1.2-4.9) X10*3/uL [place] # (Auto) 0.6 (0.1-1.2) X10*3/uL Eos # (Auto) 0.2 (0.0-0.4) X10*3/uL Baso # (Auto) 0.1 (0.0-0.2) X10*3/uL Abs Immat Gran (auto) 0.03 (0.00-0.03) X10*3/uL Absolute Neuts (auto) 6.4 (2.0-8.3) x10*3/uL Absolute Nucleated RBC 0.000 (0.0-0.012) X10*3/uL Nucleated RBC % (auto) 0.0 (0.0-0.2) /100WBC Sodium (135-145) mmol/L Potassium (3.3-5.1) mmol/L Chloride (96-108) mmol/L Carbon Dioxide (22-29) mmol/L Anion Gap (12-20) BUN (9-16) mg/dL Creatinine (0.5-1.4) mg/dL Estim Creat Clear Calc Estimated GFR Random Glucose (60-115) mg/dL Calcium (8.4-10.2) mg/dL Magnesium (1.6-2.6) mg/dL Total Bilirubin (0.0-1.0) mg/dL AST (5-31) U/L ALT (0-31) U/L Alkaline Phosphatase (39-117) U/L Total Protein (6.5-8.0) g/dL Albumin (3.5-5.0) g/dL Urine Color Yellow Urine Appearance Clear Urine pH 5.5 (5.0-9.0) Ur Specific Dexter <= 1.005 (1.005-1.025) Urine Protein Negative (Neg-Trace) mg/dL Urine Glucose (UA) Negative (Negative) mg/dL Urine Ketones Negative (Negative) mg/dL Urine Blood Negative (Negative) Urine Nitrite Negative (Negative) Ur Leukocyte Esterase Negative (Negative) Salicylates (15-30) mg/dL Urine Opiates Screen Not Detected (Not Detect) Urine Fentanyl Screen Not Detected (Not Detect) Acetaminophen (<30) mcg/mL Ur Barbiturates Screen Not Detected (Not Detect) Ur Phencyclidine Scrn Not Detected (Not Detect) Ur Amphetamines Screen POSITIVE H (Not Detect) U Benzodiazepines Scrn Not Detected (Not Detect) Urine Cocaine Screen Not Detected (Not Detect) U Marijuana (THC) Screen Not Detected (Not Detect) Ethyl Alcohol mg/dL 03/20/23 03/20/23 Range/Units 17:19 17:19 WBC (4.8-10.8) X10*3/uL RBC (4.20-5.50) X10*6/uL Hgb (12.0-16.0) g/dl Hct (37.0-47.0) % MCV (80.0-98.0) fL MCH (27.0-33.0) pg MCHC (31.0-35.0) g/dl RDW (11.0-16.0) % Plt Count (160-400) X10*3/uL MPV (9.4-12.3) fL Immature Gran % (Auto) (0.0-0.4) % Neut % (Auto) (45-73) % Lymph % (Auto) (20-40) % [place] % (Auto) (2-11) % Eos % (Auto) (0-4) % Baso % (Auto) (0-2) % Lymph # (Auto) (1.2-4.9) X10*3/uL [place] # (Auto) (0.1-1.2) X10*3/uL Eos # (Auto) (0.0-0.4) X10*3/uL Baso # (Auto) (0.0-0.2) X10*3/uL Abs Immat Gran (auto) (0.00-0.03) X10*3/uL Absolute Neuts (auto) (2.0-8.3) x10*3/uL Absolute Nucleated RBC (0.0-0.012) X10*3/uL Nucleated RBC % (auto) (0.0-0.2) /100WBC Sodium 142 (135-145) mmol/L Potassium 4.3 (3.3-5.1) mmol/L Chloride 107 (96-108) mmol/L Carbon Dioxide 23 (22-29) mmol/L Anion Gap 16 (12-20) BUN 18 H (9-16) mg/dL Creatinine 0.80 (0.5-1.4) mg/dL Estim Creat Clear Calc 121.1 Estimated GFR > 60 Random Glucose 79 (60-115) mg/dL Calcium 10.2 D (8.4-10.2) mg/dL Magnesium 2.2 (1.6-2.6) mg/dL Total Bilirubin 0.2 (0.0-1.0) mg/dL AST 18 (5-31) U/L ALT 23 (0-31) U/L Alkaline Phosphatase 142 H (39-117) U/L Total Protein 8.1 H (6.5-8.0) g/dL Albumin 4.2 (3.5-5.0) g/dL Urine Color Urine Appearance Urine pH (5.0-9.0) Ur Specific Dexter (1.005-1.025) Urine Protein (Neg-Trace) mg/dL Urine Glucose (UA) (Negative) mg/dL Urine Ketones (Negative) mg/dL Urine Blood (Negative) Urine Nitrite (Negative) Ur Leukocyte Esterase (Negative) Salicylates < 5.0 L (15-30) mg/dL Urine Opiates Screen (Not Detect) Urine Fentanyl Screen (Not Detect) Acetaminophen < 17 (<30) mcg/mL Ur Barbiturates Screen (Not Detect) Ur Phencyclidine Scrn (Not Detect) Ur Amphetamines Screen (Not Detect) U Benzodiazepines Scrn (Not Detect) Urine Cocaine Screen (Not Detect) U Marijuana (THC) Screen (Not Detect) Ethyl Alcohol < 10 mg/dL External Record Review External record reviewed: Inpatient record, Office record, Outpatient record, Prior outpatient labs, Prior outpatient radiology, Primary care record and Outside ED record Tests considered The following testing was considered but not selected: No indication for imaging Core Measures AMI core measures followed: Yes Measure exclusions: not indicated Critical Care Time Critical Care Time Critical Care Time: No Discharge Plan Discharge Clinical Impression: Constipation, depression, Anxiety, Feeling suicidal Patient Disposition: Still a Patient Prescriptions: No Action acetaminophen [Tylenol] 325 mg Tablet 325 mg PO Q4H PRN (Reason: Pain) miconazole nitrate [Antifungal (miconazole)] 2 % cream 1 appl topical DAILY PRN (Reason: ) Rx Instructions: apply to nipples dextroamphetamine-amphetamine 20 mg tablet 1 tab PO DAILY@1600 oxycodone 5 mg capsule 5 mg PO Q4H PRN (Reason: pain) docusate sodium [Colace] 100 mg capsule 100 mg PO BID PRN (Reason: constipation) polyethylene glycol 3350 17 gram/dose powder 17 g PO DAILY WesTab Plus 27 mg iron- 1 mg tablet 1 tab PO DAILY clonazepam 2 mg PRN (Reason: Anxiety) Rx Instructions: PO bid PRN ibuprofen 600 mg Rx Instructions: PO once for pain olanzapine 5 mg Rx Instructions: PO tid trazodone 50 mg bupropion HCl [Wellbutrin XL] 150 mg tablet extended release 24 hr 150 mg PO DAILY dextroamphetamine-amphetamine [Adderall XR] 20 mg capsule,extended release 24hr 40 mg PO DAILY
[2023-03-20] MEDS: clonazePAM 1 MG TABLET 2 MG PO (17:04)
[2023-03-20] MEDS: Docusate Sodium 100 MG CAPSULE PO (17:04)
[2023-03-20 17:13] VITALS: RESP 15
[2023-03-20 17:17] LABS: Appearance Urine Clear; Color Urine Yellow; Glucose Urine UA Negative (Negative); Leukocyte Esterase Urine Negative (Negative); Nitrite Urine Negative (Negative); PH 5.5 (5.0-9.0); Specific Gravity - Urine <= 1.005 (1.005-1.025); Urine Blood Negative (Negative); Urine Ketones Negative (Negative); Urine Protein Negative (Neg-Trace)
[2023-03-20 17:24] LABS: Amphetamine Screen Urine POSITIVE (Not Detect); Barbiturates, Urine Not Detected (Not Detect); Benzodiazepines Screen Urine Not Detected (Not Detect); Cannabinoid Screen Urine Not Detected (Not Detect); Cocaine Screen Urine Not Detected (Not Detect); Fentanyl, urine Not Detected (Not Detect); Opiate Screen Urine Not Detected (Not Detect); Phencyclidine Screen Urine Not Detected (Not Detect)
[2023-03-20 17:30] LABS: MANUAL DIFF FLAG NO
[2023-03-20 17:31] LABS: Basophils Absolute Auto 0.1 X10*3/uL (0.0-0.2); Basophils Percent Auto 0.7 % (0-2); Eosinophils Absolute Auto 0.2 X10*3/uL (0.0-0.4); Eosinophils Percent Auto 1.9 % (0-4); Hematocrit 42.8 % (37.0-47.0); Hemoglobin 13.7 g/dl (12.0-16.0); Imm Gran Abs Auto 0.03 X10*3/uL (0.00-0.03); Imm Gran Pct Auto 0.3 % (0.0-0.4); Lymphocytes Absolute Auto 2.5 X10*3/uL (1.2-4.9); Lymphocytes Percent Auto 25.3 % (20-40); Mean Corpuscular Volume 90.5 fL (80.0-98.0); Mean Platelet Volume 8.4 fL (9.4-12.3); Monocytes Absolute Auto 0.6 X10*3/uL (0.1-1.2); Monocytes Percent Auto 5.8 % (2-11); Neutrophils Absolute Auto 6.4 x10*3/uL (2.0-8.3); Platelet Count 491 X10*3/uL (160-400); Red Blood Count 4.73 X10*6/uL (4.20-5.50); White Blood Count 9.8 X10*3/uL (4.8-10.8)
[2023-03-20 17:48] LABS: Alanine Aminotransferase 23 U/L (0-31); Albumin Level 4.2 g/dL (3.5-5.0); Alkaline Phosphatase 142 U/L (39-117); Anion Gap 16 (12-20); Aspartate Amino Transferase 18 U/L (5-31); Bilirubin Total 0.2 mg/dL (0.0-1.0); Blood Urea Nitrogen 18 mg/dL (9-16); Calcium 10.2 mg/dL (8.4-10.2); Carbon Dioxide 23 mmol/L (22-29); Chloride 107 mmol/L (96-108); Creatinine Clr Calc Pharmacy 121.1; Estimated Glomerular Filt Rate > 60; Ethanol < 10 mg/dL; Glucose Random 79 mg/dL (60-115); Magnesium 2.2 mg/dL (1.6-2.6); Potassium 4.3 mmol/L (3.3-5.1); Sodium 142 mmol/L (135-145); Total Protein 8.1 g/dL (6.5-8.0)
[2023-03-20 17:50] LABS: Salicylate < 5.0 mg/dL (15-30)
[2023-03-20 18:12] LABS: Acetaminophen LAB < 17 mcg/mL (<30)
[2023-03-20 19:48] VITALS: BP 120/74; PULSE 108; RESP 18; TEMP 36.2; O2SAT 97
--- NOTE | 2023-03-20 19:51 | PC.NURSE ---
patient received in the unit in the hallway interacting with staff patient showing no distress at this time patient vitals are stable at this time patient will continue to be monitored for safety
[2023-03-21] MEDS: Ziprasidone 20 MG CAPSULE PO ×2 (00:18→20:24)
--- NOTE | 2023-03-21 00:25 | PC.NURSE ---
patient received the geodon medication patient vitals are stable at this time patient likes to be called TRENTON Guzman patient will continue to be monitored for safety
--- NOTE | 2023-03-21 08:20 | PC.NURSE ---
pt sleeping. Patient requested breast pump. Per line maintenance supervisor, no breast pumps in hospital. Commutator Repairer states she will work on this.
[2023-03-21 09:07] VITALS: BP 118/77; PULSE 94; RESP 18; TEMP 36.2; O2SAT 99
--- NOTE | 2023-03-21 09:13 | PC.NURSE ---
patient requesting meds. Consult with Dr Hdz about ordering them. Cannot reorder until pharmacy reconsiles. Called pharmacy. Per pharmacy, this is low priority - they will get to it as they can. On hold with [facility] to verify prescriptions.
--- NOTE | 2023-03-21 09:21 | PC.NURSE ---
per [facility], pt was prescribed clonazepam 2mg, olazapine 5 mg 3 times/day; trazadone 50mg bedtime; buproprion 150mg daily Adderall 40 mg day
--- NOTE | 2023-03-21 09:22 | PC.NURSE ---
pt is meeting with Ananda from care team.
--- NOTE | 2023-03-21 09:49 | PHA.MEDREC ---
Addendum entered by Pasquale Estrella 03/21/23 18:31: Spoke to psych ED nurse which stated that patient mentioned also taking Geodon 20mg at bedtime. Called pharmacy to confirm to which they state the patient picked up the RX on 03/18/23. Added Geodon 20mg to patient's home med list. Original Note: Pharmacy Consult ? Medication Reconciliation Pharmacy has completed the medication reconciliation. Med rec complete using combination of claim history and discharge list from 03/20/23. Was just in this hospital and discharged less than 1 day ago.
[2023-03-21] MEDS: OLANZapine 5 MG TABLET PO ×3 (10:18→20:24)
[2023-03-21] MEDS: buPROPion HCl XL 150 MG TAB.ER.24H PO (10:18)
[2023-03-21] MEDS: Multivitamin TABLET 1 TAB PO (10:19)
[2023-03-21] MEDS: Dextroamphetamine/Amphetamine XR 10 MG CAP.ER.24H 40 MG PO (10:19)
[2023-03-21] MEDS: clonazePAM 1 MG TABLET 2 MG PO ×2 (10:43→20:24)
[2023-03-21 12:22] VITALS: RESP 16
[2023-03-21 14:00] VITALS: RESP 16
--- NOTE | 2023-03-21 14:10 | PC.NURSE ---
Notified by CARE TEAM of DCF involvement at this time.
--- NOTE | 2023-03-21 14:52 | PC.NURSE ---
Dr. Bacon at bedside. DCF worker Jagjit in [place]. Contact made. Verbalized understanding of need for belongings to be locked up prior to interview process including phone, ligature risks (lanyard), or other risks for self harm. Security updated on the plan.
--- NOTE | 2023-03-21 15:14 | PC.NURSE ---
Pt has her own battery breast pump that was in her locker, that has been utilized with a 1:1 for pt safety.
--- NOTE | 2023-03-21 15:45 | MHC.CARE ---
Jagjit Medina DCF wool spotter from [facility] came to the ED to meet with pt after 51a was filed by Mariah HAHN. He would like to be notified if she is placed as DCF is encouraging her to get treatment. [phone]. There are no current plans to remove the child, child will continue to reside with the father and grandparents att.
[2023-03-21] MEDS: Amphetamine Mixed Salts 20 MG TABLET PO (16:25)
[2023-03-21 17:40] VITALS: BP 113/62; PULSE 120; RESP 15; TEMP 36.6; O2SAT 97
--- NOTE | 2023-03-21 18:21 | PC.NURSE ---
maría in [place] confirms geodon 20mg at dinner. last picked up march 18. pharmacy will be made aware
[2023-03-21] MEDS: Ibuprofen 600 MG TABLET PO (18:26)
--- NOTE | 2023-03-21 19:36 | MHC.CARE ---
Pt accepted to [facility] for 03/22.ETA 11am. Pt going to [facility]. Address: [address] [place] [id number], accepting DR Alondra Sexton
[2023-03-21] MEDS: traZODone HCL 50 MG TABLET PO (21:25)
[2023-03-21 21:28] VITALS: BP 101/73; PULSE 118; RESP 17; TEMP 36.2; O2SAT 97
--- NOTE | 2023-03-22 05:42 | PC.NURSE ---
Patient slept through the night, no distress observed/reported, behavior non concerning but unpredictable, disposition per care team is section 12 inpatient bed search, possible bed at [facility] today per care team, VSS, medication compliant, will continue to monitor.
[2023-03-22] MEDS: Multivitamin TABLET 1 TAB PO (07:54)
[2023-03-22] MEDS: Dextroamphetamine/Amphetamine XR 10 MG CAP.ER.24H 40 MG PO (07:54)
[2023-03-22] MEDS: OLANZapine 5 MG TABLET PO (07:54)
[2023-03-22] MEDS: buPROPion HCl XL 150 MG TAB.ER.24H PO (07:54)
[2023-03-22] MEDS: polyethylene glycoL 3350 17 GM POWD.PACK PO (07:54)
--- NOTE | 2023-03-22 08:12 | PC.NURSE ---
pt awake, completed adls, ate breakfast, took morning meds. conversational, pleasant. denies physical complaints this am. nurse to nurse report given to rn ramo at [facility], pt has impending transfer for inpt psych, transport booked. [facility] for dc needs.
[2023-03-22] MEDS: clonazePAM 1 MG TABLET 2 MG PO (09:03)
[2023-03-22] MEDS: Ibuprofen 600 MG TABLET PO (09:22)
[2023-03-22 09:33] VITALS: BP 127/74; PULSE 112; RESP 16; TEMP 36.3; O2SAT 99
[2023-03-22] MEDS: ALPRAZolam 0.5 MG TABLET 1 MG PO (09:57)
== END 2023-03-22 10:50 ==
PROVIDERS: Physician Assistant; Emergency Provider Emergency Medicine Emergency Medical Services
DX: R45.851 Suicidal ideations (principal); F53.0 Postpartum depression; F41.8 Other specified anxiety disorders; K59.00 Constipation, unspecified; F44.9 Dissociative and conversion disorder, unspecified; F60.3 Borderline personality disorder; Z87.891 Personal history of nicotine dependence; E66.01 Morbid (severe) obesity due to excess calories; Z68.41 Body mass index [BMI] 40.0-44.9, adult; Z79.899 Other long term (current) drug therapy
CPT/HCPCS: 36415; 80053; 80143; 80179; 80307; 81003; 83735; 85025; 99285; S9485

== ENCOUNTER 2023-03-31 23:40 | Emergency (ER) | payer MEDICAID, SELFPAY ==
--- NOTE | ~2023-03-31 | CT_ITS ---
EXAMINATION: CT ABDOMEN AND PELVIS WITHOUT CONTRAST CLINICAL INFORMATION: Abdominal pain COMPARISON: 01/12/2023 TECHNIQUE: Multidetector volumetric imaging was performed from the superior aspect of the liver through the pubic symphysis. Sagittal and coronal reformatted images were obtained on the technologist's workstation. This CT examination was performed using dose optimization techniques as appropriate, variously including the following: *Automated exposure control *Adjustment of mA and/or kV according to patient size (this includes techniques or standardized protocols for targeted exams where dose is matched to indication/reason for exam; i.e. extremities or head) *Use of iterative reconstruction technique DLP: 948 mGy-cm FINDINGS: LUNG BASES: Not well assessed due to respiratory motion artifact. Bibasilar atelectasis is noted. LIVER, GALLBLADDER, AND BILIARY TREE: The liver is normal in size, shape, and attenuation. No focal hepatic lesion or biliary ductal dilatation is identified on this noncontrast exam. Patient is status post cholecystectomy. PANCREAS: Unremarkable. SPLEEN: Unremarkable. ADRENAL GLANDS: Unremarkable. KIDNEYS AND URETERS: Bilateral nephrograms are symmetric. No hydronephrosis or obstructing calculus identified. There is a 2 mm calculus in the lower left kidney. BLADDER: Unremarkable. GASTROINTESTINAL TRACT: Moderate stool is present throughout the colon. No evidence of bowel obstruction or wall thickening. The appendix is unremarkable. No free fluid or free air is seen. ABDOMINAL WALL: No significant hernia is appreciated. LYMPH NODES: Normal. VASCULAR: Unremarkable. PELVIC VISCERA: Unremarkable. OSSEOUS STRUCTURES: Unremarkable. CT/CT abdomen pelvis wo IV con IMPRESSION: No acute findings identified in the abdomen/pelvis. Moderate volume of stool.
[2023-03-31 23:52] VITALS: BP 132/80; PULSE 112; RESP 18; O2SAT 97; BMI 42.1
--- NOTE | 2023-04-01 00:13 | ED_ITS ---
HPI - Abdominal Pain General Chief Complaint: Abdominal Pain Stated Complaint: abd pain Time Seen by Provider: 03/31/23 23:58 Source: patient and EMS Mode of arrival: EMS Limitations: no limitations History of Present Illness HPI narrative: 32-year-old female came in by ambulance for evaluation of abdominal pain. Pain started earlier today with dull aching pain in the epigastric and right upper quadrant area, no nausea, no vomiting, no fever, no chills, no diarrhea. Patient has been passing gas and felt better. Patient had cholecystectomy and umbilical hernia repair 2 months ago, patient had a normal bowel movement earlier today, has been passing flatus. Patient stated that the pain feels better than earlier today. Related Data Home Medications Medication Instructions Recorded Confirmed bupropion HCl 150 mg 24 hr tablet, 150 mg PO DAILY 12/26/22 03/21/23 extended release (Wellbutrin XL) dextroamphetamine-amphetamine ER 40 mg PO DAILY 01/02/23 03/21/23 20 mg 24hr capsule,extend release (Adderall XR) acetaminophen 325 mg tablet 325 mg PO Q4H PRN Pain 01/13/23 03/21/23 (Tylenol) docusate sodium 100 mg capsule 100 mg PO BID PRN constipation 01/13/23 03/20/23 (Colace) miconazole nitrate 2 % topical 1 appl topical DAILY PRN 01/13/23 03/21/23 cream (Antifungal (miconazole)) polyethylene glycol 3350 17 17 g PO DAILY 01/13/23 03/21/23 gram/dose oral powder vitamin with calcium 1 tab PO DAILY 01/13/23 03/20/23 no.72-iron 27 mg-folic acid 1 mg tablet (WesTab Plus) ibuprofen 600 mg PO DAILY@1800 pain 03/19/23 03/21/23 clonazepam 2 mg tablet 2 mg PO BID PRN anxiety 03/21/23 03/21/23 dextroamphetamine-amphetamine 20 20 mg PO DAILY@1600 03/21/23 03/21/23 mg tablet (Adderall) olanzapine 10 mg tablet 5 mg PO TID 03/21/23 03/21/23 trazodone 50 mg tablet 50 mg PO BEDTIME 03/21/23 03/21/23 ziprasidone HCl 20 mg capsule 20 mg PO BEDTIME 07/13/23 07/13/23 Allergies Allergy/AdvReac Type Severity Reaction Status Date / Time fluoxetine [Prozac] Allergy Severe Unknown Verified 01/29/23 13:41 lamotrigine [Lamictal] Allergy Severe Unknown Verified 01/29/23 13:41 penicillin V Allergy Severe Shortness Verified 01/29/23 13:41 of Breath sertraline [Zoloft] Allergy Severe Agitated Verified 01/29/23 13:41 amoxicillin [AMOXICILLIN] Allergy Intermediate Shortness Verified 01/29/23 13:41 of Breath Penicillins [PENICILLINS] Allergy Intermediate Shortness Verified 01/29/23 13:41 of Breath Review of Systems Review of Systems All other systems are reviewed and are negative Constitutional: Reports as per HPI and Reports no additional constitutional complaints Eyes: Reports as per HPI and Reports no additional eye complaints Reports system reviewed and no additional complaints, except as documented Cardiovascular: Reports as per HPI and Reports no additional cardiovascular complaints Respiratory: Reports as per HPI and Reports no additional respiratory complaints Gastrointestinal: Reports as per HPI and Reports no additional gastrointestinal complaints Genitourinary: Reports no additional female genitourinary complaints Musculoskeletal: Reports no additional musculoskeletal complaints Skin/Breast: Reports system reviewed and no additional complaints, except as docu Psychiatric: Reports no additional psychiatric complaints Endocrine: Reports no additional endocrine complaints Hematologic/Lymphatic: Reports no additional hematologic/lymphatic complaints Allergic/Immunologic: Reports no additional allergic/immunologic complaints Reports system reviewed and no additional complaints, except as documented and Reports Abnormal speech present PMFSH Past Medical History Medical History Anemia Anxiety with depression Borderline personality disorder Dissociative disorder Dysplasia of cervix, low grade (WILBER 1) Edema History of heart disorder Hx of gastroesophageal reflux (GERD) Kidney stones Morbid obesity Nodule of left lung Normal endoscopic ultrasound of upper gastrointestinal tract Surgical History History of dental surgery Hx laparoscopic cholecystectomy Family History Family History Family/Other Breast cancer Mother No problems noted. Father Diabetes Maternal Grandmother HTN (hypertension) Social History Social History Alcohol intake: never Patient Tobacco Use Status: Former Tobacco user Tobacco use type: Cigarette Smoked in Last 30 Days: Yes Second Hand Smoke Exposure: No Special kd needs: No Agree to transfusion: Yes Advance Directives: Yes Advance Directives on File: Yes Advance Directives Date on File: 01/17/23 Patient : No service: No Current occupational status: unemployed Sexual orientation: Bisexual Gender identity: Female Physical Exam ED Vital Signs: Vital Signs - 24 hr 03/31/23 23:52 04/01/23 02:51 Pulse Rate 112 H 109 H Respiratory Rate 18 16 Blood Pressure 132/80 110/56 L Pulse Oximetry 97 93 Oxygen Delivery Method Room Air Room Air BMI result Body Mass Index 42.1 Vital signs have been reviewed as appeared to be correct. Blood pressure normal. Heart rate normal. Respiration rate normal. Temperature normal. Oxygen saturation normal. Appearance: Alert. Oriented X3. No acute distress. Head: Normal external exam. Normocephalic. Atraumatic. No Mohan signs noted. No raccoon eyes noted Eyes: PERRLA. EOMI. Conjunctiva and sclera normal. Eyelids normal. ENT: TM's Normal. Pharynx normal. Uvula midline. Moist mucous membranes. No trismus noted. No drooling noted. No muffled voice noted. Neck: Normal inspection. Neck supple. FROM. No adenopathy. Thyroid Normal. No meningeal signs. No neck mass noted. CVS: Normal heart rate and rhythm. Heart sound normal. No murmurs noted. Pulses normal throughout. Respiratory: No respiratory distress. Painless inspiration. Breath sounds normal. No wheezes/rales/rhonchi noted. Chest nontender. No accessory muscle usage noted or decreased air movement noted. Abdomen: Obese, Soft, right upper quadrant/epigastric tenderness with no rebound tenderness or guarding. Bowel sounds normal in all 4 quadrants. No distention noted. No organomegaly noted. No visible injury noted. Back: No CVA tenderness. Full range of motion noted. Skin: Skin warm and dry. Normal skin color. Normal skin turgor. No rashes/lesions/lacerations noted. Extremities: No lower extremity edema. Extremities exhibit normal range of motion. Extremities nontender. Neuro: Oriented X 3. Cranial nerve exam: II-XII are grossly intact No motor deficit. No sensory deficit. Reflexes normal. Medical Decision Making Medical Decision Making MDM Narrative: Patient was asked several times to give urine sample to check for UTI patient unable to give urine sample in the emergency department. Differential Diagnosis Differential Diagnoses: The differential diagnosis associated with the presentation includes (Abdominal pain due to post cholecystectomy complication, hernia, acute appendicitis, pancreatitis, electrolyte abnormality, anemia, .) Admission/Observation Consideration of admission/observation: Escalation of care including admission/observation considered Lab Data MDM Lab Attestation statement: I reviewed the patient's lab results. 04/01/23 00:23 04/01/23 00:23 Labs: Lab Results 04/01/23 04/01/23 04/01/23 Range/Units 00: 00: 00:23 WBC 9.5 (4.8-10.8) X10*3/uL RBC 3.98 L (4.20-5.50) X10*6/uL Hgb 11.4 L (12.0-16.0) g/dl Hct 34.5 L (37.0-47.0) % MCV 86.7 (80.0-98.0) fL MCH 28.6 (27.0-33.0) pg MCHC 33.0 (31.0-35.0) g/dl RDW 14.5 (11.0-16.0) % Plt Count 403 H (160-400) X10*3/uL MPV 8.5 L (9.4-12.3) fL Immature Gran % (Auto) 0.1 (0.0-0.4) % Neut % (Auto) 55.9 (45-73) % Lymph % (Auto) 31.8 (20-40) % [place] % (Auto) 7.7 (2-11) % Eos % (Auto) 3.8 (0-4) % Baso % (Auto) 0.7 (0-2) % Lymph # (Auto) 3.0 (1.2-4.9) X10*3/uL [place] # (Auto) 0.7 (0.1-1.2) X10*3/uL Eos # (Auto) 0.4 (0.0-0.4) X10*3/uL Baso # (Auto) 0.1 (0.0-0.2) X10*3/uL Abs Immat Gran (auto) 0.01 (0.00-0.03) X10*3/uL Absolute Neuts (auto) 5.3 (2.0-8.3) x10*3/uL Absolute Nucleated RBC 0.000 (0.0-0.012) X10*3/uL Nucleated RBC % (auto) 0.0 (0.0-0.2) /100WBC Sodium 141 (135-145) mmol/L Potassium 4.1 (3.3-5.1) mmol/L Chloride 106 (96-108) mmol/L Carbon Dioxide 26 (22-29) mmol/L Anion Gap 13 (12-20) BUN 24 H (9-16) mg/dL Creatinine 0.80 (0.5-1.4) mg/dL Estim Creat Clear Calc 128.8 Estimated GFR > 60 Random Glucose 87 (60-115) mg/dL Calcium 9.6 (8.4-10.2) mg/dL Magnesium 2.1 (1.6-2.6) mg/dL Total Bilirubin 0.1 (0.0-1.0) mg/dL AST 15 (5-31) U/L ALT 22 (0-31) U/L Alkaline Phosphatase 134 H (39-117) U/L Total Protein 7.2 (6.5-8.0) g/dL Albumin 3.9 (3.5-5.0) g/dL Lipase 18 (8-78) U/L Beta HCG, Quant mIU/mL COVID-19 ([facility]) Negative (Negative) COVID-19 Clin Com See Note 04/01/23 Range/Units 00:23 WBC (4.8-10.8) X10*3/uL RBC (4.20-5.50) X10*6/uL Hgb (12.0-16.0) g/dl Hct (37.0-47.0) % MCV (80.0-98.0) fL MCH (27.0-33.0) pg MCHC (31.0-35.0) g/dl RDW (11.0-16.0) % Plt Count (160-400) X10*3/uL MPV (9.4-12.3) fL Immature Gran % (Auto) (0.0-0.4) % Neut % (Auto) (45-73) % Lymph % (Auto) (20-40) % [place] % (Auto) (2-11) % Eos % (Auto) (0-4) % Baso % (Auto) (0-2) % Lymph # (Auto) (1.2-4.9) X10*3/uL [place] # (Auto) (0.1-1.2) X10*3/uL Eos # (Auto) (0.0-0.4) X10*3/uL Baso # (Auto) (0.0-0.2) X10*3/uL Abs Immat Gran (auto) (0.00-0.03) X10*3/uL Absolute Neuts (auto) (2.0-8.3) x10*3/uL Absolute Nucleated RBC (0.0-0.012) X10*3/uL Nucleated RBC % (auto) (0.0-0.2) /100WBC Sodium (135-145) mmol/L Potassium (3.3-5.1) mmol/L Chloride (96-108) mmol/L Carbon Dioxide (22-29) mmol/L Anion Gap (12-20) BUN (9-16) mg/dL Creatinine (0.5-1.4) mg/dL Estim Creat Clear Calc Estimated GFR Random Glucose (60-115) mg/dL Calcium (8.4-10.2) mg/dL Magnesium (1.6-2.6) mg/dL Total Bilirubin (0.0-1.0) mg/dL AST (5-31) U/L ALT (0-31) U/L Alkaline Phosphatase (39-117) U/L Total Protein (6.5-8.0) g/dL Albumin (3.5-5.0) g/dL Lipase (8-78) U/L Beta HCG, Quant < 2 mIU/mL COVID-19 ([facility]) (Negative) COVID-19 Clin Com ABG Data Attestation ABG: I personally reviewed and interpreted this ABG as follows: Independent Interpretation I performed an independent interpretation of an: CT Scan (Abdomen and pelvis: No acute intra-abdominal pathology.) Radiology Impression Discussion of test interpretation with radiology: I have reviewed the radiologist's reading. Discharge Plan Discharge Clinical Impression: Abdominal pain Patient Disposition: Home, Self-Care Instructions: Abdominal Pain (ED) Prescriptions: No Action acetaminophen [Tylenol] 325 mg Tablet 325 mg PO Q4H PRN (Reason: Pain) miconazole nitrate [Antifungal (miconazole)] 2 % cream 1 appl topical DAILY PRN (Reason: ) Rx Instructions: apply to nipples docusate sodium [Colace] 100 mg capsule 100 mg PO BID PRN (Reason: constipation) polyethylene glycol 3350 17 gram/dose powder 17 g PO DAILY WesTab Plus 27 mg iron- 1 mg tablet 1 tab PO DAILY ibuprofen 600 mg 600 mg PO DAILY@1800 Rx Instructions: PO once for pain clonazepam 2 mg tablet 2 mg PO BID PRN (Reason: anxiety) dextroamphetamine-amphetamine [Adderall] 20 mg Tablet 20 mg PO DAILY@1600 olanzapine 10 mg tablet 5 mg PO TID trazodone 50 mg Tablet 50 mg PO BEDTIME ziprasidone HCl 20 mg capsule 20 mg PO BEDTIME bupropion HCl [Wellbutrin XL] 150 mg tablet extended release 24 hr 150 mg PO DAILY dextroamphetamine-amphetamine [Adderall XR] 20 mg capsule,extended release 24hr 40 mg PO DAILY
--- NOTE | 2023-04-01 00:17 | PC.NURSE ---
Addendum entered by Malathi Stewart RN 04/01/23 00:20: 1:[address] Original Note: Pt reports she has been having 3 days RUQ abd pain, distention some relief with gas. Pt sent room [facility] on section reporting post depression and SI, no intent at this time.
--- NOTE | 2023-04-01 00:20 | PC.NURSE ---
ARRIVES ON SEC 12 AND SEC 21 FROM [facility]. SASHA PCT ON CONSTANT OBS WHILE IN THE ED. BELONGINGS STORED IN THE POD WITH SECURITY PER PROTOCOL. PT CHANGED TO HOSP ATTIRE.
[2023-04-01 00:32] LABS: Basophils Absolute Auto 0.1 X10*3/uL (0.0-0.2); Basophils Percent Auto 0.7 % (0-2); Eosinophils Absolute Auto 0.4 X10*3/uL (0.0-0.4); Eosinophils Percent Auto 3.8 % (0-4); Hematocrit 34.5 % (37.0-47.0); Hemoglobin 11.4 g/dl (12.0-16.0); Imm Gran Abs Auto 0.01 X10*3/uL (0.00-0.03); Imm Gran Pct Auto 0.1 % (0.0-0.4); Lymphocytes Percent Auto 31.8 % (20-40); MANUAL DIFF FLAG NO; Mean Corpuscular Hemoglobin 28.6 pg (27.0-33.0); Mean Corpuscular Volume 86.7 fL (80.0-98.0); Mean Platelet Volume 8.5 fL (9.4-12.3); Monocytes Absolute Auto 0.7 X10*3/uL (0.1-1.2); Monocytes Percent Auto 7.7 % (2-11); Neutrophils Absolute Auto 5.3 x10*3/uL (2.0-8.3); Neutrophils Percent Auto 55.9 % (45-73); Platelet Count 403 X10*3/uL (160-400); Red Blood Count 3.98 X10*6/uL (4.20-5.50); Red Cell Distribution Width 14.5 % (11.0-16.0); White Blood Count 9.5 X10*3/uL (4.8-10.8)
[2023-04-01 00:46] LABS: Alanine Aminotransferase 22 U/L (0-31); Albumin Level 3.9 g/dL (3.5-5.0); Alkaline Phosphatase 134 U/L (39-117); Anion Gap 13 (12-20); Aspartate Amino Transferase 15 U/L (5-31); Bilirubin Total 0.1 mg/dL (0.0-1.0); Blood Urea Nitrogen 24 mg/dL (9-16); Calcium 9.6 mg/dL (8.4-10.2); Carbon Dioxide 26 mmol/L (22-29); Chloride 106 mmol/L (96-108); Creatinine Clr Calc Pharmacy 128.8; Estimated Glomerular Filt Rate > 60; Glucose Random 87 mg/dL (60-115); Lipase 18 U/L (8-78); Magnesium 2.1 mg/dL (1.6-2.6); Potassium 4.1 mmol/L (3.3-5.1); Sodium 141 mmol/L (135-145); Total Protein 7.2 g/dL (6.5-8.0)
[2023-04-01 00:50] LABS: COVID-19 Test Negative (Negative); IDNOW Serial# BCCEAD1C
[2023-04-01 00:53] LABS: HCG Quantitative < 2 mIU/mL
[2023-04-01 02:51] VITALS: BP 110/56; PULSE 109; RESP 16; O2SAT 93
[2023-04-01 03:11] LABS: Appearance Urine Clear; Color Urine Yellow; Glucose Urine UA Negative (Negative); Leukocyte Esterase Urine Negative (Negative); Nitrite Urine Negative (Negative); PH 5.5 (5.0-9.0); Urine Blood Negative (Negative); Urine Ketones Negative (Negative); Urine Protein Negative (Neg-Trace)
--- NOTE | 2023-04-01 03:29 | MHC.EDTECH ---
Call out to [facility] to book BLS transport back to [facility]. ETA of [id number] 2020 was given
== END 2023-04-01 05:13 | disposition home or self-care (01) ==
PROVIDERS: Physician Assistant Medical; Emergency Provider Emergency Medicine
DX: R10.9 Unspecified abdominal pain (principal); Z87.891 Personal history of nicotine dependence; Z20.822 Contact with and (suspected) exposure to COVID-19
CPT/HCPCS: 36415; 74176; 80053; 81003; 83690; 83735; 84702; 85025; 87635; 99284

== ENCOUNTER 2023-05-08 11:23 | Outpatient (REF) | payer OTHER, SELFPAY ==
--- NOTE | ~2023-05-08 | XR_ITS ---
EXAMINATION: XR HAND, RIGHT CLINICAL INFORMATION: Pain in the third, fourth, fifth metacarpal area after trauma COMPARISON: None available. TECHNIQUE: PA, lateral, and oblique views of the right hand. FINDINGS: The bones and soft tissues are normal. No fracture. Alignment is anatomic. Joint spaces are maintained. No erosions or soft tissue calcifications. XR/XR hand RT min 3V IMPRESSION: Normal right hand.
== END 2023-05-08 11:24 | disposition home or self-care (01) ==
LOC: HO.HOSX 11:23
PROVIDERS: Visit Provider Physical Medicine & Rehabilitation
DX: S62.300A Unspecified fracture of second metacarpal bone, right hand, initial encounter for closed fracture (principal); M79.641 Pain in right hand; M77.8 Other enthesopathies, not elsewhere classified; X58.XXXA Exposure to other specified factors, initial encounter; Y93.9 Activity, unspecified; Y92.9 Unspecified place or not applicable; Y99.9 Unspecified external cause status; Z79.899 Other long term (current) drug therapy
CPT/HCPCS: 73130; 99202

== ENCOUNTER 2023-05-08 11:23 | Outpatient (AMB) | payer OTHER, SELFPAY ==
[2023-05-08 11:25] VITALS: BMI 42.1
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
== END 2023-05-08 12:22 | disposition home or self-care (01) ==
PROVIDERS: Visit Provider Physical Medicine & Rehabilitation
DX: M79.643 Pain in unspecified hand (principal); M77.8 Other enthesopathies, not elsewhere classified
CPT/HCPCS: 99204

== ENCOUNTER 2023-05-21 | Outpatient (REF) | payer OTHER, SELFPAY ==
[2023-05-23 04:51] LABS: CT PCR NOT DETECTED (Not Detect.); NG PCR NOT DETECTED (Not Detect.)
[2023-05-23 11:36] LABS: BV Int Neg Control Negative (Negative); BV Int Pos Control Positive (Positive)
== END 2023-05-21 00:01 | disposition home or self-care (01) ==
LOC: HO.HHCLNP
PROVIDERS: Visit Provider Internal Medicine
DX: R10.9 Unspecified abdominal pain (principal); Z20.2 Contact with and (suspected) exposure to infections with a predominantly sexual mode of transmission
CPT/HCPCS: 0353U; 87086; 87480; 87510; 87660

== ENCOUNTER 2023-05-22 17:55 | Outpatient (REF) | payer MEDICAID, SELFPAY | END 2023-05-22 17:56 | disposition home or self-care (01) | LOC: HO.HHCLNP 17:55 | PROVIDERS: Visit Provider Internal Medicine | DX: Z13.89 Encounter for screening for other disorder (principal) ==

== ENCOUNTER → 2023-05-24 11:30 | Outpatient (BNV) | payer OTHER, SELFPAY | PROVIDERS: Visit Provider Psychiatry & Neurology Psychiatry | DX: F60.3 Borderline personality disorder (principal); F41.8 Other specified anxiety disorders | CPT/HCPCS: 99204; 99212; 99214 ==

== ENCOUNTER 2023-06-06 11:15 | Outpatient (RCR) | payer OTHER, SELFPAY ==
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
[2023-05-24 10:36] VITALS: BP 109/97; PULSE 120; TEMP 36.6
[2023-05-24 10:39] VITALS: BMI 41.4
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
--- NOTE | 2023-05-24 13:38 | PC.NURSE ---
Megan BP 104/97 P 120. She stated while she was in the hospital her DBP ran high and pulses ran 110-117. She stated she was feeling highly anxious and was vaping nicotine prior. She has her PRN Klonopin with her and is going to take one. She stated she is taking her medications as prescribed and has not drank ETOH since February. Patient is not tremulous, no diaphoresis. Dr Shaikh is aware.
[2023-05-27 10:20] VITALS: BP 111/86; PULSE 82
--- NOTE | 2023-05-27 11:34 | PC.NURSE ---
Addendum entered by Lea Arceo RN 05/27/23 11:36: Abilify 10 mg daily prescription filled on 04/30/23. Original Note: Megan Sultana BP 111/[address] Hawa bryant. Confirmed Abilify dose with picture of prescription bottle and on patient's portal on her phone.
--- NOTE | 2023-05-28 10:56 | HO.PHPPROGNO ---
Subjective Subjective Date of Service: 05/28/23 Reason For Visit: bipolar,borderline personality d/o,anxiety Interim History: Rd is seen in a follow-up/urgent request. She recently saw her prescriber at [facility] who is actually in [place] and the visit was done virtually. Prescriptions were apparently sent to [facility] but they have not received it. She has not been able to pursue them. She is requesting refills for Abilify 15 mg daily and bupropion HCl 75 mg. She is also requesting Adderall and Ativan which I did not do an told her to contact the clinic to clarify why the prescriptions were not received by [facility]. A ten-day supply of Abilify and bupropion was sent in. She was not happy about my not doing the Adderall and Ativan but excepting of it. Medication Compliance: Yes Side effects from medications: No Review of Systems Review of Systems Yes all other systems are reviewed and are negative Mental Status Exam Mental Status Exam Narrative: In today's visit she is alert, oriented and pleasant. Normal speech. Good eye contact. Affect is appropriate and varied. No signs of psychosis. No current SI/HI. Cognitively is intact. Judgment is and Diagnostics Vital Signs (24Hr): BMI result Body Mass Index 41.4 Assessment & Plan Assessment & Plan (1) Anxiety with depression: Status: Acute Code(s): F41.8 - Other specified anxiety disorders Plan A ten-day supply of Abilify and bupropion was sent she will pursue the other prescriptions that are controlled through the clinic Patient educated on: medication risk/benefits Certification I certify that partial hospital treatment is medically necessary due to the symptoms and problems resulting from the patient's mental illness and the failure to treat the patient at the partial hospital level of care would likely result in the patient requiring inpatient psychiatric care which could not be prevented at a less intensive level of care. Total time managing care of this patient today ____ minutes. Discharge Plan Discharge Attending provider: Steven Mckinley Medications: New aripiprazole [Abilify] 15 mg tablet 15 mg PO DAILY Qty: 10 0RF bupropion HCl 75 mg tablet 75 mg PO DAILY 10 Days Qty: 10 0RF Rx Instructions: administer 6 hours apart No Action clonazepam 1 mg Tablet 2 mg PO BID PRN (Reason: Anxiety) Patient Comments: Patent reports she takes PRN Rx Instructions: Take 2 tabs BID bupropion HCl 75 mg Tablet 75 mg PO DAILY Rx Instructions: administer 6 hours apart aripiprazole 10 mg tablet 10 mg PO DAILY docusate sodium [Colace] 100 mg capsule 100 mg PO BID PRN (Reason: constipation) WesTab Plus 27 mg iron- 1 mg tablet 1 tab PO DAILY dextroamphetamine-amphetamine [Adderall] 20 mg Tablet 20 mg PO DAILY@1600 trazodone 50 mg Tablet 100 mg PO BEDTIME Rx Instructions: 2 tabs PRN HS. bupropion HCl [Wellbutrin XL] 150 mg tablet extended release 24 hr 150 mg PO DAILY dextroamphetamine-amphetamine [Adderall XR] 20 mg capsule,extended release 24hr 40 mg PO DAILY
--- NOTE | 2023-05-28 15:52 | HO.PHP ---
Addendum entered by Dayana Ch 05/29/23 09:49: 05/28/2023: When Rd was talking about her frustration regarding the step-daughters mother, she had noted that she wants to fight her. [facility] staff explored further what she meant by that. Rd disclosed that she is not going to act on anything because she does not want to lose her daughter. Rd clarified that it is just a thought because of how upset she is for this individual publicizing her mental health struggles. Original Note: For the purpose of this documentation Megan prefers to be called Rd. [facility] staff member met with Rd to review her treatment plan. Rd was emotional due to a situation that unraveled with her step-daughters mother and her financial situation. Rd expressed fear of being evicted from there current living situation due to her boyfriend not receiving PFMLA and its current status is still pending. PHP staff explored if they have supports that can help them in this situation. Rd mentioned her mother already helped them and the boyfriends mother is trying to help as well but they don't have enough to make upcoming rent. PHP staff suggested that Rd further explore with DCF. Rd mentioned she has and they provided suggestions that they don't qualify for. PHP staff was receptive. PHP staff actively listened to Rd discuss frustrations around medications not being refilled correctly. PHP staff and Rd talked about ways to manage stress and continued to encourage Rd to process this further with her OP therapist. Rd was receptive.
--- NOTE | 2023-05-30 17:10 | HO.PHP ---
Clients case was reviewed and opened today in treatment team.
--- NOTE | 2023-05-31 15:59 | HO.PHP ---
For the purpose of this documentation, Megan prefers to be called Rd. [facility] staff sat with Rd to contact [facility] to inquire about the Full DBT group. Rd left a VM with her information and is awaiting a phone call back.
--- NOTE | 2023-06-04 12:15 | P.PNPSP_ITS ---
Subjective Subjective Date of Service: 06/04/23 Reason For Visit: bipolar,borderline personality d/o,anxiety Interim History: Rd is seen for follow-up but her request. She is still running short on Abilify 15 mg on a 1 month supply was sent in. She talked at length about her housing situation and dilemma, being late on her rent and not having any options at this point. She also talked about wanting to DBT because of her irritability and anger and how to cope with that. She is having hard time finding a location that provides that. Again she tried to have her Adderall increased which I refused. Review of Systems Review of Systems Yes all other systems are reviewed and are negative Mental Status Exam Mental Status Exam Narrative: In today's visit she is alert, oriented and pleasant. Normal speech. Good eye contact. Affect is appropriate and varied. No signs of psychosis. No current SI/HI. Cognitively is intact. Judgment is and Diagnostics Vital Signs (24Hr): BMI result Body Mass Index 41.4 Assessment & Plan Assessment & Plan (1) Borderline personality disorder: Status: Acute Code(s): F60.3 - Borderline personality disorder (2) Anxiety with depression: Status: Acute Code(s): F41.8 - Other specified anxiety disorders Plan Continue PHP. A 1 month supply of Abilify was sent in Patient educated on: medication risk/benefits Certification I certify that partial hospital treatment is medically necessary due to the symptoms and problems resulting from the patient's mental illness and the failure to treat the patient at the partial hospital level of care would likely result in the patient requiring inpatient psychiatric care which could not be prevented at a less intensive level of care. Total time managing care of this patient today ____ minutes. Discharge Plan Discharge Attending provider: Steven Mckinley Additional Instructions: OP therapy appointment is scheduled for May 30, 2023 at 4 PM. OP therapist is Patience Buchanan through [facility]. Med Provider appointment is scheduled for July 19, 2023 at 10 AM with Scott Casarez through [facility]. Medications: New bupropion HCl 75 mg tablet 75 mg PO DAILY 10 Days Qty: 10 0RF Rx Instructions: administer 6 hours apart Changed aripiprazole [Abilify] 15 mg tablet 15 mg PO BEDTIME Qty: 30 0RF No Action clonazepam 1 mg Tablet 2 mg PO BID PRN (Reason: Anxiety) Patient Comments: Patent reports she takes PRN Rx Instructions: Take 2 tabs BID bupropion HCl 75 mg Tablet 75 mg PO DAILY Rx Instructions: administer 6 hours apart aripiprazole 10 mg tablet 10 mg PO DAILY docusate sodium [Colace] 100 mg capsule 100 mg PO BID PRN (Reason: constipation) WesTab Plus 27 mg iron- 1 mg tablet 1 tab PO DAILY dextroamphetamine-amphetamine [Adderall] 20 mg Tablet 20 mg PO DAILY@1600 trazodone 50 mg Tablet 100 mg PO BEDTIME Rx Instructions: 2 tabs PRN HS. bupropion HCl [Wellbutrin XL] 150 mg tablet extended release 24 hr 150 mg PO DAILY dextroamphetamine-amphetamine [Adderall XR] 20 mg capsule,extended release 24hr 40 mg PO DAILY Stand Alone Forms: Patient Portal Discharge page
--- NOTE | 2023-06-06 13:51 | P.PNPSP_ITS ---
Subjective Subjective Date of Service: 06/06/23 Reason For Visit: bipolar,borderline personality d/o,anxiety Healthcare Proxy: No Guardianship: No Medical Problems Affecting Mental Status: No Interim History: Rd is seen today for follow-up as she is discharging from program; She reports her outpatient provider just switched her to lorazepam 2 mg BID instead of clonazepam; pt feels it is not helping her anxiety; pt also feels she si not on a high enough dose of adderal; pt is concerned about housing, finances, DCF involvemnt; Her partner was laid off from work and has not been approved for PMFLA so they have no income; her mother paid her rent for past 3 months. She talked about wanting to DBT because of her irritability and anger and how to cope with that. She is still having hard time finding a location that provides that. She reported feeling angry and aggressive around 5 pm every night; we talked about the fact that it could be the adderall wearing off and having an emotional rebound effect- talked about management of this and that it last 30 min - 1 hour usually. She agree to try to use coping skills to manage it. She reports having phone number for crisis and also knowing that she can go to ER if she feels unsafe. She states that she can get help if she feels worse or has HI or SI. Medication Compliance: Yes Side effects from medications: Yes (rebound emotional dysregulation in evening most likely from adderall ) Attending Groups: Yes Review of Systems Acute medical concerns: No Medical Review of Systems: unchanged Review of Systems Review of Systems Yes all other systems are reviewed and are negative Mental Status Exam Mental Status Exam Narrative: In today's visit she is alert, oriented and pleasant. Normal speech. Good eye contact. Affect is appropriate and varied. No signs of psychosis. No current SI/HI. Cognitively is intact. Judgment is fair-good. Diagnostics Vital Signs (24Hr): BMI result Body Mass Index 41.4 Assessment & Plan Assessment & Plan (1) Borderline personality disorder: Status: Acute Code(s): F60.3 - Borderline personality disorder (2) Anxiety with depression: Status: Acute Code(s): F41.8 - Other specified anxiety disorders Plan pt discharging from [facility]. Pt has medications and will see outpt prescriber in July; Has appt with therapist next week; Has support from mother and partner. Knows what to do in crisis and will call crisis service or got to ED. Patient educated on: medication risk/benefits and therapeutic strategies Informed Consent: understands Reason for contiued partial hosp. stay Substantial Risk for: stable for discharge Certification I certify that partial hospital treatment is medically necessary due to the symptoms and problems resulting from the patient's mental illness and the failure to treat the patient at the partial hospital level of care would likely result in the patient requiring inpatient psychiatric care which could not be prevented at a less intensive level of care. Total time managing care of this patient today 30____ minutes. Discharge Plan Discharge Attending provider: Steven Mckinley Additional Instructions: OP therapy appointment is scheduled for May 30, 2023 at 4 PM. OP therapist is Patience Buchanan through [facility]. Med Provider appointment is scheduled for July 19, 2023 at 10 AM with Scott Casarez through [facility]. Medications: New bupropion HCl 75 mg tablet 75 mg PO DAILY 10 Days Qty: 10 0RF Rx Instructions: administer 6 hours apart Changed aripiprazole [Abilify] 15 mg tablet 15 mg PO BEDTIME Qty: 30 0RF No Action clonazepam 1 mg Tablet 2 mg PO BID PRN (Reason: Anxiety) Patient Comments: Patent reports she takes PRN Rx Instructions: Take 2 tabs BID bupropion HCl 75 mg Tablet 75 mg PO DAILY Rx Instructions: administer 6 hours apart aripiprazole 10 mg tablet 10 mg PO DAILY docusate sodium [Colace] 100 mg capsule 100 mg PO BID PRN (Reason: constipation) WesTab Plus 27 mg iron- 1 mg tablet 1 tab PO DAILY dextroamphetamine-amphetamine [Adderall] 20 mg Tablet 20 mg PO DAILY@1600 trazodone 50 mg Tablet 100 mg PO BEDTIME Rx Instructions: 2 tabs PRN HS. bupropion HCl [Wellbutrin XL] 150 mg tablet extended release 24 hr 150 mg PO DAILY dextroamphetamine-amphetamine [Adderall XR] 20 mg capsule,extended release 24hr 40 mg PO DAILY Stand Alone Forms: Patient Portal Discharge page Patient Education: Bipolar Disorder (ED), Borderline Personality Disorder (GEN) Telehealth Telehealth Location of provider rendering services: practice address Location of patient: other ([facility] ) Telehealth method: video Patient verbally consented to treatment: Yes Patient verbally consented to billing insurance company: Yes Patient informed of any privacy concerns related to visit: Yes Minutes spent on Phone/Video with Pt.: 20
== END 2023-06-06 23:59 | disposition home or self-care (01) ==
LOC: HO.PHPA 11:15
PROVIDERS: Visit Provider Psychiatry & Neurology Psychiatry
DX: F60.3 Borderline personality disorder (principal); F41.8 Other specified anxiety disorders; Z79.899 Other long term (current) drug therapy
CPT/HCPCS: 90791; 90853

== ENCOUNTER 2023-06-19 11:59 | Outpatient (AMB) | payer OTHER, SELFPAY ==
[2023-06-19 12:02] VITALS: BMI 42.1
--- NOTE | 2023-06-19 12:02 | MHC.OFFVIS ---
Intake Vital Signs 06/19/23 12:02 Height 5 ft 5 in Weight 253 lb BMI 42.1 Intake Visit Reasons: ov-pain in right hand Intake Note: Megan 32 yr old female presents today for her right Hand pain & Tendinitis of finger of right hand s/p hitting a wall. States she cont's to wear her brace and is still having pain. Pain is worse with activity and when she carries her daughter. Allergies fluoxetine [Prozac] Allergy (Severe, Verified 06/19/23 12:06) Unknown lamotrigine [Lamictal] Allergy (Severe, Verified 06/19/23 12:06) Rash penicillin V Allergy (Severe, Verified 06/19/23 12:06) Shortness of Breath sertraline [Zoloft] Allergy (Severe, Verified 06/19/23 12:06) Agitated amoxicillin [AMOXICILLIN] Allergy (Intermediate, Verified 06/19/23 12:06) Shortness of Breath Penicillins [PENICILLINS] Allergy (Intermediate, Verified 06/19/23 12:06) Shortness of Breath escitalopram [From Lexapro] Adverse Reaction (Verified 06/19/23 12:06) Suicidal Thoughts Medication List - Last Reconciled 06/19/23 by Mary Thornton MD aripiprazole 10 mg PO DAILY aripiprazole (Abilify) 15 mg PO BEDTIME bupropion HCl 75 mg PO DAILY bupropion HCl 75 mg PO DAILY 10 days bupropion HCl (Wellbutrin XL) 150 mg PO DAILY clonazepam 2 mg PO BID PRN dextroamphetamine-amphetamine 20 mg (Adderall) 20 mg PO DAILY@1600 dextroamphetamine-amphetamine 20 mg ER (Adderall XR) 40 mg PO DAILY docusate sodium (Colace) 100 mg PO BID PRN PNV,calcium [id number] acid 27 mg iron- 1 mg (WesTab Plus) 1 tab PO DAILY trazodone 100 mg PO BEDTIME HPI HPI Comments History of Present Illness Details About 4 months ago, she punched a wall, had xray which was said to have no fracture. Had swelling on hand few days after, with bruising. When I saw her a few weeks ago, she complained about burning sensation on MCP joints, mainly 3rd digit. Feels sunken on right 4th digit. Can't make a soaker meat. Xray done that day in the office did not show any fracture. She admits today that it is little better. Pain mostly on dorsal hand, near right 3rd MCP joint. 4th MCP does not appear sunken anymore. She tends to carry her 8 month old baby while in her carrier over her forearm. Right shoulder hurts too when she does that. [facility] Medical History (Updated 06/19/23 @ 12:24 by Mary Thornton MD) Scoliosis Tendinitis of finger of right hand Normal endoscopic ultrasound of upper gastrointestinal tract Nodule of left lung History of heart disorder Kidney stones Anemia Edema Anxiety with depression Borderline personality disorder Morbid obesity Dissociative disorder Dysplasia of cervix, low grade (WILBER 1) Hx of gastroesophageal reflux (GERD) Surgical History Hx laparoscopic cholecystectomy History of dental surgery Family History Family/Other Breast cancer Mother No problems noted. Father Diabetes Maternal Grandmother HTN (hypertension) Social History Household Members: Significant Other and Children Alcohol intake: never Patient Tobacco Use Status: Former Tobacco user Tobacco use type: Cigarette Second Hand Smoke Exposure: No Special kd needs: No Agree to transfusion: Yes Advance Directives Date on File: 01/17/23 service: No Current occupational status: unemployed Sexual orientation: Bisexual Gender identity: Female Female Reproductive History Menstrual Age of Menarche: 13 Physical Exam Vital Signs: BMI result Body Mass Index 42.1 Constitutional: Patient appears to be in no acute distress, well nourished and well developed. MSK: No bruising. Tender and possibly swollen along finger extensor tendon along right 3rd digit. Right 4th digit is not sunken anymore. No intrinsic hand weakness noted. No atrophy noted. Scar test negative. Carpal compression test positive right. Tinel sign negative. Strength is 5/5 in all muscle groups tested. No increased tone noted. Neurological: Neurologic examination of the upper and lower extremities was nonfocal with intact sensation, muscle stretch reflexes and without focal motor deficits . Peter?s negative bilaterally. Gait is non-antalgic without loss of balance. Results Reviewed Results Reviewed: Ordering Physician: Mary Dickson Date of Service: 08/30/23 Procedure(s): XR hand RT min 3V Accession Number(s): [id number] cc: Mary Dickson~ EXAMINATION: XR HAND, RIGHT CLINICAL INFORMATION: Pain in the third, fourth, fifth metacarpal area after trauma COMPARISON: None available. TECHNIQUE: PA, lateral, and oblique views of the right hand. FINDINGS: The bones and soft tissues are normal. No fracture. Alignment is anatomic. Joint spaces are maintained. No erosions or soft tissue calcifications. XR/XR hand RT min 3V IMPRESSION: Normal right hand. Assessment & Plan Assessment & Plan (1) Hand pain: Code(s): M79.643 - Pain in unspecified hand Qualifiers: Laterality: right Qualified Code(s): M79.641 - Pain in right hand (2) Numbness of right hand: Code(s): R20.0 - Anesthesia of skin Plan Most likely had soft tissue swelling over right 4th MCP joint that made it look sunken but no boxer's fracture on xray. Only tenderness/swelling noted today is along extensor tendon right 3rd digit. Continue to wear the wrist splints at rest and night time. Advised not to carry baby while in carrier over forearm. Do not carry diaper bag on right shoulder. Back pack would be preferrable. Has right hand numbness. Will schedule EMG to evaluate for CTS. Assessment and plan discussed with patient, and patient was agreeable. All questions were answered thoroughly. Mary Thornton MD, JOHN Board Certified, [place] [employer] and [employer] (ABPMR) Board Certified, [place] [employer] Electro[employer]ostic [employer] (ABEM) Orders: Orders NE nerve conduction velocity Today M79.643 - Pain in unspecified hand, R20.0 - Anesthesia of skin NE electromyogram (EMG) Today M79.643 - Pain in unspecified hand, R20.0 - Anesthesia of skin Coding Level of Care Code Est Pt Level 3 (82891) Diagnoses Pain of right hand M79.641 Laterality: right Numbness of right hand R20.0
== END 2023-06-19 12:19 | disposition home or self-care (01) ==
PROVIDERS: Visit Provider Physical Medicine & Rehabilitation
DX: M79.641 Pain in right hand (principal); R20.0 Anesthesia of skin
CPT/HCPCS: 99213

== ENCOUNTER → 2023-06-19 11:59 | Outpatient (BNVA) | payer MEDICAID, SELFPAY | PROVIDERS: Visit Provider Physical Medicine & Rehabilitation ==

== ENCOUNTER 2023-07-10 12:24 | Outpatient (REF) | payer OTHER, SELFPAY ==
--- NOTE | 2023-07-10 12:29 | EMG_ITS ---
Chief complaint: Right hand pain and swelling, see my last note Reason for referral: Evaluate for Carpal Tunnel Syndrome Procedure done: Right upper extremity NCS/EMG Precautions and/or limitations: None The limb temperature was monitored continuously and remained between 32-36 degrees C during the performance of the NCS. Nerve Conduction Studies Anti Sensory Summary Table ?Stim Site NR Onset (ms) Norm Onset (ms) Peak (ms) Norm Peak (ms) O-P Amp (?V) Norm O-P Amp Site1 Site2 Delta-0 (ms) Dist (cm) Milad (m/s) Norm Milad (m/s) Right Median Anti Sensory (2nd Digit) Wrist ? 2.9 3.5 <3.6 61.0 >10 Wrist 2nd Digit 2.9 14.0 48 Right Radial Anti Sensory (Thumb) Forearm ? 2.6 2.9 <3.1 39.4 Forearm Thumb 2.6 0.0 Site 2 ? 2.1 2.6 11.2 Right Ulnar Anti Sensory (5th Digit) Wrist ? 1.0 3.3 <3.7 17.8 >15.0 Wrist 5th Digit 1.0 14.0 140 Motor Summary Table ?Stim Site NR Onset (ms) Norm Onset (ms) O-P Amp (mV) Norm O-P Amp iAmp (mV) Amp (1st) (%) Site1 Site2 Delta-0 (ms) Dist (cm) Milad (m/s) Norm Milad (m/s) Right Median Motor (Abd Poll Brev) Wrist ? 3.6 <3.9 6.8 >4.5 7.0 100.0 Elbow Wrist 3.0 17.0 57 >45 Elbow ? 6.6 9.1 9.3 133.8 Right Ulnar Motor (Abd Dig Minimi) Wrist ? 2.9 <3.0 6.9 >5 8.1 100.0 B Elbow Wrist 2.7 17.0 63 >45 B Elbow ? 5.6 7.9 9.3 114.5 A Elbow B Elbow 1.6 10.0 62 >45 A Elbow ? 7.2 8.2 9.5 118.8 EMG ?Side Muscle Nerve Root Ins Act Fibs Psw Amp Dur Poly Recrt Int Pat Comment Right 1stDorInt Ulnar C8-T1 Nml Nml Nml Nml Nml 0 Nml Complete Right FlexCarRad Median C6-7 Nml Nml Nml Nml Nml 0 Nml Complete Right Biceps Musculocut C5-6 Nml Nml Nml Nml Nml 0 Nml Complete Right Triceps Radial C6-7-8 Nml Nml Nml Nml Nml 0 Nml Complete Right Deltoid Axillary C5-6 Nml Nml Nml Nml Nml 0 Nml Complete FINDINGS: All motor and sensory nerves tested showed normal latencies, amplitudes and conduction velocities. Concentric needle EMG was performed in selected muscles of the right upper extremity. Study did not reveal signs of electric abnormalities as shown in the table below. IMPRESSION: 1. This is a normal study. 2. There is no electrodiagnostic evidence for median neuropathy, ulnar neuropathy, brachial plexopathy, or cervical radiculopathy. Thank you for your kind referral. Mary Thornton MD, JOHN Board Certified, [place] [employer] and [employer] (ABPMR) Board Certified, [place] Board [employer] Electrodiagnostic [employer] (ABEM) CODIN [id number] MTDD
== END 2023-07-10 12:25 | disposition home or self-care (01) ==
LOC: HO.NEURO 12:24
PROVIDERS: Visit Provider Physical Medicine & Rehabilitation
DX: R20.0 Anesthesia of skin (principal); M79.643 Pain in unspecified hand
CPT/HCPCS: 95886; 95909

== ENCOUNTER → 2023-07-10 12:29 | Outpatient (BNV) | payer OTHER, SELFPAY | PROVIDERS: Visit Provider Physical Medicine & Rehabilitation | DX: M79.641 Pain in right hand (principal) | CPT/HCPCS: 95886; 95909 ==

== ENCOUNTER 2024-11-16 09:45 | Outpatient (RCR) | payer OTHER, SELFPAY ==
--- NOTE | 2024-11-12 13:37 | PC.ADMIT ---
Patient is a 34 year old single female who uses she/her pronouns and goes by the name of Rd. Patient was referred to [facility] by [facility] secondary to sxs of depression, anxiety, and past trauma. Patient is currently homeless since breakup with the father of her daughter. She is residing at [facility]. Her daughter is currently 2 years old. Patient reports she is obsessing about her ex-partner since their breakup and this has increased since his ex is in another relationship. She sees his pictures on Facebook looking happy and healthy. She reports ruminating on the fact that he loves the other woman more than her. She stated she had Post depression for two years after her daughters and had numerous psychiatric hospitalizations during that time frame and her Ex was not able to handle it. She reports last hospitalization was in August 2024. She also reports that she treated her Ex badly and regrets things that she has done. She reports she is currently homeless and is working with [facility] to find housing. She also stated she is working with them to find a new PCP. Patient reports she wants to be able to move on from the relationship with her ex and went on one date recently. It is difficult to see that her ex boyfriend has moved on to another relationship. Patient reports she has joint custody of her daughter and her daughters father has physical custody. She stated she sees her daughter about twice a week however would like to see her more. Patient is alert and oriented x4. Calm and cooperative. She presented with depressed mood and tearful affect when talking about her ex boyfriend. She denied SI, no HI. She was given a copy of her safety plan if needed. Goal of treatment is to learn how to stop ruminating over her ex boyfriend. Medications reconciled with patient, patient's pharmacy, and with [facility] nurse Maryann. Patient reports she is taking medications as prescribed. Patient reports she has a history of superficial cutting however has not cut herself since September 02, 2024. Patient reports drinking 1-2 drinks about three times a month and occasionally uses marijuana 5 mg edible.
--- NOTE | 2024-11-12 17:01 | HO.PHP ---
Client's case has been opened and reviewed in team.
--- NOTE | 2024-11-16 10:00 | PC.NURSE ---
Megan Sultana stated she wants to go home as she does not feel well. Stated she has her menses and is feeling nauseated. Temp 98.2. She is currently waiting in group room C for her ride to pick her up. She also stated she is not going to be here on Saturday as she has plans that she made a long time ago and is not able to cancel them. [facility] staff is aware.
== END 2024-11-16 23:59 | disposition home or self-care (01) ==
LOC: HO.PHPA 09:45
PROVIDERS: Visit Provider Psychiatry & Neurology Psychiatry
DX: F31.60 Bipolar disorder, current episode mixed, unspecified (principal); F60.3 Borderline personality disorder
CPT/HCPCS: 90791; 90853

== ENCOUNTER 2025-01-03 09:18 | Emergency (ER) | payer OTHER, SELFPAY ==
--- NOTE | ~2025-01-03 | XR_ITS ---
CLINICAL HISTORY: sob lower rib pain 2 view chest x-ray. Comparison: None Findings: Normal lung volumes. Bibasilar bronchial wall thickening. Equivocal right lower lobe infiltrate. No pneumothorax or pleural effusion. Heart size normal. No passive venous congestion. No midline shift or tracheal deviation. No acute fracture. Dextroscoliosis. Impression: 1. Bronchial wall thickening. Equivocal infiltrate right lower lobe This document has been electronically signed by: Kris Torres MD on 01/03/2025 10:15:28
[2025-01-03 09:25] VITALS: BP 118/62; PULSE 111; RESP 19; TEMP 36.9; O2SAT 98; BMI 17.0
--- NOTE | 2025-01-03 09:26 | ED.SOB ---
HPI - SOB/Dyspnea General Chief Complaint: Upper Respiratory Symptoms Stated Complaint: Diff breathing Time Seen by Provider: 01/03/25 10:32 Related Data Home Medications ?Medication ?Instructions ?Recorded ?Confirmed bupropion HCl 300 mg 24 hr tablet, 300 mg PO DAILY 11/12/24 11/12/24 extended release chlorpromazine 25 mg tablet See Rx Instructions .Route 11/12/24 11/12/24 .COMPLEX PRN agitation. cholecalciferol (vitamin D3) 25 25 mcg PO DAILY 11/12/24 11/12/24 mcg (1,000 unit) capsule (Vitamin D3) clonazepam 1 mg tablet 1 mg PO DAILY 11/12/24 11/12/24 clonazepam 2 mg tablet 2 mg PO BEDTIME 11/12/24 11/12/24 dextroamphetamine-amphetamine 30 1 tab PO DAILY 11/12/24 11/12/24 mg tablet dextroamphetamine-amphetamine ER 40 mg PO DAILY 11/12/24 11/12/24 20 mg 24hr capsule,extend release (Adderall XR) lurasidone 20 mg tablet (Latuda) 20 mg PO DAILY 11/12/24 11/12/24 lurasidone 80 mg tablet (Latuda) 80 mg PO DAILY 11/12/24 11/12/24 nicotine 21 mg/24 hr daily 1 patch transdermal DAILY 11/12/24 11/12/24 transdermal patch norethindrone (contraceptive) 0.35 0.35 mg PO DAILY 11/12/24 11/12/24 mg tablet pantoprazole 40 mg tablet,delayed 40 mg PO DAILY 11/12/24 11/12/24 release trazodone 100 mg tablet 100 mg PO BEDTIME PRN Insomnia 11/12/24 11/12/24 Previous Rx's ?Medication ?Instructions ?Recorded dextromethorphan-benzocaine 5 1 russell PO Q4H PRN sore throat #16 ea 01/03/25 mg-7.5 mg lozenges (Cepacol Sore Throat-Cough) doxycycline hyclate 100 mg tablet 100 mg PO BID #10 tabs 01/03/25 ibuprofen 600 mg tablet 600 mg PO Q8H PRN pain #30 tabs 01/03/25 Allergies Allergy/AdvReac Type Severity Reaction Status Date / Time fluoxetine [Prozac] Allergy Severe Unknown Verified 01/03/25 09:26 lamotrigine [Lamictal] Allergy Severe Rash Verified 01/03/25 09:26 penicillin V Allergy Severe Shortness Verified 01/03/25 09:26 of Breath sertraline [Zoloft] Allergy Severe Agitated Verified 01/03/25 09:26 amoxicillin [AMOXICILLIN] Allergy Intermediate Shortness Verified 01/03/25 09:26 of Breath Penicillins [PENICILLINS] Allergy Intermediate Shortness Verified 01/03/25 09:26 of Breath oxcarbazepine Allergy Unknown Verified 01/03/25 09:26 [From Trileptal] escitalopram [From Lexapro] AdvReac Suicidal Verified 01/03/25 09:26 Thoughts PMFSH Past Medical History Medical History Intrahepatic gallbladder Scoliosis Tendinitis of finger of right hand Normal endoscopic ultrasound of upper gastrointestinal tract Nodule of left lung History of heart disorder Kidney stones Anemia Edema Anxiety with depression Borderline personality disorder Morbid obesity Dissociative disorder Dysplasia of cervix, low grade (WILBER 1) Hx of gastroesophageal reflux (GERD) Surgical History History of cholecystectomy H/O hernia repair Hx laparoscopic cholecystectomy History of dental surgery Family History Family History Family/Other Breast cancer Mother No problems noted. Father Diabetes Maternal Grandmother HTN (hypertension) Social History Social History Household Members: Other Household Members Other:: Lives in a respite placement with 10 individuals but has her own room Alcohol intake: never Patient Tobacco Use Status: Former Tobacco user Tobacco use type: Cigarette Smoked in Last 30 Days: Yes Second Hand Smoke Exposure: No Use of substances other than those prescribed or required for medical reasons: No Special kd needs: No Agree to transfusion: Yes Advance Directives: No Advance Directives Information Provided: No Advance Directives Date on File: 01/17/23 Do you have a plan to hurt others: No Plan service: No Current occupational status: unemployed Sexual orientation: Bisexual Gender identity: Female Physical Exam Vital Signs: Vital Signs: Last Vital Signs Temp 97.9 F 01/03/25 12:07 Pulse 95 01/03/25 12:07 Resp 16 01/03/25 12:07 BP 112/73 01/03/25 12:07 Pulse Ox 99 01/03/25 12:07 O2 Del Method Room Air 01/03/25 12:07 BMI result Body Mass Index 17.0 Course Course Course Narrative: This is a Rapid Medical Examination (RME) performed by Rio Louie PA-C in triage. Full HPI, ROS, assessment and treatment plan per primary provider in the Main ED. 01/03/25925 CABRERA Eubanks Hx: 34 yo female hx of dissociative disorder, anxiety, depression, borderline personality disorder here for eval of SOB, sore throat and nasal congestion x24 hours. PE/vitals: well appearing, tachycardic Plan: cxr, viral/strep swabs Medications Administered Discontinued Medications Generic Name Dose Route Start Last Admin Trade Name Freq PRN Reason Stop Dose Admin Benzocaine 1 lozenge 01/03/25 11:46 01/03/25 12:03 Throat Lozenge, Medicated Lozenge MUCOUS MEM 01/03/25 11:47 1 lozenge ONCE ONE Administration Doxycycline Monohydrate 100 mg 01/03/25 11:46 01/03/25 12:02 Doxycycline Monohydrate 100 Mg Capsule PO 01/03/25 11:47 100 mg ONCE ONE Administration Medical Decision Making Lab Data Labs: Lab Results 01/03/25 Range/Units 09:32 Influenza Type A (PCR) NEGATIVE (Negative) Influenza Type B (PCR) NEGATIVE (Negative) RSV RNA Qual (PCR) NEGATIVE (Negative) SARS-CoV-2 RNA (RT-PCR) NEGATIVE (Negative) S. pyogenes GrpA ANGELLA Negative (Negative) Discharge Plan Discharge Clinical Impression: Pneumonia Qualifiers: Laterality: right Lung location: lower lobe of lung Patient Disposition: Home, Self-Care Instructions: Pneumonia (ED) Additional Instructions: Complete the entire course of antibiotics as prescribed. Be sure to rest, stay well hydrated drinking plenty of fluids, eat small frequent meals. Tylenol/ibuprofen can be used as needed for fever/pain. Oocz-ckj-fodihyt cold medications may be helpful as well for symptoms. Saline nasal spray, humidifier may be helpful for nasal congestion. You may return to the emergency department with any new or worsening symptoms or concerns. Follow-up with your primary care provider as needed. Should remain out of school/ work until symptoms have resolved and have been without a fever for 24 hours without the use of Tylenol or ibuprofen. Prescriptions: New Cepacol Sore Throat-Cough 5-7.5 mg lozenge 1 russell PO Q4H PRN (Reason: sore throat) Qty: 16 0RF ibuprofen 600 mg tablet 600 mg PO Q8H PRN (Reason: pain) Qty: 30 0RF doxycycline hyclate 100 mg tablet 100 mg PO BID Qty: 10 0RF No Action dextroamphetamine-amphetamine [Adderall XR] 20 mg capsule,extended release 24hr 40 mg PO DAILY Rx Instructions: Take 2 tabs in the morning. dextroamphetamine-amphetamine 30 mg tablet 1 tab PO DAILY Rx Instructions: TAKE 1 TABLET BY MOUTH EVERY DAY IN THE AFTERNOON bupropion HCl 300 mg tablet extended release 24 hr 300 mg PO DAILY clonazepam 1 mg Tablet 1 mg PO DAILY trazodone 100 mg Tablet 100 mg PO BEDTIME PRN (Reason: Insomnia) chlorpromazine [Thorazine] 25 mg Tablet See Rx Instructions .ROUTE .COMPLEX PRN (Reason: agitation.) Rx Instructions: Take either 12.5 mg or 25 mg or 50 mg TID PRN for agitation. clonazepam 2 mg Tablet 2 mg PO BEDTIME Rx Instructions: administer 30 minutes before bedtime pantoprazole 40 mg Tablet,Delayed Release (Dr/Ec) 40 mg PO DAILY nicotine 21 mg/24 hr Patch 24 Hour 1 patch TRANSDERMAL DAILY norethindrone (contraceptive) 0.35 mg Tablet 0.35 mg PO DAILY cholecalciferol (vitamin D3) [Vitamin D3] 25 mcg (1,000 unit) Capsule 25 mcg PO DAILY lurasidone [Latuda] 80 mg Tablet 80 mg PO DAILY Rx Instructions: must administer with food (at least 350 calories). Take with 20 mg tab for total dose 100 mg daily. lurasidone [Latuda] 20 mg Tablet 20 mg PO DAILY Rx Instructions: must administer with food (at least 350 calories) Referrals: Physician,Unknown J [Primary Care Provider] - Interventions: ED Discharge Assessment Last Done: 01/03/25 12:07 Discharge Date/Time: 01/03/25 12:08 Print Language: Algerian
[2025-01-03 10:07] LABS: IDNOW Serial# 55D5AD1C
[2025-01-03 10:08] LABS: Strep A Nucleic Acid Negative (Negative)
[2025-01-03 10:14] LABS: Influenza A PCR NEGATIVE (Negative); Influenza B PCR NEGATIVE (Negative); Resp Syncy Virus RNA Qual PCR NEGATIVE (Negative); SARS COV2 PCR INHOUSE NEGATIVE (Negative)
[2025-01-03 10:54] VITALS: BP 112/73; PULSE 95; RESP 16; TEMP 36.6; O2SAT 99
[2025-01-03 10:57] VITALS: O2SAT 99
--- OUTSIDE RECORDS SUMMARY | 2025-01-03 11:12 | XMS_ITS | Clinical Summary ---
Author Organization [employer] Address [address] [facility] 7t [place] [address] Care Team Providers Care Lead Furnace Operator Name Role Phone Joe Maya MD Primary Care Provider Allergies Active Allergy Reactions Criticality Noted Date Comments Drospirenone-Ethinyl Estradiol 08/31 Fluoxetine Rash Low 08/03/2019 Lamotrigine 11/01/2017 Penicillins Shortness of breath High 11/01/2017 Sertraline Unknown 08/03/2019 Medications vitamin (Prenatabs Rx) 29-1 MG tablet Take 1 tablet by mouth 1 (one) time each day. 06/05/20 22 Active Adderall XR 20 MG 24 hr capsule TAKE 2 CAPSULES BY MOUTH EVERY MORNING 08/22/20 22 Active Vit-Fe Fumarate-FA (WesTab Plus) 27-1 MG tablet TAKE 1 TABLET BY MOUTH DAILY 07/30/20 22 Active Elastic Bandages & Supports ( Medical Stockings/20-30mmH g) miscIndications:Ed justino of lower extremity Knee high. Compression stockings to wear daily prior to getting out of bed. 1 each 12/22/19 23 Active acetaminophen (Tylenol) 325 MG tablet TAKE 2 TABLETS EVERY 4 HRS NEEDED FOR PAIN 10/26/19 23 Active buPROPion XL (Wellbutrin XL) 300 MG 24 hr tablet Take 300 mg by mouth in the morning. 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 Depression 08/31/2022 Borderline personality disorder in adult 022 Irregular periods 07/11/2018 Immunizations Name Administration Dates Next Due DTP 04/23/1993,02/22/1992,1991 DTaP 11/16/1996 Hep B, Adolescent or Pediatric 11/18/2001,1998,09/15/1998 MMR 06/05/1998,02/13/1993 Meningococcal ACWY, unspecified 03/31/2008 Meningococcal MCV4P ACYW-135 03/31/2008 OPV, Trivalent 11/16/1996,04/23/1993,02/22/1992 ,1991 Td (adult), unspecified 08/10/2004 Tdap 07/20/2022,01/28/2017 Varicella 02/13/1996 Family History Medical History Relation Name Comments Diabetes Father thyroid problems Mother Relation Name Status Comments Father Mother Social History Tobacco Use Types Packs/Day Years Used Date Smoking Tobacco: Former Cigarettes 0.5 12 2 - 2019 Passive Smoke Exposure: Past Smokeless Tobacco: Never Tobacco Cessation:Counseling Given: Not Answered Housing Stability Answer Date Recorded What is your housing situation today? I have cindy garcia 12/16/[address] you li ve. Do you have problems with any of the following? Not on file 12/16/2023 Food Insecurity Answer Date Recorded Within the past 12 months, y ou worried that your food would run out before you got money to buy more: Often true 06/26/2023 Within the past 12 months,th e food you bought just didn't last and you didn't have enough money to get more: Often true Transportation Answer Date Recorded In the past 12 months, has l ack of transportation kept you from medical appts, meetings, work or from getting things needed for daily living? Yes, it has kept me from medical appointments or getting medications. 06/17/2023 Utilities Answer Date Recorded In the past 12 months, has t he electric, gas, oil or water company threatened to shut off services in your home? No 06/26/2023 Comments Unknown Sex and Gender Information Value Date Recorded Sex Assigned at Female 07/09/2022 10:33 AM EDT Legal Sex Female 10:33 AM EDT Gender Identity Female 07/09/2022 10:33 AM EDT Sexual Orientation Bisexual 07/09/2022 10 :33 AM EDT Last Filed Vital Signs Vital Sign Reading Time Taken Comments Blood Pressure 123/81 05/21/2023 6:54 PM EDT Pulse 108 05/21/2023 6:54 PM EDT Temperature 37.1 ??C (98.8 ??F) 05/21/2023 6:54 PM ED T Respiratory Rate 19 05/21/2023 6:54 PM EDT Oxygen Saturation 98% 05/21/2023 6:54 PM EDT Inhaled Oxygen Concentration - - Weight 114 kg (250 lb 6 oz) 05/21/2023 6:54 PM E DT Height 165.1 cm (5' 5 ) 05/21/2023 6:54 PM EDT Body Mass Index 41.66 05/21/2023 6:54 PM EDT Plan of Treatment Health Maintenance Due Date Last Done Comments Depression Screening 1991 Alcohol/Substance Use Screening 2003 Family Planning (PISQ) 2006 Cervical Cancer Screening 04/25/2023 Pap Smear 04/25/2023 04/25/2022 SDOH Screening 12/15/2023 12/14/2022 COVID-19 Vaccine ( season) 2024 06/03/2023, 04/08/2021, 03/13/2021 Influenza Vaccine (#1) 2024 Tobacco Screening 05/21/2024 05/21/2023 HPV/Cotest 07/21/2025 07/21/2020, 07/21/2020 Lipid Panel 03/31/2026 03/31/2021 DTaP/Tdap/Td Vaccines (7 - Td or Tdap) 07/20/2032 07/20/2022, 01/28/2017, 08/10/2004, Additional history exists Zoster Vaccines (1 of 2) 2041 RSV Patients and Patients Aged 60 years or older (1 - 1-dose 75+ series) 2066 IPV Vaccines Completed 11/16/1996, 04/09, 02/22/1992, Additional history exists Hepatitis B Vaccines Completed 11/18/2001, 10/19/1998, 09/15/1998 Meningococcal Vaccine Completed 03/31/2008, 008 HIV Screening Completed 04/24/2022 Hepatitis C Screening Completed 04/24/2022 HIB Vaccines Aged Out No longer eligi ble based on patient's age to complete this topic HPV Vaccines Aged Out No longer eligi ble based on patient's age to complete this topic Hepatitis A Vaccines Aged Out No long er eligible based on patient's age to complete this topic Pneumococcal Vaccine: Pediatrics (0 to 5 Years) and At-Risk Patients (6 to 49) Years) Aged Out No longer eligible based on patient's age to complete this topic RSV under 20 months Aged Out No longe r eligible based on patient's age to complete this topic Rotavirus Vaccines Aged Out No longer eligible based on patient's age to complete this topic Procedures Procedure Name Priority Date/Time Associated Diagnosis Comments PAP/HPV Routine 04/25/2022 [facility] HISTORICAL HEPATITIS C ANTIBODY Routine 04/24/2022 12:35 PM EDT [facility] HISTORICAL LIPID PANEL Routine 03/31/2021 1:20 PM EDT [facility] HISTORICAL HPV E6/E7 RFLX KIARA 16 18/45 Routine 07/21/2020 9:27 AM EST from Last 3 Months or Most Recently Relevant to Health Maintenance Results * (ABNORMAL) Pap Smear (04/25/2022) Pap Epithelial cell abnormality(A ) Negative for intraephithelial lesion or malignancy, Other Comment:ASCUS Historical Provider HEALTH MAINTENANCE Final Result * Hepatitis C Antibody (04/24/2022 12:35 PM EDT) [facility] Hepatitis C Antibody Nonreactive Nonreactive [facility] Comment: Antibodies to HCV not detected; does not exclude early acute HCV infection. HIV AB/AG Nonreactive Nonreactive [facility] Comment: HIV-1 p24 Ag and/or HIV-1/HIV-2 Ab not detected. ?? A test result that is nonreactive does not exclude the possibility of exposure to or infection with HIV-1 and/or HIV-2. Nonreactive results in this assay for individuals with prior exposure to HIV-1 and/or HIV-2 may be due to antigen and antibody levels that are below the limit of detection of this assay. ?? The [employer] HIV Ag/Ab Combo assay result and supplemental assay results should be interpreted in conjunction with the patient's clinical presentation, history and other laboratory results. ??If the results are inconsistent with clinical evidence, additional testing is suggested to confirm the result. Hepatitis B Surface Antigen Negative Negative [facility] 04/24/2022 12:3 5 PM EDT Dmitri Braxton MD HISTORICAL/NON ORDERABLE LABS Fi nal Result Performing Organization Address City/State/[facility] Co de Phone Number [facility] [address] * LIPID PANEL (03/31/2021 1:20 PM EDT) [facility] Cholesterol 162 mg/dL [facility] Comment: Desirable Cholesterol: ?less than 200 mg/dL Borderline High Cholesterol: ??200-239 mg/dL High Cholesterol: ? greater than 239 mg/dL HDL Cholesterol 67 mg/dL [facility] Comment: Desirable HDL: ??greater than 40 mg/dL ?? Note: This HDL assay may give artificially ? low results in patients with liver disease. LDL Cholesterol Calculated 78 mg/dl [facility] Comment: Desirable LDL: ? less than 100 mg/dL Near Optimal/Above Optimal LDL: ??110-129 mg/dL Borderline High LDL: ? 130-159 mg/dL High LDL: ?160-189 mg/dL Very High LDL: ? greater than or equal to ?190 mg/dL Triglycerides 88 mg/dL [facility] Comment: Desirable Triglyceride: ? less than 150 mg/dL Borderline High Triglyceride ??150-199 mg/dL High Triglyceride: ?200-499 mg/dL Very High Triglyceride: ? greater than or equal to ? 5OO mg/dL 03/31/2021 1:20 PM EDT us Historical Provider MD HISTORICAL/NON ORDERABLE LABS Final Result Performing Organization Address City/State/[facility] Co de Phone Number [facility] [address] * HPV E6/E7 RFLX KIARA 16 18/45 (07/21/2020 9:27 AM EST) Pathologist [facility] HPV mRNA E6/E7 rflx Not Detected Not Detected [facility] Comment: This test was performed using the APTIMA HPV Assay ([employer] This assay detects E6/E7 viral messenger RNA (mRNA) from 14 high-risk HPV types (16,18,31,33,35,39,45,51,52,56,58,59,66,68). The analytical performance characteristics of this assay have been determined by [employer]. The modifications have not been cleared or approved by the FDA. This assay has been validated pursuant to the CLIA regulations and is used for clinical purposes. THIS TEST WAS PERFORMED AT: [employer] [address] [place] [address],[address] [place], [place] ??[id number] BIB BOUDREAUX MD 07/21/2020 9:27 AM EST us Yvette Youssef HISTORICAL/NON ORDERABLE LABS Fi nal Result [facility] [address] from Last 3 Months or Most Recently Relevant to Health Maintenance Insurance [place] [id number] MEDICARE [place] [id number] Care Teams Lead Furnace Operator Relationship Specialty Start Date End Date Joe Maya MD [address] [facility] [place] [address] PCP - General Internal Medicine 11/01/17
--- OUTSIDE RECORDS SUMMARY | 2025-01-03 11:12 | XMS_ITS | Encounter Summary ---
Author Organization [employer] Address [address] [facility] 7t [place] [address] Care Team Providers Care Pediatric Np Name Role Phone Joe Maya MD Primary Care Provider [phone] Encounter Details Date Type Department Care Team (Late st Contact Info) Description 03/31/2024 Orders Only [facility] [address] [place] [address] Provider, MD Shahid Social History Tobacco Use Types Packs/Day Years Used Date Smoking Tobacco: Former Cigarettes 0.5 12 2 008 - 2019 Passive Smoke Exposure: Past Smokeless Tobacco: Never Housing Stability Answer Date Recorded What is [...] Orientation Bisexual 07/09/2022 10 :33 AM EDT documented as of this encounter Plan of Treatment Not on file documented as of this encounter Procedures Procedure Name Priority Date/Time Associated Diagnosis Comments XR CHEST 2 VIEWS Routine 03/31/2024 9:59 AM EDT documented in this encounter Results * XR Chest 2 Views (03/31/2024 9:59 AM EDT) Anatomical Region Laterality Modality Chest Radiographic Josefa ging us Historical Provider MD MCELROY XR PROCEDURES Final R esult documented in this encounter Visit Diagnoses Not on filedocumented in this encounter Care Teams Pediatric Np Relationship Specialty Start Date End Date Joe Maya MD [address] [place] [id number] PCP - General Internal Medicine 11/01/17 documented as of this encounter
--- OUTSIDE RECORDS SUMMARY | 2025-01-03 11:12 | XMS_ITS | Encounter Summary ---
Author Organization [employer] Address [address] [facility] 7 [place] [address] Care Team Providers Care Cash Sales Audit Clerk Name Role Phone Joe Maya MD Primary Care Provider [phone]- [phone] Encounter Details Date Type Department Care Team ([facility] st Contact Info) Description 01/09/2023 Orders Only [facility] CHC MED & PEDS [address] [place], [place] [phone] Joe Maya MD [address] [place], [place] [phone] Thoracic spine pain (Primary Dx) Social History Tobacco Use Types Packs/Day Years Used Date Smoking Tobacco: Former Cigarettes 0.5 12 2 2019 Smokeless Tobacco: Never Comments Unknown Sex and Gender Information Value Date Recorded Sex Assigned at Female 07/09/2022 10:33 AM EDT Legal Sex Female 10:33 AM EDT Gender Identity Female 07/09/2022 10:33 AM EDT Sexual Orientation Bisexual 07/09/2022 10 :33 AM EDT COVID-19 Exposure Response Date Recorded In the last 10 days, have yo u been in contact with someone who was confirmed or suspected to have Coronavirus/COVID-19? No / Unsure 12/14/2022 3:32 PM EDT documented as of this encounter Plan of Treatment Not on file documented as of this encounter Procedures Procedure Name Priority Date/Time Associated Diagnosis Comments GROSS AND MICROSCOPIC LEVEL 3 Routine 01/09/2023 11:58 AM EDT Thoracic spine pain documented in this encounter Results * Gross and Microscopic Level 3 (01/09/2023 11:58 AM EDT) 01/09/2023 11:5 8 AM EDT 01/09/2023 1:40 PM EDT [facility] - 01/12/2023 12:22 PM EDT ----- ------- Name: Megan Mancini ?Age/Sex: 32/F ? : 1990 Unit#: [id number] ?? Attend Dr: Laurent Kasper MD ?Re01/09/23 ?Status: DEP SDC ? Location: HO.SSS ?Disch: ? ----- ------- SPEC : [id number] ? RECD: 01/09/23-1339 ? STATUS: ??SOUT ? REQ NUM: [id number] ? ANG: 01/09/233228 ? SUBM DR: Laurent Kasper MD ? ENTERED: ??01/09/236046 ?SP TYPE: Surgical ? OTHR DR: Joe Maya MD ? ORDERED: ??Gross Micro L3 ? Diagnosis ?? Gallbladder, cholecystectomy: ??Chronic cholecystitis with cholesterolosis and ?? cholelithiasis. ?Clinical History Pre-Op Dx: ??Cholelithiasis Post-Op Dx: Cholelithiasis, umbilical hernia ?Microscopic Description Microscopic sections reviewed. ? Material Received ?? Gallbladder ? Gross Description Received in formalin labeled ?gallbladder? is a 6.5 x 2.5 x 1.5 cm smooth and shaggy, josé- pink and pink-purple gallbladder resected in continuity with 0.3 cm of patent cystic duct. Upon opening the gallbladder contains scant yellow-green bile and a 0.1 cm in greatest dimension friable green cholelith. ??The mucosa is finely reticulated, velvety, josé-pink and orange-maroon with multiple diffuse, opaque, white-yellow superficial mucosal flecks giving the mucosa a ?strawberry appearance. ??On sectioning the wall measures up to 0.15 cm in thickness and is edematous and fibrous josé-pink. ??Dry Cell Battery Assembler sections are submitted in a single cassette labeled A1 to include the margin of resection of the cystic duct. CEDS Copies To: ?? Joe Maya MD ?? [address] ?? [place] [address] ? Laurent Kasper MD ?? [address] [facility], 3rd Floor ?? [place] [address] ?? [phone] ?? [email or web address] ? CONTINUED ON NEXT PAGE ----- ------- Name: Megan Mancini ?Age/Sex: 32/F ? : 1990 Unit#: [id number] ?? Attend Dr: Laurent Kasper MD ?Re01/09/23 ?Status: DEP SDC ? Location: HO.SSS ?Disch: ? ----- ------- SPEC : [id number] ? RECD: 01/09/23-0 ? STATUS: ??SOUT ? REQ NUM: [id number] ? ANG: 01/09/23-1158 ? SUBM DR: Laurent Kasper MD ? ENTERED: ??01/09/23-5974 ?SP TYPE: Surgical ? OTHR DR: Joe Maya MD ? ORDERED: ??Gross Micro L3 ? ----- ------- Signed (signature on file) Chanda Vaz 01/12/23 1222 ? ----- ------- ? END OF REPORT ? us [facility] External Provider LAB CYT OLOGY ORDERABLES Final Result [facility] [address] [place] [address] [phone] documented in this encounter Visit Diagnoses Diagnosis Thoracic spine pain- Primary Pain in thoracic spine documented in this encounter Care Teams Cash Sales Audit Clerk Relationship Specialty Start Date End Date Joe Maya MD [address] [place] [id number] PCP - General Internal Medicine 11/01/17 documented as of this encounter
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
--- OUTSIDE RECORDS SUMMARY | 2025-01-03 11:13 | XMS_ITS | Encounter Summary ---
Author Organization [employer] Address [address] [place] [address] [place] [address] Care Team Providers Care Supervisor Inspecting Name Role Phone Joe Maya MD Primary Care Provider Reason for Visit * Reason Onset Date Comments Results 05/24/2023 Encounter Details Date Type Department Care Team ([facility] st Contact Info) Description 05/24/2023 Telephone [facility] CHC MED & PEDS [address] [place], [place] [phone] Joe Maya MD [address] [place], [place] [phone] Results Social History Tobacco Use Types Packs/Day Years Used Date Smoking Tobacco: Former Cigarettes 0.5 12 2 008 - 2020 Passive Smoke Exposure: Past Smokeless Tobacco: Never Comments Unknown Sex and Gender Information Value Date Recorded Sex Assigned at Female 07/09/2022 10:33 AM EDT Legal Sex Female 10:33 AM EDT Gender Identity Female 07/09/2022 10:33 AM EDT Sexual Orientation Bisexual 07/09/2022 10 :33 AM EDT documented as of this encounter Miscellaneous Notes * Telephone Encounter - Evie Garcia RN - 05/27/2023 8:40 AM EDT TC placed to pt regarding message below per Dr. Rose. Pt reports she is already aware and went to hospital and got medication. Pt inquiring on Ultrasound ordered. RN provided pt with [facility] Ultrasound number to attempt to contact them tomorrow 05/28/23. No further questions or concerns expressed.Pt to F/U as needed. Patient test came positive for gigi (fungal infection) and gardenella, usually this is also treated with antibiotics (metronidazole), side effects include, nausea/vomiting, abdominal pain. Avoid alcohol, if interested please let me know Please see message below. RN will forward to Dr. Rose to review and advise team nurses. Tc from pt requesting a call in regards to recent labs done at [facility]. Please contact pt at [phone] * Telephone Encounter - Rashida Hill - 05/24/2023 3:20 PM EDT Tc from pt requesting a call in regards to recent labs done at [facility]. Please contact pt at [phone] documented in this encounter Plan of Treatment Not on file documented as of this encounter Visit Diagnoses Not on filedocumented in this encounter Care Teams Supervisor Inspecting Relationship Specialty Start Date End Date Joe Maya MD [address] [place] [phone] PCP - General Internal Medicine 11/01/17 documented as of this encounter
--- OUTSIDE RECORDS SUMMARY | 2025-01-03 11:13 | XMS_ITS | Encounter Summary ---
Author Organization [employer] Address [address] [place] [address] Care Team Providers Care Escrow Clerk Name Role Phone Joe Maay MD Primary Care Provider Reason for Visit * Reason Onset Date Comments Med Refill 12/10/2022 Encounter Details Date Type Department Care Team (Late st Contact Info) Description 12/10/[address] [facility] MEDICINE [address] [place] [address] Joe Maya MD [address] [facility] [address] [place], [place] [phone] Med Refill Social History Tobacco Use Types Packs/Day Years Used Date Smoking Tobacco: Former Cigarettes 0.5 12 2 008 - 2020 Smokeless Tobacco: Never Comments Unknown Sex and [...] suspected to have Coronavirus/COVID-19? No / Unsure 12/04/2022 2:14 PM EDT documented as of this encounter Miscellaneous Notes * Telephone Encounter - Landen Núñez - 12/10/2022 10:40 AM EDT Tc from pt stating [facility] will not cover pt script for compression socks, pt would like script daniel send to [facility]. Please contact pt at [phone] documented in this encounter Plan of Treatment Not on file documented as of this encounter Visit Diagnoses Not on filedocumented in this encounter Care Teams Escrow Clerk Relationship Specialty Start Date End Date Joe Maya MD [address] [place] [phone] PCP - General Internal Medicine 11/01/17 documented as of this encounter
--- OUTSIDE RECORDS SUMMARY | 2025-01-03 11:13 | XMS_ITS | Encounter Summary ---
Author Organization [employer] Address [address] [facility] 7 [place] [address] Care Team Providers Care Post Hole Digger Name Role Phone Joe Maya MD Primary Care Provider [phone]- [phone] Encounter Details Date Type Department Care Team ([facility] st Contact Info) Description 12/21/2022 Orders Only [facility] CHC MED & PEDS [address] [place], [place] [phone] Joe Maya MD [address] [place], [place] [phone] Edema of lower extremity (Primary Dx) Social History Tobacco Use Types [...] documented as of this encounter Visit Diagnoses Diagnosis Edema of lower extremity- Primary documented in this encounter Care Teams Post Hole Digger Relationship Specialty Start Date End Date Joe Maya MD [address] [place] [id number] PCP - General Internal Medicine 11/01/17 documented as of this encounter
--- OUTSIDE RECORDS SUMMARY | 2025-01-03 11:13 | XMS_ITS | Referral Summary ---
Author Organization [facility] Address [address] [place] [address] Care Team Providers Care Waiter/Waitress Captain Name Role Phone Unknown, Doctor Primary Care Provider Unavailabl e Allergies Active Allergy Reactions Criticality Noted Date Comments Amoxicillin Unknown 01/14/2024 Drospirenone-Ethinyl Estradiol Unknown 08/31/2022 Escitalopram Oxalate Other (see comments) 09/06 Increased suicidal ideation Fluoxetine Rash Low 08/03/2019 Lamotrigine Rash 11/01/2017 Penicillins Dyspnea,Anaphylaxis, Unknown High 08/28/2011 PCN Sertraline Unknown 08/03/2019 Medications * This document contains information received from the source organization and may not represent a complete record from that organization. buPROPion XL (WELLBUTRIN XL) 300 mg tablet Take 300 mg by mouth daily. 4 Active chlorproMAZINE (THORAZINE) 50 mg tablet Take 50 mg by mouth 2 times daily as needed. 4 Active clonazePAM (KlonoPIN) 1 mg disintegrating tablet Dissolve 1 mg in the mouth every night. 4 Active clonazePAM (KlonoPIN) 2 mg disintegrating tablet Dissolve 2 mg in the mouth 2 times daily as needed (severe agitation). 4 Active dextroamphetamine- amphetamine XR (ADDERALL XR) 20 mg capsule Take 40 mg by mouth daily. 4 Active dextroamphetamine- amphetamine (ADDERALL) 30 mg tablet Take 30 mg by mouth once a day. In the afternoon 4 Active lurasidone (LATUDA) 60 mg tablet Take 60 mg by mouth. With dinner (minimum of 350 calories). 4 Active aluminum-magnesium hydroxide-simethic one (MAALOX PLUS) 200-200-20 mg/5 mL suspension Take 30 mL by mouth every 6 hours as needed. 4 Active nicotine (NICODERM CQ) 21 mg/[address] 1 patch on the skin daily. 4 Active norethindrone (MICRONOR) 0.35 mg tablet Take 0.35 mg by mouth daily. 4 Active traZODone (DESYREL) 100 mg tablet Take 100 mg by mouth nightly. 4 Active ibuprofen (MOTRIN) 600 mg tablet Take 600 mg by mouth 2 times daily as needed for pain. 4 Active cholecalciferol (VITAMIN D3) 2,000 unit tablet Take 2 tablets (4,000 Units total) by mouth once a day. May take in the AM or PM per patient preference. 30 tablet 2 4 Active chlorproMAZINE (THORAZINE) 25 mg tablet Take 1 tablet PO mid-morning PRN for anxiety/agita tion. Please pack to take with her to [facility] while in the program. Must take 2 hours apart from first 50MG PRN dose. 15 tablet 4 Active Active Problems Problem Noted Date Diagnosed Date Bipolar 2 disorder 01/14/2024 Borderline personality disorder 01/14/2024 Social History Tobacco Use Types Packs/Day Years Used Date Smoking Tobacco: Never Assessed Comments Unknown Sex and Gender Information Value Date Recorded Sex Assigned at Female 01/13/2024 11:14 AM EDT Legal Sex Female 11:11 AM EDT Gender Identity Not on file Sexual Orientation Not on file Last Filed Vital Signs Vital Sign Reading Time Taken Comments Blood Pressure - - Pulse - - Temperature - - Respiratory Rate - - Oxygen Saturation - - Inhaled Oxygen Concentration - - Weight 121.9 kg (268 lb 12.8 oz) 2023 11:01 AM EDT Height - - Body Mass Index - - Plan of Treatment Not on file Insurance [address] [place] [id number] [place] Care Teams Waiter/Waitress Captain Relationship Specialty Start Date End Date Unknown, Doctor Unknown Unknown, PAUL PCP - General 01/13/24
--- OUTSIDE RECORDS SUMMARY | 2025-01-03 11:13 | XMS_ITS | Encounter Summary ---
Author Organization [employer] Address [address] [facility] [address] 7[address] [place] [address] Care Team Providers Care Ophthalmic Lens Inspector Name Role Phone Joe Maya MD Primary Care Provider [phone]- [phone] Encounter Details Date Type Department Care Team ([facility] Contact Info) Description 02/27/2023 Orders Only [facility] MED & PEDS [address] [place], [place] [phone] Niki Wood MD [address] [place] [address] Anal or rectal pain (Primary Dx); Recurrent biliary colic Social History Tobacco Use Types Packs/Day Years [...] suspected to have Coronavirus/COVID-19? No / Unsure 02/01/2023 9:23 AM EDT documented as of this encounter Plan of Treatment Not on file documented as of this encounter Visit Diagnoses Diagnosis Anal or rectal pain- Primary Recurrent biliary colic Calculus of gallbladder without mention of cholecystitis or obstruction documented in this encounter Care Teams Ophthalmic Lens Inspector Relationship Specialty Start Date End Date Joe Maya MD [address] [place] [id number] PCP - General Internal Medicine 11/01/17 documented as of this encounter
--- OUTSIDE RECORDS SUMMARY | 2025-01-03 11:13 | XMS_ITS | Encounter Summary ---
Author Organization [employer] Address [address] [facility] 7 [place] [address] Care Team Providers Care Technology Architect Name Role Phone Joe Maya MD Primary Care Provider [phone]- [phone] Reason for Visit * Reason Onset Date Comments call back 12/12/2022 Encounter Details Date Type Department Care Team (Late st Contact Info) Description 12/12/2022 Telephone [facility] [address] [place] [address] Joe Maya MD [address] [place], [place] [phone] call back Social History Tobacco Use Types Packs/Day Years [...] * Telephone Encounter - Landen Núñez - 12/12/2022 9:43 AM EDT Tc from pt returning nurses call. Please contact pt at [phone] documented in this encounter Plan of Treatment Not on file documented as of this encounter Visit Diagnoses Not on filedocumented in this encounter Care Teams Technology Architect Relationship Specialty Start Date End Date Joe Maya MD [address] [place] [id number] PCP - General Internal Medicine 11/01/17 documented as of this encounter
--- OUTSIDE RECORDS SUMMARY | 2025-01-03 11:13 | XMS_ITS | Clinical Summary ---
Author Organization [facility] Address [address] [place] [address] Care Team Providers Care Canal Tender Name Role Phone Unknown, Doctor Primary Care [...] Mass Index - - Plan of Treatment Health Maintenance Due Date Last Done Comments Cervical Cancer Screening 1991 HIV Screening 1991 HPV and Pap Smear 1991 Hepatitis C Screening 1991 Pap Smear 1991 Varicella Vaccines (2 of 2 - 2-dose childhood series) 05/07/1996 02/13/1996 COVID-19 Vaccine ( season) 2024 06/03/2023, 04/08/2021, 03/13/2021 Alcohol/Substance Use Screening 09/09/2024 Depression Screening and Follow-Up 09/09/2024 01/14/2024 Social Drivers of Health Annual Screening 09/09/2024 Influenza Vaccine (Season Ended) 2025 DTaP,Tdap,and Td Vaccines (7 - Td or Tdap) 07/20/2032 07/20/2022, 01/28/2017, 08/10/2004, Additional history exists RSV Vaccine (60+ years old and patients) (1 - 1-dose 75+ series) 2066 Hepatitis B Vaccines Completed 11/18/2001, 10/19/1998, 09/15/1998 Pneumococcal Vaccine: Pediatric (0-5 Years) and At-Risk Patients (6-50 Years) Aged Out No longer eligible based on patient's age to complete this topic Insurance [address] [place] [id number] [facility] MEDICAID Care Teams Canal Tender Relationship Specialty Start Date End Date Unknown, Doctor Unknown Unknown, PAUL PCP - General 01/13/24
--- OUTSIDE RECORDS SUMMARY | 2025-01-03 11:13 | XMS_ITS | Encounter Summary ---
Author Organization [employer] Address [address] [place] [address] Care Team Providers Care Gluing Machine Offbearer Name Role Phone Joe Maya MD Primary Care Provider Reason for Visit * Reason Onset Date Comments Nurse Triage 03/04/2023 Encounter Details Date Type Department Care Team ([facility] st Contact Info) Description 03/04/2023 Telephone [facility] CHC MED & PEDS [address] [place] [address] Joe Maya MD [address] [place], [place] [phone] Nurse Triage Social History Tobacco Use Types Packs/Day Years [...] encounter Miscellaneous Notes * Telephone Encounter - Autumn Cast LPN - 03/04/2023 10:37 AM EDT I do not believe this is a patient of ours. * Telephone Encounter - Soumya Avila - 03/04/2023 10:01 AM EDT TC from Kizzy from [facility] calling to inform pt was seen at [facility] ER On 03/01/23. Diagnose with hand and shoulder pain . States pt is still having symptoms of pain and is requesting an MRI . Kizzy's contact # [phone] documented in this encounter Plan of Treatment Not on file documented as of this encounter Visit Diagnoses Not on filedocumented in this encounter Care Teams Gluing Machine Offbearer Relationship Specialty Start Date End Date Joe Maya MD [address] [place] [id number] PCP - General Internal Medicine 11/01/17 documented as of this encounter
--- NOTE | 2025-01-03 11:50 | ED.URI ---
HPI - URI/Sore Throat General Chief Complaint: Upper Respiratory Symptoms Stated Complaint: Diff breathing Time Seen by Provider: 01/03/25 10:32 Source: patient Mode of arrival: ambulatory Limitations: no limitations History of Present Illness ED Provider: vera guzmán np HPI Narrative: Patient is a 34-year-old female who presents emergency department for evaluation of sore throat, nasal and chest congestion, nonproductive cough, intermittent shortness of breath. Onset of symptoms 2-3 days ago. Admits to recent ill contacts. Denies fevers, chills, headache, dizziness, neck pain, neck stiffness, nausea, vomiting, abdominal pain, numbness or tingling of the extremities, genitourinary symptoms. Related Data Home Medications ?Medication ?Instructions ?Recorded ?Confirmed bupropion HCl 300 mg 24 hr tablet, 300 mg PO DAILY 11/12/24 11/12/24 extended release chlorpromazine 25 mg tablet See Rx Instructions .Route 11/12/24 11/12/24 .COMPLEX PRN agitation. cholecalciferol (vitamin D3) 25 25 mcg PO DAILY 11/12/24 11/12/24 mcg (1,000 unit) capsule (Vitamin D3) clonazepam 1 mg tablet 1 mg PO DAILY 11/12/24 11/12/24 clonazepam 2 mg tablet 2 mg PO BEDTIME 11/12/24 11/12/24 dextroamphetamine-amphetamine 30 1 tab PO DAILY 11/12/24 11/12/24 mg tablet dextroamphetamine-amphetamine ER 40 mg PO DAILY 11/12/24 11/12/24 20 mg 24hr capsule,extend release (Adderall XR) lurasidone 20 mg tablet (Latuda) 20 mg PO DAILY 11/12/24 11/12/24 lurasidone 80 mg tablet (Latuda) 80 mg PO DAILY 11/12/24 11/12/24 nicotine 21 mg/24 hr daily 1 patch transdermal DAILY 11/12/24 11/12/24 transdermal patch norethindrone (contraceptive) 0.35 0.35 mg PO DAILY 11/12/24 11/12/24 mg tablet pantoprazole 40 mg tablet,delayed 40 mg PO DAILY 11/12/24 11/12/24 release trazodone 100 mg tablet 100 mg PO BEDTIME PRN Insomnia 11/12/24 11/12/24 Previous Rx's ?Medication ?Instructions ?Recorded dextromethorphan-benzocaine 5 1 russell PO Q4H PRN sore throat #16 ea 01/03/25 mg-7.5 mg lozenges (Cepacol Sore Throat-Cough) doxycycline hyclate 100 mg tablet 100 mg PO BID #10 tabs 01/03/25 ibuprofen 600 mg tablet 600 mg PO Q8H PRN pain #30 tabs 01/03/25 Allergies Allergy/AdvReac Type Severity Reaction Status Date / Time fluoxetine [Prozac] Allergy Severe Unknown Verified 01/03/25 09:26 lamotrigine [Lamictal] Allergy Severe Rash Verified 01/03/25 09:26 penicillin V Allergy Severe Shortness Verified 01/03/25 09:26 of Breath sertraline [Zoloft] Allergy Severe Agitated Verified 01/03/25 09:26 amoxicillin [AMOXICILLIN] Allergy Intermediate Shortness Verified 01/03/25 09:26 of Breath Penicillins [PENICILLINS] Allergy Intermediate Shortness Verified 01/03/25 09:26 of Breath oxcarbazepine Allergy Unknown Verified 01/03/25 09:26 [From Trileptal] escitalopram [From Lexapro] AdvReac Suicidal Verified 01/03/25 09:26 Thoughts Review of Systems Review of Systems: Yes all other systems are reviewed and are negative PMFSH Past Medical History Attestation statement: The following information was validated with the patient. Source: old records reviewed Medical History Intrahepatic gallbladder Scoliosis Tendinitis of finger of right hand Normal endoscopic ultrasound of upper gastrointestinal tract Nodule of left lung History of heart disorder Kidney stones Anemia Edema Anxiety with depression Borderline personality disorder Morbid obesity Dissociative disorder Dysplasia of cervix, low grade (WILBER 1) Hx of gastroesophageal reflux (GERD) Surgical History History of cholecystectomy H/O hernia repair Hx laparoscopic cholecystectomy History of dental surgery Family History Family History Family/Other Breast cancer Mother No problems noted. Father Diabetes Maternal Grandmother HTN (hypertension) Social History Social History Household Members: Other Household Members Other:: Lives in a respite placement with 10 individuals but has her own room Alcohol intake: never Patient Tobacco Use Status: Former Tobacco user Tobacco use type: Cigarette Smoked in Last 30 Days: Yes Second Hand Smoke Exposure: No Use of substances other than those prescribed or required for medical reasons: No Special kd needs: No Agree to transfusion: Yes Advance Directives: No Advance Directives Information Provided: No Advance Directives Date on File: 01/17/23 Do you have a plan to hurt others: No Plan service: No Current occupational status: unemployed Sexual orientation: Bisexual Gender identity: Female Physical Exam Vital Signs: Vital Signs: Last Vital Signs Temp 97.9 F 01/03/25 10:54 Pulse 95 01/03/25 10:54 Resp 16 01/03/25 10:54 BP 112/73 01/03/25 10:54 Pulse Ox 99 01/03/25 10:57 O2 Del Method Room Air 01/03/25 10:57 BMI result Body Mass Index 17.0 Appearance: Alert.?Oriented to person, place and time. No acute distress.?Normal affect. Eyes: Pupils equal, round and reactive to light.? ENT: TM normal bilaterally. Pharynx normal.?? Neck: Normal inspection.? Neck supple.??No cervical adenopathy CVS: Heart sounds normal. Normal heart rate and rhythm.? Pulses normal.?? Respiratory: No respiratory distress.? Lung sounds clear to auscultation bilaterally?? Abdomen: Soft and non-tender. Normoactive bowel sounds. Skin: Skin warm and dry.? Normal skin color.? ? Extremities: No lower extremity edema.? Neuro: Moves all extremities spontaneously. Sensation intact bilaterally. No motor deficits. Ambulates with normal steady gait. Medical Decision Making Medical Decision Making MDM Narrative: Patient is a 34-year-old female who presents emergency department for evaluation of upper respiratory symptoms as per HPI. Overall she is well-appearing, nontoxic, afebrile. A testing obtained prior to my assumption of care revealing COVID-19/influenza/RSV testing to be negative. Group a strep testing is negative. Examination is not consistent with RPA/HEALTH ANALYST. Chest x-ray reveals findings concerning for an early right lower lobe pneumonia. This finding was discussed with the patient. She received 1st dose of doxycycline in the emergency department in addition to Cepacol lozenge for sore throat. I have sent prescription for antibiotic to the pharmacy in addition to prescription for ibuprofen and Cepacol, I did make patient aware I am not certain whether insurance will cover this I would that as they are available [id number] she unfortunately does not have any money to purchase some [id number]. Speaking clear full sentences, ambulatory with steady gait. Discussed conservative treatment including rest, hydration, Tylenol/ibuprofen as needed for fever and body aches, saline nasal spray, humidifier, [id number] cold medication. Advised to follow-up with primary care provider as needed, discussed reasons to return back to the emergency department. All questions were answered. Patient discharged home in stable condition. Differential Diagnosis Differential Diagnoses: The differential diagnosis associated with the presentation includes ( See narrative above) Admission/Observation Consideration of admission/observation: Escalation of care including admission/observation considered ( see narrative above) Lab Data MDM Lab Attestation statement: I reviewed the patient's lab results. ( see narrative above) Labs: Lab Results 01/03/25 Range/Units 09:32 Influenza Type A (PCR) NEGATIVE (Negative) Influenza Type B (PCR) NEGATIVE (Negative) RSV RNA Qual (PCR) NEGATIVE (Negative) SARS-CoV-2 RNA (RT-PCR) NEGATIVE (Negative) S. pyogenes GrpA NAGELLA Negative (Negative) Independent Interpretation I performed an independent interpretation of an: Plain X-Ray (See narrative above) Radiology Impression Discussion of test interpretation with radiology: I have reviewed the radiologist's reading. Radiologist Impression: 2 view chest x-ray. Comparison: None Findings: Normal lung volumes. Bibasilar bronchial wall thickening. Equivocal right lower lobe infiltrate. No pneumothorax or pleural effusion. Heart size normal. No passive venous congestion. No midline shift or tracheal deviation. No acute fracture. Dextroscoliosis. Impression: 1. Bronchial wall thickening. Equivocal infiltrate right lower lobe External Record Review External record reviewed: Outpatient record Prescription Management I considered prescription management with: Pain Medication ( acetaminophen/ibuprofen) and Antibiotic Discharge Plan Discharge Clinical Impression: Pneumonia Patient Disposition: Home, Self-Care Instructions: Pneumonia (ED) Additional Instructions: Complete the entire course of antibiotics as prescribed. Be sure to rest, stay well hydrated drinking plenty of fluids, eat small frequent meals. Tylenol/ibuprofen can be used as needed for fever/pain. [id number]-[id number] cold medications may be helpful as well for symptoms. Saline nasal spray, humidifier may be helpful for nasal congestion. You may return to the emergency department with any new or worsening symptoms or concerns. Follow-up with your primary care provider as needed. Should remain out of school/ work until symptoms have resolved and have been without a fever for 24 hours without the use of Tylenol or ibuprofen. Prescriptions: New Cepacol Sore Throat-Cough 5-7.5 mg lozenge 1 russell PO Q4H PRN (Reason: sore throat) Qty: 16 0RF ibuprofen 600 mg tablet 600 mg PO Q8H PRN (Reason: pain) Qty: 30 0RF doxycycline hyclate 100 mg tablet 100 mg PO BID Qty: 10 0RF No Action dextroamphetamine-amphetamine [Adderall XR] 20 mg capsule,extended release 24hr 40 mg PO DAILY Rx Instructions: Take 2 tabs in the morning. dextroamphetamine-amphetamine 30 mg tablet 1 tab PO DAILY Rx Instructions: TAKE 1 TABLET BY MOUTH EVERY DAY IN THE AFTERNOON bupropion HCl 300 mg tablet extended release 24 hr 300 mg PO DAILY clonazepam 1 mg Tablet 1 mg PO DAILY trazodone 100 mg Tablet 100 mg PO BEDTIME PRN (Reason: Insomnia) chlorpromazine [Thorazine] 25 mg Tablet See Rx Instructions .ROUTE .COMPLEX PRN (Reason: agitation.) Rx Instructions: Take either 12.5 mg or 25 mg or 50 mg TID PRN for agitation. clonazepam 2 mg Tablet 2 mg PO BEDTIME Rx Instructions: administer 30 minutes before bedtime pantoprazole 40 mg Tablet,Delayed Release (Dr/Ec) 40 mg PO DAILY nicotine 21 mg/24 hr Patch 24 Hour 1 patch TRANSDERMAL DAILY norethindrone (contraceptive) 0.35 mg Tablet 0.35 mg PO DAILY cholecalciferol (vitamin D3) [Vitamin D3] 25 mcg (1,000 unit) Capsule 25 mcg PO DAILY lurasidone [Latuda] 80 mg Tablet 80 mg PO DAILY Rx Instructions: must administer with food (at least 350 calories). Take with 20 mg tab for total dose 100 mg daily. lurasidone [Latuda] 20 mg Tablet 20 mg PO DAILY Rx Instructions: must administer with food (at least 350 calories) Referrals: Physician,Unknown J [Primary Care Provider] - Print Language: Bulgarian
[2025-01-03] MEDS: Doxycycline Monohydrate 100 MG CAPSULE PO (12:02)
[2025-01-03] MEDS: Throat Lozenge, Medicated LOZENGE 1 LOZENGE MUCOUS MEM (12:03)
[2025-01-03 12:07] VITALS: BP 112/73; PULSE 95; RESP 16; TEMP 36.6; O2SAT 99
== END 2025-01-03 12:08 | disposition home or self-care (01) ==
PROVIDERS: Physician Assistant Medical; Emergency Provider Emergency Medicine
DX: J18.9 Pneumonia, unspecified organism (principal); R06.02 Shortness of breath; J02.9 Acute pharyngitis, unspecified; R05.9 Cough, unspecified; Z79.899 Other long term (current) drug therapy; Z03.818 Encounter for observation for suspected exposure to other biological agents ruled out
CPT/HCPCS: 0241U; 71046; 87651; 99283; 99284

== ENCOUNTER → 2025-01-03 09:25 | Outpatient (BNV) | payer OTHER, SELFPAY | PROVIDERS: Visit Provider Radiology Diagnostic Radiology | DX: R06.02 Shortness of breath (principal); R07.2 Precordial pain | CPT/HCPCS: 71046 ==

== ENCOUNTER 2025-07-03 11:25 | Emergency (ER) | payer OTHER, SELFPAY ==
--- OUTSIDE RECORDS SUMMARY | 2025-06-28 19:20 | XMS_ITS | Encounter Summary ---
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 recent administrations Medication Order MAR Action Action Date Dose Rate Site oxyCODONE-acetaminophen (PERCOCET) 5-325 mg per tablet 1 tablet 1 tablet, oral, Once, On 06/28/25 at 2136, For 1 dose Given 06/28/2025 9:43 PM EDT 1 tablet documented in this encounter Discontinued Medications Medication Sig Discontinue Reason Start Date End Da te pantoprazole (PROTONIX) 40 mg EC tabletIndications:Gastric ulcer, unspecified chronicity, unspecified whether gastric ulcer hemorrhage or perforation present Take 1 tablet (40 mg total) by mouth 1 (one) time each day before breakfast. Do not crush, chew, or split. 06/28/2025 06/28/2025 sucralfate (CARAFATE) 100 mg/mL suspension Take 10 mL (1 g total) by mouth 4 (four) times a day (before meals and nightly) for 10 days. 06/28/2025 06/28/2025 documented as of this encounter Active and Recently Administered Medications Times are shown in EDT. Scheduled Medication Order 06/27/2025 06/28/2025 06/29/2025 oxyCODONE-acetaminophen (PERCOCET) 5-325 mg per tablet 1 tablet (COMPLETED) 1 tablet, oral, Once, On 06/28/25 at 2136, For 1 dose 2143 (Given - Provider: Eleazar Estrada RN) documented in this encounter Orders Medications Ordered That Jass ht Not Have Been Administered Count Last Ordered Date First Ordered Date oxyCODONE-acetaminophen (PER COCET) 5-325 mg per tablet 1 tablet 1 06/28/2025 documented in this encounter Care Teams Concrete Block Maker Relationship Specialty Start Date End Date Abisai Oconnor MD [address] [place] [address] PCP - General Family Medicine 06/29/25 documented as of this encounter
[2025-07-03 11:27] VITALS: BP 133/71; PULSE 108; RESP 14; TEMP 36.2; O2SAT 97; BMI 39.0
--- NOTE | 2025-07-03 11:27 | ED.GENADULT ---
HPI - General Adult General Chief complaint: General Medical Stated complaint: medication Time Seen by Provider: 07/03/25 11:33 Source: patient, RN notes reviewed and old records reviewed Mode of arrival: ambulatory History of Present Illness ED Provider: Ana Hopkins PA-C HPI narrative: 34-year-old female with a past medical history anemia, renal stones, GERD, presenting to the ED requesting refill of her Adderall. States she takes 60 mg XR in the morning and 30 mg IR in the afternoon. States she saw her therapist yesterday and all of her medications were refilled accept for her Adderall. Was recommended by her therapist to come to the ED today. Denies SI/HI. Related Data Home Medications ?Medication ?Instructions ?Recorded ?Confirmed bupropion HCl 300 mg 24 hr tablet, 300 mg PO DAILY 11/12/24 11/12/24 extended release chlorpromazine 25 mg tablet See Rx Instructions .Route 11/12/24 11/12/24 .COMPLEX PRN agitation. cholecalciferol (vitamin D3) 25 25 mcg PO DAILY 11/12/24 11/12/24 mcg (1,000 unit) capsule (Vitamin D3) clonazepam 1 mg tablet 1 mg PO DAILY 11/12/24 11/12/24 clonazepam 2 mg tablet 2 mg PO BEDTIME 11/12/24 11/12/24 dextroamphetamine-amphetamine 30 1 tab PO DAILY 11/12/24 11/12/24 mg tablet dextroamphetamine-amphetamine ER 40 mg PO DAILY 11/12/24 11/12/24 20 mg 24hr capsule,extend release (Adderall XR) lurasidone 20 mg tablet (Latuda) 20 mg PO DAILY 11/12/24 11/12/24 lurasidone 80 mg tablet (Latuda) 80 mg PO DAILY 11/12/24 11/12/24 nicotine 21 mg/24 hr daily 1 patch transdermal DAILY 11/12/24 11/12/24 transdermal patch norethindrone (contraceptive) 0.35 0.35 mg PO DAILY 11/12/24 11/12/24 mg tablet pantoprazole 40 mg tablet,delayed 40 mg PO DAILY 11/12/24 11/12/24 release trazodone 100 mg tablet 100 mg PO BEDTIME PRN Insomnia 11/12/24 11/12/24 Previous Rx's ?Medication ?Instructions ?Recorded dextromethorphan-benzocaine 5 1 russell PO Q4H PRN sore throat #16 ea 01/03/25 mg-7.5 mg lozenges (Cepacol Sore Throat-Cough) doxycycline hyclate 100 mg tablet 100 mg PO BID #10 tabs 01/03/25 ibuprofen 600 mg tablet 600 mg PO Q8H PRN pain #30 tabs 01/03/25 dextroamphetamine-amphetamine 30 30 mg PO DAILY #3 tabs 07/03/25 mg tablet (Adderall) dextroamphetamine-amphetamine ER 60 mg (2 x 30 mg) PO QAM 3 days #6 07/03/25 30 mg 24hr capsule,extend release caps (Adderall XR) Allergies Allergy/AdvReac Type Severity Reaction Status Date / Time fluoxetine (Prozac) Allergy Severe Unknown Verified 07/03/25 11:28 lamotrigine (Lamictal) Allergy Severe Rash Verified 07/03/25 11:28 penicillin V Allergy Severe Shortness Verified 07/03/25 11:28 of Breath sertraline (Zoloft) Allergy Severe Agitated Verified 07/03/25 11:28 amoxicillin (AMOXICILLIN) Allergy Intermediate Shortness Verified 07/03/25 11:28 of Breath Penicillins (PENICILLINS) Allergy Intermediate Shortness Verified 07/03/25 11:28 of Breath oxcarbazepine (From Allergy Unknown Verified 07/03/25 11:28 Trileptal) escitalopram (From Lexapro) AdvReac Suicidal Verified 07/03/25 11:28 Thoughts omeprazole AdvReac Stomach Verified 07/03/25 11:28 Upset Review of Systems Review of Systems: Yes all other systems are reviewed and are negative Constitutional: Constitutional: Reports as per [facility] Past Medical History Attestation statement: The following information was validated with the patient. Source: old records reviewed Medical History Intrahepatic gallbladder Scoliosis Tendinitis of finger of right hand Normal endoscopic ultrasound of upper gastrointestinal tract Nodule of left lung History of heart disorder Kidney stones Anemia Edema Anxiety with depression Borderline personality disorder Morbid obesity Dissociative disorder Dysplasia of cervix, low grade (WILBER 1) Hx of gastroesophageal reflux (GERD) Surgical History History of cholecystectomy H/O hernia repair Hx laparoscopic cholecystectomy History of dental surgery Family History Family History Family/Other Breast cancer Mother No problems noted. Father Diabetes Maternal Grandmother HTN (hypertension) Social History Social History Household Members: Other Household Members Other:: Lives in a respite placement with 10 individuals but has her own room Alcohol intake: never Patient Tobacco Use Status: Former Tobacco user Tobacco use type: Cigarette Second Hand Smoke Exposure: No Special kd needs: No Agree to transfusion: Yes Advance Directives Date on File: 01/17/23 service: No Current occupational status: unemployed Sexual orientation: Bisexual Gender identity: Female Physical Exam ED Vital Signs: Vital Signs - 24 hr 07/03/25 11:27 Temperature 97.2 F Pulse Rate 108 H Respiratory Rate 14 Blood Pressure 133/71 Pulse Oximetry 97 Oxygen Delivery Method Room Air BMI result Body Mass Index 39.0 Const General: cooperative, healthy appearing and no acute distress Orientation/consciousness: patient oriented x3 Limitations: no limitations HENMT Head: Yes normal to inspection and Yes atraumatic Ears: hearing grossly normal bilaterally General nose exam: Normal external nose present Face and sinus: Yes normal facial exam Eyes General: appearance normal, both eyes and all related structures EOM: EOMs intact bilaterally Neck Neck: Yes normal visual inspection and Yes no meningeal signs Resp Effort & Inspection: normal respiratory effort and no respiratory distress Cardio Rate: regular rate Skin Rashes: no rashes Wounds: no wounds Neuro General: patient oriented x3, tone normal, no meningeal signs and CN's II-XI intact bilaterally Cranial nerves: Yes CN's II-XII intact bilaterally Gait exam (Neuro): Normal gait present Extrem General: Yes normal to inspection Medical Decision Making Medical Decision Making MDM Narrative: 34-year-old female with a past medical history anemia, renal stones, GERD, presenting to the ED requesting refill of her Adderall. States she takes 60 mg XR in the morning and 30 mg IR in the afternoon. On exam mildly tachycardic, NAD, nontoxic appearing, per [facility] review patient is out of her Adderall currently. With shared decision-making agreeable to send patient with 3 days' worth of her home dose of Adderall so she can follow up with her therapist/psychiatrist on Saturday Please refer to course for remaining clinical decision making, interpretation of labs/imaging results, and discussions with consultants and/or family members. Results discussed with patient including worrisome signs and symptoms and strict return precautions, and when to return to the emergency department. They verbalized understanding and feel safe for discharge at this time. Differential Diagnosis Differential Diagnoses: The differential diagnosis associated with the presentation includes As above External Record Review External record reviewed: Inpatient record, Office record, Outpatient record, Prior outpatient labs, Prior outpatient radiology, Primary care record and Outside ED record Tests considered The following testing was considered but not selected: As above Prescription Management I considered prescription management with: Other Chronic Conditions Patient?s care impacted by: Other Social Determinants Patient?s care significantly limited by Social Determinants of Health including: Other Social Determinant of Health Discharge Plan Discharge Clinical Impression: Medication refill Patient Disposition: Home, Self-Care Instructions: Medicine Refill (ED) Additional Instructions: Please follow up with your psychiatrist and therapist If you have thoughts of hurting herself or others return to the ED Prescriptions: New dextroamphetamine-amphetamine [Adderall XR] 30 mg capsule,extended release 24hr 60 mg PO QAM 3 Days Qty: 6 0RF Rx Instructions: Partial Fill upon patient request. dextroamphetamine-amphetamine [Adderall] 30 mg tablet 30 mg PO DAILY Qty: 3 0RF Rx Instructions: Partial Fill upon patient request. No Action dextroamphetamine-amphetamine [Adderall XR] 20 mg capsule,extended release 24hr 40 mg PO DAILY Rx Instructions: Take 2 tabs in the morning. dextroamphetamine-amphetamine 30 mg tablet 1 tab PO DAILY Rx Instructions: TAKE 1 TABLET BY MOUTH EVERY DAY IN THE AFTERNOON bupropion HCl 300 mg tablet extended release 24 hr 300 mg PO DAILY clonazepam 1 mg Tablet 1 mg PO DAILY trazodone 100 mg Tablet 100 mg PO BEDTIME PRN (Reason: Insomnia) chlorpromazine [Thorazine] 25 mg Tablet See Rx Instructions .ROUTE .COMPLEX PRN (Reason: agitation.) Rx Instructions: Take either 12.5 mg or 25 mg or 50 mg TID PRN for agitation. clonazepam 2 mg Tablet 2 mg PO BEDTIME Rx Instructions: administer 30 minutes before bedtime pantoprazole 40 mg Tablet,Delayed Release (Dr/Ec) 40 mg PO DAILY nicotine 21 mg/24 hr Patch 24 Hour 1 patch TRANSDERMAL DAILY norethindrone (contraceptive) 0.35 mg Tablet 0.35 mg PO DAILY cholecalciferol (vitamin D3) [Vitamin D3] 25 mcg (1,000 unit) Capsule 25 mcg PO DAILY lurasidone [Latuda] 80 mg Tablet 80 mg PO DAILY Rx Instructions: must administer with food (at least 350 calories). Take with 20 mg tab for total dose 100 mg daily. lurasidone [Latuda] 20 mg Tablet 20 mg PO DAILY Rx Instructions: must administer with food (at least 350 calories) Cepacol Sore Throat-Cough 5-7.5 mg lozenge 1 russell PO Q4H PRN (Reason: sore throat) Qty: 16 0RF ibuprofen 600 mg tablet 600 mg PO Q8H PRN (Reason: pain) Qty: 30 0RF doxycycline hyclate 100 mg tablet 100 mg PO BID Qty: 10 0RF Referrals: [facility] [Outside] Print Language: Divehi
--- OUTSIDE RECORDS SUMMARY | 2025-07-03 11:38 | XMS_ITS | Encounter Summary ---
Author Organization [employer] Address [address] [facility] [address] [place] [address] Care Team Providers Care Finishing Inspector Name Role Phone Joe Maya MD Primary Care Provider [phone] Encounter Details Date Type Department Care Team (Late st Contact Info) Description 03/31/2024 Orders Only [facility] [address] [place] [address] Provider, MD Shahid Social History Tobacco Use [...] on filedocumented in this encounter Care Teams Finishing Inspector Relationship Specialty Start Date End Date Joe Maya MD [address] [place] [id number] PCP - General Internal Medicine 11/01/17 documented as of this encounter
--- OUTSIDE RECORDS SUMMARY | 2025-07-03 11:38 | XMS_ITS | Encounter Summary ---
Author Organization [employer] Address [address] [facility] [address] [place] [address] Care Team Providers Care Lacing String Cutter Name Role Phone Joe Maya MD Primary Care Provider Reason for Visit * Reason Onset Date Comments Nurse Triage 03/04/2023 Encounter Details Date Type Department Care Team ([facility] st Contact Info) Description 03/04/[address] [facility] [address], [place] [phone] Jeo Maya MD [address] [place], [place] [phone] Nurse Triage Social History Tobacco Use Types [...] 10:01 AM EDT TC from Kizzy from [facility] calling to inform pt was seen at [facility] ER On 03/01/23. Diagnose with hand and shoulder pain . States pt is still having symptoms of pain and is requesting an MRI . Kizzy's contact # [phone] documented in this encounter Plan of Treatment Not on file documented as of this encounter Visit Diagnoses Not on filedocumented in this encounter Care Teams Lacing String Cutter Relationship Specialty Start Date End Date Joe Maya MD [address] [place] [id number] PCP - General Internal Medicine 11/01/17 documented as of this encounter
--- OUTSIDE RECORDS SUMMARY | 2025-07-03 11:38 | XMS_ITS | Clinical Summary ---
Author Organization [employer] Address [address] [place] [address] Care Team Providers Care Wind Turbine Installer Name Role Phone Joe Maya MD Primary [...] MOUTH 2X A DAY NEEDED FOR CONSTIPATION 04/27/20 23 Active ondansetron ODT (Zofran-ODT) 4 MG disintegrating [...] Depression 08/31/2022 Borderline personality disorder in adult (CMS/HC C) 08/31/2022 Irregular periods 07/11/2018 Immunizations Immunization Administration Dates Next Due DTP 04/23/1993,02/22/1992,1991 DTaP [...] 108 05/21/2023 6:54 PM EDT Temperature 37.1 C (98.8 F) 05/21/2023 6:54 PM EDT Respiratory Rate 19 05/21/2023 6:54 PM EDT Oxygen Saturation 98% 05/21/2023 6:54 PM EDT Inhaled Oxygen Concentration - - Weight 114 kg (250 lb 6 oz) 05/21/2023 6:54 PM E DT Height 165.1 cm (5' 5 ) 05/21/2023 6:54 PM EDT Body Mass Index 41.66 05/21/2023 6:54 PM EDT Plan of Treatment Health Maintenance Due Date Last Done Comments Depression Screening 1991 Disability Screening 1991 Alcohol/Substance Use Screening 2003 Family Planning (PISQ) 2006 HPV Vaccines (1 - 3-dose series) 2006 Cervical Cancer Screening 04/25/2023 Pap Smear 04/25/2023 04/25/2022 SDOH Screening 12/15/2023 12/14/2022 Tobacco Screening 05/21/2024 05/21/2023 COVID-19 Vaccine ( season) 2025 06/03/2023, 04/08/2021, 03/13/2021 Influenza Vaccine (#1) 2025 HPV/Cotest 07/21/2025 07/21/2020, 07/21/2020 Lipid Panel 12/08/2028 12/09/2023, 08/11, 03/31/2021 DTaP/Tdap/Td Vaccines (7 - Td or [...] Years) and At-Risk Patients (6 to 49) Years Aged Out No longer eligible based on patient's age to complete this topic RSV under 20 months Aged Out No longe r eligible based on patient's age to complete this topic Rotavirus Vaccines Aged Out No longer eligible based on patient's age to complete this topic Procedures Procedure Name Priority Date/Time Associated Diagnosis Comments HM PAP/HPV Routine 04/25/2022 [facility] HISTORICAL HEPATITIS C ANTIBODY Routine 04/24/2022 12:35 PM EDT [facility] HISTORICAL LIPID PANEL Routine 03/31/2021 1:20 PM EDT [facility] HISTORICAL HPV E6/E7 RFLX KIARA 16 18/45 Routine 07/21/2020 9:27 AM EST from Last 3 Months or Most Recently Relevant to Health Maintenance Results * (ABNORMAL) Hm Pap Smear (04/25/2022) Pap Epithelial cell abnormality(A ) Negative for intraephithelial lesion or malignancy, Other Comment:ASCUS Historical Provider HEALTH MAINTENANCE Final Result * Hepatitis C Antibody (04/24/2022 12:35 PM EDT) Pathologist [facility] Hepatitis C Antibody Nonreactive Nonreactive [facility] Comment: Antibodies to HCV not detected; does not exclude early acute HCV infection. HIV AB/AG Nonreactive Nonreactive [facility] Comment: HIV-1 p24 Ag and/or HIV-1/HIV-2 Ab not detected. A test result that is nonreactive does not exclude the possibility of exposure to or infection with HIV-1 and/or HIV-2. Nonreactive results in this assay for individuals with prior exposure to HIV-1 and/or HIV-2 may be due to antigen and antibody levels that are below the limit of detection of this assay. The [employer] Plan Salesperson HIV Ag/Ab Combo assay result and supplemental assay results should be interpreted in conjunction with the patient's clinical presentation, history and other laboratory results. If the results are inconsistent with clinical evidence, additional testing is suggested to confirm the result. Hepatitis B Surface Antigen Negative Negative [facility] 04/24/2022 12:3 5 PM EDT Dmitri Braxton MD HISTORICAL/NON ORDERABLE LABS Fi nal Result [facility] [address] * LIPID PANEL (03/31/2021 1:20 PM EDT) Pathologist [facility] Cholesterol 162 mg/dL [facility] Comment: Desirable Cholesterol: less than 200 mg/dL Borderline High Cholesterol: 200-239 mg/dL High Cholesterol: greater than 239 mg/dL HDL Cholesterol 67 mg/dL [facility] Comment: Desirable HDL: greater than 40 mg/dL Note: This HDL assay may give artificially low results in patients with liver disease. LDL Cholesterol Calculated 78 mg/dl [facility] Comment: Desirable LDL: less than 100 mg/dL Near Optimal/Above Optimal LDL: 110-129 mg/dL Borderline High LDL: 130-159 mg/dL High LDL: 160-189 mg/dL Very High LDL: greater than or equal to 190 mg/dL Triglycerides 88 mg/dL [facility] Comment: Desirable Triglyceride: less than 150 mg/dL Borderline High Triglyceride 150-199 mg/dL High Triglyceride: 200-499 mg/dL Very High Triglyceride: greater than or equal to 5OO mg/dL 03/31/2021 1:20 PM EDT Historical Provider MD HISTORICAL/NON ORDERABLE LABS Final Result Performing Organization Address [facility] de Phone Number [facility] [address] * HPV E6/E7 RFLX KIARA 16 18/45 (07/21/2020 9:27 AM EST) HPV mRNA E6/E7 rflx Not Detected Not Detected [facility] Comment: This test was performed using the APTIMA HPV Assay ([employer] This assay detects E6/E7 viral messenger RNA (mRNA) from 14 high-risk HPV types (16,18,31,33,35,39,45,51,52,56,58,59,66,68). The analytical performance characteristics of this assay have been determined by [employer]. The modifications have not been cleared or approved by the FDA. This assay has been validated pursuant to the CLIA regulations and is used for clinical purposes. THIS TEST WAS PERFORMED AT: [facility] [address] [address] BIB BOUDREAUX MD 07/21/2020 9:27 AM EST Yvette Youssef HISTORICAL/NON ORDERABLE LABS Fi nal Result Performing Organization Address [facility] de Phone Number [facility] [address] from Last 3 Months or Most Recently Relevant to Health Maintenance Insurance [place] [id number] MEDICARE Care Teams Wind Turbine Installer Relationship Specialty Start Date End Date Joe Maya MD [address] [place] [address] [place] [address] PCP - General Internal Medicine 11/01/17
--- OUTSIDE RECORDS SUMMARY | 2025-07-03 11:38 | XMS_ITS | Clinical Summary ---
Author Organization [facility] Address [address] [place] [address] Care Team Providers Care Backside Grinder Name Role Phone Unknown, Doctor Primary Care [...] 2 - 2-dose childhood series) 05/07/1996 02/13/1996 Alcohol/Substance Use Screening 09/09/2024 Depression Screening and Follow-Up 09/09/2024 01/14/2024 Social Drivers of Health Annual Screening 09/09/2024 COVID-19 Vaccine ( season) 2025 06/03/2023, 04/08/2021, 03/13/2021 Influenza Vaccine (#1) 2025 DTaP,Tdap,and Td Vaccines (7 - Td [...] this topic Insurance [address] [place] [id number] [id number] MEDICAID Care Teams Backside Grinder Relationship Specialty Start Date End Date Unknown, Doctor Unknown Unknown, PAUL PCP - General 01/13/24
--- OUTSIDE RECORDS SUMMARY | 2025-07-03 11:38 | XMS_ITS | Encounter Summary ---
Author Organization [employer] Address [address] [facility] 7 [place] [address] Care Team Providers Care Lemon Grower Name Role Phone Joe Maya MD Primary Care Provider [phone]- [phone] Encounter Details Date Type Department Care Team ([facility] st Contact Info) Description 01/09/2023 Orders Only [facility] MED & PEDS [address] [place], [place] [phone] Joe Maya MD [address] [place], [place] [phone] Thoracic spine pain (Primary Dx) Social History Tobacco Use Types Packs/Day Years Used Date Smoking Tobacco: Former Cigarettes 0.5 12 2019 Smokeless Tobacco: Never Comments Unknown Sex [...] 8 AM EDT 01/09/2023 1:40 PM EDT [facility] - 01/12/2023 12:22 PM EDT ----- ------- Name: Megan Mancini Age/Sex: 32/F : 1990 Unit#: [id number] Attend Dr: Laurent Kasper MD Re01/09/23 Status: [facility] Location: [facility] Disch: ----- ------- SPEC : [id number] RECD: 01/09/23 STATUS: VERONICA HAIR NUM: [id number] ANG: 01/09/23-1158 [facility] DR: Laurent Kasper MD ENTERED: 01/09/23646 SP TYPE: Surgical OTHR DR: Joe Maya MD ORDERED: Gross Micro L3 Diagnosis Gallbladder, cholecystectomy: 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 Clinical History Pre-Op Dx: Cholelithiasis Post-Op Dx: Cholelithiasis, umbilical hernia Microscopic Description Microscopic sections reviewed. Material Received Gallbladder Gross Description Received in formalin labeled gallbladder is a 6.5 x 2.5 x 1.5 cm smooth and shaggy, josé- pink and pink-purple gallbladder resected in continuity with 0.3 cm of patent cystic duct. Upon opening the gallbladder contains scant yellow-green bile and a 0.1 cm in greatest dimension friable green cholelith. The mucosa is finely reticulated, velvety, josé-pink and orange-maroon with multiple diffuse, opaque, white-yellow superficial mucosal flecks giving the mucosa a strawberry appearance. On sectioning the wall measures up to 0.15 cm in thickness and is edematous and fibrous josé-pink. Signs And Displays Salesperson sections are submitted in a single cassette labeled A1 to include the margin of resection of the cystic duct. CEDS Copies To: Joe Maya MD [address] [place] [address] [phone] Laurent Kasper MD [address] [place] [address], 3rd Floor [place], [place] [phone] [email or web address] CONTINUED ON NEXT PAGE ----- ------- Name: Megan Mancini Age/Sex: 32/F : 1990 Unit#: [id number] Attend Dr: Laurent Kasper MD Re01/09/23 Status: [facility] Location: [facility] Disch: ----- ------- SPEC : [id number] RECD: 01/09/23341 STATUS: VERONICA HAIR NUM: [id number] ANG: 01/09/23-[address]: Laurent Kasper MD ENTERED: 01/09/23-1353 SP TYPE: Surgical OTHR DR: Joe Maya MD ORDERED: Akash Villalobos L3 ----- ------- Signed (signature on file) Chanda Le Roy 01/12/23 1222 ----- ------- END OF REPORT [facility] External Provider LAB [facility] ORDERABLES Final Result [facility] [address] [place] [address] [phone] documented in this encounter Visit Diagnoses Diagnosis Thoracic spine pain- Primary Pain in thoracic spine documented in this encounter Care Teams Lemon Grower Relationship Specialty Start Date End Date Joe Maya MD [address] [place] [phone] PCP - General Internal Medicine 11/01/17 documented as of this encounter
--- OUTSIDE RECORDS SUMMARY | 2025-07-03 11:38 | XMS_ITS | Encounter Summary ---
Author Organization [employer] Address [address] [facility] 7 [place] [address] Care Team Providers Care Concrete Engineer Name Role Phone Joe Maya MD Primary Care Provider Reason for Visit * Reason Onset Date Comments Results 05/24/2023 Encounter Details Date Type Department Care Team ([facility] st Contact Info) Description 05/24/2023 Telephone [facility] MED & PEDS [address] [place], [place] [phone] Joe Maya MD [address] [place], [place] [phone] Results Social History Tobacco Use Types Packs/Day [...] on Ultrasound ordered. RN provided pt with [facility] Ultrasound number to attempt to contact them [...] in regards to recent labs done at [facility]. Please contact pt at [phone] * Telephone Encounter - Rashida Hill - 05/24/2023 3:20 PM EDT Tc from pt requesting a call in regards to recent labs done at [facility]. Please contact pt at [phone] documented in this encounter Plan of Treatment Not on file documented as of this encounter Visit Diagnoses Not on filedocumented in this encounter Care Teams Concrete Engineer Relationship Specialty Start Date End Date Joe Maya MD [address] [place] [phone] PCP - General Internal Medicine 11/01/17 documented as of this encounter
--- OUTSIDE RECORDS SUMMARY | 2025-07-03 11:38 | XMS_ITS | Encounter Summary ---
Author Organization [employer] Address [address] [facility] 7 [place] [address] Care Team Providers Care Oracle Technical Developer Name Role Phone Joe Maya MD Primary Care Provider [phone]- [phone] Reason for Visit * Reason Onset Date Comments call back 12/12/2022 Encounter Details Date Type Department Care Team ([facility] st Contact Info) Description 12/12/2022 Telephone [facility] MEDIC[facility] [address] [place] [address] Joe Maya MD [address] [facility] [address] [place], [place] [phone] call back Social History Tobacco Use Types [...] returning nurses call. Please contact pt at [phone] documented in this encounter Plan of Treatment Not on file documented as of this encounter Visit Diagnoses Not on filedocumented in this encounter Care Teams Oracle Technical Developer Relationship Specialty Start Date End Date Joe Maya MD [address] [place] [phone] PCP - General Internal Medicine 11/01/17 documented as of this encounter
--- OUTSIDE RECORDS SUMMARY | 2025-07-03 11:38 | XMS_ITS | Encounter Summary ---
Author Organization [employer] Address [address] [facility] [place] [address] Care Team Providers Care Rawhide Trimmer Name Role Phone Joe Maya MD Primary Care Provider +1- [phone] Encounter Details Date Type Department Care Team ([facility] Contact Info) Description 02/27/2023 Orders Only [facility] MED & PEDS [address] [place], [place] [phone] Niki Wood MD [address] [place], [place] [phone] Anal or rectal pain (Primary Dx); Recurrent biliary colic Social History Tobacco Use Types Packs/Day Years Used Date Smoking Tobacco: Former Cigarettes 0.5 12 2 - 2019 Smokeless Tobacco: Never Comments Unknown Sex [...] obstruction documented in this encounter Care Teams Rawhide Trimmer Relationship Specialty Start Date End Date Joe Maya MD [address] [place] [phone] PCP - General Internal Medicine 11/01/17 documented as of this encounter
--- OUTSIDE RECORDS SUMMARY | 2025-07-03 11:38 | XMS_ITS | Clinical Summary ---
Author Organization [facility] Address [address] [place] [phone] Phone Care Team Providers Care Strainer Mill Operator Name Role Phone Abisai Oconnor MD Primary Care Provider [phone]- [phone] Allergies Active Allergy Reactions Criticality Noted Date Comments Fluoxetine Rash Low 08/03/2019 Lamotrigine Rash Low 11/01/2017 Omeprazole Pain 06/28/2025 Penicillins Anaphylaxis,Hives,Ra sh,O ther,Shortness of breath,Swelling,Unknown High 11/14/2005 PCN PCN Other Reaction(s): Throat Tightness PCN Medications pantoprazole (PROTONIX) 40 mg EC tabletIndicatio ns:Gastric ulcer, unspecified chronicity, unspecified whether gastric ulcer hemorrhage or perforation present Take 1 tablet (40 mg total) by mouth 1 (one) time each day before breakfast. Do not crush, chew, or split. 90 each 5 026 Active sucralfate (CARAFATE) 100 mg/mL suspension Take 10 mL (1 g total) by mouth 4 (four) times a day (before meals and nightly) for 10 days. 400 mL 5 025 Active omeprazole (PriLOSEC) [address] capsuleIndicati ons:Gastroesoph ageal reflux disease, unspecified whether esophagitis present Take 1 capsule (40 mg total) by mouth 1 (one) time each day. Do not crush or chew. 30 each 5 025 pantoprazole (PROTONIX) 40 mg EC tabletIndicatio ns:Gastric ulcer, unspecified chronicity, unspecified whether gastric ulcer hemorrhage or perforation present Take 1 tablet (40 mg total) by mouth 1 (one) time each day before breakfast. Do not crush, chew, or split. 90 each 3 5 025 Discontinued sucralfate (CARAFATE) 100 mg/mL suspension Take 10 mL (1 g total) by mouth 4 (four) times a day (before meals and nightly) for 10 days. 400 mL 5 025 Discontinued Active Problems No known active problems Encounters Date Type Department Care Team Description 06/28/2025 7:20 PM EDT - 06/29/2025 12:01 AM EDT Emergency [facility] Emergency [address] [place] [address] Tino Forbes MD Gastric ulcer, unspecified chronicity, unspecified whether gastric ulcer hemorrhage or perforation present (Primary Dx) Discharge Disposition: Home or Self Care 05/06/2025 10:12 PM EDT - 05/06/2025 10:34 PM EDT Emergency [facility] Emergency [address] [place] [address] Gastroesophageal reflux disease, unspecified whether esophagitis present (Primary Dx) Discharge Disposition: Home or Self Care from Last 3 Months Medical History Medical History Date Comments Streptococcal sore throat 4-03m, 2-06 DX:Str eptococcal sore throat Wheezing 3-03, 2-05 DX:Wheezing Headache(784.0) DX:Headache(784. 0); COMMENT: triggers: chocolate, pickles, Historical Medical DX 2004, 10-15 DX:Other b ehavioral problems; COMMENT: cutting [...] Sexual Orientation Not on file Obstetrics History Last Filed Vital Signs Vital Sign Reading [...] Mass Index 38.27 06/28/2025 2:55 PM EDT Plan of Treatment Health Maintenance Due Date Last Done Comments Hepatitis A Vaccines (1 of 2 - Risk 2-dose series) 2010 Pneumococcal Vaccine: Pediatrics (0 to 5 Years) and At-Risk Patients (6 to 49 Years) (1 of 2 - PCV) 2010 Cervical Cancer Screening: Pap Smear 2012 HPV Vaccines (1 - 3-dose SCDM series) 2018 Cholesterol Screening (Lipid Panel) 10/08/2023 HIV Screening 10/08/2023 Hepatitis C Screening 10/08/2023 Social Influencers of Health Screening 10/08/2023 Depression Screening 09/09/2024 COVID-19 Vaccine ( season) 2025 06/03/2023, 04/08/2021, 03/13/2021 Influenza Vaccine (#1) 2025 DTaP,Tdap,and Td Vaccines (8 - Td or Tdap) 07/20/2032 07/20/2022, 01/28/2017, 08/10/2004, Additional history exists RSV Immunization Adult Patients (1 - 1-dose 75+ series) 2066 Varicella Vaccines Aged Out 02/13/1996 No longer [...] URINE DIAGNOSTIC STAT 06/28/2025 4:08 PM EDT [facility] URINE CULTURE TUBE STAT 06/28/2025 3:52 PM EDT URINALYSIS WITH REFLEX MICROSCOPIC AND CULTURE STAT 06/28/2025 3:52 PM EDT URINALYSIS WITH REFLEX MICROSCOPIC AND CULTURE STAT 06/28/2025 3:52 PM EDT CBC WITH AUTO DIFFERENTIAL STAT 06/28/2025 3:50 PM EDT LIPASE STAT 06/28/2025 3:50 PM EDT COMPREHENSIVE METABOLIC PANEL STAT 06/28/2025 3:50 PM EDT CBC AND DIFFERENTIAL STAT 06/28/2025 3:50 PM EDT CBC WITH AUTO DIFFERENTIAL STAT 05/06/2025 8:50 PM EDT LIPASE STAT 05/06/2025 8:50 PM EDT MAGNESIUM STAT 05/06/2025 8:50 PM EDT CBC AND DIFFERENTIAL STAT 05/06/2025 8:50 PM EDT COMPREHENSIVE METABOLIC PANEL STAT 05/06/2025 8:50 PM EDT LACTATE STAT 05/06/2025 8:50 PM EDT [facility] URINE CULTURE TUBE Routine 05/06/2025 8:47 PM EDT EXTRA TUBES Routine 05/06/2025 8:47 PM EDT URINALYSIS WITH REFLEX MICROSCOPIC STAT 05/06/2025 8:47 PM EDT URINALYSIS WITH REFLEX MICROSCOPIC STAT 05/06/2025 8:47 PM EDT POC , URINE DIAGNOSTIC STAT 05/06/2025 8:22 PM EDT from Last 3 Months Results * CT Abdomen Pelvis wo Contrast [...] urine manually resulted (06/28/2025 4:08 PM EDT) Only the most recent of2 resultswithin the time period is included. Pathologist [facility] HCG, Ur POC Negative Negative POC hCG Int QC Pass? Yes Yes Urine Urine specimen obtained by clean catch procedure / Unknown 06/28/2025 4:08 PM EDT Bettie Gomez MD POINT OF CARE TEST ENTER/EDIT OR DERABLES Final Result * (ABNORMAL) Urinalysis with reflex microscopic and culture (06/28/2025 3:52 PM EDT) Pathologist [facility] Specific [place] Urine 1.033(H) 1.003 - 1.030 LAB URINALYSIS - AUTOMATED METHOD 06/28/2025 4:28 PM [facility] pH, Urine 6.0 5.0 - 8.0 pH LAB URINALYSIS - AUTOMATED METHOD 06/28/2025 4:28 PM [facility] Leukocytes, Urine Negative Negative LAB URINALYSIS - AUTOMATED METHOD 06/28/2025 4:28 PM [facility] Nitrite, Urine Negative Negative LAB URINALYSIS - AUTOMATED METHOD 06/28/2025 4:28 PM [facility] Protein, Urine Trace <=Trace mg/dL LAB URINALYSIS - AUTOMATED METHOD 06/28/2025 4:28 PM [facility] Glucose, Urine Negative Negative mg/dL LAB URINALYSIS - AUTOMATED METHOD 06/28/2025 4:28 PM [facility] Ketones, Urine Trace(A) Negative mg/dL LAB URINALYSIS - AUTOMATED METHOD 06/28/2025 4:28 PM [facility] Urobilinogen, Urine 1.0 0.2 - 1.0 mg/dL LAB URINALYSIS - AUTOMATED METHOD 06/28/2025 4:28 PM [facility] Bilirubin, Urine Small(A) Negative LAB URINALYSIS - AUTOMATED METHOD 06/28/2025 4:28 PM [facility] Blood, Urine Negative Negative LAB URINALYSIS - AUTOMATED METHOD 06/28/2025 4:28 PM [facility] Urine Urine specimen obtained by clean catch procedure / Unknown Non-blood Collection / Unknown 06/28/2025 3:52 PM EDT 06/28/2025 4:16 PM EDT us Alicia REES LAB URINE ORDERABLES Fin al Result [facility] [address] [place] [address], * [facility] urine culture tube (06/28/2025 3:52 PM EDT) Only the most recent of2 resultswithin the time period is included. [facility] Extra Tube Hold for add-ons. 06/28/2025 6:[address] [facility] Comment:Auto resulted. Urine Urine specimen obtained by clean catch procedure / Unknown Non-blood Collection / Unknown 06/28/2025 3:52 PM EDT 06/28/2025 4:16 PM EDT us Alicia REES LAB URINE ORDERABLES Fin al Result [facility] [address] [place] [address], [place] [phone] * (ABNORMAL) CBC auto differential (06/28/2025 3:50 PM EDT) Only the most recent of2 resultswithin the time period is included. [facility] WBC 11.1(H) 4.8 - 10.8 K/mcL LAB HEMETOLOGY METHOD 06/28/2025 4:[address] [facility] RBC 4.20 3.80 - 4.80 M/mcL LAB HEMETOLOGY METHOD 06/28/2025 4:[address] [facility] Hemoglobin 12.0 11.5 - 16.0 g/dL LAB HEMETOLOGY METHOD 06/28/2025 4:[address] [facility] Hematocrit 38.0 35.0 - 47.0 % LAB HEMETOLOGY METHOD 06/28/2025 4:[address] [facility] MCV 89.6 79.0 - 98.0 FL LAB HEMETOLOGY METHOD 06/28/2025 4:[address] [facility] MCH 28.3 27.0 - 32.0 pcg LAB HEMETOLOGY METHOD 06/28/2025 4:[address] [facility] MCHC 31.6(L) 32.0 - 37.0 g/dL LAB HEMETOLOGY METHOD 06/28/2025 4:[address] [facility] RDW 13.3 11.0 - 15.0 % LAB HEMETOLOGY METHOD 06/28/2025 4:[address] [facility] Platelets 352 130 - 400 K/mcL LAB HEMETOLOGY METHOD 06/28/2025 4:[address] [facility] MPV 8.9 7.0 - 11.0 FL LAB HEMETOLOGY METHOD 06/28/2025 4:[address] [facility] NRBC 0.0 <1.0 % LAB HEMETOLOGY METHOD 06/28/2025 4:[address] [facility] NRBC Absolute 0.00 <0.10 K/mcL LAB HEMETOLOGY METHOD 06/28/2025 4:[address] [facility] Neutrophils Relative 68.0 % LAB HEMETOLOGY METHOD 06/28/2025 4:[address] [facility] Lymphocytes Relative 22.9 % LAB HEMETOLOGY METHOD 06/28/2025 4:25 PM [facility] Monocytes Relative 7.0 % LAB HEMETOLOGY METHOD 06/28/2025 4:[address] [facility] Eosinophils Relative 1.2 % LAB HEMETOLOGY METHOD 06/28/2025 4:[address] [facility] Basophils Relative 0.5 % LAB HEMETOLOGY METHOD 06/28/2025 4:[address] [facility] Immature Granulocytes Relative 0.4 % LAB HEMETOLOGY METHOD 06/28/2025 4:25 PM [facility] Neutrophils Absolute 7.52(H) 1.50 - 7.00 K/mcL LAB HEMETOLOGY METHOD 06/28/2025 4:[address] [facility] Lymphocytes Absolute 2.53 1.00 - 5.00 K/mcL LAB HEMETOLOGY METHOD 06/28/2025 4:[address] [facility] Monocytes Absolute 0.77 0.20 - 1.00 K/mcL LAB HEMETOLOGY METHOD 06/28/2025 4:[address] [facility] Eosinophils Absolute 0.13 0.00 - 0.50 K/mcL LAB HEMETOLOGY METHOD 06/28/2025 4:[address] [facility] Basophils Absolute 0.06 0.00 - 0.20 K/mcL LAB HEMETOLOGY METHOD 06/28/2025 4:[address] [facility] Immature Granulocytes Absolute 0.04(H) 0.00 - 0.03 K/[facility] LAB HEMETOLOGY METHOD 06/28/2025 4:[address] [facility] Blood Venous blood specimen / Unknown Venipuncture / Unknown 06/28/2025 3:50 PM EDT 06/28/2025 4:12 PM EDT Alicia REES LAB BLOOD ORDERABLES Fin al Result Performing Organization Address [facility]/State/ZIP Co de Phone Number [facility] [address] [place] [address], [place] [phone] * Lipase (06/28/2025 3:50 PM EDT) Only the most recent of2 resultswithin the time period is included. Lipase 22 13 - 75 unit/L LAB CHEMISTRY METHOD 06/28/2025 5:[address] [facility] Blood Venous blood specimen / Unknown Venipuncture / Unknown 06/28/2025 3:50 PM EDT 06/28/2025 4:11 PM EDT Alicia REES LAB BLOOD ORDERABLES Fin al Result [facility] [address] [place] [address], * Comprehensive metabolic panel (06/28/2025 3:50 PM EDT) Only the most recent of2 resultswithin the time period is included. Sodium 137 133 - 145 mmol/L LAB CHEMISTRY METHOD 06/28/2025 5:08 PM [facility] Potassium 3.9 3.5 - 5.5 mmol/L LAB CHEMISTRY METHOD 06/28/2025 5:08 PM [facility] Chloride 103 96 - 110 mmol/L LAB CHEMISTRY METHOD 06/28/2025 5:08 PM [facility] CO2 30 21 - 32 mmol/L LAB CHEMISTRY METHOD 06/28/2025 5:08 PM [facility] Anion Gap 4 3 - 11 LAB CHEMISTRY METHOD 06/28/2025 5:08 PM [facility] Glucose 75 70 - 100 mg/dL LAB CHEMISTRY METHOD 06/28/2025 5:08 PM [facility] BUN 10 5 - 25 mg/dL LAB CHEMISTRY METHOD 06/28/2025 5:08 PM [facility] Creatinine 0.98 0.50 - 1.10 mg/dL LAB CHEMISTRY METHOD 06/28/2025 5:08 PM [facility] eGFR 78 >=60 mL/min/1. 73m2 LAB CHEMISTRY METHOD 06/28/2025 5:08 PM [facility] Comment:Calculation based on the Chronic Kidney Disease Epidemiology Collaboration (CKD-EPI) equation refit without adjustment for race. BUN/Creatinine Ratio 10.2 LAB CHEMISTRY METHOD 06/28/2025 5:08 PM [facility] Calcium 8.9 8.5 - 10.5 mg/dL LAB CHEMISTRY METHOD 06/28/2025 5:[address] [facility] AST (SGOT) 11 10 - 42 unit/L LAB CHEMISTRY METHOD 06/28/2025 5:[address] [facility] ALT (SGPT) 25 10 - 60 unit/L LAB CHEMISTRY METHOD 06/28/2025 5:[address] [facility] Alkaline Phosphatase 112 42 - 121 unit/L LAB CHEMISTRY METHOD 06/28/2025 5:[address] [facility] Total Protein 7.1 6.0 - 8.0 g/dL LAB CHEMISTRY METHOD 06/28/2025 5:[address] [facility] Albumin 3.6 3.2 - 5.0 g/dL LAB CHEMISTRY METHOD 06/28/2025 5:[address] [facility] Total Bilirubin 0.2 0.0 - 1.4 mg/dL LAB CHEMISTRY METHOD 06/28/2025 5:[address] [facility] Blood Venous blood specimen / Unknown Venipuncture / Unknown 06/28/2025 3:50 PM EDT 06/28/2025 4:11 PM EDT Alicia REES LAB BLOOD ORDERABLES Fin al Result Performing Organization Address [facility]/ZIP Co de Phone Number [facility] [address] [place] [address], * Magnesium (05/06/2025 8:50 PM EDT) Magnesium 2.2 1.9 - 2.6 mg/dL LAB CHEMISTRY METHOD 05/06/2025 9:[address] [facility] Blood Venous blood specimen / Unknown Venipuncture / Unknown 05/06/2025 8:50 PM EDT 05/06/2025 8:57 PM EDT Starla REES LAB BLOOD ORDERABLES Fin al Result [facility] [address] [place] [address], [place] [phone] * Lactate (05/06/2025 8:50 PM EDT) [facility] Lactate 0.8 0.4 - 2.0 mmol/L LAB CHEMISTRY METHOD 05/06/2025 9:[address] [facility] Blood Venous blood specimen / Unknown Venipuncture / Unknown 05/06/2025 8:50 PM EDT 05/06/2025 8:56 PM EDT Starla REES LAB BLOOD ORDERABLES Fin al Result Performing Organization Address [facility]/ZIP Co de Phone Number [facility] [address] [place] [address], [place] [phone] * (ABNORMAL) Urinalysis with reflex microscopic (05/06/2025 8:47 PM EDT) [facility] Specific [place] Urine 1.016 1.003 - 1.030 LAB URINALYSIS - AUTOMATED METHOD 05/06/2025 9:22 PM [facility] pH, Urine 7.0 5.0 - 8.0 pH LAB URINALYSIS - AUTOMATED METHOD 05/06/2025 9:22 PM [facility] Leukocytes, Urine Negative Negative LAB URINALYSIS - AUTOMATED METHOD 05/06/2025 9:[address] [facility] Nitrite, Urine Negative Negative LAB URINALYSIS - AUTOMATED METHOD 05/06/2025 9:22 PM [facility] Protein, Urine Trace <=Trace mg/dL LAB URINALYSIS - AUTOMATED METHOD 05/06/2025 9:22 PM [facility] Glucose, Urine Negative Negative mg/dL LAB URINALYSIS - AUTOMATED METHOD 05/06/2025 9:22 PM [facility] Ketones, Urine Negative Negative mg/dL LAB URINALYSIS - AUTOMATED METHOD 05/06/2025 9:[address] [facility] Urobilinogen, Urine 1.0 0.2 - 1.0 mg/dL LAB URINALYSIS - AUTOMATED METHOD 05/06/2025 9:22 PM [facility] Bilirubin, Urine Negative Negative LAB URINALYSIS - AUTOMATED METHOD 05/06/2025 9:22 PM [facility] Blood, Urine Small(A) Negative LAB URINALYSIS - AUTOMATED METHOD 05/06/2025 9:22 PM [facility] RBC, Urine 1.2 0 - 4 /HPF LAB URINALYSIS - AUTOMATED METHOD 05/06/2025 9:22 PM [facility] WBC, Urine 0.5 0 - 4 /HPF LAB URINALYSIS - AUTOMATED METHOD 05/06/2025 9:22 PM [facility] Squamous Epithelial, Urine 10 0 - 60 /LPF LAB URINALYSIS - AUTOMATED METHOD 05/06/2025 9:22 PM [facility] Bacteria, Urine Negative Negative /HPF LAB URINALYSIS - AUTOMATED METHOD 05/06/2025 9:22 PM [facility] Hyaline Casts, Urine 0.0 0 - 3 /LPF LAB URINALYSIS - AUTOMATED METHOD 05/06/2025 9:22 PM [facility] Urine Urine specimen obtained by clean catch procedure / Unknown Non-blood Collection / Unknown 05/06/2025 8:47 PM EDT 05/06/2025 8:56 PM EDT us Starla REES LAB URINE ORDERABLES Fin al Result [facility] [address] [place] [address], [place] [phone] from Last 3 Months Insurance [facility] Care Teams Strainer Mill Operator Relationship Specialty Start Date End Date Abisai Oconnor MD [address] [place] [phone] PCP - General Family Medicine 06/29/25
--- OUTSIDE RECORDS SUMMARY | 2025-07-03 11:38 | XMS_ITS | Clinical Summary ---
Author Organization [facility] Address [address] [place] [phone] Phone Care Team Providers Care Research Spec Name Role Phone Pcp, Unknown Primary Care Provider Unavailabl e Allergies Active Allergy Reactions Criticality Noted Date Comments Amoxicillin Throat Tightness Medium 08/28/2011 Drospirenone-Ethinyl Estradiol 08/31/2022 Fluoxetine Rash Low 08/03/2019 Lamotrigine 11/01/2017 Escitalopram Oxalate Other (See Comments) 09/06 Increased suicidal ideation Penicillin Unknown 08/28/2011 PCN Sertraline Unknown 08/03/2019 Medications * This document contains information received from the source organization and may not represent a complete record from that organization. buPROPion (WELLBUTRIN XL) 300 MG ER 24 hr tablet Take 1 tablet (300 mg total) by mouth every morning. 30 tablet 4 Active dextroamphetamine-a mphetamine (ADDERALL XR) 20 MG 24 hr capsule Take 2 capsules (40 mg total) by mouth every morning. 60 capsule 4 Active dextroamphetamine-a mphetamine (ADDERALL) 30 mg Tab tablet Take 1 tablet (30 mg total) by mouth Every Afternoon. 30 tablet 4 Active norethindrone (MICRONOR) 0.35 mg tablet Take 1 tablet (0.35 mg total) by mouth daily. 30 tablet 4 Active traZODone (DESYREL) 100 MG tablet Take 1 tablet (100 mg total) by mouth nightly at bedtime. 30 tablet 4 Active aluminum-magnesium hydroxide-simethico ne (MAALOX) 200-200-20 mg/5 mL Susp Take 30 mL by mouth every 6 (six) hours as needed (digestive symptoms). 354 mL 4 Active chlorproMAZINE (THORAZINE) 50 MG tablet Take 1 tablet (50 mg total) by mouth 2 (two) times a day as needed (agitation). 60 tablet 4 Active ibuprofen (ADVIL,MOTRIN) 600 MG tablet Take 1 tablet (600 mg total) by mouth 2 (two) times a day as needed (musculoskel etal pain). 60 tablet 4 Active lurasidone (LATUDA) 60 mg tablet Take 1 tablet (60 mg total) by mouth daily with dinner. 30 tablet 4 Active clonazePAM (KLONOPIN) 2 MG disintegrating tablet Take 1 tablet (2 mg total) by mouth 2 (two) times a day as needed (severe agitation). 60 tablet 4 Active clonazePAM (KLONOPIN) 1 MG disintegrating tablet Take 1 tablet (1 mg total) by mouth nightly at bedtime. 30 tablet 4 Active nicotine (NICODERM CQ) 21 mg/[address] 1 patch onto the skin daily. 30 patch 4 Active Active Problems Problem Noted Date Diagnosed Date Unspecified mood (affective) disorder 12/06/2023 Post depression 09/06/2023 Borderline personality disorder 09/06/2023 Resolved Problems Problem Noted Date Diagnosed Date Resolved Date Suicidal ideation 12/06/2023 01/13/2024 Depression with suicidal ideation 09/06/2023 09/24/2023 Immunizations Immunization Administration Dates Next Due Influenza Quadrivalent Prese rvative Free IM 09/24/2023(Deferred: Patient Refused) Social History Tobacco Use Types Packs/Day Years Used Date Smoking Tobacco: Every Day Smokeless Tobacco: Never Tobacco Cessation:Ready to Q uit: Not Asked; Counseling Given: Yes Passive Exposure Comments:VAPE Education Answer Date Recorded Are you interested in more education? Not on keenan e 09/05/2023 Are you concerned about learning? Not on file 09/05/2023 No 09/05/2023 No 09/05/2023 Food Answer Date Recorded Within the past 6 months we worried whether our food would run out before we got money to buy more. Sometimes True 024 Within the past 6 months the food we bought just didn't last and we didn't have enough money to get more. Sometimes True 11/08 Residential Stability Answer Date Recor ded What is your housing situation today? I have cindy garcia 12/06/2023 How many times have you move d in the past 12 months? Zero (I did not move) 12/06/2023 Paying for Meds Answer Date Recorded Do you have trouble paying for medicines? Yes 12/06/2023 Paying Utility Bills Answer Date Record ed Do you have trouble paying your heating or elect ricity bill? Yes 12/06/2023 Transportation Answer Date Recorded Has the lack of transportati on kept you from medical appointments or from getting medications? I choose not to answer 12/06/2023 Digital Access Answer Date Recorded No 12/06/2023 Yes 12/06/2023 Do you have reliable internet access at home? Ye s 12/06/2023 Do you have a device (e.g., phone, tablet, computer) with a working camera? Yes 12/06/2023 Intimate Partner Violence Answer Date R ecorded Are you denied basic needs s uch as food, clothing, or medical care? No 12/06/2023 In the past 12 months have y ou been in a relationship with a person who hurts, threatens, or tries to control you? No 12/06/2023 Are you denied basic needs s uch as food, clothing, or medical care? No 12/06/2023 In the past 12 months have y ou been in a relationship with a person who hurts, threatens, or tries to control you? No 12/06/2023 Comments Unknown Sex and Gender Information Value Date Recorded Sex Assigned at Not on file Legal Sex Female 5:10 PM EST Gender Identity Not on file Sexual Orientation Not on file Last Filed Vital Signs Vital Sign Reading Time Taken Comments Blood Pressure 115/69 01/13/2024 7:00 AM EDT Pulse 105 01/13/2024 7:00 AM EDT Temperature 36.6 C (97.8 F) 01/13/2024 7:00 AM EDT Respiratory Rate 18 01/12/2024 4:34 PM EDT Oxygen Saturation 99% 01/13/2024 7:00 AM EDT Inhaled Oxygen Concentration - - Weight 121.1 kg (267 lb) 12/06/2023 9:08 PM EDT Height 165.1 cm (5' 5 ) 12/06/2023 9:08 PM EDT Body Mass Index 44.43 12/06/2023 9:08 PM EDT Plan of Treatment Health Maintenance Due Date Last Done Comments DEPRESSION SCREENING 2003 SMOKING Hx and SMOKELESS TOBACCO SCREENING 2004 HEPATITIS C SCREENING 2009 HIV ONE-TIME SCREENING (18-6 5 YEARS) 2009 PNEUMOCOCCAL VACCINES (0-49 years) (1 of 2 - PCV) 2010 PAP SMEAR 2012 INFLUENZA VACCINE (#1) 2025 COVID-19 VACCINE (4 - 2024-2 6 season) 2025 06/03/2023, 04/08/2021, 03/13/2021 Adult Td,Tdap Booster 07/20/2032 07/20/2022 , 01/28/2017, 08/10/2004 MENINGOCOCCAL VACCINES (ACWY) Completed 03/31/2008 HEPATITIS A VACCINES Aged Out No long er eligible based on patient's age to complete this topic HIB VACCINES Aged Out No longer eligi ble based on patient's age to complete this topic MENINGOCOCCAL VACCINES (B) Aged Out N o longer eligible based on patient's age to complete this topic Medical Devices Not on file Insurance [address] [place] [id number] [facility] [employer] [facility] [employer] [employer] [place] [place] [id number] [employer] [facility] [employer]HER [employer] [facility] [employer] [facility] [employer] [facility] [employer] Advance Directives For more information, please contact: [phone] (9AM - 5PM [facility], Saturday-Saturday) * Full Code (Latest Code Status on File) Date Activated Date Inactivated Comments 09/06/2023 2:28 PM Question Answer Comments Code Status Confirmed With: Patient Care Teams Research Spec Relationship Specialty Start Date End Date Pcp, Unknown PCP - General 09/05/23 Additional Source Comments The information contained in this document represents components of the legal health record. It is not the complete legal health record.[facility]
--- OUTSIDE RECORDS SUMMARY | 2025-07-03 11:39 | XMS_ITS | Encounter Summary ---
Author Organization [employer] Address [address] [facility] [address] [place] [address] Care Team Providers Care Manager Battery Name Role Phone Joe Maya MD Primary Care Provider [phone] Reason for Visit * Reason Onset Date Comments Med Refill 12/10/2022 Encounter Details Date Type Department Care Team (Late st Contact Info) Description 12/10/[address] [facility] MEDICINE [address] [place] [address] Joe Maya MD [address] [facility] [address] [place], [place] [phone] Med Refill Social History Tobacco Use Types [...] send to [facility]. Please contact pt at [phone] documented in this encounter Plan of Treatment Not on file documented as of this encounter Visit Diagnoses Not on filedocumented in this encounter Care Teams Manager Battery Relationship Specialty Start Date End Date Joe Maya MD [address] [place] [id number] PCP - General Internal Medicine 11/01/17 documented as of this encounter
--- OUTSIDE RECORDS SUMMARY | 2025-07-03 11:39 | XMS_ITS | Encounter Summary ---
Author Organization [employer] Address [address] [facility] [address] [place] [address] Care Team Providers Care In Service Coordinator Name Role Phone Joe Maya MD Primary Care Provider [phone] Encounter Details Date Type Department Care Team ([facility] st Contact Info) Description 12/21/2022 Orders Only [facility] MED & PEDS [address] [place], [place] [phone] Joe Maya MD [address] [place] [address] Edema of lower extremity (Primary Dx) Social [...] Primary documented in this encounter Care Teams In Service Coordinator Relationship Specialty Start Date End Date Joe Maya MD [address] [place] [address] PCP - General Internal Medicine 11/01/17 documented as of this encounter
== END 2025-07-03 11:48 | disposition home or self-care (01) ==
PROVIDERS: Emergency Provider Emergency Medicine Emergency Medical Services
DX: F41.8 Other specified anxiety disorders (principal); F60.3 Borderline personality disorder; F44.9 Dissociative and conversion disorder, unspecified; K21.9 Gastro-esophageal reflux disease without esophagitis; Z87.442 Personal history of urinary calculi; Z87.891 Personal history of nicotine dependence; Z79.899 Other long term (current) drug therapy; Z76.0 Encounter for issue of repeat prescription
CPT/HCPCS: 99281; 99282